=== PATIENT | female | born 1945 | race Caucasian/White ===

== ENCOUNTER 2018-02-03 17:56 | Observation (INO) | payer OTHER ==
[2018-02-03] MEDS ORDERED: ALBUTEROL 2.5 MG/3 ML NEB SOL ONE (18:18)
[2018-02-03] MEDS ORDERED: METHYLPREDNISOLONE 125 MG INJ ONE (18:18)
[2018-02-03] MEDS ORDERED: IPRATROPIUM BROM 0.5MG/2.5ML ONE (18:18)
[2018-02-03] MEDS ORDERED: NA CHLORIDE 0.9% 1,000 ML ONE (18:19)
[2018-02-03] MEDS ORDERED: PIPER/TAZO/NS 3.375gm 3.375 GM/100 ML BAG ONE (18:19)
[2018-02-03 18:33] LABS: Absolute Lymphocytes (CBC) 0.5 K/uL (0.7-4.9); Absolute Monocytes 1.5 K/uL (0.1-1.3); Basophils % 0.3 % (0-1.3); Eosinophils % 0.2 % (0-4.4); Hematocrit 42.9 % (36.0-45.0); Lymphocytes % 3.5 % (15.3-44.8); MCH 30.4 pg (27.0-35.0); MCV 92.9 fL (80-100); MPV 8.9 fL (7.6-11.3); Monocytes % 9.8 % (3.3-12.3); RBC Red Blood Cell Count 4.62 M/uL (3.86-4.86)
[2018-02-03 18:44] LABS: Protime INR 1.12
[2018-02-03 18:53] LABS: Albumin 3.6 g/dL (3.2-5.5); Bilirubin Direct 0.2 mg/dL (0-0.2); Bilirubin Total 1.8 mg/dL (0.3-1.2); Magnesium 1.8 mg/dL (1.8-2.5); Protein, Total 6.7 g/dL (6.0-8.3); Valproic Acid (Depakene) Level 17.5 ug/ml (50-100)
[2018-02-03 18:55] LABS: CKMB Creatine Kinase MB 9.6 ng/ml (0.3-4.0)
--- NOTE | 2018-02-03 19:06 | RAD REPORT ---
EXAM DESCRIPTION: RAD - Chest Single View - 02/03/2018 6:54 pm CLINICAL HISTORY: COUGH Chest pain. COMPARISON: Chest Single View dated 06/04/2017; Chest Single View dated 06/02/2017Chest Single View dated 06/04/2017; Chest Single View dated 06/02/2017; Thorax Wo Con dated 06/02/2017 FINDINGS: Portable technique limits examination quality. Emphysematous lung jurado are noted without acute infiltrate detected. The heart is normal in size. N o displaced fractures. IMPRESSION: COPD.
[2018-02-03 19:24] LABS: Thyroid Stimulating Hormone 1.56 uIU/mL (0.34-5.60)
[2018-02-03] MEDS ORDERED: ASPIRIN 81 MG CHEWABLE TABLET ONE (19:26)
[2018-02-03 19:27] LABS: Potassium 4.4 mEq/L (3.6-5.0)
[2018-02-03] MEDS ORDERED: VALPROATE NA 500 MG/5 ML INJ IV ONE (19:27)
[2018-02-03] MEDS ORDERED: LEVALBUTEROL 1.25 MG/3 ML NEB ONE (19:27)
[2018-02-03] MEDS ORDERED: FAMOTIDINE 20 MG/2 ML VIAL IV ONE (19:27)
[2018-02-03] MEDS ORDERED: ENOXAPARIN 80 MG/0.8 ML SQ ONE (19:27)
[2018-02-03] MEDS ORDERED: NA CHLORIDE 0.9% 50 ML IV ONE (19:33)
--- NOTE | 2018-02-03 19:37 | RAD REPORT ---
EXAM DESCRIPTION: CT - Head Brain Wo Cont - 02/03/2018 7:27 pm CLINICAL HISTORY: MENTAL STATUS CHANGE Drowsiness. COMPARISON: No comparisons TECHNIQUE: All CT scans are performed using dose optimization technique as appropriate and may inclu de automated exposure control or mA/KV adjustment according to patient size. FINDINGS: No intracranial hemorrhage, hydrocephalus or extra-axial fluid collection.Moderate predomi nant frontal lobe atrophy is noted.No areas of brain edema or evidence of midline shift. Moderate polypoid mucosal thickening of the right maxillary antrum. The paranasal sinuses and mastoid s are otherwise clear. The calvarium is intact. IMPRESSION: No acute intracranial abnormality.
[2018-02-03 19:40] LABS: Blood Morphology Comment NOT SEEN (NOT SEEN); Platelet Estimate ADEQ; Urine White Blood Cell Casts DIFF
--- NOTE | 2018-02-03 19:48 | EDPHYS ---
Physician Documentation [facility] Name: Elizabeth Falcon Age: 72 yrs Sex: Female : 1945 Arrival Date: 02/03/2018 Time: 17:58 Bed 7 Private MD: ED Physician Almas Carcamo HPI: 02/03 18:12 This 72 yrs old Female presents to ER via EMS with complaints of ams and sob. emilie 18:12 The patient has shortness of breath at rest, with light activity. Onset: The emilie symptoms/episode began/occurred 1 day(s) ago. Duration: The symptoms are continuous, and are steadily getting worse. The patient's shortness of breath has no apparent modifying factors. The patient or guardian reports cough, that is constant, difficulty breathing. Modifying factors: The symptoms are alleviated by nothing. the symptoms are aggravated by nothing. Associated signs and symptoms: Pertinent positives: productive cough, nausea. Severity of symptoms: At their worst the symptoms were mild moderate in the emergency department the symptoms are unchanged. Associated signs and symptoms: Pertinent positives: nausea, rhinorrhea. Historical: - Allergies: 18:18 Haldol; jl7 18:18 PENICILLINS; jl7 - Home Meds: 18:18 aspirin 81 mg Oral chew 1 tab once daily [Active]; Brovana 15 mcg/2 mL inhalation nebu jl7 [Active]; Vitamin D3 1,000 unit Oral cap daily [Active]; Depakote ER 250 mg Oral Tb24 once daily [Active]; diltiazem HCl 240 mg Oral cpER once daily [Active]; docusate sodium 100 mg Oral tab once daily [Active]; Flonase 50 mcg/actuation Nasal spsn 2 sprays once daily [Active]; folic acid 1 mg Oral tab once daily [Active]; Fosamax 70 mg Oral tab 1 tab once wkly [Active]; ipratropium-albuterol 0.5 mg-3 mg(2.5 mg base)/3 mL Inhl nebu [Active]; levothyroxine 25 mcg tab 1 tab once daily [Active]; atorvastatin 40 mg oral tab 1 tab once daily [Active]; Liquitears 1.4 % Opht drop [Active]; melatonin 3 mg Oral tab daily for sleep disorder [Active]; Pepcid 20 mg Oral tab once daily [Active]; prednisone 10 mg Oral tab once daily [Active]; PreserVision AREDS Oral [Active]; Probiotic Oral daily [Active]; Seroquel 300 mg Oral tab once daily [Active]; Singulair 10 mg Oral tab once daily [Active]; Spiriva with HandiHaler 18 mcg inhalation CpDv 1 cap once daily [Active]; Tylenol-Codeine #4 300-60 mg Oral tab [Active]; Ultracet 37.5-325 mg Oral tab twice a day [Active]; - PMHx: 18:18 COPD; MATIAS knees osteoarthritis; Hyperlipidemia; Necrotizing ulcerative stomatitis; jl7 Hypothyroidism; Bipolar disorder; Hypertension; GERD; Alzheimers; DYSPHAGIA; - Immunization history:: Adult Immunizations up to date. - Social history:: Smoking status: unknown. - Family history:: not pertinent. - Ebola Screening: : No symptoms or risks identified at this time. ROS: 18:12 Constitutional: Negative for fever, chills, and weight loss, Eyes: Negative for injury, emilie pain, redness, and discharge, Neck: Negative for injury, pain, and swelling, Cardiovascular: Negative for chest pain, palpitations, and edema, Abdomen/GI: Negative for abdominal pain, nausea, vomiting, diarrhea, and constipation, Back: Negative for injury and pain, : Negative for injury, bleeding, discharge, and swelling, MS/Extremity: Negative for injury and deformity, Skin: Negative for injury, rash, and discoloration, Neuro: Negative for headache, weakness, numbness, tingling, and seizure. 18:12 ENT: Positive for rhinorrhea, sinus congestion. 18:12 Respiratory: Positive for cough, shortness of breath, wheezing, expiratory. 18:12 Abdomen/GI: Negative for abdominal pain, nausea and vomiting, diarrhea. 18:12 MS/extremity: Negative for acute changes. 18:12 Neuro: Positive for altered mental status, weakness. Exam: 18:12 Head/Face: Normocephalic, atraumatic. Eyes: Pupils equal round and reactive to light, emilie extra-ocular motions intact. Lids and lashes normal. Conjunctiva and sclera are non-icteric and not injected. Cornea within normal limits. Periorbital areas with no swelling, redness, or edema. ENT: Nares patent. No nasal discharge, no septal abnormalities noted. Tympanic membranes are normal and external auditory canals are clear. Oropharynx with no redness, swelling, or masses, exudates, or evidence of obstruction, uvula midline. Mucous membranes moist. Neck: Trachea midline, no thyromegaly or masses palpated, and no cervical lymphadenopathy. Supple, full range of motion without nuchal rigidity, or vertebral point tenderness. No Meningismus. Chest/axilla: Normal chest wall appearance and motion. Nontender with no deformity. No lesions are appreciated. Cardiovascular: Regular rate and rhythm with a normal S1 and S2. No gallops, murmurs, or rubs. Normal PMI, no JVD. No pulse deficits. Respiratory: Lungs have equal breath sounds bilaterally, clear to auscultation and percussion. No rales, rhonchi or wheezes noted. No increased work of breathing, no retractions or nasal flaring. Back: No spinal tenderness. No costovertebral tenderness. Full range of motion. Female : Normal external genitalia. Skin: Warm, dry with normal turgor. Normal color with no rashes, no lesions, and no evidence of cellulitis. 18:12 Constitutional: The patient appears lethargic. 18:12 Respiratory: mild respiratory distress is noted, Respirations: labored breathing, that is mild, that is moderate, Breath sounds: rhonchi, wheezing: inspiratory expiratory Vital Signs: 17:56 BP 133 / 76; Pulse 127; Resp 28 S; Pulse Ox 89% on R/A; Weight 74.39 kg (R); jl7 18:21 BP 120 / 69; Pulse 118; Resp 24; Pulse Ox 100% on Nebulizer Mask; jl7 19:15 BP 130 / 71; Pulse 120; Resp 25; Pulse Ox 100% on 3 lpm NC; ea 19:40 BP 140 / 77; Pulse 125; Resp 30 S; Pulse Ox 100% on Nebulizer Mask; ea 20:37 BP 149 / 80; Pulse 122; Resp 24 S; Pulse Ox 98% on 2 lpm NC; ea 21:04 BP 134 / 83; Pulse 123; Resp 23; Pulse Ox 99% on 2 lpm NC; Pain 0/10; ea 21:30 BP 130 / 80; Pulse 120; Resp 22; Temp 97.8(A); Pulse Ox 99% on 2 lpm NC; Pain 0/10; ea MDM: 18:02 Patient medically screened. [facility] 18:17 Data reviewed: vital signs, nurses notes, EMS record, lab test result(s), EKG, [facility] radiologic studies, CT scan, plain films. 02/03 18:10 Order name: Basic Metabolic Panel; Complete Time: 19:38 [facility] 02/03 18:10 Order name: BNP; Complete Time: 19:15 emilie 02/03 18:10 Order name: CBC with Diff; Complete Time: 19:41 [facility] 02/03 18:10 Order name: Ckmb; Complete Time: 19:38 [facility] 02/03 18:10 Order name: CPK; Complete Time: 19:38 [facility] 02/03 18:10 Order name: LFT's; Complete Time: 19:38 [facility] 02/03 18:10 Order name: Magnesium; Complete Time: 19:38 [facility] 02/03 18:10 Order name: PT-INR; Complete Time: 19:15 [facility] 02/03 18:10 Order name: Ptt, Activated; Complete Time: 19:15 [facility] 02/03 18:10 Order name: Troponin (emerg Dept Use Only); Complete Time: 19:15 [facility] 02/03 18:10 Order name: Lipase; Complete Time: 19:38 [facility] 02/03 18:10 Order name: Blood Culture Adult (2) [facility] 02/03 18:10 Order name: Urine Culture [facility] 02/03 18:10 Order name: Depakote; Complete Time: 19:38 [facility] 02/03 18:10 Order name: XRAY Chest (1 view); Complete Time: 19:15 [facility] 02/03 18:10 Order name: TSH; Complete Time: 19:38 [facility] 02/03 18:14 Order name: CT Head Brain wo Cont; Complete Time: 19:41 bd 02/03 18:35 Order name: CBC Smear Scan EDUT 02/03 19:21 Order name: Urine Dipstick--Ancillary (enter results); Complete Time: 20:25 rg2 02/03 19:40 Order name: Manual Differential; Complete Time: 19:41 EDMS 02/03 19:51 Order name: ABG; Complete Time: 21:31 emilie 02/03 20:06 Order name: Echo with Doppler EDMS 02/03 20:14 Order name: CBC with Automated Diff EDMS 02/03 20:14 Order name: CBC with Automated Diff EDMS 02/03 20:14 Order name: Comprehensive Metabolic Panel [facility] 02/03 20:14 Order name: Comprehensive Metabolic Panel [facility] 02/03 20:14 Order name: Chest Single View [facility] 02/03 20:14 Order name: Chest Single View [facility] 02/03 18:05 Order name: EKG Electrocardiogram; Complete Time: 20:58 [facility] 02/03 18:10 Order name: EKG; Complete Time: 18:11 [facility] 02/03 18:10 Order name: Cardiac monitoring; Complete Time: 18:19 [facility] 02/03 18:10 Order name: EKG - Nurse/Tech; Complete Time: 18:19 [facility] 02/03 18:10 Order name: IV Saline Lock; Complete Time: 18:29 [facility] 02/03 18:10 Order name: Labs collected and sent; Complete Time: 18:29 [facility] 02/03 18:10 Order name: O2 Per Protocol; Complete Time: 18:19 [facility] 02/03 18:10 Order name: O2 Sat Monitoring; Complete Time: 18:19 [facility] 02/03 18:10 Order name: Urine Dipstick-Ancillary (obtain specimen); Complete Time: 19:16 [facility] 02/03 18:10 Order name: [place]; Complete Time: 19:06 [facility] 02/03 20:14 Order name: CONS Pharmacy Consult [facility] 02/03 20:14 Order name: [facility] Administered Medications: 18:27 Drug: NS 0.9% 1000 ml Route: IV; Rate: 125 ml/hr; Site: right antecubital; rk2 21:11 Follow up: Response: No adverse reaction; IV Status: Completed infusion ea 18:27 Drug: SOLU-Medrol 125 mg Route: IVP; Site: right antecubital; rk2 19:00 Follow up: Response: No adverse reaction ea 18:27 Drug: Albuterol - atroVENT (3:1) (2.5 mg - 0.5 mg) 3 ml Route: Nebulizer; rk2 20:40 Follow up: Response: No adverse reaction; Wheezing unchanged ea 18:28 Drug: NS 0.9% 500 ml Route: IV; Rate: bolus; Site: right antecubital; rk2 19:15 Follow up: Response: No adverse reaction; IV Status: Completed infusion ea 18:39 Drug: Zosyn 3.375 grams Route: IVPB; Infused Over: 60 mins; Site: right antecubital; rk2 19:00 Follow up: Response: No adverse reaction; IV Status: Completed infusion ea 19:38 Drug: Pepcid 20 mg Route: IVP; Site: right antecubital; mg2 20:40 Follow up: Response: No adverse reaction ea 19:39 Drug: Depacon 500 mg Volume: 5 ml; Route: IV; Rate: calculated rate; Site: right mg2 antecubital; 20:00 Follow up: Response: No adverse reaction; IV Status: Completed infusion ea 19:39 Drug: Xopenex 2.5 mg Route: Inhalation; mg2 19:58 Drug: Decadron - Dexamethasone 10 mg Route: IVP; Site: right antecubital; ea 20:38 Follow up: Response: No adverse reaction ea 20:18 Drug: NS 0.9% 500 ml Route: IV; Rate: bolus; Site: right antecubital; ea 21:08 Follow up: Response: No adverse reaction; IV Status: Infusion continued upon admission ea 20:33 Drug: levofloxacin 500 mg Volume: 100 ml; Route: IVPB; Infused Over: 60 mins; Site: ea right antecubital; 21:10 Follow up: IV Status: Infusion continued upon admission ea 20:38 Drug: Aspirin Suppository 300 mg Route: SC; ea 21:09 Follow up: Response: No adverse reaction ea 20:39 Not Given (Patient Refused): Aspirin Chewable Tablet 162 mg PO once ea 20:58 Drug: Lovenox 70 mg Route: Sub-Q; Site: right lower abdomen; mg2 21:07 Follow up: Response: No adverse reaction ea Disposition: 02/03/18 19:47 Hospitalization ordered by Jj Jeffers for Inpatient Admission. Preliminary diagnosis are Chronic obstructive pulmonary disease with (acute) exacerbation, Hypoxemia, Elevated white blood cell count, Altered mental status, unspecified, Volume depletion. - Bed requested for Telemetry/MedSurg (Inpatient). - Status is Inpatient Admission. ea - Condition is Fair. - Problem is new. - Symptoms have improved. UTI on Admission? No Signatures: Dispatcher [employer] EDMS Linnette Wolf2 Almas Carcamo MD MD cha Leal, Jahala RN RN jl7 Annette Soni RN RN Ashley Flynn RN RN rk2 Gardose, Tylor, RN RN mg2 Corrections: (The following items were deleted from the chart) 20:57 19:47 Hospitalization Ordered by Jj Jeffers MD for Inpatient Admission. Preliminary rg2 diagnosis is Chronic obstructive pulmonary disease with (acute) exacerbation; Hypoxemia; Elevated white blood cell count; Altered mental status, unspecified; Volume depletion. Bed requested for Telemetry/MedSurg (Inpatient). Status is Inpatient Admission. Condition is Fair. Problem is new. Symptoms have improved. UTI on Admission? No. emilie 22:11 20:57 02/03/2018 19:47 Hospitalization Ordered by Jj Jeffers MD for Inpatient ea Admission. Preliminary diagnosis is Chronic obstructive pulmonary disease with (acute) exacerbation; Hypoxemia; Elevated white blood cell count; Altered mental status, unspecified; Volume depletion. Bed requested for Telemetry/MedSurg (Inpatient). Status is Inpatient Admission. Condition is Fair. Problem is new. Symptoms have improved. UTI on Admission? No. rg2
--- NOTE | 2018-02-03 19:48 | ER ---
Nurse's Notes [facility] Name: Elizabeth Falcon Age: 72 yrs Sex: Female : 1945 Arrival Date: 02/03/2018 Time: 17:58 Bed 7 Private MD: Diagnosis: Chronic obstructive pulmonary disease with (acute) exacerbation;Hypoxemia;Elevated white blood cell count;Altered mental status, unspecified;Volume depletion Presentation: 02/03 17:59 Presenting complaint: EMS states: Staff at [facility] reports that she is jl7 AMS, hasn't been eating today and isn't walking to the restroom like normal. Transition of care: patient was received from another setting of care (long-term care facility), [facility]. Onset of symptoms was February 03, 2018. Risk Assessment: Do you want to hurt yourself or someone else? Patient reports no desire to harm self or others. Initial Sepsis Screen: Does the patient meet any 2 criteria? Altered Mental Status. HR > 90 bpm. Does the patient have a suspected source of infection? No. Patient's initial sepsis screen is negative. Care prior to arrival: IV initiated. 20 GA, in the right antecubital area, Glucose check: 174. 17:59 Method Of Arrival: EMS: [facility] jl7 17:59 Acuity: ALLYSON 3 jl7 Triage Assessment: 18:18 General: Appears in no apparent distress. uncomfortable, Behavior is cooperative. Pain: jl7 Denies pain. Historical: - Allergies: 18:18 Haldol; jl7 18:18 PENICILLINS; jl7 - Home Meds: 18:18 aspirin 81 mg Oral chew 1 tab once daily [Active]; Brovana 15 mcg/2 mL inhalation banneru jl7 [Active]; Vitamin D3 1,000 unit Oral cap daily [Active]; Depakote ER 250 mg Oral Tb24 once daily [Active]; diltiazem HCl 240 mg Oral cpER once daily [Active]; docusate sodium 100 mg Oral tab once daily [Active]; Flonase 50 mcg/actuation Nasal spsn 2 sprays once daily [Active]; folic acid 1 mg Oral tab once daily [Active]; Fosamax 70 mg Oral tab 1 tab once wkly [Active]; ipratropium-albuterol 0.5 mg-3 mg(2.5 mg base)/3 mL Inhl nebu [Active]; levothyroxine 25 mcg tab 1 tab once daily [Active]; atorvastatin 40 mg oral tab 1 tab once daily [Active]; Liquitears 1.4 % Opht drop [Active]; melatonin 3 mg Oral tab daily for sleep disorder [Active]; Pepcid 20 mg Oral tab once daily [Active]; prednisone 10 mg Oral tab once daily [Active]; PreserVision AREDS Oral [Active]; Probiotic Oral daily [Active]; Seroquel 300 mg Oral tab once daily [Active]; Singulair 10 mg Oral tab once daily [Active]; Spiriva with HandiHaler 18 mcg inhalation CpDv 1 cap once daily [Active]; Tylenol-Codeine #4 300-60 mg Oral tab [Active]; Ultracet 37.5-325 mg Oral tab twice a day [Active]; - PMHx: 18:18 COPD; MATIAS knees osteoarthritis; Hyperlipidemia; Necrotizing ulcerative stomatitis; jl7 Hypothyroidism; Bipolar disorder; Hypertension; GERD; Alzheimers; DYSPHAGIA; - Immunization history:: Adult Immunizations up to date. - Social history:: Smoking status: unknown. - Family history:: not pertinent. - Ebola Screening: : No symptoms or risks identified at this time. Screenin:22 Abuse screen: Denies threats or abuse. Denies injuries from another. Nutritional jl7 screening: No deficits noted. Tuberculosis screening: No symptoms or risk factors identified. 19:41 Fall Risk IV access (20 points). mg2 Assessment: 18:20 General: Appears well developed, well nourished, mild distress. Behavior is calm, rk2 cooperative. Pain: Denies pain. Neuro: Level of Consciousness is awake, obeys commands, Oriented to person. Cardiovascular: Rhythm is sinus rhythm. Respiratory: Airway is patent Respiratory effort is even, labored, Respiratory pattern is regular, symmetrical, Breath sounds with wheezes in right upper lobe, left upper lobe, right middle lobe, left lower lobe, right lower lobe, left posterior upper lobe, right posterior upper lobe, left posterior lower lobe, right posterior middle lobe and right posterior lower lobe. GI: No signs and/or symptoms were reported involving the gastrointestinal system. EENT: No deficits noted. Derm: Skin is pink, warm \T\ dry. 19:00 Reassessment: Conway cath placed... pt. noted to be more labored breathing than when she rk2 first arrived. Dr. Carcamo notified. 19:15 General: Appears uncomfortable, Behavior is cooperative. Pain: Denies pain. Neuro: ea Level of Consciousness is awake, obeys commands, Oriented to person. Cardiovascular: Heart tones S1 S2 present Patient's skin is warm and dry. Respiratory: Airway is patent Respiratory effort is even, labored, Respiratory pattern is symmetrical, tachypnea. GI: Abdomen is non-distended, obese, Bowel sounds present X 4 quads. : Conway in place to gravity drainage. EENT: No deficits noted. Derm: Skin is dry, Skin is pale, Skin temperature is warm. Musculoskeletal: Circulation, motion, and sensation intact. 20:35 Reassessment: Patient and/or family updated on plan of care and expected duration. Pain ea level reassessed. Pt resting with eyes closed, respirations even, tachypneic, chest expansions even and symmetrical. No s/s of pain or discomfort noted. Pt awakens with verbal stimuli, oriented to self. 21:05 Reassessment: Patient and/or family updated on plan of care and expected duration. Pain ea level reassessed. Pt resting with eyes closed respirations improved since last, Respirations even , chest expansions even and symmetrical. 21:40 Reassessment: Patient and/or family updated on plan of care and expected duration. Pain ea level reassessed. Report called to Shannan FOUNTAIN. 21:50 Reassessment: Patient and/or family updated on plan of care and expected duration. Pain ea level reassessed. Pt alert oriented to self, respirations improved, chest expansions even and symmetrical. pt RR at 22 breaths per minute. Pt transported to second floor per nurse and tech. Pt tolerated well. Vital Signs: 17:56 BP 133 / 76; Pulse 127; Resp 28 S; Pulse Ox 89% on R/A; Weight 74.39 kg (R); jl7 18:21 BP 120 / 69; Pulse 118; Resp 24; Pulse Ox 100% on Nebulizer Mask; jl7 19:15 BP 130 / 71; Pulse 120; Resp 25; Pulse Ox 100% on 3 lpm NC; ea 19:40 BP 140 / 77; Pulse 125; Resp 30 S; Pulse Ox 100% on Nebulizer Mask; ea 20:37 BP 149 / 80; Pulse 122; Resp 24 S; Pulse Ox 98% on 2 lpm NC; ea 21:04 BP 134 / 83; Pulse 123; Resp 23; Pulse Ox 99% on 2 lpm NC; Pain 0/10; ea 21:30 BP 130 / 80; Pulse 120; Resp 22; Temp 97.8(A); Pulse Ox 99% on 2 lpm NC; Pain 0/10; ea ED Course: 17:58 Patient arrived in ED. iw 18:02 Almas Carcamo MD is Attending Physician. emilie 18:03 Triage completed. jl7 18:05 EKG done, by physics technician. reviewed by [place] MD. at1 18:05 Maintain EMS IV. Dressing intact. Good blood return noted. Site clean \T\ dry. Gauge \T\ jl 7 site: 20 right AC. 18:09 Ashley Joshua, ESSIE is Primary Nurse. rk2 18:18 Radiology exam delayed due to patient receiving breathing treatment at this time. kw1 18:21 Arm band placed on right wrist. jl7 18:22 Patient has correct armband on for positive identification. Placed in gown. Bed in low jl7 position. Call light in reach. Side rails up X2. shirring machine operator on. Pulse ox on. NIBP on. Warm blanket given. 18:35 Initial lab(s) drawn, by ED staff, sent to lab. First set of blood cultures drawn Right jp3 A/C Second set of blood cultures drawn Left A/C. 18:48 Radiology exam delayed due to patient receiving breathing treatment at this time. kw1 18:53 XRAY Chest (1 view) In Process Unspecified. EDMS 19:27 CT Head Brain wo Cont In Process Unspecified. EDMS 19:27 CT completed. Patient moved to CT via stretcher. Patient moved back from CT. cw1 19:43 Jj Jeffers MD is Hospitalizing Provider. emilie 21:50 Patient admitted, IV remains in place. ea 22:09 No provider procedures requiring assistance completed. ea Administered Medications: 18:27 Drug: NS 0.9% 1000 ml Route: IV; Rate: 125 ml/hr; Site: right antecubital; rk2 21:11 Follow up: Response: No adverse reaction; IV Status: Completed infusion ea 18:27 Drug: SOLU-Medrol 125 mg Route: IVP; Site: right antecubital; rk2 19:00 Follow up: Response: No adverse reaction ea 18:27 Drug: Albuterol - atroVENT (3:1) (2.5 mg - 0.5 mg) 3 ml Route: Nebulizer; rk2 20:40 Follow up: Response: No adverse reaction; Wheezing unchanged ea 18:28 Drug: NS 0.9% 500 ml Route: IV; Rate: bolus; Site: right antecubital; rk2 19:15 Follow up: Response: No adverse reaction; IV Status: Completed infusion ea 18:39 Drug: Zosyn 3.375 grams Route: IVPB; Infused Over: 60 mins; Site: right antecubital; rk2 19:00 Follow up: Response: No adverse reaction; IV Status: Completed infusion ea 19:38 Drug: Pepcid 20 mg Route: IVP; Site: right antecubital; mg2 20:40 Follow up: Response: No adverse reaction ea 19:39 Drug: Depacon 500 mg Volume: 5 ml; Route: IV; Rate: calculated rate; Site: right mg2 antecubital; 20:00 Follow up: Response: No adverse reaction; IV Status: Completed infusion ea 19:39 Drug: Xopenex 2.5 mg Route: Inhalation; mg2 19:58 Drug: Decadron - Dexamethasone 10 mg Route: IVP; Site: right antecubital; ea 20:38 Follow up: Response: No adverse reaction ea 20:18 Drug: NS 0.9% 500 ml Route: IV; Rate: bolus; Site: right antecubital; ea 21:08 Follow up: Response: No adverse reaction; IV Status: Infusion continued upon admission ea 20:33 Drug: levofloxacin 500 mg Volume: 100 ml; Route: IVPB; Infused Over: 60 mins; Site: ea right antecubital; 21:10 Follow up: IV Status: Infusion continued upon admission ea 20:38 Drug: Aspirin Suppository 300 mg Route: MO; ea 21:09 Follow up: Response: No adverse reaction ea 20:39 Not Given (Patient Refused): Aspirin Chewable Tablet 162 mg PO once ea 20:58 Drug: Lovenox 70 mg Route: Sub-Q; Site: right lower abdomen; mg2 21:07 Follow up: Response: No adverse reaction ea Outcome: 19:47 Decision to Hospitalize by Provider. emilie 21:50 Admitted to Med/surg accompanied by nurse, accompanied by tech, via stretcher, room ea 230, with oxygen, with chart, Report called to Shannan FOUNTAIN 21:50 Condition: stable 21:50 Instructed on the need for admit. 22:11 Patient left the ED. tiffanie Signatures: Dispatcher [employer] EDNH Almas Carcamo MD MD cha Williams, Irene, RN ESSIE Trent, April cw1 Nayana quiroga, beef cattle farm manager EKG Tat1 Michael oJy RN RN jl7 Annette Soni RN Carmina Lam ea kw1 Ashley Joshua RN RN rk2 Tylor Pettit RN RN mg2 Mark Isbell jp3 Corrections: (The following items were deleted from the chart) 18:19 18:[address] via stretcher. kw1 kw1
[2018-02-03] MEDS ORDERED: Levofloxacin500mg IV 500 MG/100 ML BAG IV ONE (19:53)
[2018-02-03] MEDS ORDERED: DEXAMETHASONE 10 MG/ML VIAL ONE (19:55)
[2018-02-03 19:56] LABS: Urine Blood 1+ (NEG); Urine Glucose NEGATIVE (NEG); Urine Protein 3+ (NEG); Urine Specific Gravity >1.030 (1.005-1.030)
[2018-02-03] MEDS ORDERED: NA CHLORIDE 0.9% 500 ML ONE (20:05)
[2018-02-03] MEDS ORDERED: MORPHINE 2 MG/ML SYR IV PRN (20:11)
[2018-02-03] MEDS ORDERED: ONDANSETRON 4 MG/2 ML VIAL IV PRN (20:11)
[2018-02-03] MEDS ORDERED: ASPIRIN 600 MG/SUPP PR ONE (20:16)
[2018-02-03 20:20] LABS: Arterial Blood Carboxyhemoglob 1.3 % (0-1.5); Blood Gas Oxyhemoglobin 94.8 % (94-97); Blood O2 Saturation 97.1 % (92-98.5)
[2018-02-03] MEDS ORDERED: HOME MED 1 EA UNK (Gabapentin [Gralise] 300 MG) PO SCH (21:00)
[2018-02-03] MEDS: NA CHLORIDE 0.9% 1,000 ML IV SCH (21:00)
[2018-02-03] MEDS ORDERED: VALPROIC ACID 250 MG/5 ML OSYR PO SCH (21:00)
[2018-02-03] MEDS ORDERED: NA CHLORIDE 0.9% 1,000 ML IV SCH (21:00)
[2018-02-03] MEDS ORDERED: QUETIAPINE 100MG TAB PO SCH (21:00)
[2018-02-04] MEDS: NA CHLORIDE 0.9% 1,000 ML IV SCH ×4 (04:22→22:06)
[2018-02-04 05:12] LABS: Absolute Lymphocytes (CBC) 0.4 K/uL (0.7-4.9); Absolute Monocytes 0.2 K/uL (0.1-1.3); Absolute Neutrophil 10.1 K/uL (1.8-8.0); Basophils % 0.3 % (0-1.3); Hematocrit 36.8 % (36.0-45.0); Lymphocytes % 3.5 % (15.3-44.8); MCV 91.8 fL (80-100); Monocytes % 1.7 % (3.3-12.3); RBC Red Blood Cell Count 4.01 M/uL (3.86-4.86)
[2018-02-04 05:46] LABS: Albumin 2.7 g/dL (3.2-5.5); Bilirubin Total 0.6 mg/dL (0.3-1.2); Potassium 4.3 mEq/L (3.6-5.0); Protein, Total 5.1 g/dL (6.0-8.3)
--- NOTE | 2018-02-04 07:02 | P.HP ---
Certification for Inpatient Patient admitted to: Inpatient With expected LOS: >2 Midnights Patient will require the following post-hospital care: None Practitioner: I am a practitioner with admitting privileges, knowledge of patient current condition, hospital course, and medical plan of care. Services: Services provided to patient in accordance with Admission requirements found in Title 42 Section 412.3 of the Code of Federal Regulations Patient History Date of Service: 02/03/18 Reason for admission: difficulty breathing History of Present Illness: Patient is a 72-year-old female came to the hospital with difficulty breathing. Patient states she has been short of breath for the last 24 hr her respiratory status has been worsening. She has had a lot of mucus production along with a cough and congestion. She has also has some nausea but denies any vomiting. It appears she may have an upper respiratory infection which may have resulted in a COPD exacerbation. She is coughing and wheezing with no other complaints. Patient lives at the residential and normally gets around with a walker. Patient also has some difficulty with swallowing her pills this morning. Will keep her NPO for speech therapy evaluation. There was concern for her mentation being altered. She was slightly confused but she answered most my questions fairly appropriately. This may be related to a upper respiratory infection or she could not had an issue with aspiration which we will evaluate in the morning. Allergies haloperidol [From Haldol] Allergy (Verified 06/02/17 20:02) Rash Penicillins Allergy (Verified 06/02/17 20:02) Rash Home Medications: Aspirin [Aspir-Low] 81 mg PO DAILY 06/03/17 Cholecalciferol (Vitamin D3) [Vitamin D3] 2,000 unit PO DAILY 06/03/17 Diltiazem HCl [Diltiazem 24Hr ER] 240 mg PO DAILY 06/03/17 Docusate Sodium 100 mg PO DAILY 06/03/17 Famotidine [Pepcid] 20 mg PO DAILY 06/03/17 Folic Acid 1 mg PO DAILY 06/03/17 L.acidoph/B.long/L.plant/B.lac [Probiotic Acidophilus Beads] 1 each PO DAILY Levothyroxine Sodium 25 mcg PO DAILY 06/03/17 Montelukast Sodium [Singulair] 10 mg PO DAILY 06/03/17 Polyvinyl Alcohol [Liquitears] 15 ml OP BID 10/16/17 Tiotropium [Spiriva Handihaler*] 1 puff IH DAILY 06/03/17 Tramadol HCl/Acetaminophen [Ultracet Tablet] 1 each PO Q6H PRN 06/03/17 Vit C/E/Zn/Coppr/Lutein/Zeaxan [Preservision Areds 2 Softgel] 1 each PO BID Arformoterol Tartrate [Brovana] 15 mcg NEB BIDRESP #60 vial.neb 06/05/17 predniSONE [Deltasone*] 10 mg PO DAILY #7 tab 06/05/17 Acetaminophen with Codeine [Acetaminophen-Cod #4 Tablet] 1 each PO BID 02/03/18 Albuterol Sulfate [Albuterol Sulfate 0.083% Neb Soln] 2.5 mg IH Q6H PRN Alendronate Sodium [Fosamax] 70 mg PO DIRECTED 02/03/18 Atorvastatin Calcium [Lipitor] 40 mg PO BEDTIME 02/03/18 Divalproex ER [Depakote *ER*] 250 mg PO BID 02/03/18 Fluticasone [Flonase 50mcg Nasal [place]] 2 sprays NS BID 02/03/18 Ipratropium/Albuterol Sulfate [Iprat-Albut 0.5-3(2.5) mg/3 ml] 3 ml IH Q6H PRN 02/03/18 Melatonin [Melatonin*] 3 mg PO BEDTIME PRN 02/03/18 Quetiapine [Seroquel] 100 mg PO BEDTIME 02/03/18 - Past Medical/Surgical History Diabetic: No -: COPD -: HTN -: HYPOTHYROIDISM -: BIPOLAR -: GERD -: ALZHEIMERS -: CVA Past Surgical History: Reviewed- Non-Contributory - Family History Father Family History: Reviewed- Non-Contributory - Social History Smoking Status: Unknown if ever smoked Alcohol use: No CD- Drugs: No Caffeine use: Yes Place of Residence: Detention Review of Systems 10-point ROS is otherwise unremarkable Physical Examination - Vital Signs Temperature: 97.4 F Blood Pressure: 128/64 Pulse: 76 Respirations: 16 Pulse Ox (%): 97 - Physical Exam General: Alert, In no apparent distress, Oriented x2 HEENT: Atraumatic, PERRLA, Mucous membr. moist/pink, EOMI, Sclerae nonicteric Neck: Supple, 2+ carotid pulse no bruit, No LAD, Without JVD or thyroid abnormality Respiratory: Expiratory wheezes Cardiovascular: Regular rate/rhythm, Normal S1 S2, Systolic murmur Gastrointestinal: Normal bowel sounds, Soft and benign, Non-distended, No tenderness Musculoskeletal: No clubbing, No swelling, No tenderness Integumentary: No rashes Neurological: Normal gait, Normal speech, Normal strength at 5/5 x4 extr, Normal tone, Sensation intact, Cranial nerves 3-12 intact, Normal affect Lymphatics: No axilla or inguinal lymphadenopathy - Studies Laboratory Data (last 24 hrs) 02/03/18 18:20: PT 13.2 H, INR 1.12, APTT 25.5 02/03/18 18:20: WBC 15.1 H, Hgb 14.1, Hct 42.9, Plt Count 199 02/03/18 18:20: B-Natriuretic Peptide 129 H 02/03/18 18:20: Sodium 137, Potassium 4.4, BUN 13, Creatinine 1.00, Glucose 164 H, Magnesium 1.8, Total Bilirubin 1.8 H, AST 19, ALT 15, Alkaline Phosphatase 62 , Lipase 17 L Assessment & Plan - Problems (Diagnosis) (1) Aspiration pneumonia Onset Date: 06/03/17 Current Visit: No Status: Acute (2) COPD exacerbation Onset Date: 06/03/17 Current Visit: No Status: Acute (3) Pneumonia Current Visit: No Status: Acute Qualifiers: Pneumonia type: due to unspecified organism Laterality: right Lung location: upper lobe of lung Qualified Code(s): J18.1 - Lobar pneumonia, unspecified organism (4) Renal insufficiency Current Visit: No Status: Acute (5) Bipolar 1 disorder Onset Date: 06/03/17 Current Visit: No Status: Chronic (6) Hypertension Current Visit: No Status: Chronic Qualifiers: Hypertension type: essential hypertension Qualified Code(s): I10 - Essential (primary) hypertension (7) Hypothyroidism Current Visit: No Status: Chronic Qualifiers: Hypothyroidism type: unspecified Qualified Code(s): E03.9 - Hypothyroidism , unspecified (8) Protein in urine Current Visit: Yes Status: Acute (9) Dementia in Alzheimer's disease Current Visit: Yes Status: Acute - Plan PLAN: 1. Nebs, steroids, and antibiotics 2. Repeat CXR 3. Speech therapy 4. OOB and ambulate 5. Check renal US-proteinuria 6. GI/DVT prophylaxis Discharge Plan: Detention Plan to discharge in: Greater than 2 days - Advance Directives Does patient have a Living Will: No Does patient have a Durable POA for Healthcare: No - Code Status/Comfort Care Code Status Assessed: Yes Code Status: Full Code Critical Care: No Time Spent Managing PTS Care (In Minutes): 45
[2018-02-04] MEDS ORDERED: HOME MED 1 EA UNK (Ipratropium/Albuterol Sulfate [Iprat-Albut 0.5-3(2.5) Mg/3 Ml] 3 ML) IH PRN (07:19)
[2018-02-04] MEDS ORDERED: MELATONIN 3 MG TABLET PO PRN (07:19)
[2018-02-04] MEDS ORDERED: TRAMADOL 37.5mg/APAP 325mg PER TAB PO PRN (07:19)
--- NOTE | 2018-02-04 07:21 | RAD REPORT ---
EXAM DESCRIPTION: RAD - Chest Single View - 02/04/2018 6:45 am CLINICAL HISTORY: Pneumonia COMPARISON: February 03 TECHNIQUE: AP portable chest image was obtained 0629 hours . FINDINGS: No new mass or consolidation. Lung markings are similar to comparison. Patient has a basel ine chronic interstitial lung pattern potentially masking earliest stages of infiltrate or edema. Trachea is midline. Heart and vasculature are normal. No measurable pleural effusion and no pneumotho rax. No gross bony abnormality seen. No acute aortic findings suspected. IMPRESSION: No acute cardiopulmonary process. Chronic interstitial lung disease is present similar to comparison.
[2018-02-04] MEDS: ARFORMOTEROL TARTRATE 15 MCG/2 ML VIAL.NEB NEB SCH ×2 (08:00→20:51)
[2018-02-04] MEDS: LEVOTHYROXINE SOD 0.025 MG TAB PO SCH (08:15)
[2018-02-04] MEDS ORDERED: MORPHINE 4 MG/ML SYR IV PRN (08:16)
[2018-02-04] MEDS ORDERED: IPRATROPIUM BROM 0.5MG/2.5ML IH PRN (08:28)
--- NOTE | 2018-02-04 08:33 | P.PN ---
Subjective Date of Service: 02/04/18 Primary Care Provider: group home Chief Complaint: difficulty breathing Subjective: Demented (Patient doing well at this time. No complaints noted) Physical Examination - Vital Signs Temperature: 9735 F Blood Pressure: 141/63 Pulse: 62 Respirations: 20 Pulse Ox (%): 98 - Physical Exam General: Alert, Demented HEENT: Atraumatic Neck: Supple Respiratory: Expiratory wheezes (Mild bilateral) Cardiovascular: Normal pulses, Regular rate/rhythm Gastrointestinal: Normal bowel sounds, Soft and benign, Non-distended, No tenderness, No masses, No rebound, No guarding Musculoskeletal: No erythema, No tenderness, No warmth Integumentary: No tenderness/swelling, No erythema, No warmth, No cyanosis Neurological: Normal speech, Normal strength at 5/5 x4 extr, Normal tone, Dementia - Studies Laboratory Data (last 24 hrs) 02/03/18 18:20: PT 13.2 H, INR 1.12, APTT 25.5 02/03/18 18:20: WBC 15.1 H, Hgb 14.1, Hct 42.9, Plt Count 199 02/03/18 18:20: B-Natriuretic Peptide 129 H 02/03/18 18:20: Sodium 137, Potassium 4.4, BUN 13, Creatinine 1.00, Glucose 164 H, Magnesium 1.8, Total Bilirubin 1.8 H, AST 19, ALT 15, Alkaline Phosphatase 62 , Lipase 17 L Medications List Reviewed: Yes Assessment & Plan - Problems (Diagnosis) (1) Dementia in Alzheimer's disease Current Visit: Yes Status: Chronic Plan: Will continue with her medication. (2) Aspiration pneumonia Onset Date: 06/03/17 Current Visit: No Status: Suspected Plan: Chest x-ray unremarkable. Patient at risk for aspiration pneumonia. Will continue IV antibiotic therapy and monitor closely. Aspiration precaution in place. (3) COPD (chronic obstructive pulmonary disease) Current Visit: No Status: Acute Plan: Will continue with COPD treatment. Will wean off oxygen. Will continue with medication. Qualifiers: COPD type: COPD with acute exacerbation Qualified Code(s): J44.1 - Chronic obstructive pulmonary disease with (acute) exacerbation (4) Renal insufficiency Current Visit: No Status: Acute Plan: Will monitor closely. Will provide IV fluids (5) Bipolar 1 disorder Onset Date: 06/03/17 Current Visit: No Status: Chronic Plan: Will continue with her medication. (6) Hypertension Current Visit: No Status: Chronic Plan: Will review and Restart home medication. Qualifiers: Hypertension type: essential hypertension Qualified Code(s): I10 - Essential (primary) hypertension (7) Hypothyroidism Current Visit: No Status: Chronic Plan: Continue with medication. Qualifiers: Hypothyroidism type: unspecified Qualified Code(s): E03.9 - Hypothyroidism , unspecified (8) Dysphagia Current Visit: Yes Status: Acute Plan: Will have speech evaluate swallowing. Patient may require modified barium swallow. (9) Elevated troponin Current Visit: Yes Status: Acute Plan: Will consult cardiology to further assess. Will check echocardiogram. Discharge Plan: Long Term Plan to discharge in: 48 Hours Time Spent Managing Pts Care (In Minutes): 55
[2018-02-04] MEDS: ENOXAPARIN 80 MG/0.8 ML SQ SCH ×2 (09:00→20:12)
[2018-02-04] MEDS ORDERED: FLUTICASONE 50MCG NASAL SPRAY NAS SCH (09:00)
[2018-02-04] MEDS ORDERED: ASPIRIN 81 MG CHEWABLE TABLET PO SCH (09:00)
[2018-02-04] MEDS: FOLIC ACID 1 MG TABLET PO SCH (09:00)
[2018-02-04] MEDS: MONTELUKAST 10 MG TAB PO SCH (09:00)
[2018-02-04] MEDS: GABAPENTIN 300 MG CAP PO SCH ×2 (09:00→20:11)
[2018-02-04] MEDS: ACETAMINOPHEN WITH CODEINE PO SCH ×2 (09:00→20:13)
[2018-02-04] MEDS: predniSONE 10 MG TAB PO SCH (09:00)
[2018-02-04] MEDS: LACTOBACILLUS/ACIDOPHILUS TAB PO SCH (09:00)
[2018-02-04] MEDS: FAMOTIDINE 20 MG TAB PO SCH (09:00)
[2018-02-04] MEDS: ASPIRIN EC 81 MG TAB PO SCH (09:00)
[2018-02-04] MEDS: DIVALPROEX ER 250 MG TAB PO SCH ×2 (09:00→20:11)
[2018-02-04] MEDS ORDERED: VALPROIC ACID 250 MG/5 ML OSYR PO SCH (09:00)
[2018-02-04] MEDS: VITAMIN D 1000 UNIT TAB PO SCH (09:00)
[2018-02-04] MEDS: DILTIAZEM HCL 120 MG SR CAP PO SCH (09:00)
[2018-02-04] MEDS: DOCUSATE NA 100 MG CAP PO SCH (09:00)
[2018-02-04] MEDS ORDERED: LEVOTHYROXINE SOD 0.025 MG TAB PO SCH (09:00)
--- NOTE | 2018-02-04 09:29 | EKG ---
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
[2018-02-04] MEDS ORDERED: LORazepam 2 MG/ML VIAL IV ONE (09:59)
--- NOTE | 2018-02-04 11:31 | RAD REPORT ---
EXAM DESCRIPTION: MRI - Stroke Protocol - 02/04/2018 10:43 am CLINICAL HISTORY: TIA/ataxia. TECHNIQUE: In axial, sagittal and coronal magnetic resonance imaging of the brain was obtained. 15 m L MultiHance was administered intravenously. Magnetic resonance angiogram of the head and neck was pe rformed. Source images were reviewed and reconstructed at 360 degrees rotation. COMPARISON: Head CT February 03, 2018. FINDINGS: No significant abnormal signal within the brain is noted. Cerebral atrophy is seen. Diffusion weighted/ADC mapping does not reveal evidence of an acute infarction. The ventricles are normal caliber. An extra-axial fluid collection is not seen. Fluid within the sinuses/mastoids is not seen. A mucus retention cyst is present within the right max illary sinus. Common carotid, internal carotid and external carotid arteries do not demonstrate a significant steno sis. The left vertebral artery is a little bit more dominant than the right. No significant abnormality is noted. Dolichoectasia of the vertebral basilar artery is present. The posterior cerebral arteries were not well visualized secondary to technical factors. Anterior cerebral, middle cerebral, internal carotid and basilar arteries do not demonstrate a signif icant stenosis. An aneurysm is not seen. IMPRESSION: 1. No acute intracranial abnormality is noted. 2. No significant abnormality involving the arteries of the head and neck.
--- NOTE | 2018-02-04 11:36 | RAD REPORT ---
EXAM DESCRIPTION: VASCarotid Artery Bilateral02/04/2018 11:03 am CLINICAL HISTORY: TIA/ataxia COMPARISON: None FINDINGS: The velocity of the right internal carotid artery equals 82 1.7 cm/sec. The right ICA/CCA ratio 0.6 The velocity of the left internal carotid artery equals 48 cm/sec. The left ICA/CCA ratio 0.8 Mild plaque is present within the carotid arteries. The vertebral arteries demonstrate antegrade flow IMPRESSION: Mild plaque within the carotid arteries without evidence of a hemodynamically significan t stenosis
[2018-02-04] MEDS: ACETAMINOPHEN 500 MG TAB PO PRN (11:44)
[2018-02-04] MEDS ORDERED: TIOTROPIUM (SPIRIVA) INHALER IH SCH (15:30)
[2018-02-04] MEDS: ALBUTEROL 2.5 MG/3 ML NEB SOL IH PRN ×2 (17:45→21:38)
[2018-02-04] MEDS ORDERED: QUETIAPINE 100MG TAB PO SCH (21:00)
[2018-02-04] MEDS ORDERED: ATORVASTATIN 40 MG TAB PO SCH (21:00)
[2018-02-04] MEDS ORDERED: FLUTICASONE (FLONASE) 50MCG NASAL SPRAY NAS SCH (21:00)
[2018-02-05] MEDS: NA CHLORIDE 0.9% 1,000 ML IV SCH (06:01)
[2018-02-05] MEDS: LEVOTHYROXINE SOD 0.025 MG TAB PO SCH (06:02)
[2018-02-05] MEDS: ARFORMOTEROL TARTRATE 15 MCG/2 ML VIAL.NEB NEB SCH (07:35)
[2018-02-05] MEDS: ASPIRIN EC 81 MG TAB PO SCH (08:41)
[2018-02-05] MEDS: LACTOBACILLUS/ACIDOPHILUS TAB PO SCH (08:41)
[2018-02-05] MEDS: GABAPENTIN 300 MG CAP PO SCH (08:41)
[2018-02-05] MEDS: MONTELUKAST 10 MG TAB PO SCH (08:41)
[2018-02-05] MEDS: FOLIC ACID 1 MG TABLET PO SCH (08:41)
[2018-02-05] MEDS: predniSONE 10 MG TAB PO SCH (08:41)
[2018-02-05] MEDS: DOCUSATE NA 100 MG CAP PO SCH (08:41)
[2018-02-05] MEDS: DIVALPROEX ER 250 MG TAB PO SCH (08:41)
[2018-02-05] MEDS: FAMOTIDINE 20 MG TAB PO SCH (08:41)
[2018-02-05] MEDS: VITAMIN D 1000 UNIT TAB PO SCH (08:41)
[2018-02-05] MEDS: ENOXAPARIN 80 MG/0.8 ML SQ SCH (08:42)
[2018-02-05] MEDS: DILTIAZEM HCL 120 MG SR CAP PO SCH (08:52)
[2018-02-05] MEDS: ACETAMINOPHEN 500 MG TAB PO PRN (08:52)
--- NOTE | 2018-02-05 08:52 | P.DS ---
Admission Date: 02/03/18 Discharge Date: 02/05/18 Primary Care Provider: halfway Disposition: TRANSFER TO [facility] Discharge Condition: GOOD Reason for Admission: difficulty breathing Consultations: Cardiology-Dr. Kenney Procedures: MRI brain: COMPARISON: Head CT February 03, 2018. FINDINGS: No significant abnormal signal within the brain is noted. Cerebral atrophy is seen. Diffusion weighted/ADC mapping does not reveal evidence of an acute infarction. The ventricles are normal caliber. An extra-axial fluid collection is not seen. Fluid within the sinuses/mastoids is not seen. A mucus retention cyst is present within the right maxillary sinus. Common carotid, internal carotid and external carotid arteries do not demonstrate a significant stenosis. The left vertebral artery is a little bit more dominant than the right. No significant abnormality is noted. Dolichoectasia of the vertebral basilar artery is present. The posterior cerebral arteries were not well visualized secondary to technical factors. Anterior cerebral, middle cerebral, internal carotid and basilar arteries do not demonstrate a significant stenosis. An aneurysm is not seen. IMPRESSION: 1. No acute intracranial abnormality is noted. 2. No significant abnormality involving the arteries of the head and neck. Carotid Doppler: Mild plaque noted. No significant stenosis noted. - Problems (1) Dementia in Alzheimer's disease Current Visit: Yes Status: Chronic (2) COPD (chronic obstructive pulmonary disease) Current Visit: No Status: Acute Qualifiers: COPD type: COPD with acute exacerbation Qualified Code(s): J44.1 - Chronic obstructive pulmonary disease with (acute) exacerbation (3) Renal insufficiency Current Visit: No Status: Acute (4) Bipolar 1 disorder Onset Date: 06/03/17 Current Visit: No Status: Chronic (5) Hypertension Current Visit: No Status: Chronic Qualifiers: Hypertension type: essential hypertension Qualified Code(s): I10 - Essential (primary) hypertension (6) Hypothyroidism Current Visit: No Status: Chronic Qualifiers: Hypothyroidism type: unspecified Qualified Code(s): E03.9 - Hypothyroidism , unspecified (7) Dysphagia Current Visit: Yes Status: Suspected (8) Elevated troponin Current Visit: Yes Status: Acute (9) GERD (gastroesophageal reflux disease) Current Visit: Yes Status: Chronic Qualifiers: Esophagitis presence: esophagitis presence not specified Qualified Code(s) : K21.9 - Gastro-esophageal reflux disease without esophagitis (10) Hyperlipidemia Current Visit: Yes Status: Chronic Qualifiers: Hyperlipidemia type: unspecified Qualified Code(s): E78.5 - Hyperlipidemia , unspecified (11) Allergic rhinitis Current Visit: Yes Status: Chronic Qualifiers: Allergic rhinitis trigger: unspecified Allergic rhinitis seasonality: seasonal Qualified Code(s): J30.2 - Other seasonal allergic rhinitis (12) Yeast UTI Current Visit: Yes Status: Acute Brief History of Present Illness: 72-year-old female present to the ER with shortness of breath and cough. Patient with history of COPD, hypertension, dementia. Patient had been reported some difficulty swallowing as well. The patient was evaluated the emergency room. Patient found to have COPD exacerbation. There was some suspicion of some abnormality with swallowing. The patient was admitted for further evaluation. Hospital Course: During the course of her stay her breathing improved. Patient had COPD exacerbation. Patient did well in the course of her stay. At discharge she will continue with prednisone 10 mg 1 pill twice daily for 5 days then 1 pill once daily for 5 days. She will maintain oxygen to keep saturations above 90%. This can be weaned off. Patient will continue with her medication of Spiriva 1 puff once daily. Will recommend to add Brovana 1 unit dose twice daily. Patient may continue with albuterol 1 unit dose 3 times a day as needed for shortness of breath. Recommendations for the patient follow up with pulmonology as an outpatient to further monitor and address. There was some suspicion of aspiration pneumonia. Repeat x-rays showed no indication of pneumonia. No need for antibiotic therapy at discharge. White count normal. Patient has dementia. Patient is not a good historian. There was some concern of of some dysphagia. Patient was evaluated by speech. No aspiration was noted. Patient had normal swallowing for her age. Patient with dentures. Patient will continue with current diet. Aspiration precaution is recommended. Because of her dementia and difficulty swallowing an MRI stroke protocol was done to further assess. Patient has atrophy to the brain the indicating dementia. No acute stroke noted. Patient will continue with aspirin 81 mg 1 pill daily and folic acid 1 mg daily. Patient has hypertension. Patient will continue with her medication- diltiazem 240 mg 1 pill daily. Recommendation is to maintain blood pressures less 150/ 80. Further adjustment can be done by shelter physician. Patient has bipolar disorder. Patient will continue with her medication- Depakote ER 250 mg 1 pill twice daily. Patient also takes Seroquel 100 mg at night. Further adjustment can be done by shelter. Patient has hypothyroidism. She will continue with her medication- levothyroxine 25 mcg daily. Patient had mild renal insufficiency likely from mild dehydration. Patient was given IV fluids. At discharge this improved. Recommendation is to recheck CBC and BMP in 1 week to monitor progress. Patient had mild elevation in her troponin upon admission. Patient was evaluated by cardiology. This was likely related to her COPD exacerbation. Her cardiology recommends no intervention at this time. Patient may follow up with cardiology as an outpatient to further monitor and address. Patient has hyperlipidemia. Patient will continue with Lipitor 40 mg daily. Patient has GERD. Patient will continue with Pepcid 20 mg 1 pill daily. Patient has her allergic rhinitis. She will continue with Flonase 1 spray per nostril daily and Singulair 10 mg at night. Urine culture showed yeast infection. At discharge she will continue with Diflucan 100 mg daily for 5 days. halfway we need to follow up on final results of urine culture. Vital Signs/Physical Exam: Temp Pulse Resp BP Pulse Ox 97.0 F 105 H 18 150/77 H 95 02/05/18 08:00 02/05/18 08:00 02/05/18 08:00 02/05/18 08:00 02/05/18 08:00 General: Alert, In no apparent distress, Demented HEENT: Atraumatic Neck: Supple Respiratory: Clear to auscultation bilaterally, Normal air movement Cardiovascular: Normal pulses, Regular rate/rhythm Gastrointestinal: Normal bowel sounds, Soft and benign, Non-distended, No tenderness, No masses, No rebound, No guarding Musculoskeletal: No erythema, No tenderness, No warmth Integumentary: No tenderness/swelling, No erythema, No warmth, No cyanosis Neurological: Normal speech, Normal strength at 5/5 x4 extr, Normal tone, Normal affect Laboratory Data at Discharge: WBC 10.8 K/uL (4.3-10.9) D 02/04/18 04:45 Hgb 12.4 g/dL (12.0-15.0) 02/04/18 04:45 Hct 36.8 % (36.0-45.0) 02/04/18 04:45 Plt Count 194 K/uL (152-406) 02/04/18 04:45 PT 13.2 SECONDS (9.5-12.5) H 02/03/18 18:20 INR 1.12 02/03/18 18:20 APTT 25.5 SECONDS (24.3-36.9) 02/03/18 18:20 Sodium 140 mEq/L (135-145) 02/04/18 04:45 Potassium 4.3 mEq/L (3.6-5.0) 02/04/18 04:45 BUN 14 mg/dL (6-20) 02/04/18 04:45 Creatinine 0.94 mg/dL (0.44-1.00) 02/04/18 04:45 Glucose 203 mg/dL (65-120) H 02/04/18 04:45 Magnesium 1.8 mg/dL (1.8-2.5) 02/03/18 18:20 Total Bilirubin 0.6 mg/dL (0.3-1.2) 02/04/18 04:45 AST 19 IU/L (10-42) 02/04/18 04:45 ALT 13 IU/L (10-60) 02/04/18 04:45 Alkaline Phosphatase 56 IU/L (42-121) 02/04/18 04:45 B-Natriuretic Peptide 129 pg/ml (<=100) H 02/03/18 18:20 Lipase 17 U/L (22-51) L 02/03/18 18:20 Home Medications: Aspirin [Aspir-Low] 81 mg PO DAILY 06/03/17 Cholecalciferol (Vitamin D3) [Vitamin D3] 2,000 unit PO DAILY 06/03/17 Diltiazem HCl [Diltiazem 24Hr ER] 240 mg PO DAILY 06/03/17 Docusate Sodium 100 mg PO DAILY 06/03/17 Famotidine [Pepcid] 20 mg PO DAILY 06/03/17 Folic Acid 1 mg PO DAILY 06/03/17 L.acidoph/B.long/L.plant/B.lac [Probiotic Acidophilus Beads] 1 each PO DAILY Levothyroxine Sodium 25 mcg PO DAILY 06/03/17 Montelukast Sodium [Singulair] 10 mg PO DAILY 06/03/17 Polyvinyl Alcohol [Liquitears] 15 ml OP BID 06/03/17 Tiotropium [Spiriva Handihaler*] 1 puff IH DAILY 06/03/17 Tramadol HCl/Acetaminophen [Ultracet Tablet] 1 each PO Q6H PRN 06/03/17 Vit C/E/Zn/Coppr/Lutein/Zeaxan [Preservision Areds 2 Softgel] 1 each PO BID Acetaminophen with Codeine [Acetaminophen-Cod #4 Tablet] 1 each PO BID 02/03/18 Albuterol Sulfate [Albuterol Sulfate 0.083% Neb Soln] 2.5 mg IH Q6H PRN Alendronate Sodium [Fosamax] 70 mg PO DIRECTED 02/03/18 Atorvastatin Calcium [Lipitor*] 40 mg PO BEDTIME 02/03/18 Divalproex ER [Depakote *ER] 250 mg PO BID 02/03/18 Fluticasone [Flonase 50MCG Nasal Riggins*] 2 sprays NS BID 02/03/18 Melatonin [Melatonin*] 3 mg PO BEDTIME PRN 02/03/18 Quetiapine [Seroquel*] 100 mg PO BEDTIME 02/03/18 Arformoterol Tartrate [Brovana] 15 mcg NEB BIDRESP #60 vial.neb 02/05/18 Fluconazole [Diflucan] 100 mg PO DAILY #5 tablet 02/05/18 predniSONE [Deltasone*] 10 mg PO SEECOM #15 tab 02/05/18 New Medications: Arformoterol Tartrate [Brovana] 15 mcg NEB BIDRESP #60 vial.neb Fluconazole [Diflucan] 100 mg PO DAILY #5 tablet predniSONE [Deltasone*] 10 mg PO SEECOM #15 tab Patient Discharge Instructions: 1. Patient will return to the shelter to continue her care. 2. Patient presented with shortness of breath secondary to COPD exacerbation. Patient did well in the course of her stay. At discharge she will continue with prednisone 10 mg 1 pill twice daily for 5 days then 1 pill once daily for 5 days. She will maintain oxygen to keep saturations above 90%. This can be weaned off. Patient will continue with her medication of Spiriva 1 puff once daily. At discharge, will recommend to add Brovana 1 unit dose twice daily. Patient may continue with albuterol 1 unit dose 3 times a day as needed for shortness of breath. Recommendations for the patient follow up with pulmonology as an outpatient to further monitor and address. 3. There was some suspicion of aspiration pneumonia. Repeat x-rays showed no indication of pneumonia. No need for antibiotic therapy at discharge. White count normal. 4. Patient has dementia. Patient is not a good historian. There was some concern of some dysphagia as well. Patient was evaluated by speech. No aspiration was noted. Patient had normal swallowing for her age. Patient with dentures. Patient will continue with current diet. Aspiration precaution is recommended. Patient also had MRI stroke protocol which showed no acute stroke. Patient will continue with aspirin 81 mg 1 pill daily and folic acid 1 mg daily. 5. Patient has hypertension. Patient will continue with her medication- diltiazem 240 mg 1 pill daily. Recommendation is to maintain blood pressures less 150/80. Further adjustment can be done by shelter physician. 6. Patient has bipolar disorder. Patient will continue with her medication-Depakote ER 250 mg 1 pill twice daily. Patient also takes Seroquel 100 mg at night. Further adjustment can be done by shelter. 7. Patient has hypothyroidism. She will continue with her medication-levothyroxine 25 mcg daily. 8. Patient had mild renal insufficiency likely from mild dehydration. Patient was given IV fluids. At discharge this improved. Recommendation is to recheck CBC and BMP in 1 week to monitor progress. 9. Patient had mild elevation in her troponin upon admission. Patient was evaluated by cardiology. This was likely related to her COPD exacerbation. Cardiology recommends no intervention at this time. Patient may follow up with cardiology as an outpatient to further monitor and address. 10. Patient has hyperlipidemia. Patient will continue with Lipitor 40 mg daily. 11. Patient has GERD. Patient will continue with Pepcid 20 mg 1 pill daily. 12. Patient has her allergic rhinitis. She will continue with Flonase 1 spray per nostril daily and Singulair 10 mg at night. 13. Urine culture showed yeast infection. At discharge she will continue with Diflucan 100 mg daily for 5 days. halfway we need to follow up on final results of urine culture. Diet: Mechanical soft Activity: Fall precautions Time spent managing pt's care (in minutes): 55
--- NOTE | 2018-02-05 10:28 | ECHO ---
HEIGHT: 5 ft 1 in WEIGHT: 154 lb 4.8 oz DATE OF STUDY: 02/04/[address]: Almas Carcamo MD 2-DIMENSIONAL: YES M.MODE: YES DOPPLER: YES COLOR FLOW: YES TDS: YES PORTABLE: NO DEFINITY: NO BUBBLE STUDY: NO DIAGNOSIS: DYSPNEA CARDIAC HISTORY: CATHERIZATION: NO SURGERY: NO PROSTHETIC VALVE: NO PACEMAKER: NO MEASUREMENTS (cm) DIASTOLIC (NORMALS) SYSTOLIC (NORMALS) IVSd (0.6-1.2) LA Diam (1.9-4.0) LVEF 60-69% LVIDd (3.5-5.7) LVIDs (2.0-3.5) %FS % LVPWd (0.6-1.2) Ao Diam (2.0-3.7) 2 DIMENSIONAL ASSESSMENT: RIGHT ATRIUM: NORMAL LEFT ATRIUM: DILATED RIGHT VENTRICLE: NORMAL LEFT VENTRICLE: NORMAL TRICUSPID VALVE: NORMAL MITRAL VALVE: NORMAL PULMONIC VALVE: NORMAL AORTIC VALVE: NORMAL PERICARDIAL EFFUSION: NONE AORTIC ROOT: NORMAL LEFT VENTRICULAR WALL MOTION: NORMAL DOPPLER/COLOR FLOW: IMPAIRED LEFT VENTRICULAR RELAXATION. COMMENTS: NORMAL LEFT VENTRICULAR EJECTION FRACTION. IMPAIRED LEFT VENTRICULAR RELAXATION. TECHNICALLY DIFFICULT STUDY. TECHNOLOGIST: Anuradha ARANA
--- NOTE | 2018-02-05 22:35 | CON ---
Date of Consultation: 02/04/2018 Reason For Consultation: Elevated troponin. History Of Present Illness: Ms. Falcon is a 72-year-old woman with history of dementia as well as [place] PD that is severe, history of seizure disorder, hypertension, dyslipidemia, hypothyroidism, history o f ulcerative colitis, bipolar disorder, gastroesophageal reflux disease, Alzheimer's, and dysphagia, as well as degenerative joint disease. Came into the hospital with shortness of breath and altered m ental status, was found to have elevated troponin. She denied chest pain. Has had productive cough and nausea. Symptoms have been going on for about 48 hours. I was consulted because of the elevated troponin. Allergies: TO HALDOL AND PENICILLIN. Review of Systems: Negative. Social History: Negative. Family History: Noncontributory. Medications: Aspirin, Brovana, Depakote, diltiazem, Flonase, Fosamax, albuterol inhaler, levothyroxi ne, Lipitor 40 mg daily. She is on Pepcid, prednisone, Seroquel, Spiriva. Physical Examination: Vital Signs: Stable. She was in sinus tachycardia. Afebrile. Blood pressure is 121/65. HEENT: Negative. Neck: Supple with no bruit. Chest: Clear to auscultation and percussion. Cardiac: Revealed regular rhythm and rate with an aortic sclerosis, murmur. No gallops or rubs. Abdomen: Benign. Extremities: Revealed no clubbing, cyanosis, or edema. Laboratory Data: Creatinine is 0.94. White count was 15.1. Glucose was 164. Her troponin was 0.24 with BNP of 129. Impression And Plan: 1.Elevated troponin I believe is secondary to chronic obstructive pulmonary disease exacerbation and hypoxia and hypercapnia. Echocardiogram is pending. We will see what that showed before making fin al decisions. 2.Chronic obstructive pulmonary disease exacerbation. 3.Dyslipidemia. 4.Hypertension, well controlled. 5.Neuropathy. 6.History of seizure disorder. 7.History of ulcerative colitis. 8.Alzheimer's. Mrs. Falcon is still a full code. She is a [facility] residence. I would prefer not being aggress avni with her unless the echocardiogram shows any significant abnormalities. If her echocardiogram is normal, she can go home whenever it is okay with Dr. Shankar. NB/MODL Voice ID: [id number] Report ID: [id number]
== END 2018-02-05 12:20 ==
LOC: ER 17:56 → ERHOLD 20:16 → INTOOBSV 20:16 → 2ND 21:04 → 4TH 02-04 16:51
PROVIDERS: ADMIT Hospitalist; ATTEND Hospitalist
DX: J44.1 Chronic obstructive pulmonary disease with (acute) exacerbation (principal); I10 Essential (primary) hypertension; F31.9 Bipolar disorder, unspecified; E03.9 Hypothyroidism, unspecified; N28.9 Disorder of kidney and ureter, unspecified; E78.5 Hyperlipidemia, unspecified; K21.9 Gastro-esophageal reflux disease without esophagitis; J30.9 Allergic rhinitis, unspecified; B37.49 Other urogenital candidiasis; G30.9 Alzheimer's disease, unspecified; F02.80 Dementia in other diseases classified elsewhere, unspecified severity, without behavioral disturbance, psychotic disturbance, mood disturbance, and anxiety; Z88.0 Allergy status to penicillin; Z86.73 Personal history of transient ischemic attack (TIA), and cerebral infarction without residual deficits
CPT/HCPCS: 36415; 70450; 70544; 70549; 70553; 71045 ×2; 80048; 80053; 80076; 80164; 81003; 82550; 82553; 82805; 83690; 83735; 83880; 84443; 84484; 85025 ×2; 85610; 85730; 87040 ×2; 87086; 87088; 92526; 93005; 93306; 93880; 94640; 96361; 96365; 96367; 96372; 96375; 99285; A9577; G0378 ×2; J1100; J1650 ×3; J2543; J2930; J7030 ×4; J7605 ×4; J2270; J7512

== ENCOUNTER 2018-02-10 10:10 | Inpatient (IN) | payer OTHER ==
[2018-02-10 10:34] LABS: Absolute Monocytes 1.3 K/uL (0.1-1.3); Eosinophils % 0.4 % (0-4.4); MPV 8.6 fL (7.6-11.3)
[2018-02-10 10:39] LABS: Absolute Lymphocytes (CBC) 0.7 K/uL (0.7-4.9); Absolute Neutrophil 31.9 K/uL (1.8-8.0); Basophils % 0.2 % (0-1.3); Hematocrit 39.7 % (36.0-45.0); MCH 29.8 pg (27.0-35.0); MCV 91.5 fL (80-100); Monocytes % 3.7 % (3.3-12.3); RBC Red Blood Cell Count 4.33 M/uL (3.86-4.86)
[2018-02-10 10:42] LABS: Protime INR 1.24
[2018-02-10] MEDS ORDERED: ACETAMINOPHEN 650MG/RECT SUPP PR ONE (10:46)
--- NOTE | 2018-02-10 10:53 | RAD REPORT ---
EXAM DESCRIPTION: RAD - Chest Single View - 02/10/2018 10:47 am CLINICAL HISTORY: AMS Chest pain. COMPARISON: Chest Single View dated 02/04/2018; Chest Single View dated 02/03/2018; Chest Single View dated 06/04/2017; Chest Single View dated 06/02/2017 FINDINGS: Portable technique limits examination quality. Mild interstitial prominence noted. No focal infiltrate typical of pneumonia. The heart is normal in size. No displaced fractures. IMPRESSION: Mild interstitial prominence may indicate mild interstitial pulmonary edema.
[2018-02-10 11:04] LABS: Blood Morphology Comment NOT SEEN (NOT SEEN); Platelet Estimate DECR; Toxic Granulation NOTED
--- NOTE | 2018-02-10 11:09 | EDPHYS ---
Physician Documentation [facility] Name: Elizabeth Falcon Age: 72 yrs Sex: Female : 1945 Arrival Date: 02/10/2018 Time: 10:18 Bed 4 Private MD: ED Physician Almas Carcamo HPI: 02/10 11:03 This 72 yrs old Female presents to ER via EMS with complaints of Altered emilie Mental Status. 11:03 The patient presents with confusion, decreased mental status. Onset: The emilie symptoms/episode began/occurred 1 day(s) ago. Possible causes: unknown. Associated signs and symptoms: Pertinent positives: agitation, nausea, weakness. Patient's baseline: Neuro: alert and fully oriented. Historical: - Allergies: 10:56 Haldol; sg 10:56 PENICILLINS; sg - PMHx: 10:56 Alzheimers; MATIAS knees osteoarthritis; Bipolar disorder; COPD; DYSPHAGIA; GERD; sg Hyperlipidemia; Hypertension; Hypothyroidism; Necrotizing ulcerative stomatitis; - Immunization history:: Adult Immunizations up to date. - Social history:: Smoking status: Patient/guardian denies using tobacco. - Ebola Screening: : Patient negative for fever greater than or equal to 101.5 degrees Fahrenheit, and additional compatible Ebola Virus Disease symptoms Patient denies exposure to infectious person Patient denies travel to an Ebola-affected area in the 21 days before illness onset No symptoms or risks identified at this time. - Family history:: not pertinent. ROS: 11:03 Eyes: Negative for injury, pain, redness, and discharge, ENT: Negative for injury, emilie pain, and discharge, Neck: Negative for injury, pain, and swelling, Cardiovascular: Negative for chest pain, palpitations, and edema, Respiratory: Negative for shortness of breath, cough, wheezing, and pleuritic chest pain, Abdomen/GI: Negative for abdominal pain, nausea, vomiting, diarrhea, and constipation, Back: Negative for injury and pain, : Negative for injury, bleeding, discharge, and swelling, MS/Extremity: Negative for injury and deformity, Skin: Negative for injury, rash, and discoloration, Psych: Negative for depression, anxiety, suicide ideation, homicidal ideation, and hallucinations, Allergy/Immunology: Negative for hives, rash, and allergies, Endocrine: Negative for neck swelling, polydipsia, polyuria, polyphagia, and marked weight changes, Hematologic/Lymphatic: Negative for swollen nodes, abnormal bleeding, and unusual bruising. 11:03 Constitutional: Positive for body aches, chills, fever. 11:03 Neuro: Positive for altered mental status, weakness. Exam: 11:03 Constitutional: This is a well developed, well nourished patient who is awake, alert, emilie and in no acute distress. Head/Face: Normocephalic, atraumatic. Eyes: Pupils equal round and reactive to light, extra-ocular motions intact. Lids and lashes normal. Conjunctiva and sclera are non-icteric and not injected. Cornea within normal limits. Periorbital areas with no swelling, redness, or edema. ENT: Nares patent. No nasal discharge, no septal abnormalities noted. Tympanic membranes are normal and external auditory canals are clear. Oropharynx with no redness, swelling, or masses, exudates, or evidence of obstruction, uvula midline. Mucous membranes moist. Neck: Trachea midline, no thyromegaly or masses palpated, and no cervical lymphadenopathy. Supple, full range of motion without nuchal rigidity, or vertebral point tenderness. No Meningismus. Chest/axilla: Normal chest wall appearance and motion. Nontender with no deformity. No lesions are appreciated. Respiratory: Lungs have equal breath sounds bilaterally, clear to auscultation and percussion. No rales, rhonchi or wheezes noted. No increased work of breathing, no retractions or nasal flaring. Abdomen/GI: Soft, non-tender, with normal bowel sounds. No distension or tympany. No guarding or rebound. No evidence of tenderness throughout. Back: No spinal tenderness. No costovertebral tenderness. Full range of motion. Skin: Warm, dry with normal turgor. Normal color with no rashes, no lesions, and no evidence of cellulitis. MS/ Extremity: Pulses equal, no cyanosis. Neurovascular intact. Full, normal range of motion. Psych: Awake, alert, with orientation to person, place and time. Behavior, mood, and affect are within normal limits. 11:03 Chest/axilla: Inspection: normal, no acute changes. 11:03 Cardiovascular: Rate: tachycardic, Rhythm: regular, Pulses: Pulses are 4+ in bilateral radial, brachial, femoral, popliteal, posterior tibial and and dorsalis pedis arteries.. Heart sounds: normal, JVD: is not appreciated. Vital Signs: 10:30 BP 111 / 68; Pulse 132 MON; Resp 22; Pulse Ox 92% on 2 lpm NC; Pain 0/10; sg 11:39 Temp 101.8(C); sv 12:20 Temp 100.8(C); sg 13:00 BP 103 / 51; Pulse 119 MON; Resp 19; Temp 100.3; Pulse Ox 95% on 2 lpm NC; sg 13:15 Weight 70.31 kg; Height 5 ft. 1 in. (154.94 cm); sg 14:31 Temp 99.6(C); sg 14:31 BP 116 / 67; Pulse 111 MON; Resp 19 S; Pulse Ox 92% on 3 lpm NC; sg 13:15 Body Mass Index 29.29 (70.31 kg, 154.94 cm) sg MDM: 10:19 Patient medically screened. [facility] 11:05 Data reviewed: vital signs, nurses notes, lab test result(s), EKG, radiologic studies. [facility] 02/10 10:19 Order name: Amylase, Serum; Complete Time: 14:10 02/10 10:19 Order name: Basic Metabolic Panel; Complete Time: 14:10 02/10 10:19 Order name: Blood Culture Adult (2) 02/10 10:19 Order name: C-Reactive Protein; Complete Time: 14:10 02/10 10:19 Order name: CBC with Diff; Complete Time: 11:47 02/10 10:19 Order name: Ckmb; Complete Time: 14:10 02/10 10:19 Order name: CPK; Complete Time: 14:10 02/10 10:19 Order name: Lactate; Complete Time: 14:10 02/10 10:19 Order name: LFT's; Complete Time: 14:10 02/10 10:19 Order name: Lipase; Complete Time: 14:10 02/10 10:19 Order name: Procalcitonin; Complete Time: 11:47 02/10 10:19 Order name: Protime (+inr); Complete Time: 11:47 02/10 10:19 Order name: Ptt, Activated; Complete Time: 11:47 02/10 10:19 Order name: Sed Rate; Complete Time: 11:47 25 10:19 Order name: Troponin (emerg Dept Use Only); Complete Time: 11:47 02/10 10:19 Order name: Chest Single View XRAY; Complete Time: 11:47 02/10 10:32 Order name: CT Head Brain wo Cont; Complete Time: 11:47 [facility] 02/10 10:50 Order name: Manual Differential; Complete Time: 11:47 EDPR 02/10 11:02 Order name: TSH; Complete Time: 14:10 [facility] 02/10 11:02 Order name: Depakote; Complete Time: 14:10 [facility] 02/10 11:03 Order name: CT Chest Abdomen Pelvis W/O Contrast: no oral no iv; Complete Time: 14:10 [facility] 02/10 11:58 Order name: Urine Dipstick--Ancillary (enter results) 02/10 12:01 Order name: Urine Microscopic Only 02/10 12:22 Order name: Urine Dipstick-Ancillary; Complete Time: 14:10 [facility] 02/10 12:43 Order name: Urine Microscopic Only; Complete Time: 14:10 [facility] 02/10 13:29 Order name: Troponin I; Complete Time: 14:10 [facility] 02/10 13:30 Order name: Procalcitonin; Complete Time: 14:10 [facility] 02/10 13:43 Order name: Type and Screen; Complete Time: 14:10 [facility] 02/10 13:45 Order name: ABO/RH no charge; Complete Time: 14:10 [facility] 02/10 10:19 Order name: Accucheck; Complete Time: 10:22 02/10 10:19 Order name: Cardiac monitoring; Complete Time: 10: 02/10 10:19 Order name: EKG - Nurse/Tech; Complete Time: 10: 02/10 10:19 Order name: IV Saline Lock - Large Bore; Complete Time: 10:22 02/10 10:19 Order name: Labs collected and sent; Complete Time: 10: 02/10 10:19 Order name: O2 Per Protocol; Complete Time: 10: 02/10 10:19 Order name: O2 Sat Monitoring; Complete Time: 10:22 02/10 10:19 Order name: Urine Dipstick-Ancillary (obtain specimen); Complete Time: 12:56 02/10 10:38 Order name: Labs - recollect needed; Complete Time: 14:25 bd 02/10 10:56 Order name: Conway; Complete Time: 11:13 emilie 02/10 11:16 Order name: CONS Physician Consult EDMS Administered Medications: 11:40 Drug: NS 0.9% 1000 ml Route: IV; Rate: 1 bolus; Site: left antecubital; sv 11:40 Drug: Tylenol Suppository 650 mg Route: KS; sv 12:20 Follow up: Temp 100.8 Catheter; Response: No adverse reaction; Temperature is decreased sg 11:55 Drug: vancoMYCIN 1 grams Route: IVPB; Infused Over: 2 hrs; Site: left antecubital; ss 14:24 Drug: Cefepime 2 grams Route: IVPB; Rate: 200 ml/hr; Infused Over: 30 mins; Site: left ss antecubital; Point of Care Testing: Blood Glucose: 10:19 Blood Glucose: 117 mg/dL; jb1 Ranges: Critical Glucose Levels:Adult <50 mg/dl or >400 mg/dl <40 mg/dl or >180 mg/dl Disposition: 02/10/18 11:08 Hospitalization ordered by Viviana Diaz for Inpatient Admission. Preliminary diagnosis are Altered mental status, unspecified, Cystitis, Fever, unspecified, Elevated white blood cell count, Bandemia, Hypokalemia, Unspecified kidney failure. - Bed requested for Intensive Care Unit. - Status is Inpatient Admission. ss - Condition is Fair. - Problem is new. - Symptoms have improved. UTI on Admission? Yes Signatures: Dispatcher [employer] EDPR Keira Heredia Stephanie, RN RN sv Woody, Diana, RN RN dw Gay, Steven, RN RN sg Anderson, Corey, MD MD cha Smirch, Shelby RN RN ss Corrections: (The following items were deleted from the chart) 11:48 11:08 Hospitalization Ordered by Viviana Diaz MD for Inpatient Admission. Preliminary [facility] diagnosis is Altered mental status, unspecified; Cystitis; Fever, unspecified. Bed requested for Telemetry/MedSurg (Inpatient). Status is Inpatient Admission. Condition is Fair. Problem is new. Symptoms have improved. UTI on Admission? Yes. emilie 12:30 11:48 02/10/2018 11:08 Hospitalization Ordered by Viviana Diaz MD for Inpatient dw Admission. Preliminary diagnosis is Altered mental status, unspecified; Cystitis; Fever, unspecified; Elevated white blood cell count; Bandemia. Bed requested for Telemetry/MedSurg (Inpatient). Status is Inpatient Admission. Condition is Fair. Problem is new. Symptoms have improved. UTI on Admission? Yes. [facility] 13:16 12:30 02/10/2018 11:08 Hospitalization Ordered by Viviana Diaz MD for Inpatient dw Admission. Preliminary diagnosis is Altered mental status, unspecified; Cystitis; Fever, unspecified; Elevated white blood cell count; Bandemia. Bed requested for Telemetry/MedSurg (Inpatient). Status is Inpatient Admission. Condition is Fair. Problem is new. Symptoms have improved. UTI on Admission? Yes. 13:49 13:16 02/10/2018 11:08 Hospitalization Ordered by Viviana Diaz MD for Inpatient dw Admission. Preliminary diagnosis is Altered mental status, unspecified; Cystitis; Fever, unspecified; Elevated white blood cell count; Bandemia. Bed requested for Intensive Care Unit. Status is Inpatient Admission. Condition is Fair. Problem is new. Symptoms have improved. UTI on Admission? Yes. 14:12 13:49 02/10/2018 11:08 Hospitalization Ordered by Viviana Diaz MD for Inpatient emilie Admission. Preliminary diagnosis is Altered mental status, unspecified; Cystitis; Fever, unspecified; Elevated white blood cell count; Bandemia. Bed requested for Intensive Care Unit. Status is Inpatient Admission. Condition is Fair. Problem is new. Symptoms have improved. UTI on Admission? Yes. 14:42 14:12 02/10/2018 11:08 Hospitalization Ordered by Viviana Diaz MD for Inpatient ss Admission. Preliminary diagnosis is Altered mental status, unspecified; Cystitis; Fever, unspecified; Elevated white blood cell count; Bandemia; Hypokalemia; Unspecified kidney failure. Bed requested for Intensive Care Unit. Status is Inpatient Admission. Condition is Fair. Problem is new. Symptoms have improved. UTI on Admission? Yes. [facility]
--- NOTE | 2018-02-10 11:09 | ER ---
Nurse's Notes [facility] Name: Elizabeth Falcon Age: 72 yrs Sex: Female : 1945 Arrival Date: 02/10/2018 Time: 10:18 Bed 4 Private MD: Diagnosis: Altered mental status, unspecified;Cystitis;Fever, unspecified;Elevated white blood cell count;Bandemia;Hypokalemia;Unspecified kidney failure Presentation: 02/10 10:25 Presenting complaint: EMS states: pt is a resident of [facility], Staff report pt to sg be altered aa\T\ox1 reports that the pt is normally aa\T\ox4, pt also had a fever and just not acting normal. per EMS VS of BP 132/80, HR 145, o2 of 92% on NC at 2 lpm, temp of 101.8 axillary. Transition of care: patient was received from another setting of care ([facility]), [facility]. Onset of symptoms was February 10, 2018. Risk Assessment: Do you want to hurt yourself or someone else? Patient reports no desire to harm self or others. Initial Sepsis Screen: Does the patient meet any 2 criteria? Temp <36.0*C (96.8*F)) or > 38.3*C (100.4*F). HR > 90 bpm. Yes Does the patient have a suspected source of infection? No. Patient's initial sepsis screen is negative. 10:25 Method Of Arrival: EMS: [facility] sg 10:27 Care prior to arrival: Oxygen administered. via nasal cannula. sg 10:27 Acuity: ALLYSON 2 sg Historical: - Allergies: 10:56 Haldol; sg 10:56 PENICILLINS; sg - PMHx: 10:56 Alzheimers; MATIAS knees osteoarthritis; Bipolar disorder; COPD; DYSPHAGIA; GERD; sg Hyperlipidemia; Hypertension; Hypothyroidism; Necrotizing ulcerative stomatitis; - Immunization history:: Adult Immunizations up to date. - Social history:: Smoking status: Patient/guardian denies using tobacco. - Ebola Screening: : Patient negative for fever greater than or equal to 101.5 degrees Fahrenheit, and additional compatible Ebola Virus Disease symptoms Patient denies exposure to infectious person Patient denies travel to an Ebola-affected area in the 21 days before illness onset No symptoms or risks identified at this time. - Family history:: not pertinent. Screenin:45 Abuse screen: Denies threats or abuse. Denies injuries from another. Nutritional sg screening: No deficits noted. Tuberculosis screening: No symptoms or risk factors identified. Never had TB. Fall Risk None identified. Assessment: 11:20 General: Appears in no apparent distress. comfortable, well groomed, well developed, sg well nourished, Behavior is calm, cooperative, appropriate for age. Pain: Unable to use pain scale. Patient is disoriented. Neuro: Level of Consciousness is awake, obeys commands, confused, Oriented to person, place, time, Moves all extremities. Speech is normal, Facial symmetry appears normal. Cardiovascular: Heart tones S1 S2 present Capillary refill is brisk in bilateral fingers Patient's skin is warm and dry. Chest pain is denied. Respiratory: Airway is patent Respiratory effort is even, unlabored, Respiratory pattern is regular, symmetrical, Breath sounds are clear bilaterally. GI: No signs and/or symptoms were reported involving the gastrointestinal system. : No signs and/or symptoms were reported regarding the genitourinary system. EENT: No signs and/or symptoms were reported regarding the EENT system. Derm: Skin is intact, is healthy with good turgor, Skin is dry, Skin is pale, Skin temperature is hot Bruising that is dark purple, on right bicep, right antecubital area and dorsal aspect of right forearm. Musculoskeletal: Circulation, motion, and sensation intact. Capillary refill is brisk, in bilateral fingers. Range of motion: intact in all extremities, Swelling absent. 12:30 Reassessment: Patient appears in no apparent distress at this time. Patient and/or sg family updated on plan of care and expected duration. Pain level reassessed. Patient states symptoms have not improved. 12:40 Reassessment: at bedside evaluating pt, v/o for pt to be placed into sg the ICU. Vital Signs: 10:30 BP 111 / 68; Pulse 132 MON; Resp 22; Pulse Ox 92% on 2 lpm NC; Pain 0/10; sg 11:39 Temp 101.8(C); sv 12:20 Temp 100.8(C); sg 13:00 BP 103 / 51; Pulse 119 MON; Resp 19; Temp 100.3; Pulse Ox 95% on 2 lpm NC; sg 13:15 Weight 70.31 kg; Height 5 ft. 1 in. (154.94 cm); sg 14:31 Temp 99.6(C); sg 14:31 BP 116 / 67; Pulse 111 MON; Resp 19 S; Pulse Ox 92% on 3 lpm NC; sg 13:15 Body Mass Index 29.29 (70.31 kg, 154.94 cm) sg ED Course: 10:18 Patient arrived in ED. sv 10:19 Almas Carcamo MD is Attending Physician. emilie 10:27 Ty Alvares, ESSIE is Primary Nurse. sg 10:27 Triage completed. sg 10:27 EKG done, by fleet technician. reviewed by Almas Carcamo MD. at1 10:30 Missed attempt(s): 20 gauge in right wrist. Bleeding controlled, band aid applied, sg catheter tip intact. 10:40 Inserted saline lock: 20 gauge in left antecubital area, using aseptic technique. Blood sg collected. 10:43 Note: pending ct, xray in with patient and nurse needs to start cath. will check back vr at later time. 10:46 X-ray completed. Portable x-ray completed in exam room. Patient tolerated procedure ml well. 10:47 Chest Single View XRAY In Process Unspecified. EDMS 10:50 Conway cath inserted, using sterile technique, 16 Fr., by de, balloon inflated, to sv gravity drainage, urine specimen collected. returned cloudy urine. 10:52 playground monitor on. Pulse ox on. NIBP on. sg 10:57 Arm band placed on. sg 10:[address] via stretcher. vm2 11:00 CT completed. Patient moved back from CT. vm2 11:00 CT Head Brain wo Cont In Process Unspecified. EDMS 11:00 Patient has correct armband on for positive identification. Bed in low position. Call sg light in reach. Side rails up X2. 11:08 Viviana Diaz MD is Hospitalizing Provider. emilie 11:[address] vm2 11:20 CT Chest Abdomen Pelvis W/O Contrast: no oral no iv In Process Unspecified. EDMS 11:20 CT completed. Patient tolerated procedure well. Patient moved back from CT. vm2 11:30 Lab(s) recollected, by ED staff, sent to lab. sg 13:12 No provider procedures requiring assistance completed. sg 13:12 Patient admitted, IV remains in place. sg 14:05 Cleaned of incontinence. sg Administered Medications: 11:40 Drug: NS 0.9% 1000 ml Route: IV; Rate: 1 bolus; Site: left antecubital; sv 11:40 Drug: Tylenol Suppository 650 mg Route: MN; sv 12:20 Follow up: Temp 100.8 Catheter; Response: No adverse reaction; Temperature is decreased sg 11:55 Drug: vancoMYCIN 1 grams Route: IVPB; Infused Over: 2 hrs; Site: left antecubital; ss 14:24 Drug: Cefepime 2 grams Route: IVPB; Rate: 200 ml/hr; Infused Over: 30 mins; Site: left ss antecubital; Point of Care Testing: Blood Glucose: 10:19 Blood Glucose: 117 mg/dL; jb1 Ranges: Outcome: 11:08 Decision to Hospitalize by Provider. [facility] 14:42 Patient left the ED. ss Signatures: Dispatcher [employer] EDMS Edil Juarez jb1 Alyssa Cunha, RN RN Ty Leonard, RN RN Almas Roque MD MD cha Lopez, Melissa ml Smirch, Shelby, Maru Adam RN, Amanda, student assistance counselor EKG Tat1 Maru Chu2
--- NOTE | 2018-02-10 11:11 | RAD REPORT ---
EXAM DESCRIPTION: CT - Head Brain Wo Cont - 02/10/2018 11:00 am CLINICAL HISTORY: CONFUSED Drowsiness COMPARISON: Head Brain Wo Cont dated 02/03/2018; Stroke Protocol dated 02/04/2018 TECHNIQUE: All CT scans are performed using dose optimization technique as appropriate and may inclu de automated exposure control or mA/KV adjustment according to patient size. FINDINGS: No intracranial hemorrhage, hydrocephalus or extra-axial fluid collection.Significant fron [place] lobe atrophy seen.No areas of brain edema or evidence of midline shift. The paranasal sinuses and mastoids are clear. The calvarium is intact. IMPRESSION: No acute intracranial abnormality. Significant frontal lobe atrophy.
[2018-02-10] MEDS ORDERED: VANCOMYCIN 1 GM/250 ML BAG ONE (11:28)
[2018-02-10] MEDS ORDERED: NA CHLORIDE 0.9% 1,000 ML ONE (11:28)
[2018-02-10] MEDS ORDERED: CEFEPIME 1 GM/100 ML BAG IV ONE (11:29)
[2018-02-10] MEDS ORDERED: NA CHLORIDE 0.9% 500 ML IV PRN (11:42)
[2018-02-10] MEDS ORDERED: SODIUM CHL 0.9% 1000 ML BAG IV ONE (11:42)
--- NOTE | 2018-02-10 11:59 | RAD REPORT ---
EXAM DESCRIPTION: CT - Chest Abd Pelvis Wo Con - 02/10/2018 11:20 am CLINICAL HISTORY: Chest and abdominal pain COMPARISON: CT May 2017 TECHNIQUE: Computed axial tomography of the chest, abdomen and pelvis was obtained. Oral contrast wa s given. IV contrast was not requested. All CT scans are performed using dose optimization technique as appropriate and may include automated exposure control or mA/KV adjustment according to patient size. FINDINGS: The evaluation of mediastinum, azucena, vessels and solid organs is limited secondary to the lack of IV contrast administration No mediastinal or hilar lymphadenopathy is seen. A pleural effusion is not present. A pericardial effusion is not seen. A lung consolidation is not present. Areas of scarring are present within the lungs bilaterally. The liver, spleen, pancreas, adrenals and kidneys appear grossly normal. A Conway catheter is present in the bladder There is no evidence of diverticulitis. The appendix is normal. The gallbladder is mildly distended. The gallbladder wall is not thickened. IMPRESSION: No acute abnormality involving the chest Mild gallbladder distention
[2018-02-10] MEDS ORDERED: VANCOMYCIN/NS 1 gm 1 GM/250 ML BAG IVPB SCH (12:00)
[2018-02-10] MEDS ORDERED: NA CHLORIDE 0.9% 1,000 ML IV ONE (12:00)
[2018-02-10 12:01] LABS: Thyroid Stimulating Hormone 1.34 uIU/mL (0.36-3.74)
[2018-02-10 12:21] LABS: Urine Blood 3+ (NEG); Urine Glucose NEGATIVE (NEG); Urine Protein 2+ (NEG)
[2018-02-10 12:28] LABS: ALT/SGPT 20 U/L (12-78); AST/SGOT 18 U/L (15-37); Albumin 2.4 g/dL (3.4-5.0); Alkaline Phosphatase 214 U/L (45-117); Amylase Level 39 U/L (25-115); BUN Blood Urea Nitrogen 36 mg/dL (7-18); Bicarbonate 32 mmol/L (21-32); Bilirubin Direct 0.1 mg/dL (0-0.2); Bilirubin Total 0.5 mg/dL (0.2-1.0); CKMB Creatine Kinase MB < 1.0 ng/mL (0.3-3.6); Creatine Phosphokinase 72 U/L (26-192); Glucose Level 114 mg/dL (74-106); Lipase 47 U/L (73-393); Potassium 3.4 mmol/L (3.5-5.1); Protein, Total 5.9 g/dL (6.4-8.2); Sodium Level 147 mmol/L (136-145)
[2018-02-10] MEDS: CEFEPIME/SWI 2gm 2 GM/20 ML SYR IV SCH ×2 (12:30→23:39)
[2018-02-10 12:43] LABS: Urine Bacteria LOADED /HPF (<20); Urine Culture Reflex Order REFLEXED; Urine RBC >50 /HPF (NONE SEEN); Urine White Blood Cell Casts 0-5 /LPF (NONE SEEN)
--- NOTE | 2018-02-10 12:56 | EKG ---
Test Date: 2018-02-10 Test Time: 10:20:43 [employer] Teacher: YANIV MEASUREMENT RESULTS: Intervals: Rate: 135 OR: 120 QRSD: 70 QT: 290 QTc: 435 [place]: P: 58 OR: 120 QRS: 57 T: 58 INTERPRETIVE STATEMENTS: Sinus tachycardia Otherwise normal ECG Compared to ECG 02/03/2018 17:59:32 No significant changes Electronically Signed On 02-10-18 12:55:52 CDT by Mathieu Alarcon
[2018-02-10] MEDS ORDERED: ACETAMINOPHEN 500 MG TAB PO PRN (13:06)
[2018-02-10] MEDS ORDERED: SODIUM CHLORIDE 0.9% 10ML INJ IV PRN (13:06)
[2018-02-10] MEDS: PANTOPRAZOLE 40 MG INJ IVP SCH (13:06)
[2018-02-10] MEDS ORDERED: ONDANSETRON 4 MG/2 ML VIAL IV PRN (13:06)
[2018-02-10] MEDS ORDERED: VANCOMYCIN 500 MG in NA CHLORIDE 0.9% 100 ML IVPB ONE (13:30)
[2018-02-10] MEDS: ACETAMINOPHEN 650MG/RECT SUPP PR PRN (19:07)
[2018-02-10] MEDS ORDERED: CEFEPIME 2 GM in NA CHLORIDE 0.9% 100 ML IV SCH (21:00)
--- NOTE | 2018-02-11 02:03 | HP ---
Date of Admission: 02/10/2018 Code Status: DNR. Shore Working Supervisor: Dr. Han with Neurology. Chief Complaint: Altered mental status. History Of Present Illness: The patient is a 72-year-old female, resident of the [facility] with past medical history of COPD, Alzheimer's dementia, renal insufficiency, bipolar 1 disorder, hypertension, hypothyroidism, dysphagia, GERD , hyperlipidemia, who was recently discharged from the hospital on 02/04/2018, admitted for difficulty breathing. She was found to have COPD exacerbation and UTI secondary to yeast. The patient was discharged back to the [facility] in a stable condition at that time. The patient comes in today, transferred from [facility] as she was found to be more confused and less responsive. The patient does occasionally wear oxygen at the [facility] as well, but when the patient arrived to the ER, her vital signs did show a temperature as high as 101.8. She was tachycardic and she became hypotensive with a blood pressure 103 /51. The patient was given a liter bolus. Workup revealed white count of 34, 000 with bandemia. She had a high procalcitonin. She did have some mild electrolyte abnormalities. Creatinine was up at 1.7 compared to baseline. She did have a positive UA. Her chest x-ray was clear. Head CT did not show any acute abnormalities as was her CT of the chest, abdomen, and pelvis. The patient was started on IV antibiotics and referred for admission. When the patient was seen in the ER, she was awake, alert, oriented to self only, in some mild distress. Past Medical History: COPD, hypertension, hypothyroidism, bipolar disorder, GERD, Alzheimer's dementia, history of CVA, dysphagia, and allergic rhinitis. Past Surgical History: None. Allergies: TO HALDOL CAUSES RASH. PENICILLIN ALSO CAUSES RASH. Medications: List reviewed. Family History: No history of premature coronary artery disease in the family. Social History: The patient does not have any history of smoking, alcohol use, or illicit drug use. The patient lives in a [facility]. Does ambulate with assist. Review of Systems: Limited due to patient's medical condition. Ten point system is negative except as above. Physical Examination: Vital Signs: Temperature 101.8, heart rate 132, blood pressure 111/68, respirations 22, O2 saturation 92% on 2 L via nasal cannula. General: Awake, alert, oriented to self only. Elderly female, ill appearing. HEENT: Normocephalic, atraumatic. PERRLA. EOMI. Dry mucous membranes. Poor dentition. Conjunctivae anicteric. Neck: Supple. No JVD. Trachea midline. CV: S1, S2. Sinus tachycardia. Peripheral pulses are weak. Respiratory: Moving air well bilaterally. No wheezing. No stridor. The patient is tachypneic. Gastrointestinal: Abdomen is soft, nontender, nondistended. Positive bowel sounds. No guarding or rigidity. Extremities: No clubbing, cyanosis, or edema. No calf tenderness. Neuro: Cranial nerves 2 through 12 intact grossly. Left upper extremity weakness. Speech is somewhat dysarthric. Skin: No rashes. Normal skin turgor. Psych: Mood is somewhat anxious. Affect is congruent with mood. Insight and judgment are poor. Laboratory Data: Sodium 147, potassium 3.4, chloride 104, CO2 32, BUN 36, creatinine 1.7, glucose 114, lactate is 2, calcium 8.6. Troponin less than 0.02. CRP is 343. Albumin is 2.4. Procalcitonin is 59.89. TSH is 1.34. INR 1.24. WBC 34.1, H and H 12.9 and 39.7, platelets 89, neutrophils 93%, bands 22 , and ESR 37. Valproic acid level is 31. UA shows negative nitrite, 3+ leukocyte esterase, greater than 50 rbc's, too numerous to count wbc's, loaded bacteria. Diagnostic Data: Chest x-ray shows mild interstitial prominence, may indicate mild interstitial pulmonary edema. CT chest and abdomen shows no acute abnormality involving the chest. Mild gallbladder distention. CT scan of the head shows no acute intracranial abnormality, significant frontal lobe atrophy. EKG shows sinus tachycardia, rate of 135. Assessment And Plan: A 72-year-old female with, 1. Severe sepsis. The patient has a white count of 34 with bandemia. Source of infection is likely urinary tract infection. The patient is tachycardic, tachypneic. We will continue with sepsis bundle with fluid bolus 30 mL/kg, broad-spectrum IV antibiotics. We will obtain medina cultures. 2. Urinary tract infection. We will continue with IV antibiotics and obtain culture. 3. Acute kidney injury. Creatinine is 1.7, baseline on discharge was normal recently. We will continue with IV fluids. 4. Thrombocytopenia. We will hold any anticoagulation. 5. Dementia with Alzheimer's type of early onset without behavioral disturbance. 6. Chronic obstructive pulmonary disease, chronic bronchitis. The patient does use oxygen p.r.n. 7. Bipolar 1 disorder, valproic acid level is low. 8. Essential hypertension, currently hypotensive. We will continue with IV fluid hydration. May need to be on pressors to keep MAP above 65. 9. Hypothyroidism. TSH is normal. Continue Synthroid. 10. History of suspected dysphagia. 11. Gastroesophageal reflux disease without esophagitis. Continue PPI. 12. Mixed hyperlipidemia. 13. Gastrointestinal and deep venous thrombosis prophylaxis with proton pump inhibitor and sequential compression devices. No chemical anticoagulation due to thrombocytopenia and microscopic hematuria. We will confirm DNR code status at the [facility]. ELSI Voice ID: [id number] MTDD
[2018-02-11 05:50] LABS: Absolute Lymphocytes (CBC) 0.5 K/uL (0.7-4.9); Absolute Monocytes 0.7 K/uL (0.1-1.3); Absolute Neutrophil 30.9 K/uL (1.8-8.0); Basophils % 0.2 % (0-1.3); Eosinophils % 0.3 % (0-4.4); Hematocrit 35.3 % (36.0-45.0); Lymphocytes % 1.4 % (15.3-44.8); MCH 29.7 pg (27.0-35.0); MCV 91.5 fL (80-100); MPV 9.5 fL (7.6-11.3); Monocytes % 2.1 % (3.3-12.3); RBC Red Blood Cell Count 3.86 M/uL (3.86-4.86)
[2018-02-11 06:00] LABS: Albumin 1.9 g/dL (3.4-5.0); Bilirubin Total 0.5 mg/dL (0.2-1.0); Potassium 3.8 mmol/L (3.5-5.1); Protein, Total 5.5 g/dL (6.4-8.2)
[2018-02-11 06:35] LABS: Toxic Granulation 1+
[2018-02-11 06:36] LABS: Blood Morphology Comment NOT SEEN (NOT SEEN); Platelet Estimate DECR
[2018-02-11] MEDS: PANTOPRAZOLE 40 MG INJ IVP SCH (08:23)
[2018-02-11] MEDS: CEFEPIME/SWI 2gm 2 GM/20 ML SYR IV SCH ×2 (08:23→20:31)
[2018-02-11] MEDS ORDERED: MELATONIN 3 MG TABLET PO PRN (09:51)
[2018-02-11] MEDS ORDERED: predniSONE 10 MG TAB PO PRN (09:51)
[2018-02-11] MEDS: ALBUTEROL 2.5 MG/3 ML NEB SOL NEB PRN ×2 (13:59→19:24)
[2018-02-11] MEDS: VANCOMYCIN 1.25 GM in NA CHLORIDE 0.9% 250 ML IVPB SCH (14:24)
[2018-02-11] MEDS: ACETAMINOPHEN 650MG/RECT SUPP PR PRN ×2 (16:27→23:01)
--- NOTE | 2018-02-11 17:45 | PN ---
Date of Progress Note: 02/11/2018 Subjective: The patient seen and examined, chart reviewed, and case discussed with RN and Dr. Han. The patient is much more awake and alert today, however, still has some dysphagia from her previous stroke. Denies any pain. Review of Systems: Limited due to patient's medical condition, however, negative other than as stated above. Medications: List reviewed. Objective: Vital signs: Temperature T-max is 102.5 at 8:00 p.m. last night. T current is 99.6. He art rate 113, blood pressure 152/94, respirations 25, and O2 97% on 2 L via nasal cannula. General: Awake, alert, oriented x2, in some mild distress ill-appearing elderly female, obese, BMI 3 0. CV: S1, S2. Sinus tachycardia. Peripheral pulses present. Respiratory: Moving air well bilaterally. No wheezing. No stridor. Gastrointestinal: Abdomen is soft, nontender, nondistended. Positive bowel sounds. No guarding or rigidity. Extremities: No clubbing, cyanosis, or edema. Neuro: The patient does have weakness on the left upper extremity. Speech is dysarthric. Laboratory Data: Sodium 140, potassium 3.8, chloride 111, CO2 28, BUN 38, creatinine 1.3, glucose 13 4, calcium 8, and albumin 1.9. WBC 32.2, H and H 11.5, 35.3, platelets 52, neutrophils 96%, and band s 23. Urine culture growing 100,000 colony-forming units of 4+ gram-negative rods. Blood culture gr owing gram-negative rods, 4/4 bottles. Assessment And Plan: 1.Severe sepsis. The patient continues to have elevated white blood cell count of 32,000 with bande erin, likely source of infection is urinary tract infection. The patient continues to be tachycardic, tachypneic. We will continue with gentle IV fluid hydration as the patient did become somewhat flui d overloaded yesterday. Follow up with culture results, so far preliminary results are growing gram- negative rods in the urine and blood. We will obtain Infectious Disease consultation. 2.Urinary tract infection, acute cystitis with hematuria. We will continue with broad-spectrum anti biotics secondary to gram-negative rods. 3.Gram-negative rojelio bacteremia. We will continue with cefepime. Follow up with identification and sensitivity. 4.Acute kidney injury. Creatinine has improved with IV fluid hydration. We will continue to monito r. Avoid NSAIDs. 5.Thrombocytopenia. We will continue to monitor platelets. No active bleeding at this time. 6.Dementia with Alzheimer's type without behavioral disturbance. Continue home medications. 7.Chronic obstructive pulmonary disease and chronic bronchitis. The patient on p.r.n. oxygen at the intermediate. 8.Bipolar 1 disorder, stable. Continue home medications. 9.Essential hypertension, currently normotensive. We will hold any blood pressure medications for n ow. The patient was hypotensive due to sepsis. 10.Hypothyroidism. TSH is normal. Continue Synthroid. 11.History of dysphagia. We will have Speech Therapy evaluate the patient's swallowing function. 12.Gastroesophageal reflux disease without esophagitis. Continue PPI. 13.Mixed hyperlipidemia. 14.Gastrointestinal and deep venous thrombosis prophylaxis with PPI and SCDs. No chemical anticoagu lation due to thrombocytopenia and hematuria. 15.The patient's code status was unable to be confirmed as DNR. The patient does not have a medical power of cut out worker listed, no living will. Nearest family contact is the son, who is unable to provi de information. The patient is unable to make decisions for herself due to her history of Alzheimer' s dementia. The patient is not competent for now. We will keep the patient as full code as we canno t confirm the patient's DNR status as required. Continue to monitor in the ICU setting due to severe sepsis. /MODL Voice ID: [id number] Report ID: [id number]
--- NOTE | 2018-02-11 17:54 | CON ---
History Of Present Illness: The patient is a 72-year-old female. I was consulted for urosepsis and bacteremia secondary to gram-negative rods. The patient has 4/4 bottles positive. Currently being tr eated with vancomycin and meropenem. She denies any headache, nausea, vomiting, chest pain, abdomina l pain, constipation, or diarrhea. Having some shortness of breath for which she is getting nebulize r treatment. The patient came in with 34,000 WBC count. Past Medical History: COPD, hypertension, hypothyroidism, bipolar disorder, gastroesophageal reflux disease, Alzheimer's dementia, history of stroke with dysphagia, allergies rhinitis. Surgical History: None. Social History: Unable to recall any alcohol and smoking history. Family History: Noncontributory. Medications: Meropenem and vancomycin. See MARs for other medication. Allergies: TO HALDOL AND PENICILLIN. SEE MARS FOR OTHER MEDICATION. Review of Systems: A 10-point review was performed. Physical Examination: General: This is a 72-year-old female, lying in bed, not in any acute cardiac distress. Vital Signs: The patient having some mild breathing challenges with temperature of 100.2, pulse 118, respiration 25, and blood pressure 177/94. HEENT: Within normal limits. Neck: Supple. No lymphadenopathy. Lungs: Basal crackles, scattered wheezing, and rhonchi in both lungs. Heart: S1 and S2. Regular. Abdomen: Soft, nontender. Bowel sounds positive. Extremities: Trace edema. Laboratory Data: Shows 32,000 white blood cell count, hemoglobin 11.5, platelets are 52,000. Chemis try shows sodium 148, potassium 38, potassium chloride 3.8, chloride 111, bicarb 28, BUN 38, creatini ne 1.3, glucose is 138, albumin is 5.5. Micro data shows blood cultures growing gram-negative rods. Sensitivity and specificity pending. Urine cultures growing more than 100,000 gram-negative rods. Assessment And Plan: Bacteremia and urosepsis secondary to gram-negative rods, most likely E. coli o r Pseudomonas. I agree with meropenem. Continue vancomycin till we have final sensitivity and speci ficity. Leukocytosis and thrombocytopenia, possibly secondary to sepsis. Continue antibiotic and bartholomew pportive care. We will follow the patient closely. Thank you Dr. Diaz for consult. NF/MODL Voice ID: [id number] Report ID: [id number]
[2018-02-11] MEDS: ARFORMOTEROL TARTRATE 15 MCG/2 ML VIAL.NEB NEB SCH (19:23)
[2018-02-11] MEDS: POLYVINYL ALCOHOL 1.4% 15 ML EACH EYE SCH (20:30)
[2018-02-11] MEDS: FLUTICASONE 50MCG NASAL SPRAY NAS SCH (20:30)
[2018-02-11] MEDS: ATORVASTATIN 40 MG TAB PO SCH (20:31)
[2018-02-11] MEDS: QUETIAPINE 100MG TAB PO SCH (20:31)
[2018-02-11] MEDS ORDERED: DIVALPROEX ER 250 MG TAB PO SCH (21:00)
[2018-02-11] MEDS ORDERED: NA CHLORIDE 0.9% 100 ML ONE (21:06)
[2018-02-11] MEDS ORDERED: VALPROATE NA 500 MG/5 ML INJ IV ONE (21:14)
[2018-02-11] MEDS: VALPROATE SODIUM INJ 250 MG in NA CHLORIDE 0.9% 100 ML IV SCH (21:22)
[2018-02-12 05:32] LABS: Albumin 1.7 g/dL (3.4-5.0); Bilirubin Total 0.6 mg/dL (0.2-1.0); Potassium 3.5 mmol/L (3.5-5.1); Protein, Total 5.5 g/dL (6.4-8.2)
[2018-02-12] MEDS: LEVOTHYROXINE SOD 0.025 MG TAB PO SCH (05:44)
[2018-02-12 06:17] LABS: Absolute Lymphocytes (CBC) 0.3 K/uL (0.7-4.9); Absolute Monocytes 0.4 K/uL (0.1-1.3); Eosinophils % 0.6 % (0-4.4); Hematocrit 34.8 % (36.0-45.0); Lymphocytes % 1.8 % (15.3-44.8); MCH 29.1 pg (27.0-35.0); MCV 91.9 fL (80-100); MPV 9.7 fL (7.6-11.3); Monocytes % 2.1 % (3.3-12.3); RBC Red Blood Cell Count 3.79 M/uL (3.86-4.86)
[2018-02-12] MEDS: ARFORMOTEROL TARTRATE 15 MCG/2 ML VIAL.NEB NEB SCH ×2 (07:49→19:33)
[2018-02-12 08:37] LABS: Blood Morphology Comment NOT SEEN (NOT SEEN); Platelet Estimate DECR
[2018-02-12] MEDS: VALPROATE SODIUM INJ 250 MG in NA CHLORIDE 0.9% 100 ML IV SCH ×2 (08:53→20:58)
[2018-02-12] MEDS: Meropenem 1,000 MG in NA CHLORIDE 0.9% 100 ML IV SCH ×2 (08:53→21:02)
[2018-02-12] MEDS: POLYVINYL ALCOHOL 1.4% 15 ML EACH EYE SCH ×2 (08:54→20:59)
[2018-02-12] MEDS: TIOTROPIUM 5 SPRAYS/INHALER IH SCH (08:54)
[2018-02-12] MEDS: FLUTICASONE 50MCG NASAL SPRAY NAS SCH ×2 (08:54→20:59)
[2018-02-12] MEDS: MONTELUKAST 10 MG TAB PO SCH (08:55)
[2018-02-12] MEDS: FOLIC ACID 1 MG TABLET PO SCH (08:55)
[2018-02-12] MEDS: ASPIRIN EC 81 MG TAB PO SCH (08:55)
[2018-02-12] MEDS: LACTOBACILLUS/ACIDOPHILUS TAB PO SCH (08:55)
[2018-02-12] MEDS: VITAMIN D 1000 UNIT TAB PO SCH (08:55)
[2018-02-12] MEDS: FAMOTIDINE 20 MG TAB PO SCH (08:55)
[2018-02-12] MEDS: DOCUSATE NA 100 MG CAP PO SCH (08:56)
[2018-02-12] MEDS: DILTIAZEM HCL 120 MG SR CAP PO SCH ×2 (09:00→10:01)
[2018-02-12] MEDS: ACETAMINOPHEN 650MG/RECT SUPP PR PRN (09:41)
--- NOTE | 2018-02-12 09:45 | EEG ---
CHART: [id number] TEST ID#: [id number] DATE OF STUDY: 02/11/2018 THE EEG WAS RECORDED PORTABLE IN THE ICU ON A 17 CHANNEL MACHINE. ELECTRODES WERE APPLIED IN THE USUAL MANNER USING THE INTERNATIONAL 10-20 SYSTEM. THE WAKING BACKGROUND RHYTHM IN THIS RECORD CONSISTS OF FAIRLY WELL DEVELOPED AND FAIRLY WELL ORGANIZED WAVES OF UP TO 8 HZ., MAXIMAL IN THE POSTERIOR HEAD REGIONS WHICH ATTENUATE NORMALLY WITH EYE OPENING. FREQUENTPOSTERIOR DOMINANT 4-6 HZ SHARPLY CONTURED SLOW WAVES ARE NOTED THROUGHOUT THE RECORD. THERE ARE NO FOCAL OR LATERALIZING FEATURES. NO EPILEPTIFORM ACTIVITY APPEARS. SLEEP NOT PERFORMED. HYPERVENTILATION WAS NOT PERFORMED. PHOTIC STIMULATION PRODUCED FAIR DRIVING BILATERALLY. IMPRESSION: ABNORMAL BECAUSE OF GENERALIZED AND EXCESSIVE SLOWING OF THE BACKGROUND. THE ABOVE SUGGESTS DIFFUSE CEREBRAL DYSFUNCTION.
[2018-02-12] MEDS ORDERED: DILTIAZEM HCL 60 MG TAB PO SCH ×2 (12:00→13:00)
[2018-02-12] MEDS ORDERED: DILTIAZEM HCL 60 MG TAB PO ONE (14:00)
--- NOTE | 2018-02-12 14:52 | PN ---
Date of Progress Note: 02/12/2018 Subjective: The patient is seen and examined. Chart reviewed and case discussed with RN and Dr. Han. The patient is much more awake and alert, feeling better. No further complaints. Review of Systems: Limited, however, negative except as above. Medications: Reviewed. Physical Examination: Vital Signs: T-max was 101 and midnight, T current is 99.8, heart rate 115, blood pressure 148/68, respirations 28, O2 100% on 2 L via nasal cannula. General: Awake, alert, oriented x2. Elderly female, ill appearing. CV: S1, S2. Sinus tachycardia. Peripheral pulses present. Respiratory: Moving air well bilaterally. No wheezing. Gastrointestinal: Abdomen is soft, nontender, nondistended. Positive bowel sounds. No guarding or rigidity. Extremities: No clubbing, cyanosis, edema. Neuro: The patient has some left-sided upper extremity weakness. Laboratory Data: Sodium 150, potassium 3.5, chloride 111, CO2 29, BUN 35, creatinine 1.10, glucose 130, calcium 8.3, albumin 1.7. Procalcitonin from is 28.81. WBC 17.8, H and H 11.1 and 34.8, platelets 49, neutrophils 17 , bands 8. Blood culture growing E. coli that is ESBL positive. Urine culture also growing E. coli that is ESBL positive producing. Assessment And Plan: A 72-year-old female with: 1. Severe sepsis secondary to ESBL producing Escherichia coli. The patient is bacteremic and has urinary tract infection. The patient is still tachycardic and tachypneic. We will continue with IV fluid hydration. We will adjust IV fluids. 2. Hypernatremia. We will switch IV fluids to D5 half NS. 3. Escherichia coli bacteremia, ESBL producing. We will switch IV antibiotics to meropenem. Appreciate Infectious Disease input. 4. Urinary tract infection, acute cystitis with hematuria. We will continue meropenem as urine culture is also growing ESBL Escherichia coli. 5. Acute kidney injury, creatinine normalized. Avoid NSAIDs. Continue to monitor. 6. Thrombocytopenia, likely secondary to sepsis. We will continue to monitor. No active bleeding at this time. 7. Dementia without Alzheimer's type without behavioral disturbance. Continue home medications. 8. Chronic obstructive pulmonary disease, chronic bronchitis, on p.r.n. oxygen. 9. Bipolar 1 disorder, stable. 10. Essential hypertension. Blood pressure is improved. We will resume home medications as appropriate. 11. Hypothyroidism. Continue Synthroid. 12. History of dysphagia. The patient is on modified diet. 13. Gastroesophageal reflux disease without esophagitis. We will continue PPI. 14. Mixed hyperlipidemia. 15. Gastrointestinal and deep venous thrombosis prophylaxis with PPI and SCDs. No chemical anticoagulation due to thrombocytopenia and hematuria. 16. Severe protein calorie malnutrition: supplements Plan: Step down from ICU. The patient will need PICC line. She is unable to consent due to her dementia. No medical power of associate application developer is available. We will do to doctor signature for PICC line as she needs to be treated for ESBL E. coli for minimum of 2 weeks with long-term IV therapy and she is bacteremic. ELSI Voice ID: [id number] Report ID: [id number] RENEE
[2018-02-12] MEDS: DILTIAZEM HCL 60 MG TAB PO SCH (18:20)
--- NOTE | 2018-02-12 18:55 | PN ---
Subjective: The patient is lying in bed, in no mild respiratory distress. Otherwise, no new complai nts. Objective: Vital Signs: Temperature 98, pulse 111, respirations 18, blood pressure 165/91. HEENT: Unremarkable. Neck: Supple. Lungs: Basal crackles. Heart: S1, S2. Regular. Abdomen: Soft, nontender. Bowel sounds positive. Extremities: Trace edema. Laboratory Data: WBC 17,800, hemoglobin 11.1, platelets are 49,000. Chemistry shows sodium 150, pot assium 3.5, chloride 111, bicarb 29, BUN 35, creatinine 1.1, glucose 49. Urinalysis shows too julian us to count wbc's, E. coli with ESBL growing in blood cultures and urine. Assessment And Plan: Urinary tract infection secondary to ESBL Escherichia coli. Continue antibioti c for 2 weeks. We will follow the patient closely. CHARLOTTE/MODL Voice ID: [id number] Report ID: [id number]
[2018-02-12] MEDS: QUETIAPINE 100MG TAB PO SCH (20:59)
[2018-02-12] MEDS: ATORVASTATIN 40 MG TAB PO SCH (21:00)
[2018-02-12 22:00] LABS: Absolute Lymphocytes (CBC) 0.4 K/uL (0.7-4.9); Absolute Monocytes 0.7 K/uL (0.1-1.3); Absolute Neutrophil 14.1 K/uL (1.8-8.0); Basophils % 0.1 % (0-1.3); Eosinophils % 0.4 % (0-4.4); Hematocrit 38.5 % (36.0-45.0); Lymphocytes % 2.5 % (15.3-44.8); MCH 29.5 pg (27.0-35.0); MCV 90.8 fL (80-100); MPV 9.5 fL (7.6-11.3); Monocytes % 4.6 % (3.3-12.3); RBC Red Blood Cell Count 4.24 M/uL (3.86-4.86)
[2018-02-13] MEDS: DILTIAZEM HCL 60 MG TAB PO SCH ×4 (00:31→17:43)
--- NOTE | 2018-02-13 01:10 | CON ---
Date of Consultation: 02/11/2018 Reason For Consultation: Altered mental status. History: A 72-[facility]-old prison resident, brought to the emergency department for worsening confusion. She was just discharged from the hospital earlier this month. Evaluation in the emergency department demonstrated fever of 101.8, tachycardia, and significant leukocytosis with a white count of 34, 000 with bandemia, calcitonin positive, renal insufficiency as well. The patient actually is awake and is following commands. She does have a lot of echolalia and appears to have some underlying language problem. Urinalysis is positive. Likewise, blood cultures are positive for gram-negative, likely sepsis from urinary tract infection. EEG did not demonstrate any epileptiform abnormalities. The patient has a history of dementia, on Depakote and Seroquel chronically; history of bipolar disorder as well. Consultation was requested. Past Medical History: COPD, dementia, renal insufficiency, bipolar disorder, hypertension, hypothyroidism, and reflux. Current Medications: Albuterol, Brovana, aspirin, Lipitor, Cardizem, folic acid , Synthroid, melatonin, meropenem, Singulair, Zofran, Seroquel, and Depakote, but the patient is having problems taking p.o. Spiriva and vancomycin. Allergies: HALDOL AND PENICILLIN. Social History: long-term resident. Requires assistance with activities of daily living. Family History: Not properly obtainable. Review of Systems: As alluded to. Physical Examination: Vital Signs: Temperature 100.6, heart rate 117, respirations 26, and blood pressure 167/82. She is not on any pressor support. General: She is awake and alert, has quite a prominent echolalia. No echopraxia. Repeat stated words frequently. Neck: Supple. HEENT: Pupils are reactive. Ocular motion is full. [place] are full. Face is symmetric. Neurologic: The patient has bilateral clenched fist, difficult to overcome, possibly dystonic, likely long standing. Withdrawal of all extremities to pain. Reflexes are 1/4. Toes are downgoing. Gait is not tested. Pertinent Diagnostic Studies: EEG, generalized excessive slowing of the background with sharply contoured posterior slowing as well. CT head; frontal atrophy symptoms, temporal atrophy as well on personal review. DICTATION ENDS HERE COLIN Voice ID: [id number] Report ID: [id number] MTDD
[2018-02-13] MEDS: VANCOMYCIN 1.25 GM in NA CHLORIDE 0.9% 250 ML IVPB SCH (03:16)
[2018-02-13 05:22] LABS: Absolute Lymphocytes (CBC) 0.5 K/uL (0.7-4.9); Absolute Monocytes 0.5 K/uL (0.1-1.3); Absolute Neutrophil 12.8 K/uL (1.8-8.0); Basophils % 0.2 % (0-1.3); Eosinophils % 0.8 % (0-4.4); Hematocrit 34.9 % (36.0-45.0); Lymphocytes % 3.6 % (15.3-44.8); MCH 29.3 pg (27.0-35.0); MCV 92.3 fL (80-100); MPV 10.1 fL (7.6-11.3); Monocytes % 3.4 % (3.3-12.3); RBC Red Blood Cell Count 3.78 M/uL (3.86-4.86)
[2018-02-13] MEDS: LEVOTHYROXINE SOD 0.025 MG TAB PO SCH (05:33)
[2018-02-13 05:51] LABS: Albumin 1.5 g/dL (3.4-5.0); Bilirubin Total 0.6 mg/dL (0.2-1.0); Potassium 3.3 mmol/L (3.5-5.1); Protein, Total 5.4 g/dL (6.4-8.2)
[2018-02-13] MEDS: ARFORMOTEROL TARTRATE 15 MCG/2 ML VIAL.NEB NEB SCH ×2 (07:06→19:46)
--- NOTE | 2018-02-13 08:37 | CON ---
Continuation: Impression: 1.Altered mental status. Sepsis from urinary tract infection. 2.Dementia. CT scan, a little more suggestive of frontotemporal dementia. 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 Plan: Continue general supportive care. Patient does not really appear to have bacterial meningitis . She is responding to the current treatment and gram-negative rods are in the blood. Changed Depak ote over to IV. Continue general supportive care. Thank you for the consult. We will continue to follow with you. Critical care time 1 hour. COLIN Voice ID: [id number] Report ID: [id number]
[2018-02-13] MEDS: FLUTICASONE 50MCG NASAL SPRAY NAS SCH ×2 (09:44→22:57)
[2018-02-13] MEDS: TIOTROPIUM 5 SPRAYS/INHALER IH SCH (09:44)
[2018-02-13] MEDS: Meropenem 1,000 MG in NA CHLORIDE 0.9% 100 ML IV SCH ×2 (09:44→22:57)
[2018-02-13] MEDS: POLYVINYL ALCOHOL 1.4% 15 ML EACH EYE SCH ×2 (09:45→22:57)
[2018-02-13] MEDS: DOCUSATE NA 100 MG CAP PO SCH (09:45)
[2018-02-13] MEDS: VITAMIN D 1000 UNIT TAB PO SCH (09:46)
[2018-02-13] MEDS: FAMOTIDINE 20 MG TAB PO SCH (09:46)
[2018-02-13] MEDS: ASPIRIN EC 81 MG TAB PO SCH (09:46)
[2018-02-13] MEDS: LACTOBACILLUS/ACIDOPHILUS TAB PO SCH (09:46)
[2018-02-13] MEDS: MONTELUKAST 10 MG TAB PO SCH (09:46)
[2018-02-13] MEDS: FOLIC ACID 1 MG TABLET PO SCH (10:08)
[2018-02-13] MEDS: VALPROATE SODIUM INJ 250 MG in NA CHLORIDE 0.9% 100 ML IV SCH ×2 (10:15→22:50)
[2018-02-13 11:28] LABS: Arterial Blood Carboxyhemoglob 1.8 % (0-1.5); Blood O2 Saturation 96.2 % (92-98.5)
--- NOTE | 2018-02-13 11:29 | RAD REPORT ---
EXAM DESCRIPTION: [facility] Single View02/13/2018 11:18 am CLINICAL HISTORY: Shortness of breath COMPARISON: February 10, 2018 FINDINGS: Mild chronic appearing interstitial lung opacities are present. The lungs appear clear of acute infiltrate. The heart is normal size IMPRESSION: No acute abnormalities displayed
--- NOTE | 2018-02-13 14:55 | PN ---
Date of Progress Note: 02/13/2018 Subjective: The patient is seen and examined. Chart reviewed and case discussed with RN. The patient is awake, alert, and oriented x2, not in any acute distress. Denies any pain. Review of Systems: Negative except as above. Medications: Reviewed. Physical Examination: Vital Signs: Temperature 97.4, heart rate 104, blood pressure 123/60, respirations 32, O2 96% on room air. General: Awake, alert, oriented x2, elderly female, somewhat ill-appearing, tachypneic, in some mild distress. CV: S1, S2. Peripheral pulses present. No murmurs. Respiratory: The patient is tachypneic. No wheezing. Some diminished breath sounds at the bases. Gastrointestinal: Abdomen is soft, nontender, nondistended. Positive bowel sounds. Extremities: No clubbing, cyanosis, or edema. Neuro: Left upper extremity weakness. Laboratory Data: Sodium 149, potassium 3.3, chloride 112, CO2 30, BUN 31, creatinine 1, glucose 124. Lactate 1.2. Procalcitonin 8. Calcium 8.3. Albumin 1.5. WBC 13.9, H and H 11.1 and 34.9, platelets 54, neutrophils 92%. Blood cultures growing E coli, 4 out of 4 bottles, ESBL producing. Urine culture also growing E coli. Assessment: A 72-year-old female with: 1. Severe sepsis secondary to extended spectrum beta-lactamases producing Escherichia coli. The patient is bacteremic and also has urinary tract infection. The patient is still tachypneic and slightly tachycardic. Lactate is normal. Procalcitonin is trending down. We will obtain chest x-ray and ABG. 2. Hypernatremia. The patient seems to be fluid overloaded. We will hold off on D5W for now. We will continue to monitor. 3. Escherichia coli bacteremia, extended spectrum beta-lactamases producing. Continue meropenem. Infectious Disease recommends 2 weeks of IV antibiotics. 4. Urinary tract infection, acute cystitis with hematuria. We will continue meropenem. Urine culture also growing extended spectrum beta-lactamases Escherichia coli. 5. Acute kidney injury. Creatinine normalized. We will continue to monitor. Avoid NSAIDs and nephrotoxins. 6. Thrombocytopenia, improved, likely secondary to sepsis. No active bleeding at this time. 7. Dementia, possibly frontotemporal dementia. No behavioral disturbance. The patient is incompetent, unable to explain why the PICC line is going to be used for and what the risks are if she does not receive the PICC line. Therefore, 2 physician consent will have to be made. She does not have any medical power of regulatory attorney, unable to reach her son for the past several months. 8. Chronic obstructive pulmonary disease, chronic bronchitis. Continue oxygen as needed. 9. Bipolar 1 disorder, stable. 10. Essential hypertension. Blood pressure is improved. 11. Hypothyroidism, on Synthroid. 12. History of dysphagia. Continue modified diet. 13. Gastroesophageal reflux disease without esophagitis. Continue PPI. 14. Mixed hyperlipidemia, on statin. 15. Gastrointestinal and deep venous thrombosis prophylaxis. PPI and SCDs. No chemical anticoagulation due to thrombocytopenia and hematuria. 16. Severe protein calorie malnutrition: continue proteins supplements Plan: Obtain PICC line. Will need to be discharged back to long-term for long-term IV antibiotic therapy. Follow up with chest x-ray and ABG. /CRYSTAL Voice ID: [id number] Report ID: [id number] RENEE
--- NOTE | 2018-02-13 17:52 | RAD REPORT ---
EXAM DESCRIPTION: RAD - Chest Single View - 02/13/2018 5:47 pm CLINICAL HISTORY: PICC line placement COMPARISON: Chest Single View dated 02/13/2018; Chest Single View dated 02/10/2018; Chest Single View dated 02/04/2018; Chest Single View dated 02/03/2018 FINDINGS: Portable chest was obtained following placement of a right upper extremity PICC line. The catheter tip projects over the right atrium. Consider 2-3 cm of retraction for optimum placement..
[2018-02-13] MEDS ORDERED: LIDOCAINE 1% 20 ML MDV ONE (19:08)
[2018-02-13] MEDS ORDERED: DIVALPROEX DR 500MG TAB PO SCH (21:00)
[2018-02-13] MEDS: QUETIAPINE 100MG TAB PO SCH (21:00)
[2018-02-13] MEDS: ATORVASTATIN 40 MG TAB PO SCH (22:57)
[2018-02-13] MEDS: ALBUTEROL 2.5 MG/3 ML NEB SOL NEB PRN (23:50)
[2018-02-14] MEDS ORDERED: METHYLPREDNISOLONE 125 MG INJ IV ONE (00:36)
[2018-02-14] MEDS: DILTIAZEM HCL 60 MG TAB PO SCH ×3 (00:50→12:00)
--- NOTE | 2018-02-14 01:18 | CON ---
Date of Consultation: 02/13/2018 Time: 2049. Reason: Dementia. History: The patient is stable from a nervous system standpoint out of the ICU on second floor, had a PICC line placed. Agreed, the patient is not really able to give adequate consent, but it is in th e patient's best medical interest to have long-term IV antibiotics. White count is down to 13. Plat elets have come up to 54. Sodium 149. Creatinine normal. Procalcitonin still elevated. Physical Examination: Neurologic: On exam, she is awake, alert. Follow commands. Difficulty naming items, colors. Echol maddy present. Ocular motion full. Henderson full. Face symmetric. Extremities: Greater than 4/5, reflexes trace, toes downgoing. Impression: Dementia, likely frontotemporal; primary progressive aphasia type picture. Plan: Stop the IV Depakote, go back to p.o. Otherwise, no additional neurologic intervention needed . Continue IV antibiotics per ID's recommendation. Thank you for the consult. COLIN Voice ID: [id number] Report ID: [id number]
[2018-02-14] MEDS: LEVOTHYROXINE SOD 0.025 MG TAB PO SCH (05:58)
[2018-02-14 06:02] LABS: Absolute Lymphocytes (CBC) 0.3 K/uL (0.7-4.9); Absolute Monocytes 0.5 K/uL (0.1-1.3); Absolute Neutrophil 11.3 K/uL (1.8-8.0); Basophils % 0.2 % (0-1.3); Eosinophils % 0.1 % (0-4.4); Hematocrit 32.4 % (36.0-45.0); Lymphocytes % 2.6 % (15.3-44.8); MCH 29.8 pg (27.0-35.0); MCV 92.7 fL (80-100); MPV 10.2 fL (7.6-11.3); Monocytes % 3.8 % (3.3-12.3)
[2018-02-14 06:13] LABS: Albumin 1.4 g/dL (3.4-5.0); Bilirubin Total 0.6 mg/dL (0.2-1.0); Potassium 3.5 mmol/L (3.5-5.1); Protein, Total 5.3 g/dL (6.4-8.2)
[2018-02-14] MEDS: ARFORMOTEROL TARTRATE 15 MCG/2 ML VIAL.NEB NEB SCH (08:17)
--- NOTE | 2018-02-14 08:51 | RAD REPORT ---
EXAM DESCRIPTION: RAD - Chest Single View - 02/14/2018 12:20 am CLINICAL HISTORY: respirations high 32 Chest pain. COMPARISON: Chest Single View dated 02/13/2018; Chest Single View dated 02/13/2018; Chest Single View dated 02/10/2018; Chest Single View dated 02/04/2018 FINDINGS: Portable technique limits examination quality. The lungs are grossly clear. The heart is normal in size. No displaced fractures.Right-sided PICC filomena e has its tip at the atrial caval junction. IMPRESSION: No acute intrathoracic process suspected.
[2018-02-14] MEDS: LACTOBACILLUS/ACIDOPHILUS TAB PO SCH (09:44)
[2018-02-14] MEDS: VITAMIN D 1000 UNIT TAB PO SCH (09:44)
[2018-02-14] MEDS: MONTELUKAST 10 MG TAB PO SCH (09:44)
[2018-02-14] MEDS: ASPIRIN EC 81 MG TAB PO SCH (09:44)
[2018-02-14] MEDS: DOCUSATE NA 100 MG CAP PO SCH (09:44)
[2018-02-14] MEDS: VALPROATE SODIUM INJ 250 MG in NA CHLORIDE 0.9% 100 ML IV SCH (09:45)
[2018-02-14] MEDS: POLYVINYL ALCOHOL 1.4% 15 ML EACH EYE SCH (09:45)
[2018-02-14] MEDS: TIOTROPIUM 5 SPRAYS/INHALER IH SCH (09:45)
[2018-02-14] MEDS: FLUTICASONE 50MCG NASAL SPRAY NAS SCH (09:45)
[2018-02-14] MEDS: FAMOTIDINE 20 MG TAB PO SCH (09:46)
[2018-02-14] MEDS: Meropenem 1,000 MG in NA CHLORIDE 0.9% 100 ML IV SCH (09:46)
[2018-02-14] MEDS: FOLIC ACID 1 MG TABLET PO SCH (09:46)
[2018-02-14] MEDS ORDERED: VANCOMYCIN 1.5 GM in NA CHLORIDE 0.9% 500 ML IVPB SCH (14:00)
--- NOTE | 2018-02-15 08:43 | DS ---
Date of Discharge: 02/14/2018 Consultants: Dr. Han with Neurology, Dr. Hernandez with ID. Admitting Diagnoses: 1.Acute metabolic encephalopathy. 2.Severe sepsis. 3.Urinary tract infection. 4.Acute kidney injury. 5.Thrombocytopenia. 6.Frontotemporal dementia. 7.Chronic obstructive pulmonary disease. 8.Chronic bronchitis with chronic respiratory failure, on oxygen. 9.Bipolar 1 disorder. 10.Essential hypertension. 11.Hypothyroidism. 12.History of dysphagia. 13.Gastroesophageal reflux disease without esophagitis. 14.Hyperlipidemia. Discharge Diagnoses: 1.Severe sepsis secondary to extended spectrum beta lactamase producing Escherichia coli. 2.Extended spectrum beta lactamase Escherichia coli bacteremia. 3.Urinary tract infection, acute cystitis with hematuria secondary to extended spectrum beta lactama se Escherichia coli. 4.Hyponatremia. 5.Acute kidney injury. 6.Thrombocytopenia, improved. 7.Dementia likely frontotemporal. 8.Acute metabolic encephalopathy, resolved. Mentation back to baseline. 9.Chronic obstructive pulmonary disease. 10.Chronic bronchitis with chronic respiratory failure, on oxygen at the shelter. 11.Bipolar 1 disorder, stable. 12.Essential hypertension. 13.Hypothyroidism. 14.Dysphagia, on modified diet. 15.Gastroesophageal reflux disease without esophagitis. 16.Hyperlipidemia, on statin. 17.Severe protein-calorie malnutrition. Hospital Course: The patient is a 72-year-old shelter resident, comes in with altered mental st atus. The patient was found to be septic. She was hypotensive, tachycardic, had a temperature of 10 1.8. She was found to have white count of 34,000 with bandemia. Workup revealed a UTI and she was s tarted on broad-spectrum IV antibiotics. Head CT did not show any acute abnormalities. Neurology wa s consulted for metabolic encephalopathy and altered mental status. EEG was done, which showed diffu se cerebral dysfunction. CT chest, abdomen, pelvis was done, which showed no acute abnormalities. T he patient slowly did begin to respond. Her blood cultures and urine culture were positive for ESBL producing Escherichia coli. Therefore, her IV antibiotics were switched to meropenem. The patient h ad a PICC line placed for long-term IV antibiotics for her ESBL E coli bacteremia and UTI. The patie nt's mental status improved. She was back to her baseline. Her white count essentially normalized. Bandemia resolved. The patient did have some mild electrolyte abnormalities, which were corrected. The patient has been cleared for discharge from [employer] management consultant's standpoint. She was discharged back to shelter in fair condition. Activity: Fall precautions. Diet: Modified diet due to dysphagia. Followup: Follow up with primary care physician in 2 to 3 days. Follow up with neurologist, Dr. Cheryl livingston in 4 weeks. Return to ER for worsening condition. Medications: As per medication reconciliation list. Physical Examination: General: Awake, alert, oriented x2. No acute distress. CV: S1, S2. Respiratory: Moving air well bilaterally. Abdomen: Soft, nontender, nondistended. Positive bowel sounds. Extremities: No clubbing, cyanosis, edema. Neurologic: Left upper extremity weakness. The patient does have some echolalia. Total time spent discharging the patient was 37 minutes. ELSI Voice ID: [id number] Report ID: [id number]
--- NOTE | 2018-02-17 10:12 | PN ---
Subjective: The patient is lying in bed. Denies any headache, nausea, vomiting, chest pain, abdomin al pain, constipation, or diarrhea. Objective: Vital signs reviewed. Lungs: Basal crackles. Heart: S1, S2. Regular. Abdomen: Soft, nontender. Bowel sounds positive. Extremity: No Edema. Assessment And Plan: Sepsis secondary to extended-spectrum beta-lactamase Escherichia coli, urinary tract infection and bacteremia. Leukocytosis is improving. Continue antibiotic and supportive care. Total course of antibiotic might have to prolonged for 2 weeks. We will follow the patient as need ed. NF/MODL Voice ID: [id number] Report ID: [id number]
== END 2018-02-14 18:33 | DRG 871 ==
LOC: ER 10:10 → ERHOLD 11:10 → 3RD-ICU 14:29 → 4TH 02-12 11:15 → 2ND 02-13 17:53
PROVIDERS: ADMIT Family Medicine; ATTEND Family Medicine
PROC: 02HV33Z Insertion of Infusion Device into Superior Vena Cava, Percutaneous Approach (ICD-10-PCS; principal; 2018-02-13)
DX: A41.51 Sepsis due to Escherichia coli [E. coli] (principal); G93.41 Metabolic encephalopathy; E43 Unspecified severe protein-calorie malnutrition; N30.01 Acute cystitis with hematuria; E87.1 Hypo-osmolality and hyponatremia; N17.9 Acute kidney failure, unspecified; J96.10 Chronic respiratory failure, unspecified whether with hypoxia or hypercapnia; E87.0 Hyperosmolality and hypernatremia; R65.20 Severe sepsis without septic shock; Z16.12 Extended spectrum beta lactamase (ESBL) resistance; D69.6 Thrombocytopenia, unspecified; G31.09 Other frontotemporal neurocognitive disorder; F02.80 Dementia in other diseases classified elsewhere, unspecified severity, without behavioral disturbance, psychotic disturbance, mood disturbance, and anxiety; J42 Unspecified chronic bronchitis; F31.9 Bipolar disorder, unspecified; I10 Essential (primary) hypertension; E03.9 Hypothyroidism, unspecified; R13.10 Dysphagia, unspecified; K21.9 Gastro-esophageal reflux disease without esophagitis; E78.5 Hyperlipidemia, unspecified; Z68.29 Body mass index [BMI] 29.0-29.9, adult; Z88.0 Allergy status to penicillin
CPT/HCPCS: 36415; 51702; 70450; 71045; 71250; 74176; 80048; 80053; 80076; 80164; 80202; 81003; 81015; 82150; 82550; 82553; 82805; 82962; 83605; 83690; 84145; 84443; 84484; 85025; 85610; 85652; 85730; 86140; 86850; 86900; 86901; 87040; 87077; 87086; 87088; 87186; 87205; 93005; 94640; 94760; 95816; 96374; 96375; 99285; C9113; J0692; J2930; J3370; J7030; J7605

== ENCOUNTER 2018-06-04 21:41 | Inpatient (IN) | payer OTHER ==
[2018-06-04] MEDS ORDERED: IPRATROPIUM BROM 0.5MG/2.5ML ONE (22:08)
[2018-06-04 22:19] LABS: Absolute Lymphocytes (CBC) 2.2 K/uL (0.7-4.9); Absolute Monocytes 0.8 K/uL (0.1-1.3); Absolute Neutrophil 8.1 K/uL (1.8-8.0); Basophils % 0.6 % (0-1.3); Eosinophils % 4.9 % (0-4.4); Hematocrit 41.1 % (36.0-45.0); Lymphocytes % 18.5 % (15.3-44.8); MCH 29.7 pg (27.0-35.0); MPV 8.6 fL (7.6-11.3); RBC Red Blood Cell Count 4.52 M/uL (3.86-4.86)
[2018-06-04 22:25] LABS: Protime INR 0.96
[2018-06-04] MEDS ORDERED: NA CHLORIDE 0.9% 1,000 ML ONE (22:25)
[2018-06-04] MEDS ORDERED: METHYLPREDNISOLONE 125 MG INJ ONE (22:25)
[2018-06-04] MEDS ORDERED: PIPER/TAZO/NS 3.375gm 3.375 GM/100 ML BAG ONE (22:26)
[2018-06-04 22:39] LABS: ALT/SGPT 21 U/L (12-78); AST/SGOT 14 U/L (15-37); Albumin 3.3 g/dL (3.4-5.0); Alkaline Phosphatase 77 U/L (45-117); BUN Blood Urea Nitrogen 25 mg/dL (7-18); Bicarbonate 31 mmol/L (21-32); Bilirubin Direct 0.1 mg/dL (0-0.2); Bilirubin Total 0.5 mg/dL (0.2-1.0); CKMB Creatine Kinase MB 2.4 ng/mL (0.3-3.6); Creatine Phosphokinase 86 U/L (26-192); Glucose Level 169 mg/dL (74-106); Lipase 144 U/L (73-393); NT PRO-BNP 365 pg/mL (<125); Potassium 4.4 mmol/L (3.5-5.1); Protein, Total 7.1 g/dL (6.4-8.2); Sodium Level 140 mmol/L (136-145); Troponin (Emerg Dept Use Only) < 0.02 ng/mL (0.0-0.045)
--- NOTE | 2018-06-04 23:16 | ER ---
Nurse's Notes [facility] Name: Elizabeth Falcon Age: 73 yrs Sex: Female : 1945 Arrival Date: 06/04/2018 Time: 21:49 Bed 19 Private MD: Diagnosis: Fever, unspecified;Chronic obstructive pulmonary disease with (acute) exacerbation;Pneumonia due to other specified bacteria;Hypoxemia Presentation: 06/04 22:10 Presenting complaint: EMS states: Called to [facility] staff ea reported pt was lethargic O2 was low and heart rate was elevated. Upon arrival pt was sating 90% on RA, HR: 132 , pt placed on O2 at 2 L per NC O2 sats 95%. Transition of care: patient was received from another setting of care (long-term care facility), [facility]. Onset of symptoms was June 05, 2018. Risk Assessment: Do you want to hurt yourself or someone else? Patient reports no desire to harm self or others. Initial Sepsis Screen: Does the patient meet any 2 criteria? RR > 20 per min. HR > 90 bpm. Yes Does the patient have a suspected source of infection? No. Patient's initial sepsis screen is negative. Care prior to arrival: None. 22:10 Method Of Arrival: EMS: [facility] ea 22:10 Acuity: [place] 3 ea Historical: - Allergies: 22:44 Haldol; ea 22:44 PENICILLINS; ea - Home Meds: 22:44 aspirin 81 mg Oral chew 1 tab once daily [Active]; Brovana 15 mcg/2 mL inhalation nebu ea [Active]; atorvastatin 40 mg Oral tab 1 tab once daily [Active]; Depakote ER 250 mg Oral Tb24 once daily [Active]; diltiazem HCl 240 mg Oral cpER once daily [Active]; ipratropium-albuterol 0.5 mg-3 mg(2.5 mg base)/3 mL Inhl nebu [Active]; Vitamin D3 1,000 unit Oral cap daily [Active]; Ultracet 37.5-325 mg Oral tab twice a day [Active]; Tylenol-Codeine #4 300-60 mg Oral tab [Active]; Spiriva with HandiHaler 18 mcg inhalation CpDv 1 cap once daily [Active]; prednisone 10 mg Oral tab once daily [Active]; Pepcid 20 mg Oral tab once daily [Active]; Probiotic Oral daily [Active]; docusate sodium 100 mg Oral tab once daily [Active]; Flonase 50 mcg/actuation Nasal spsn 2 sprays once daily [Active]; Singulair 10 mg Oral tab once daily [Active]; Seroquel 300 mg Oral tab once daily [Active]; PreserVision AREDS Oral [Active]; folic acid 1 mg Oral tab once daily [Active]; Fosamax 70 mg Oral tab 1 tab once wkly [Active]; levothyroxine 25 mcg tab 1 tab once daily [Active]; Liquitears 1.4 % Opht drop [Active]; melatonin 3 mg Oral tab daily for sleep disorder [Active]; - PMHx: 22:44 Alzheimers; MATIAS knees osteoarthritis; Necrotizing ulcerative stomatitis; ea Hypothyroidism; Hypertension; Hyperlipidemia; GERD; DYSPHAGIA; COPD; Bipolar disorder; - Immunization history:: Adult Immunizations up to date. - Social history:: Smoking status: Patient/guardian denies using tobacco. - Family history:: not pertinent. - Ebola Screening: : No symptoms or risks identified at this time. Screenin:15 Abuse screen: Denies threats or abuse. Nutritional screening: No deficits noted. ea Tuberculosis screening: No symptoms or risk factors identified. Fall Risk None identified. Assessment: 22:06 General: Appears uncomfortable, Behavior is calm, cooperative, appropriate for age. ea Pain: Denies pain. Neuro: Level of Consciousness is awake, alert, obeys commands, Oriented to person, place, time, situation. Cardiovascular: Heart tones S1 S2 present Patient's skin is warm and dry. Respiratory: Airway is patent Respiratory effort is even, labored, Respiratory pattern is tachypnea Breath sounds are coarse bilaterally. GI: Abdomen is non-distended, Bowel sounds present X 4 quads. : No signs and/or symptoms were reported regarding the genitourinary system. Derm: Skin is pink, warm \T\ dry. 23:00 Reassessment: Patient and/or family updated on plan of care and expected duration. Pain ea level reassessed. Patient is alert, oriented x 3, equal unlabored respirations, skin warm/dry/pink. 06/05 00:00 Reassessment: Patient and/or family updated on plan of care and expected duration. Pain ea level reassessed. Patient is alert, oriented x 3, equal unlabored respirations, skin warm/dry/pink. Reassessment: Patient and/or family updated on plan of care and expected duration. Pain level reassessed. Patient is alert, oriented x 3, equal unlabored respirations, skin warm/dry/pink. Report called to receiving nurse on second floor. Vital Signs: 06/04 22:10 BP 150 / 87; Pulse 120; Resp 24; Temp 98.2; Pulse Ox 95% 2 lpm ; Weight 58.97 kg; ea Height 5 ft. 1 in. (154.94 cm); 23:00 BP 121 / 72; Pulse 115; Resp 22; Temp 98; Pulse Ox 94% on 2 lpm NC; ea 06/05 00:20 BP 116 / 74; Pulse 106; Resp 22; Pulse Ox 96% on 2 lpm NC; Pain 0/10; ea 06/04 22:10 Body Mass Index 24.56 (58.97 kg, 154.94 cm) ea ED Course: 06/04 21:49 Patient arrived in ED. ea 21:57 Almas Carcamo MD is Attending Physician. emilie 22:00 Inserted saline lock: 20 gauge in right antecubital area, using aseptic technique. ea Blood collected. 22:00 Patient has correct armband on for positive identification. Bed in low position. Call ea light in reach. Side rails up X2. 22:00 Arm band placed on right wrist. Patient placed in an exam room, on a stretcher, on ea oxygen, on tooling supervisor, on pulse oximetry. 22:03 Annette Soni RN is Primary Nurse. ea 23:14 Chela Maharaj MD is Hospitalizing Provider. [facility] 06/05 00:03 Triage completed. ea 00:04 No provider procedures requiring assistance completed. Patient admitted, IV remains in ea place. Administered Medications: 06/04 22:16 Drug: SOLU-Medrol 125 mg Route: IVP; Site: left antecubital; ea 06/05 00:05 Follow up: Response: No adverse reaction 06/04 22:40 Drug: Zosyn 3.375 grams Route: IVPB; Infused Over: 60 mins; Site: right antecubital; ea 06/05 00:05 Follow up: Response: No adverse reaction; IV Status: Infusion continued upon admission ea 06/04 22:48 Drug: NS 0.9% 1000 ml Route: IV; Rate: 75 ml/hr; Site: right antecubital; tiffanie 06/05 00:04 Follow up: Response: No adverse reaction; IV Status: Infusion continued upon admission ea Outcome: 06/04 23:15 Decision to Hospitalize by Provider. emilie 06/05 00:14 Instructed on the need for admit. ea 01:08 Condition: stable ea 01:08 Admitted to Med/surg accompanied by tech, via stretcher, room 207, with oxygen, with ea chart, Report called to Receiving nurse on second floor. 01:16 Patient left the ED. ea Signatures: Almas Carcamo MD MD cha Antunez, Elena, RN RN ea Corrections: (The following items were deleted from the chart) 01:10 01:08 Admitted to Med/surg accompanied by tech, via stretcher, room 207, Report called ea to Receiving nurse on second floor. ea
--- NOTE | 2018-06-04 23:16 | EDPHYS ---
Physician Documentation [facility] Name: Elizabeth Falcon Age: 73 yrs Sex: Female : 1945 Arrival Date: 06/04/2018 Time: 21:49 Bed 19 Private MD: ED Physician Almas Carcamo HPI: 06/04 22:12 This 73 yrs old Female presents to ER via Unassigned with complaints of sob emilie and congestion. 22:12 The patient has shortness of breath with light activity. Onset: The symptoms/episode emilie began/occurred 1 day(s) ago. Duration: The symptoms are continuous, and are steadily getting worse. The patient's shortness of breath is aggravated by nothing, is alleviated by nebulizer treatment, application of supplemental oxygen. Associated signs and symptoms: The patient has no apparent associated signs or symptoms. Severity of symptoms: At their worst the symptoms were mild moderate in the emergency department the symptoms are unchanged. Severity of symptoms: At their worst the symptoms were mild, in the emergency department the symptoms are unchanged. Historical: - Allergies: 22:44 Haldol; ea 22:44 PENICILLINS; ea - Home Meds: 22:44 aspirin 81 mg Oral chew 1 tab once daily [Active]; Brovana 15 mcg/2 mL inhalation nebu ea [Active]; atorvastatin 40 mg Oral tab 1 tab once daily [Active]; Depakote ER 250 mg Oral Tb24 once daily [Active]; diltiazem HCl 240 mg Oral cpER once daily [Active]; ipratropium-albuterol 0.5 mg-3 mg(2.5 mg base)/3 mL Inhl nebu [Active]; Vitamin D3 1,000 unit Oral cap daily [Active]; Ultracet 37.5-325 mg Oral tab twice a day [Active]; Tylenol-Codeine #4 300-60 mg Oral tab [Active]; Spiriva with HandiHaler 18 mcg inhalation CpDv 1 cap once daily [Active]; prednisone 10 mg Oral tab once daily [Active]; Pepcid 20 mg Oral tab once daily [Active]; Probiotic Oral daily [Active]; docusate sodium 100 mg Oral tab once daily [Active]; Flonase 50 mcg/actuation Nasal spsn 2 sprays once daily [Active]; Singulair 10 mg Oral tab once daily [Active]; Seroquel 300 mg Oral tab once daily [Active]; PreserVision AREDS Oral [Active]; folic acid 1 mg Oral tab once daily [Active]; Fosamax 70 mg Oral tab 1 tab once wkly [Active]; levothyroxine 25 mcg tab 1 tab once daily [Active]; Liquitears 1.4 % Opht drop [Active]; melatonin 3 mg Oral tab daily for sleep disorder [Active]; - PMHx: 22:44 Alzheimers; MATIAS knees osteoarthritis; Necrotizing ulcerative stomatitis; ea Hypothyroidism; Hypertension; Hyperlipidemia; GERD; DYSPHAGIA; COPD; Bipolar disorder; - Immunization history:: Adult Immunizations up to date. - Social history:: Smoking status: Patient/guardian denies using tobacco. - Family history:: not pertinent. - Ebola Screening: : No symptoms or risks identified at this time. ROS: 22:12 Constitutional: Negative for fever, chills, and weight loss, Eyes: Negative for injury, emilie pain, redness, and discharge, ENT: Negative for injury, pain, and discharge, Neck: Negative for injury, pain, and swelling, Cardiovascular: Negative for chest pain, palpitations, and edema, Abdomen/GI: Negative for abdominal pain, nausea, vomiting, diarrhea, and constipation, Back: Negative for injury and pain, : Negative for injury, bleeding, discharge, and swelling, MS/Extremity: Negative for injury and deformity, Skin: Negative for injury, rash, and discoloration, Neuro: Negative for headache, weakness, numbness, tingling, and seizure, Psych: Negative for depression, anxiety, suicide ideation, homicidal ideation, and hallucinations, Allergy/Immunology: Negative for hives, rash, and allergies, Endocrine: Negative for neck swelling, polydipsia, polyuria, polyphagia, and marked weight changes, Hematologic/Lymphatic: Negative for swollen nodes, abnormal bleeding, and unusual bruising. 22:12 Respiratory: Positive for cough, with no reported sputum, shortness of breath, at rest. wheezing, expiratory. Exam: 22:12 Constitutional: This is a well developed, well nourished patient who is awake, alert, emilie and in no acute distress. Head/Face: Normocephalic, atraumatic. Eyes: Pupils equal round and reactive to light, extra-ocular motions intact. Lids and lashes normal. Conjunctiva and sclera are non-icteric and not injected. Cornea within normal limits. Periorbital areas with no swelling, redness, or edema. ENT: Nares patent. No nasal discharge, no septal abnormalities noted. Tympanic membranes are normal and external auditory canals are clear. Oropharynx with no redness, swelling, or masses, exudates, or evidence of obstruction, uvula midline. Mucous membranes moist. Neck: Trachea midline, no thyromegaly or masses palpated, and no cervical lymphadenopathy. Supple, full range of motion without nuchal rigidity, or vertebral point tenderness. No Meningismus. Chest/axilla: Normal chest wall appearance and motion. Nontender with no deformity. No lesions are appreciated. Cardiovascular: Regular rate and rhythm with a normal S1 and S2. No gallops, murmurs, or rubs. Normal PMI, no JVD. No pulse deficits. Abdomen/GI: Soft, non-tender, with normal bowel sounds. No distension or tympany. No guarding or rebound. No evidence of tenderness throughout. Back: No spinal tenderness. No costovertebral tenderness. Full range of motion. Skin: Warm, dry with normal turgor. Normal color with no rashes, no lesions, and no evidence of cellulitis. MS/ Extremity: Pulses equal, no cyanosis. Neurovascular intact. Full, normal range of motion. Neuro: Awake and alert, GCS 15, oriented to person, place, time, and situation. Cranial nerves II-XII grossly intact. Motor strength 5/5 in all extremities. Sensory grossly intact. Cerebellar exam normal. Normal gait. Psych: Awake, alert, with orientation to person, place and time. Behavior, mood, and affect are within normal limits. 22:12 Respiratory: mild respiratory distress is noted, Respirations: normal, Breath sounds: Respiratory rate: 20 Vital Signs: 22:10 BP 150 / 87; Pulse 120; Resp 24; Temp 98.2; Pulse Ox 95% 2 lpm ; Weight 58.97 kg; ea Height 5 ft. 1 in. (154.94 cm); 23:00 BP 121 / 72; Pulse 115; Resp 22; Temp 98; Pulse Ox 94% on 2 lpm NC; ea 06/05 00:20 BP 116 / 74; Pulse 106; Resp 22; Pulse Ox 96% on 2 lpm NC; Pain 0/10; ea 06/04 22:10 Body Mass Index 24.56 (58.97 kg, 154.94 cm) ea MDM: 06/04 21:57 Patient medically screened. [facility] 22:16 Data reviewed: vital signs, nurses notes, lab test result(s), EKG, radiologic studies, [facility] plain films. 06/04 22:05 Order name: Blood Culture Adult (2) 06/04 22:05 Order name: BMP; Complete Time: 23:08 06/04 22:05 Order name: CBC with Diff; Complete Time: 23:08 06/04 22:05 Order name: Ckmb; Complete Time: 23:08 06/04 22:05 Order name: CPK; Complete Time: 23:08 06/04 22:05 Order name: Hepatic Function; Complete Time: 23:08 06/04 22:05 Order name: Lipase; Complete Time: 23:08 06/04 22:05 Order name: Magnesium; Complete Time: 23:08 06/04 22:05 Order name: NT PRO-BNP; Complete Time: 23:08 06/04 22:05 Order name: PT-INR; Complete Time: 23:08 06/04 22:05 Order name: Ptt, Activated; Complete Time: 23:08 06/04 22:05 Order name: Troponin (emerg Dept Use Only); Complete Time: 23:08 06/04 23:09 Order name: Chest Single View XRAY [facility] 06/04 22:05 Order name: EKG; Complete Time: 22:05 06/04 22:05 Order name: Cardiac monitoring; Complete Time: 22:06 06/04 22:05 Order name: EKG - Nurse/Tech; Complete Time: 22:06 06/04 22:05 Order name: IV Saline Lock; Complete Time: 22:06 06/04 22:05 Order name: Labs collected and sent; Complete Time: 22:07 06/04 22:05 Order name: O2 Per Protocol; Complete Time: 22:07 06/04 22:05 Order name: O2 Sat Monitoring; Complete Time: 22:07 ea Administered Medications: 22:16 Drug: SOLU-Medrol 125 mg Route: IVP; Site: left antecubital; 06/05 00:05 Follow up: Response: No adverse reaction 06/04 22:40 Drug: Zosyn 3.375 grams Route: IVPB; Infused Over: 60 mins; Site: right antecubital; ea 06/05 00:05 Follow up: Response: No adverse reaction; IV Status: Infusion continued upon admission ea 06/04 22:48 Drug: NS 0.9% 1000 ml Route: IV; Rate: 75 ml/hr; Site: right antecubital; ea 06/05 00:04 Follow up: Response: No adverse reaction; IV Status: Infusion continued upon admission ea Disposition: 06/04/18 23:15 Hospitalization ordered by Chela Maharaj for Inpatient Admission. Preliminary diagnosis are Fever, unspecified, Chronic obstructive pulmonary disease with (acute) exacerbation, Pneumonia due to other specified bacteria, Hypoxemia. - Bed requested for Telemetry/MedSurg (Inpatient). - Status is Inpatient Admission. ea - Condition is Fair. - Problem is new. - Symptoms have improved. UTI on Admission? No Signatures: Dispatcher [employer] EDKS Cami Antony RN RN mw Anderson, Corey, MD MD cha Antunez, Elena, RN RN ea Corrections: (The following items were deleted from the chart) 06/04 22:10 22:05 D-DIMER+COAG.LAB.BRZ ordered. [facility] EDKS 23:19 23:15 Hospitalization Ordered by Chela Maharaj MD for Inpatient Admission. Preliminary diagnosis is Fever, unspecified; Chronic obstructive pulmonary disease with (acute) exacerbation; Pneumonia due to other specified bacteria; Hypoxemia. Bed requested for Telemetry/MedSurg (Inpatient). Status is Inpatient Admission. Condition is Fair. Problem is new. Symptoms have improved. UTI on Admission? No. emilie 06/05 01:16 06/04 23:19 06/04/2018 23:15 Hospitalization Ordered by Chela Maharaj MD for Inpatient ea Admission. Preliminary diagnosis is Fever, unspecified; Chronic obstructive pulmonary disease with (acute) exacerbation; Pneumonia due to other specified bacteria; Hypoxemia. Bed requested for Telemetry/MedSurg (Inpatient). Status is Inpatient Admission. Condition is Fair. Problem is new. Symptoms have improved. UTI on Admission? No. evelyne
--- NOTE | 2018-06-05 00:32 | P.HP ---
Certification for Inpatient Patient admitted to: Inpatient With expected LOS: >2 Midnights Practitioner: I am a practitioner with admitting privileges, knowledge of patient current condition, hospital course, and medical plan of care. Services: Services provided to patient in accordance with Admission requirements found in Title 42 Section 412.3 of the Code of Federal Regulations Patient History Date of Service: 06/04/18 Reason for admission: COPD exacerbation History of Present Illness: Ms Falcon is a 73-year-old woman with history of COPD, with p.r.n. home oxygen, Alzheimer dementia, hypothyroidism, resident of a [place] [facility], who start yesterday with progressive shortness of breath associated with productive cough. She states that the secretions are yellowish and usually are white. She denied any fever or chills. She is a former smoker. The patient denied any chest pain, nausea or vomiting. Lab work remarkable for leukocytosis 11.8 K , abnormal creatinine level and BUN consistent with acute renal injury. Chest-x -ray shows right base infiltrate. Allergies haloperidol [From Haldol] Allergy (Verified 06/02/17 20:02) Rash Penicillins Allergy (Verified 06/02/17 20:02) Rash Home medications list reviewed: Yes Home Medications: Aspirin [Aspir-Low] 81 mg PO DAILY 06/03/17 Cholecalciferol (Vitamin D3) [Vitamin D3] 2,000 unit PO DAILY 06/03/17 Diltiazem HCl [Diltiazem 24Hr ER] 240 mg PO DAILY 06/03/17 Docusate Sodium 100 mg PO DAILY 06/03/17 Famotidine [Pepcid] 20 mg PO DAILY 06/03/17 Folic Acid 1 mg PO DAILY 06/03/17 L.acidoph/B.long/L.plant/B.lac [Probiotic Acidophilus Beads] 1 each PO DAILY Levothyroxine Sodium 25 mcg PO DAILY 06/03/17 Montelukast Sodium [Singulair] 10 mg PO DAILY 06/03/17 Polyvinyl Alcohol [Liquitears] 15 ml OP BID 06/03/17 Tiotropium [Spiriva Handihaler*] 1 puff IH DAILY 06/03/17 Tramadol HCl/Acetaminophen [Ultracet Tablet] 1 each PO Q6H PRN 06/03/17 Vit C/E/Zn/Coppr/Lutein/Zeaxan [Preservision Areds 2 Softgel] 1 each PO BID Acetaminophen with Codeine [Acetaminophen-Cod #4 Tablet] 1 each PO BID 02/03/18 Albuterol Sulfate [Albuterol Sulfate 0.083% Neb Soln] 2.5 mg IH Q6H PRN Alendronate Sodium [Fosamax] 70 mg PO DIRECTED 02/03/18 Atorvastatin Calcium [Lipitor*] 40 mg PO BEDTIME 02/03/18 Divalproex ER [Depakote *ER] 250 mg PO BID 02/03/18 Fluticasone [Flonase 50MCG Nasal [place]*] 2 sprays NS BID 02/03/18 Melatonin [Melatonin*] 3 mg PO BEDTIME PRN 02/03/18 Quetiapine [Seroquel*] 100 mg PO BEDTIME 02/03/18 Arformoterol Tartrate [Brovana] 15 mcg NEB BIDRESP #60 vial.neb 02/05/18 predniSONE [Deltasone*] 10 mg PO DAILY PRN 02/10/18 Meropenem [Merrem 500 MG/100 ML NS IVPB] 500 mg IV Q12HR #1 bag 02/14/18 - Past Medical/Surgical History Diabetic: No -: COPD -: HTN -: HYPOTHYROIDISM -: BIPOLAR -: GERD -: ALZHEIMERS -: CVA -: Marlon Knee arthritis -: Hyperlipidemia -: mixed receptive expressive language disorder Past Surgical History: Reviewed- Non-Contributory - Family History Family History: Reviewed- Non-Contributory - Social History Smoking Status: Former smoker Alcohol use: No CD- Drugs: No Caffeine use: Yes Place of Residence: [facility] Review of Systems 10-point ROS is otherwise unremarkable Physical Examination - Physical Exam General: Alert, In no apparent distress, Demented HEENT: Atraumatic, PERRLA, Mucous membr. moist/pink, EOMI, Sclerae nonicteric Neck: Supple, 2+ carotid pulse no bruit, No LAD, Without JVD or thyroid abnormality Respiratory: Diminished, Crackles/rales (Right base crackles) Cardiovascular: Regular rate/rhythm, Normal S1 S2 Gastrointestinal: Normal bowel sounds, No tenderness Musculoskeletal: No tenderness Integumentary: No rashes Neurological: Normal speech, Normal strength at 5/5 x4 extr, Normal tone, Normal affect Lymphatics: No axilla or inguinal lymphadenopathy - Studies Laboratory Data (last 24 hrs) 06/04/18 21:50: PT 11.3, INR 0.96, APTT 26.4 06/04/18 21:50: WBC 11.8 H, Hgb 13.4, Hct 41.1, Plt Count 163 06/04/18 21:50: Sodium 140, Potassium 4.4, BUN 25 H, Creatinine 1.30, Glucose 169 H, Magnesium 2.0, Total Bilirubin 0.5, AST 14 L, ALT 21, Alkaline Phosphatase 77, Lipase 144 Assessment and Plan - Problems (Diagnosis) (1) Acute renal injury Current Visit: Yes Status: Acute (2) COPD exacerbation Onset Date: 06/03/17 Current Visit: No Status: Acute (3) Pneumonia Current Visit: No Status: Acute Qualifiers: Pneumonia type: due to unspecified organism Laterality: right Lung location: lower lobe of lung Qualified Code(s): J18.1 - Lobar pneumonia, unspecified organism - Plan The patient will be admitted to the hospital due to COPD exacerbation. Chest-x- ray shows a right days infiltrate consistent with pneumonia, awaiting formal radiology report. She has leukocytosis, no fever. Will order influenza screen , start empiric treatment with Levaquin, IV steroids, and breathing treatment. - Advance Directives Does patient have a Living Will: No Does patient have a Durable POA for Healthcare: No - Code Status/Comfort Care Code Status Assessed: Yes Code Status: Full Code
[2018-06-05] MEDS ORDERED: ACETAMINOPHEN 500 MG TAB PO PRN (00:47)
[2018-06-05] MEDS ORDERED: ONDANSETRON 4 MG/2 ML VIAL IV PRN (00:47)
[2018-06-05] MEDS: NA CHLORIDE 0.9% 1,000 ML IV SCH ×3 (01:42→12:32)
[2018-06-05] MEDS ORDERED: Levofloxacin500mg IV 500 MG/100 ML BAG IV ONE (02:00)
[2018-06-05] MEDS: METHYLPREDNISOLONE 125 MG INJ IV SCH ×2 (06:03→12:00)
--- NOTE | 2018-06-05 07:13 | RAD REPORT ---
EXAM DESCRIPTION: RAD - Chest Single View - 06/04/2018 11:34 pm CLINICAL HISTORY: Congestion, shortness of breath COMPARISON: February 14 TECHNIQUE: AP portable chest image was obtained 2322 hours . FINDINGS: Lung volumes are low. Patient has chronic interstitial lung pattern has not changed signif icantly. No superimposed failure, infiltrate or mass identifiable. Heart and vasculature are normal. No measurable pleural effusion and no pneumothorax. No acute bony abnormality seen. No acute aortic findings suspected. IMPRESSION: Chronic interstitial lung disease present. No significant change from comparison.
[2018-06-05] MEDS: ARFORMOTEROL TARTRATE 15 MCG/2 ML VIAL.NEB NEB SCH ×2 (08:25→19:31)
[2018-06-05] MEDS ORDERED: ARFORMOTEROL TARTRATE 15 MCG/2 ML VIAL.NEB ONE (08:31)
[2018-06-05] MEDS: POLYVINYL ALCOHOL 1.4% 15 ML OPTH SCH ×2 (09:00→21:00)
[2018-06-05] MEDS: TIOTROPIUM 5 SPRAYS/INHALER IH SCH (10:16)
[2018-06-05] MEDS: DILTIAZEM HCL 120 MG SR CAP PO SCH (10:16)
[2018-06-05] MEDS: ENOXAPARIN 30 MG/0.3 ML SQ SCH (10:16)
[2018-06-05] MEDS: VITAMIN D 1000 UNIT TAB PO SCH (10:17)
[2018-06-05] MEDS: FOLIC ACID 1 MG TABLET PO SCH (10:17)
[2018-06-05] MEDS: ASPIRIN EC 81 MG TAB PO SCH (10:17)
[2018-06-05] MEDS: DOCUSATE NA 100 MG CAP PO SCH (10:17)
[2018-06-05] MEDS: DIVALPROEX ER 250 MG TAB PO SCH ×2 (10:24→21:16)
[2018-06-05] MEDS: MONTELUKAST 10 MG TAB PO SCH (10:28)
[2018-06-05] MEDS: LEVOTHYROXINE SOD 0.025 MG TAB PO SCH (10:30)
--- NOTE | 2018-06-05 12:52 | P.PN ---
Subjective Date of Service: 06/05/18 Primary Care Provider: alf resident Chief Complaint: COPD exacerbation Subjective: Other (Patient doing better. Patient appropriate.) Physical Examination - Vital Signs Temperature: 97.0 F Blood Pressure: 147/69 Pulse: 100 Respirations: 17 Pulse Ox (%): 96 - Physical Exam General: Alert, Cooperative, Demented HEENT: Atraumatic Neck: Supple Respiratory: Expiratory wheezes (Mild bilateral) Cardiovascular: Normal pulses, Regular rate/rhythm Gastrointestinal: Normal bowel sounds, Soft and benign, Non-distended, No tenderness, No masses, No rebound, No guarding Musculoskeletal: No erythema, No tenderness, No warmth Integumentary: No erythema, No warmth, No cyanosis Neurological: Normal speech, Normal strength at 5/5 x4 extr, Normal tone, Normal affect, Dementia - Studies Laboratory Data (last 24 hrs) 06/04/18 21:50: PT 11.3, INR 0.96, APTT 26.4 06/04/18 21:50: WBC 11.8 H, Hgb 13.4, Hct 41.1, Plt Count 163 06/04/18 21:50: Sodium 140, Potassium 4.4, BUN 25 H, Creatinine 1.30, Glucose 169 H, Magnesium 2.0, Total Bilirubin 0.5, AST 14 L, ALT 21, Alkaline Phosphatase 77, Lipase 144 Medications List Reviewed: Yes Assessment & Plan Discharge Plan: Custodial Plan to discharge in: 48 Hours Physician Review Additional Text: Impression: Cough secondary to COPD exacerbation with possible bacterial bronchitis versus pneumonia Hypertension Hypothyroidism Depression Dementia Acute renal injury with chronic renal disease stage 2 Plan: Cough secondary to COPD exacerbation with possible bacterial bronchitis versus pneumonia: Will continue with COPD treatment including steroids, antibiotic therapy and oxygen. Will repeat chest x-ray. Will check pro calcitonin. Will change IV steroids to oral. Will provide COPD medication. Will wean off oxygen. Patient using oxygen as needed at the detention. Anticipate discharge in the next 1-2 days. Will physical therapy assess ambulation. Hypertension: Will restart home medication. Will monitor and adjust appropriately Hypothyroidism: Will restart home medication Depression: Will restart home medication Dementia: Will restart home medication. Acute renal injury with chronic renal disease stage 2: IV fluids adjusted. Will monitor renal function. Time Spent Managing Pts Care (In Minutes): 55
[2018-06-05] MEDS: ALBUTEROL 2.5 MG/3 ML NEB SOL NEB PRN ×2 (13:16→19:31)
[2018-06-05] MEDS: IPRATROPIUM BROM 0.5MG/2.5ML NEB PRN ×2 (13:16→19:31)
--- NOTE | 2018-06-05 13:28 | RAD REPORT ---
EXAM DESCRIPTION: Elanat Single View06/05/2018 1:17 pm CLINICAL HISTORY: Shortness of breath COMPARISON: 06/04/2018 FINDINGS: Mild bilateral pulmonary opacities are unchanged. These probably are chronic. The lungs a ppear clear of acute infiltrate. The heart is normal size IMPRESSION: No acute abnormalities displayed
[2018-06-05 13:36] LABS: Potassium 4.6 mmol/L (3.5-5.1)
[2018-06-05] MEDS ORDERED: QUETIAPINE 100MG TAB PO SCH (21:00)
[2018-06-05] MEDS ORDERED: ATORVASTATIN 40 MG TAB PO SCH (21:00)
[2018-06-05] MEDS: predniSONE 20 MG TAB PO SCH (21:16)
[2018-06-06] MEDS ORDERED: Levofloxacin 250mg IV 250 MG/50 ML BAG IV SCH (02:00)
[2018-06-06] MEDS: NA CHLORIDE 0.9% 1,000 ML IV SCH (05:17)
[2018-06-06] MEDS: LEVOTHYROXINE SOD 0.025 MG TAB PO SCH (05:18)
[2018-06-06 05:36] LABS: Absolute Lymphocytes (CBC) 0.5 K/uL (0.7-4.9); Absolute Monocytes 0.4 K/uL (0.1-1.3); Absolute Neutrophil 11.8 K/uL (1.8-8.0); Basophils % 0.3 % (0-1.3); Hematocrit 33.2 % (36.0-45.0); MCH 30.2 pg (27.0-35.0); MCV 91.7 fL (80-100); MPV 9.4 fL (7.6-11.3); Monocytes % 3.3 % (3.3-12.3); RBC Red Blood Cell Count 3.62 M/uL (3.86-4.86)
[2018-06-06 05:46] LABS: Magnesium 2.2 mg/dL (1.8-2.4); Potassium 4.5 mmol/L (3.5-5.1)
[2018-06-06 06:28] LABS: Platelet Estimate ADEQ; Urine White Blood Cell Casts OK
[2018-06-06 06:29] LABS: Anisocytosis 1+; Blood Morphology Comment NOT SEEN (NOT SEEN)
--- NOTE | 2018-06-06 06:54 | EKG ---
Test Date: 2018-06-04 Test Time: 21:41:04 Associate Professor Of Biology: JONO MEASUREMENT RESULTS: Intervals: Rate: 126 NE: 126 QRSD: 66 QT: 312 QTc: 451 [place]: P: 78 NE: 126 QRS: 81 T: 86 INTERPRETIVE STATEMENTS: Sinus tachycardia Otherwise normal ECG Compared to ECG 02/10/2018 10:20:43 No significant changes Electronically Signed On 06-06-18 06:49:38 CDT by Cameron Kenney
[2018-06-06] MEDS: DOCUSATE NA 100 MG CAP PO SCH (07:19)
[2018-06-06] MEDS: TIOTROPIUM 5 SPRAYS/INHALER IH SCH (08:11)
[2018-06-06] MEDS: MONTELUKAST 10 MG TAB PO SCH (08:12)
[2018-06-06] MEDS: DILTIAZEM HCL 120 MG SR CAP PO SCH (08:12)
[2018-06-06] MEDS: VITAMIN D 1000 UNIT TAB PO SCH (08:13)
[2018-06-06] MEDS: ASPIRIN EC 81 MG TAB PO SCH (08:13)
[2018-06-06] MEDS: ENOXAPARIN 30 MG/0.3 ML SQ SCH (08:13)
[2018-06-06] MEDS: POLYVINYL ALCOHOL 1.4% 15 ML OPTH SCH (08:13)
[2018-06-06] MEDS: predniSONE 20 MG TAB PO SCH (08:13)
[2018-06-06] MEDS: FOLIC ACID 1 MG TABLET PO SCH (08:13)
[2018-06-06] MEDS: DIVALPROEX ER 250 MG TAB PO SCH (08:13)
[2018-06-06] MEDS: ARFORMOTEROL TARTRATE 15 MCG/2 ML VIAL.NEB NEB SCH (08:23)
--- NOTE | 2018-06-06 11:42 | P.DS ---
Admission Date: 06/04/18 Discharge Date: 06/06/18 Primary Care Provider: long-term resident Disposition: TRANSFER TO [facility] Discharge Condition: GOOD Reason for Admission: COPD exacerbation Consultations: None Procedures: Medical problem list: Cough secondary to COPD exacerbation with possible bacterial bronchitis versus pneumonia Hypertension Hypothyroidism Depression Hyperlipidemia Dementia Acute renal injury with chronic renal disease stage 2 Brief History of Present Illness: 73-year-old female present emergency room with increasing cough, congestion. Patient with dementia, hypothyroidism and COPD. Patient found to have COPD exacerbation with possible bronchitis. Patient admit for treatment. Hospital Course: Patient presented with cough. Patient found to have COPD exacerbation with possible bacterial bronchitis versus pneumonia. Initial chest x-ray showed possible right lower lobe pneumonia. Repeat x-ray showed chronic changes. Patient responded to COPD treatment along with antibiotic therapy. Pro calcitonin unremarkable. Patient has responded well to therapy. At discharge patient will continue with prednisone 20 mg 1 pill twice daily for 5 days then 1 pill once daily for 5 days. Patient will also go to the custodial on Levaquin 250 mg 1 pill daily for 6 more days. Tessalon Perles 100 mg 1 pill 3 times a day as needed for cough will be provided. Patient will continue with her COPD treatment including Brovana 1 unit dose twice daily, Spiriva 1 puff once daily, and albuterol 1 unit dose 3 day as needed for shortness of breath. Patient will continue with oxygen to maintain sats above 90%. Patient will likely require continue to chronic oxygen therapy. Recommendation is to recheck chest x-ray in 2-4 weeks to monitor resolution. Recommendation is for the patient follow up with pulmonology in 2-4 weeks to monitor progress. Patient has hypertension. Patient will continue with her medication including diltiazem 240 mg 1 pill daily and aspirin 81 mg daily. Recommendation is to maintain blood pressures less 150/80. Further adjustment can be done by her PCP. Patient has hypothyroidism. Patient will continue with levothyroxine 25 mcg daily. Patient has hyperlipidemia. Patient will continue with Lipitor 40 mg 1 pill once daily. Patient had depression. She will continue with Depakote 250 mg one pill twice daily and Seroquel 100 mg at night. Patient with dementia. She will continue with folic acid 1 mg daily. Patient with acute renal injury with chronic renal disease stage II. Patient provided IV fluids. This has remained stable. This can be monitored closely at the custodial. Recommendation to recheck BMP in 1 week to monitor progress. Recommendation on no further use of nonsteroidal anti- inflammatories. Future medications will need to be renally dosed. Recommendation for the patient follow up with nephrology as an outpatient to further monitor. Vital Signs/Physical Exam: Temp Pulse Resp BP Pulse Ox 97.7 F 99 H 18 128/65 97 06/06/18 08:00 06/06/18 08:12 06/06/18 08:00 06/06/18 08:12 06/06/18 08:00 General: Alert, In no apparent distress, Oriented x3, Cooperative HEENT: Atraumatic Neck: Supple Respiratory: Clear to auscultation bilaterally, Normal air movement Cardiovascular: Normal pulses, Regular rate/rhythm Gastrointestinal: Normal bowel sounds, Soft and benign, Non-distended, No tenderness, No masses, No rebound, No guarding Musculoskeletal: No erythema, No tenderness, No warmth Integumentary: No tenderness/swelling, No erythema, No warmth, No cyanosis Neurological: Normal speech, Normal strength at 5/5 x4 extr, Normal tone, Normal affect Laboratory Data at Discharge: WBC 12.7 K/uL (4.3-10.9) H 06/06/18 04:55 Hgb 10.9 g/dL (12.0-15.0) L D 06/06/18 04:55 Hct 33.2 % (36.0-45.0) L D 06/06/18 04:55 Plt Count 130 K/uL (152-406) L D 06/06/18 04:55 PT 11.3 SECONDS (9.5-12.5) 06/04/18 21:50 INR 0.96 06/04/18 21:50 APTT 26.4 SECONDS (24.3-36.9) 06/04/18 21:50 Sodium 141 mmol/L (136-145) 06/06/18 04:55 Potassium 4.5 mmol/L (3.5-5.1) 06/06/18 04:55 BUN 29 mg/dL (7-18) H 06/06/18 04:55 Creatinine 1.30 mg/dL (0.55-1.3) 06/06/18 04:55 Glucose 356 mg/dL (74-106) H 06/06/18 04:55 Magnesium 2.2 mg/dL (1.8-2.4) 06/06/18 04:55 Total Bilirubin 0.5 mg/dL (0.2-1.0) 06/04/18 21:50 AST 14 U/L (15-37) L 06/04/18 21:50 ALT 21 U/L (12-78) 06/04/18 21:50 Alkaline Phosphatase 77 U/L (45-117) 06/04/18 21:50 Lipase 144 U/L (73-393) 06/04/18 21:50 Home Medications: Acetaminophen [Tylenol*] 650 mg PO Q6HP PRN 06/05/18 Alendronate Sodium [Fosamax] 70 mg PO ONCE 06/05/18 Aspirin [Aspirin EC 81 MG] 81 mg PO DAILY 06/05/18 Atorvastatin Calcium [Lipitor] 40 mg PO BEDTIME 06/05/18 Cholecalciferol (Vitamin D3) [Vitamin D3] 2,000 mg PO DAILY 06/05/18 Diltiazem HCl [Cardizem Cd] 240 mg PO DAILY 06/05/18 Divalproex Sodium [Depakote ER] 250 mg PO BID 06/05/18 Docusate Sodium 100 mg PO DAILY 06/05/18 Famotidine [Pepcid*] 20 mg PO DAILY 06/05/18 Folic Acid 1 mg PO DAILY 06/05/18 L.acidoph,Paracasei, B.lactis [Probiotic] 1 each PO DAILY 06/05/18 Levothyroxine Sodium 25 mcg PO DAILY 06/05/18 Melatonin/Pyridoxine HCl (B6) [Melatonin 3 mg Tablet] 1 each PO PRN PRN Montelukast [Singulair*] 10 mg PO DAILY 06/05/18 Polyvinyl Alcohol [Liquitears] 1 gtts OP BID 06/05/18 Quetiapine [Seroquel*] 100 mg PO BEDTIME 06/05/18 Tiotropium [Spiriva Handihaler*] 5 puff IN DAILY 06/05/18 Vit A/Vit C/Vit E/Zinc/Copper [Preservision Areds Softgel] 1 each PO BID Albuterol Neb [Proventil 0.083% Neb Soln] 2.5 mg NEB TID PRN #90 amp 06/06/18 Arformoterol Tartrate [Brovana] 15 mcg NEB BIDRESP #60 vial.neb 06/06/18 Benzonatate [Tessalon Perle] 100 mg PO TID PRN #15 cap 06/06/18 Levofloxacin [Levaquin] 250 mg PO DAILY #6 tablet 06/06/18 predniSONE [Prednisone*] 20 mg PO SEECOM #15 tab 06/06/18 New Medications: Albuterol Neb [Proventil 0.083% Neb Soln] 2.5 mg NEB TID PRN #90 amp PRN Reason: Shortness Of Breath Arformoterol Tartrate [Brovana] 15 mcg NEB BIDRESP #60 vial.neb Benzonatate [Tessalon Perle] 100 mg PO TID PRN #15 cap PRN Reason: Cough Levofloxacin [Levaquin] 250 mg PO DAILY #6 tablet predniSONE [Prednisone*] 20 mg PO SEECOM #15 tab Patient Discharge Instructions: 1. Patient may return to custodial. 2. Patient presented with cough. Patient found to have COPD exacerbation with possible bacterial bronchitis versus pneumonia. Initial chest x-ray showed possible right lower lobe pneumonia. Repeat x-ray showed chronic changes. Patient responded to COPD treatment along with antibiotic therapy. Pro calcitonin unremarkable. Patient has responded well to therapy. At discharge patient will continue with prednisone 20 mg 1 pill twice daily for 5 days then 1 pill once daily for 5 days. Patient will also go to the custodial on Levaquin 250 mg 1 pill daily for 6 more days. Tessalon Perles 100 mg 1 pill 3 times a day as needed for cough will be provided. Patient will continue with her COPD treatment including Brovana 1 unit dose twice daily, Spiriva 1 puff once daily, and albuterol 1 unit dose 3 day as needed for shortness of breath. Patient will continue with oxygen to maintain sats above 90%. Patient will likely require continue to chronic oxygen therapy. Recommendation is to recheck chest x-ray in 2-4 weeks to monitor resolution. Recommendation is for the patient follow up with pulmonology in 2-4 weeks to monitor progress. 3. Patient has hypertension. Patient will continue with her medication including diltiazem 240 mg 1 pill daily and aspirin 81 mg daily. Recommendation is to maintain blood pressures less 150/80. Further adjustment can be done by her PCP. 4. Patient has hypothyroidism. Patient will continue with levothyroxine 25 mcg daily. 5. Patient has hyperlipidemia. Patient will continue with Lipitor 40 mg 1 pill once daily. 6. Patient had depression. She will continue with Depakote 250 mg one pill twice daily and Seroquel 100 mg at night. 7. Patient with dementia. She will continue with folic acid 1 mg daily. 8. Patient with acute renal injury with chronic renal disease stage II. Patient provided IV fluids. This has remained stable. This can be monitored closely at the custodial. Recommendation to recheck BMP in 1 week to monitor progress. Recommendation on no further use of nonsteroidal anti- inflammatories. Future medications will need to be renally dosed. Recommendation for the patient follow up with nephrology as an outpatient to further monitor. Diet: Renal Activity: Fall precautions Time spent managing pt's care (in minutes): 55
== END 2018-06-06 15:45 | DRG 190 ==
LOC: ER 21:41 → ERHOLD 23:31 → 2ND 06-05 00:41
PROVIDERS: ADMIT Internal Medicine; ATTEND Family Medicine
DX: J44.1 Chronic obstructive pulmonary disease with (acute) exacerbation (principal); J18.1 Lobar pneumonia, unspecified organism; N17.9 Acute kidney failure, unspecified; J44.0 Chronic obstructive pulmonary disease with (acute) lower respiratory infection; E03.9 Hypothyroidism, unspecified; F32.9 Major depressive disorder, single episode, unspecified; E78.5 Hyperlipidemia, unspecified; I12.9 Hypertensive chronic kidney disease with stage 1 through stage 4 chronic kidney disease, or unspecified chronic kidney disease; N18.2 Chronic kidney disease, stage 2 (mild); Z88.0 Allergy status to penicillin; G30.9 Alzheimer's disease, unspecified; F02.80 Dementia in other diseases classified elsewhere, unspecified severity, without behavioral disturbance, psychotic disturbance, mood disturbance, and anxiety; Z87.891 Personal history of nicotine dependence; Z86.73 Personal history of transient ischemic attack (TIA), and cerebral infarction without residual deficits; J40 Bronchitis, not specified as acute or chronic
CPT/HCPCS: 36415; 71045; 80048; 80076; 82550; 82553; 83690; 83735; 83880; 84145; 84484; 85025; 85610; 85730; 87040; 87804; 93005; 94640; 96365; 96375; 97163; 99285; J1650; J2543; J2930; J7030; J7512; J7605

== ENCOUNTER 2018-07-09 23:42 | Inpatient (IN) | payer OTHER ==
[2018-07-10 00:25] LABS: Absolute Lymphocytes (CBC) 1.8 K/uL (0.7-4.9); Absolute Monocytes 1.2 K/uL (0.1-1.3); Absolute Neutrophil 6.3 K/uL (1.8-8.0); Basophils % 0.5 % (0-1.3); Eosinophils % 2.2 % (0-4.4); Hematocrit 38.1 % (36.0-45.0); Lymphocytes % 19.2 % (15.3-44.8); MCH 29.1 pg (27.0-35.0); MCV 88.5 fL (80-100); MPV 9.3 fL (7.6-11.3); Monocytes % 12.7 % (3.3-12.3); Protime INR 1.1
[2018-07-10 00:38] LABS: ALT/SGPT 63 U/L (12-78); AST/SGOT 54 U/L (15-37); Alkaline Phosphatase 111 U/L (45-117); BUN Blood Urea Nitrogen 88 mg/dL (7-18); Bicarbonate 31 mmol/L (21-32); Bilirubin Direct 0.1 mg/dL (0-0.2); Bilirubin Total 0.3 mg/dL (0.2-1.0); Glucose Level 217 mg/dL (74-106); Magnesium 2.9 mg/dL (1.8-2.4); NT PRO-BNP 200 pg/mL (<125); Potassium 4.4 mmol/L (3.5-5.1); Protein, Total 6.4 g/dL (6.4-8.2); Sodium Level 146 mmol/L (136-145); Troponin (Emerg Dept Use Only) < 0.02 ng/mL (0.0-0.045)
[2018-07-10] MEDS ORDERED: NA CHLORIDE 0.9% 1,000 ML ONE (00:40)
[2018-07-10] MEDS ORDERED: LEVALBUTEROL 1.25 MG/3 ML NEB ONE (00:50)
[2018-07-10 01:03] LABS: Blood Morphology Comment NOT SEEN (NOT SEEN); Platelet Estimate ADEQ
[2018-07-10 01:36] LABS: Arterial Blood Carboxyhemoglob 0.5 % (0-1.5); Blood Gas Oxyhemoglobin 96.6 % (94-97); Blood O2 Saturation 98.2 % (92-98.5)
[2018-07-10 02:33] LABS: Urine Culture Reflex Order REFLEXED
[2018-07-10 02:34] LABS: Urine Bacteria LOADED /HPF (<20)
[2018-07-10 02:35] LABS: Urine RBC <5 /HPF (NONE SEEN)
[2018-07-10] MEDS ORDERED: Levofloxacin500mg IV 500 MG/100 ML BAG IV ONE (02:37)
--- NOTE | 2018-07-10 02:49 | ER ---
Nurse's Notes [facility] Name: Elizabeth Falocn Age: 73 yrs Sex: Female : 1945 Arrival Date: 07/09/2018 Time: 23:44 Bed 17 Private MD: Diagnosis: Chronic obstructive pulmonary disease with (acute) exacerbation;Urinary tract infection, site not specified;Acute kidney failure;Dehydration Presentation: 07/09 23:48 Presenting complaint: EMS states: [facility] Care staff reports that pt has jb4 been more lethargic than usual, recently had pneumonia, and is now weaker than usual. Transition of care: patient was received from another setting of care ([facility]. Onset of symptoms is unknown. Risk Assessment: Do you want to hurt yourself or someone else? Patient reports no desire to harm self or others. Initial Sepsis Screen: Does the patient meet any 2 criteria? HR > 90 bpm. Yes Does the patient have a suspected source of infection? No. Patient's initial sepsis screen is negative. Care prior to arrival: Medication(s) given: Normal saline infusion, 1000 mL, IV initiated. 20 GA, in the right hand, Glucose check: 233. 23:48 Method Of Arrival: EMS: [facility] jb4 23:48 Acuity: ALLYSON 3 jb4 Historical: - Allergies: 23:57 Haldol; jb4 23:57 PENICILLINS; jb4 - Home Meds: 23:57 aspirin 81 mg Oral chew 1 tab once daily [Active]; atorvastatin 40 mg Oral tab 1 tab jb4 once daily [Active]; Brovana 15 mcg/2 mL inhalation nebu [Active]; Depakote ER 250 mg Oral Tb24 once daily [Active]; diltiazem HCl 240 mg Oral cpER once daily [Active]; docusate sodium 100 mg Oral tab once daily [Active]; Flonase 50 mcg/actuation Nasal spsn 2 sprays once daily [Active]; folic acid 1 mg Oral tab once daily [Active]; Fosamax 70 mg Oral tab 1 tab once wkly [Active]; ipratropium-albuterol 0.5 mg-3 mg(2.5 mg base)/3 mL Inhl nebu [Active]; Liquitears 1.4 % Opht drop [Active]; levothyroxine 25 mcg tab 1 tab once daily [Active]; Pepcid 20 mg Oral tab once daily [Active]; melatonin 3 mg Oral tab daily for sleep disorder [Active]; prednisone 10 mg Oral tab once daily [Active]; PreserVision AREDS Oral [Active]; Probiotic Oral daily [Active]; Seroquel 300 mg Oral tab once daily [Active]; Singulair 10 mg Oral tab once daily [Active]; Spiriva with HandiHaler 18 mcg inhalation CpDv 1 cap once daily [Active]; Tylenol-Codeine #4 300-60 mg Oral tab [Active]; Ultracet 37.5-325 mg Oral tab twice a day [Active]; Vitamin D3 1,000 unit Oral cap daily [Active]; - PMHx: 23:57 Alzheimers; COPD; MATIAS knees osteoarthritis; Bipolar disorder; DYSPHAGIA; GERD; jb4 Hyperlipidemia; Hypertension; Hypothyroidism; Necrotizing ulcerative stomatitis; - Immunization history:: Adult Immunizations unknown. - Social history:: Smoking status: unknown. - Ebola Screening: : No symptoms or risks identified at this time. Screenin/22 00:23 Abuse screen: Denies threats or abuse. Denies injuries from another. Nutritional ak1 screening: No deficits noted. Tuberculosis screening: No symptoms or risk factors identified. Fall Risk Gait- Weak (10 pts.). Assessment: 00:26 General: Appears in no apparent distress. Behavior is cooperative. Pain: Unable to use ak1 pain scale. Patient is disoriented. Neuro: Level of Consciousness is confused. Cardiovascular: Rhythm is sinus tachycardia. GI: No signs and/or symptoms were reported involving the gastrointestinal system. : No signs and/or symptoms were reported regarding the genitourinary system. EENT: No signs and/or symptoms were reported regarding the EENT system. Derm: No signs and/or symptoms reported regarding the dermatologic system. Musculoskeletal: No signs and/or symptoms reported regarding the musculoskeletal system. 01:47 Reassessment: Patient appears in no apparent distress at this time. No changes from ak1 previously documented assessment. Patient states symptoms have improved. 03:28 Reassessment: Patient appears in no apparent distress at this time. No changes from ak1 previously documented assessment. report called to Shannan. 03:44 Reassessment: Patient appears in no apparent distress at this time. No changes from jb4 previously documented assessment. Pt is resting in bed with respirations even and unlabored, no s/s of distress noted. Vital Signs: 07/09 23:48 BP 106 / 61; Pulse 103; Resp 20; Temp 97.6(A); Pulse Ox 85% on R/A; Weight 72.57 kg; jb4 Height 5 ft. 1 in. (154.94 cm); 07/10 00:37 Pulse 100; Resp 20; Pulse Ox 97% on 3 lpm NC; mt 00:54 BP 109 / 49; Pulse 96; Resp 16; Pulse Ox 100% on 3 lpm NC; mt 01:47 BP 100 / 44; Pulse 102; Resp 14; Pulse Ox 97% on 3 lpm NC; ak1 02:23 BP 91 / 45; Pulse 104; Resp 14; Temp 97.8; Pulse Ox 96% on 3 lpm NC; ak1 02:32 BP 101 / 51; Pulse 102; Resp 16; Pulse Ox 97% on NC; mt 03:44 BP 93 / 50; Pulse 101; Resp 16; Pulse Ox 99% on 2.5 lpm NC; [facility] 07/09 23:48 Body Mass Index 30.23 (72.57 kg, 154.94 cm) [facility] ED Course: 07/09 23:44 Patient arrived in ED. al2 23:45 Tyra Eli, RN is Primary Nurse. ak1 23:51 Triage completed. jb4 23:57 Arm band placed on left wrist. 4 23:58 Gadiel Arriaga PA is PHCP. [facility] 23:58 Raul Tatum MD is Attending Physician. [facility] 07/10 00:23 Patient has correct armband on for positive identification. Placed in gown. Bed in low ak1 position. Call light in reach. Side rails up X2. loss prevention specialist on. Pulse ox on. NIBP on. 00:23 Maintain EMS IV. Site clean \T\ dry. Gauge \T\ site: 20g right wrist. ak 1 00:59 XRAY Chest (1 view) In Process Unspecified. EDMS 02:22 No provider procedures requiring assistance completed. Patient admitted, IV remains in ak1 place. 02:26 Straight cath inserted, using sterile technique, 16 Fr. Specimen obtained. Patient ak1 tolerated well. 02:47 Jj Jeffers MD is Hospitalizing Provider. balwinder Administered Medications: 00:41 Drug: NS 0.9% 250 ml Route: IV; Rate: bolus; Site: right wrist; ak1 01:15 Follow up: IV Status: Completed infusion ak1 00:46 Drug: Xopenex (3) 1.25 mg Route: Inhalation; ak1 01:14 Drug: NS 0.9% 1000 ml Route: IV; Rate: 125 ml/hr; Site: right wrist; ak1 03:19 Follow up: IV Status: Infusion continued upon admission ak1 02:37 Drug: LevaQUIN 500 mg Volume: 100 ml; Route: IVPB; Infused Over: 60 mins; Site: right ak1 wrist; 03:19 Follow up: IV Status: Completed infusion ak1 Outcome: 02:22 Condition: stable ak1 02:49 Decision to Hospitalize by Provider. jad 02:50 Instructed on the need for admit. ak1 03:20 Admitted to Med/surg accompanied by tech, via stretcher, room 412, with chart. ak1 03:48 Patient left the ED. jb4 Signatures: Dispatcher [employer] EDMS Gadiel Arriaga PA PA jmm Krenek, Amber, RN RN ak1 Sebastien Vickers, RN RN Patricia Parham mt, Angelica al2 Corrections: (The following items were deleted from the chart) 07/09 23:59 23:57 Arm band placed on right wrist. jb4 jb4 07/10 02:36 02:32 BP 101 / 51; Pulse 102bpm; Resp 16bpm; Pulse Ox 97% RA; mt mt
--- NOTE | 2018-07-10 02:49 | EDPHYS ---
Physician Documentation [facility] Name: Elizabeth Falcon Age: 73 yrs Sex: Female : 1945 Arrival Date: 07/09/2018 Time: 23:44 Bed 17 Private MD: ED Physician Raul Tatum HPI: 07/10 00:30 This 73 yrs old Female presents to ER via EMS with complaints of weakness. [facility] 00:30 patient was sent from [facility] due to increased weakness. patient was recently [facility] admitted for pneumonia approx 1 month ago. patient has no complaints of pain or shortness of breath. . 00:30 Onset: The symptoms/episode began/occurred today. [facility] 00:30 The patient has experienced similar episodes in the past. [facility] Historical: - Allergies: 07/09 23:57 Haldol; jb4 23:57 PENICILLINS; jb4 - Home Meds: 23:57 aspirin 81 mg Oral chew 1 tab once daily [Active]; atorvastatin 40 mg Oral tab 1 tab jb4 once daily [Active]; Brovana 15 mcg/2 mL inhalation nebu [Active]; Depakote ER 250 mg Oral Tb24 once daily [Active]; diltiazem HCl 240 mg Oral cpER once daily [Active]; docusate sodium 100 mg Oral tab once daily [Active]; Flonase 50 mcg/actuation Nasal spsn 2 sprays once daily [Active]; folic acid 1 mg Oral tab once daily [Active]; Fosamax 70 mg Oral tab 1 tab once wkly [Active]; ipratropium-albuterol 0.5 mg-3 mg(2.5 mg base)/3 mL Inhl nebu [Active]; Liquitears 1.4 % Opht drop [Active]; levothyroxine 25 mcg tab 1 tab once daily [Active]; Pepcid 20 mg Oral tab once daily [Active]; melatonin 3 mg Oral tab daily for sleep disorder [Active]; prednisone 10 mg Oral tab once daily [Active]; PreserVision AREDS Oral [Active]; Probiotic Oral daily [Active]; Seroquel 300 mg Oral tab once daily [Active]; Singulair 10 mg Oral tab once daily [Active]; Spiriva with HandiHaler 18 mcg inhalation CpDv 1 cap once daily [Active]; Tylenol-Codeine #4 300-60 mg Oral tab [Active]; Ultracet 37.5-325 mg Oral tab twice a day [Active]; Vitamin D3 1,000 unit Oral cap daily [Active]; - PMHx: 23:57 Alzheimers; COPD; MATIAS knees osteoarthritis; Bipolar disorder; DYSPHAGIA; GERD; jb4 Hyperlipidemia; Hypertension; Hypothyroidism; Necrotizing ulcerative stomatitis; - Immunization history:: Adult Immunizations unknown. - Social history:: Smoking status: unknown. - Ebola Screening: : No symptoms or risks identified at this time. ROS: 07/10 00:30 Abdomen/GI: Negative for abdominal pain, nausea, vomiting, diarrhea, and constipation, jmm MS/Extremity: Negative for injury and deformity. Constitutional: Positive for malaise, Negative for fever. Cardiovascular: Negative for chest pain. Respiratory: Positive for shortness of breath. Neuro: Positive for weakness. All other systems are negative. Exam: 00:30 Head/Face: atraumatic. Eyes: EOMI, no conjunctival erythema appreciated ENT: Moist jmm Mucus Membranes Neck: Trachea midline, Supple Chest/axilla: Normal chest wall appearance and motion. 00:30 Constitutional: The patient appears in no acute distress, alert, awake. 00:30 Cardiovascular: Rate: normal, Rhythm: regular, Pulses: no pulse deficits are appreciated. 00:30 Respiratory: the patient does not display signs of respiratory distress, Respirations: normal, Breath sounds: are clear throughout. 00:30 Abdomen/GI: Inspection: obese Bowel sounds: normal, Palpation: abdomen is soft and non-tender. 00:30 Back: ROM is normal. 00:30 Musculoskeletal/extremity: ROM: intact in all extremities. 00:30 Skin: Appearance: Color: normal in color. 00:30 Neuro: Orientation: to person. 00:30 Psych: Behavior/mood is pleasant, cooperative. Vital Signs: 07/09 23:48 BP 106 / 61; Pulse 103; Resp 20; Temp 97.6(A); Pulse Ox 85% on R/A; Weight 72.57 kg; jb4 Height 5 ft. 1 in. (154.94 cm); 07/10 00:37 Pulse 100; Resp 20; Pulse Ox 97% on 3 lpm NC; mt 00:54 BP 109 / 49; Pulse 96; Resp 16; Pulse Ox 100% on 3 lpm NC; mt 01:47 BP 100 / 44; Pulse 102; Resp 14; Pulse Ox 97% on 3 lpm NC; ak1 02:23 BP 91 / 45; Pulse 104; Resp 14; Temp 97.8; Pulse Ox 96% on 3 lpm NC; ak1 02:32 BP 101 / 51; Pulse 102; Resp 16; Pulse Ox 97% on NC; mt 03:44 BP 93 / 50; Pulse 101; Resp 16; Pulse Ox 99% on 2.5 lpm NC; 4 07/09 23:48 Body Mass Index 30.23 (72.57 kg, 154.94 cm) [facility] MDM: 00:30 Patient medically screened. [facility] 00:30 Data reviewed: vital signs, nurses notes. Counseling: I had a detailed discussion with [facility] the patient and/or guardian regarding: the historical points, exam findings, and any diagnostic results supporting the discharge/admit diagnosis, the need for further work-up and treatment in the hospital. 02:45 ED course: Labs appear consistent with dehydration. patient hypoxic on arrival. ua [facility] concerning for uti. patient covered with levaquin iv in the ed. . 02:45 ED course: Dr. Jeffers was contacted regarding the need for admission. . ED course: The [facility] patient was discussed with Dr. Tatum. 07/09 23:59 Order name: Basic Metabolic Panel [facility] 07/09 23:59 Order name: CBC with Diff [facility] 07/09 23:59 Order name: LFT's; Complete Time: 01:02 [facility] 07/09 23:59 Order name: Magnesium; Complete Time: 01:02 [facility] 07/09 23:59 Order name: NT PRO-BNP; Complete Time: 01:02 [facility] 07/09 23:59 Order name: PT-INR; Complete Time: 01:02 [facility] 07/09 23:59 Order name: Troponin (emerg Dept Use Only); Complete Time: 01:02 [facility] 07/10 00:00 Order name: Lactate; Complete Time: 01:59 [facility] 07/10 00:00 Order name: Blood Culture Adult (2) [facility] 07/10 00:00 Order name: Procalcitonin; Complete Time: 01:02 [facility] 07/10 00:01 Order name: Basic Metabolic Panel; Complete Time: 01:02 [facility] 07/10 00:01 Order name: CBC with Automated Diff; Complete Time: 01:09 [facility] 07/10 00:32 Order name: ABG; Complete Time: 01:59 [facility] 07/10 00:58 Order name: Manual Differential; Complete Time: 01:09 [facility] 07/09 23:59 Order name: XRAY Chest (1 view) [facility] 07/09 23:59 Order name: EKG; Complete Time: 00:02 [facility] 07/09 23:59 Order name: Cardiac monitoring; Complete Time: 00:20 [facility] 07/10 02:18 Order name: Urine Microscopic Only; Complete Time: 02:51 [facility] 07/10 02:20 Order name: Urine Dipstick--Ancillary (enter results) [facility] 07/10 02:36 Order name: Urine Culture [facility] 07/10 03:13 Order name: CONS Pharmacy Consult [facility] 07/10 03:13 Order name: Renal [facility] 07/10 03:13 Order name: Comprehensive Metabolic Panel [facility] 07/10 03:13 Order name: Comprehensive Metabolic Panel [facility] 07/10 03:14 Order name: CBC with Automated Diff [facility] 07/10 03:14 Order name: CBC with Automated Diff [facility] 07/09 23:59 Order name: EKG - Nurse/Tech; Complete Time: 00:20 [facility] 07/09 23:59 Order name: IV Saline Lock; Complete Time: 00:20 [facility] 07/09 23:59 Order name: Labs collected and sent; Complete Time: 00:20 [facility] 07/09 23:59 Order name: O2 Per Protocol; Complete Time: 00:21 [facility] 07/09 23:59 Order name: O2 Sat Monitoring; Complete Time: 00:21 [facility] 07/10 00:00 Order name: Urine Dipstick-Ancillary (obtain specimen); Complete Time: 02:22 [facility] Administered Medications: 00:41 Drug: NS 0.9% 250 ml Route: IV; Rate: bolus; Site: right wrist; ak1 01:15 Follow up: IV Status: Completed infusion ak1 00:46 Drug: Xopenex (3) 1.25 mg Route: Inhalation; ak1 01:14 Drug: NS 0.9% 1000 ml Route: IV; Rate: 125 ml/hr; Site: right wrist; ak1 03:19 Follow up: IV Status: Infusion continued upon admission ak1 02:37 Drug: LevaQUIN 500 mg Volume: 100 ml; Route: IVPB; Infused Over: 60 mins; Site: right ak1 wrist; 03:19 Follow up: IV Status: Completed infusion ak1 Disposition: 05:17 Co-signature as Attending Physician, Raul Tatum MD I agree with the assessment and tw4 plan of care. Disposition: 07/10/18 02:49 Hospitalization ordered by Jj Jeffers for Observation. Preliminary diagnosis are Chronic obstructive pulmonary disease with (acute) exacerbation, Urinary tract infection, site not specified, Acute kidney failure, Dehydration. - Bed requested for Telemetry/MedSurg (observation). - Status is Observation. jb4 - Condition is Stable. - Problem is new. - Symptoms have improved. UTI on Admission? Yes Signatures: Dispatcher [employer] EDMS Gadiel Arriaga PA PA jmm Krenek, Amber, RN RN ak1 Maritza Robison RN RN cg Bryson, James, RN RN jb4 Raul Tatum MD MD tw4 Corrections: (The following items were deleted from the chart) 03:11 02:49 Hospitalization Ordered by Jj Jeffers MD for Observation. Preliminary cg diagnosis is Chronic obstructive pulmonary disease with (acute) exacerbation; Urinary tract infection, site not specified; Acute kidney failure; Dehydration. Bed requested for Telemetry/MedSurg (observation). Status is Observation. Condition is Stable. Problem is new. Symptoms have improved. UTI on Admission? Yes. jad 03:48 03:11 07/10/2018 02:49 Hospitalization Ordered by Jj Jeffers MD for Observation. jb4 Preliminary diagnosis is Chronic obstructive pulmonary disease with (acute) exacerbation; Urinary tract infection, site not specified; Acute kidney failure; Dehydration. Bed requested for Telemetry/MedSurg (observation). Status is Observation. Condition is Stable. Problem is new. Symptoms have improved. UTI on Admission? Yes. cg
[2018-07-10] MEDS ORDERED: MORPHINE 2 MG/ML SYR IV PRN (03:08)
[2018-07-10] MEDS ORDERED: ACETAMINOPHEN 500 MG TAB PO PRN (03:08)
[2018-07-10] MEDS ORDERED: ONDANSETRON 4 MG/2 ML VIAL IV PRN (03:08)
[2018-07-10] MEDS ORDERED: ACETAMINOPHEN 325 MG TABLET PO PRN (03:10)
[2018-07-10] MEDS: NA CHLORIDE 0.9% 1,000 ML IV SCH ×4 (04:00→22:31)
[2018-07-10 04:06] LABS: Urine Blood 1+ (NEG); Urine Glucose NEGATIVE (NEG); Urine Protein TRACE (NEG); Urine Specific Gravity 1.025 (1.005-1.030)
--- NOTE | 2018-07-10 04:23 | P.HP ---
Certification for Inpatient Patient admitted to: Inpatient With expected LOS: >2 Midnights Patient will require the following post-hospital care: None Practitioner: I am a practitioner with admitting privileges, knowledge of patient current condition, hospital course, and medical plan of care. Services: Services provided to patient in accordance with Admission requirements found in Title 42 Section 412.3 of the Code of Federal Regulations Patient History Date of Service: 07/10/18 Reason for admission: COPD exacerbation/dyspnea History of Present Illness: patient is a 73-year-old female came to the hospital for her breath. Patient lives in [facility]. She was tachypneic but she had developed dehydration. She had not been eating or drinking well. She says she has no appetite. Over the last few days she had gotten weak. Patient developed shortness of breath and she was brought into the emergency room. In the emergency room patient's workup revealed metabolic acidosis and severe dehydration. Patient will be admitted for further workup. Allergies haloperidol [From Haldol] Allergy (Verified 06/05/18 06:05) Rash Penicillins Allergy (Verified 06/05/18 06:05) Rash Home Medications: Acetaminophen [Tylenol*] 650 mg PO Q6HP PRN 06/05/18 Alendronate Sodium [Fosamax] 70 mg PO ONCE 06/05/18 Aspirin [Aspirin EC 81 MG] 81 mg PO DAILY 06/05/18 Atorvastatin Calcium [Lipitor] 40 mg PO BEDTIME 06/05/18 Cholecalciferol (Vitamin D3) [Vitamin D3] 2,000 mg PO DAILY 06/05/18 Diltiazem HCl [Cardizem Cd] 240 mg PO DAILY 06/05/18 Divalproex Sodium [Depakote ER] 250 mg PO BID 06/05/18 Docusate Sodium 100 mg PO DAILY 06/05/18 Famotidine [Pepcid*] 20 mg PO DAILY 06/05/18 Folic Acid 1 mg PO DAILY 06/05/18 Levothyroxine Sodium 25 mcg PO DAILY 06/05/18 Melatonin/Pyridoxine HCl (B6) [Melatonin 3 mg Tablet] 1 each PO PRN PRN Montelukast [Singulair*] 10 mg PO DAILY 06/05/18 Polyvinyl Alcohol [Liquitears] 1 gtts OP BID 06/05/18 Quetiapine [Seroquel*] 100 mg PO BEDTIME 06/05/18 Tiotropium [Spiriva Handihaler*] 5 puff IN DAILY 06/05/18 Vit A/Vit C/Vit E/Zinc/Copper [Preservision Areds Softgel] 1 each PO BID Albuterol Neb [Proventil 0.083% Neb Soln] 2.5 mg NEB TID PRN #90 amp 06/06/18 Arformoterol Tartrate [Brovana] 15 mcg NEB BIDRESP #60 vial.neb 06/06/18 predniSONE [Prednisone*] 20 mg PO SEECOM #15 tab 06/06/18 - Past Medical/Surgical History Diabetic: No -: COPD -: HTN -: HYPOTHYROIDISM -: BIPOLAR -: GERD -: ALZHEIMERS -: CVA -: Marlon Knee arthritis -: Hyperlipidemia -: mixed receptive expressive language disorder -: left femur surgery - Family History Mother Notes: in car accident Father Notes: 4 years after patient was born - Social History Smoking Status: Former smoker Alcohol use: No CD- Drugs: No Caffeine use: Yes Review of Systems 10-point ROS is otherwise unremarkable Physical Examination - Vital Signs Temperature: 98 F Blood Pressure: 140/70 Pulse: 90 Respirations: 18 Pulse Ox (%): 98 - Physical Exam General: Alert, In no apparent distress, Oriented x3 HEENT: Atraumatic, Normocephalic, PERRLA Neck: Supple, 2+ carotid pulse no bruit, JVD not distended Respiratory: Clear to auscultation bilaterally, Diminished Cardiovascular: Regular rate/rhythm, Normal S1 S2, Systolic murmur Gastrointestinal: Normal bowel sounds, Hypoactive, Soft and benign, Non- distended Musculoskeletal: No clubbing, No swelling, No contractures Integumentary: No rashes Neurological: Normal speech, Normal tone, Sensation intact, Cranial nerves 3-12 intact, Abnormal gait, Abnormal strength - Studies Laboratory Data (last 24 hrs) 07/10/18 00:05: PT 13.0 H, INR 1.10 07/10/18 00:05: WBC 9.6, Hgb 12.5, Hct 38.1, Plt Count 313 07/10/18 00:05: Sodium 146 H, Potassium 4.4, BUN 88 H, Creatinine 2.10 H, Glucose 217 H, Magnesium 2.9 H D, Total Bilirubin 0.3, AST 54 H, ALT 63, Alkaline Phosphatase 111 Assessment & Plan - Problems (Diagnosis) (1) Acute renal injury Onset Date: 06/05/18 Current Visit: No Status: Acute (2) Altered mental status Onset Date: 02/11/18 Current Visit: No Status: Acute (3) COPD exacerbation Onset Date: 06/03/17 Current Visit: No Status: Acute (4) Bipolar 1 disorder Onset Date: 06/03/17 Current Visit: No Status: Chronic (5) Dementia in Alzheimer's disease Onset Date: 02/05/18 Current Visit: No Status: Chronic (6) Hyperlipidemia Onset Date: 02/05/18 Current Visit: No Status: Chronic Qualifiers: Hyperlipidemia type: unspecified Qualified Code(s): E78.5 - Hyperlipidemia , unspecified (7) Hypertension Onset Date: 02/05/18 Current Visit: No Status: Chronic Qualifiers: Hypertension type: essential hypertension Qualified Code(s): I10 - Essential (primary) hypertension (8) Hypothyroidism Onset Date: 02/05/18 Current Visit: No Status: Chronic Qualifiers: Hypothyroidism type: unspecified Qualified Code(s): E03.9 - Hypothyroidism , unspecified (9) Obesity Current Visit: No Status: Chronic Qualifiers: Obesity type: unspecified obesity type Obesity classification: adult class 1 (BMI 30 ? 34.9) Body mass index: BMI 31.0-31.9 - Plan Plan: -nebs, steroids, and antibiotics -O2 per protocol. -IV hydration -Monitor renal function; strict I's and O's -repeat chest x-ray -nephrology consultation if worsening renal function Discharge Plan: Home Plan to discharge in: Greater than 2 days - Advance Directives Does patient have a Living Will: No Does patient have a Durable POA for Healthcare: No - Code Status/Comfort Care Code Status Assessed: Yes Code Status: Full Code Critical Care: No Time Spent Managing PTS Care (In Minutes): 50
[2018-07-10] MEDS: METHYLPREDNISOLONE 125 MG INJ IV SCH ×4 (06:20→23:36)
[2018-07-10] MEDS: ARFORMOTEROL TARTRATE 15 MCG/2 ML VIAL.NEB NEB SCH ×2 (08:40→20:35)
[2018-07-10] MEDS ORDERED: HOME MED 1 EA UNK (Docusate Sodium [Docusate Sodium] 100 MG) PO SCH (09:00)
[2018-07-10] MEDS: DILTIAZEM HCL 120 MG SR CAP PO SCH (09:12)
[2018-07-10] MEDS: DOCUSATE NA 100 MG CAP PO SCH (09:12)
[2018-07-10] MEDS: LEVOTHYROXINE SOD 0.025 MG TAB PO SCH (09:13)
[2018-07-10] MEDS: DIVALPROEX ER 250 MG TAB PO SCH ×2 (09:13→20:06)
[2018-07-10] MEDS: ASPIRIN EC 81 MG TAB PO SCH (09:13)
[2018-07-10] MEDS: FOLIC ACID 1 MG TABLET PO SCH (09:13)
[2018-07-10] MEDS: FAMOTIDINE 20 MG TAB PO SCH (09:13)
--- NOTE | 2018-07-10 09:41 | EKG ---
Test Date: 2018-07-10 Test Time: 00:07:06 Contact Center Director: JONO MEASUREMENT RESULTS: Intervals: Rate: 102 LA: 128 QRSD: 76 QT: 366 QTc: 477 [place]: P: 75 LA: 128 QRS: 83 T: 79 INTERPRETIVE STATEMENTS: Sinus tachycardia Otherwise normal ECG Compared to ECG 06/04/2018 21:41:04 No significant changes Electronically Signed On 07-10-18 09:40:21 ACOUSTICAL LOGGING ENGINEER by Mathieu Alarcon
--- NOTE | 2018-07-10 11:38 | RAD REPORT ---
EXAM DESCRIPTION: RAD - Chest Single View - 07/10/2018 12:33 am CLINICAL HISTORY: ams Chest pain. COMPARISON: Chest Single View dated 06/05/2018; Chest Single View dated 06/04/2018; Chest Single Vie w dated 02/14/2018; Chest Single View dated 02/13/2018 FINDINGS: Portable technique limits examination quality. Emphysematous changes are present throughout the lungs. The heart is normal in size. No displaced fra ctures. IMPRESSION: COPD.
[2018-07-10 12:48] LABS: Absolute Lymphocytes (CBC) 0.6 K/uL (0.7-4.9); Absolute Monocytes 0.2 K/uL (0.1-1.3); Monocytes % 1.5 % (3.3-12.3)
[2018-07-10 12:51] LABS: Absolute Neutrophil 9.8 K/uL (1.8-8.0); Basophils % 0.4 % (0-1.3); Eosinophils % 0.1 % (0-4.4); Hematocrit 38.3 % (36.0-45.0); Lymphocytes % 5.5 % (15.3-44.8); MCH 29.4 pg (27.0-35.0); MCV 91.5 fL (80-100); MPV 9.2 fL (7.6-11.3); RBC Red Blood Cell Count 4.19 M/uL (3.86-4.86)
[2018-07-10 13:21] LABS: Magnesium 2.9 mg/dL (1.8-2.4); Phosphorus 4.1 mg/dL (2.5-4.9); Potassium 5.1 mmol/L (3.5-5.1)
[2018-07-10 13:54] LABS: Platelet Estimate ADEQ
[2018-07-10 13:55] LABS: Blood Morphology Comment NOT SEEN (NOT SEEN)
[2018-07-10] MEDS ORDERED: GLUCAGON 1 MG/VIAL IM PRN (15:55)
[2018-07-10] MEDS ORDERED: D50W 25 GM/50 ML SYRINGE IV PRN (15:55)
[2018-07-10] MEDS: INSULIN -REGULAR HUMAN 50 UNIT/0.5 ML ML SQ SCH ×2 (16:40→20:59)
[2018-07-10] MEDS: ATORVASTATIN 40 MG TAB PO SCH (20:06)
[2018-07-11 06:09] LABS: Absolute Lymphocytes (CBC) 0.5 K/uL (0.7-4.9); Absolute Monocytes 0.2 K/uL (0.1-1.3); Absolute Neutrophil 8.8 K/uL (1.8-8.0); Basophils % 0.2 % (0-1.3); Hematocrit 30.6 % (36.0-45.0); Lymphocytes % 5.6 % (15.3-44.8); MCH 29.1 pg (27.0-35.0); MCV 89.9 fL (80-100); Monocytes % 2.3 % (3.3-12.3)
[2018-07-11 06:41] LABS: Albumin 1.7 g/dL (3.4-5.0); Bilirubin Total 0.2 mg/dL (0.2-1.0); Potassium 3.6 mmol/L (3.5-5.1)
--- NOTE | 2018-07-11 07:12 | P.PN ---
Date of Service: 07/11/18 Called regarding abnormal labs. Change IV fluids to D5 water at 75 cc an hr. Calcium is elevated but correcting calcium for the albumin the calcium was 8.24. Will give oral [place].
[2018-07-11] MEDS: D5W 1,000 ML IV SCH ×2 (07:36→20:36)
[2018-07-11] MEDS: ARFORMOTEROL TARTRATE 15 MCG/2 ML VIAL.NEB NEB SCH ×2 (07:37→19:57)
[2018-07-11] MEDS: DILTIAZEM HCL 120 MG SR CAP PO SCH (08:32)
[2018-07-11] MEDS: INSULIN -REGULAR HUMAN 50 UNIT/0.5 ML ML SQ SCH ×4 (08:32→20:37)
[2018-07-11] MEDS: DOCUSATE NA 100 MG CAP PO SCH (08:33)
[2018-07-11] MEDS: ASPIRIN EC 81 MG TAB PO SCH (08:33)
[2018-07-11] MEDS: FAMOTIDINE 20 MG TAB PO SCH (08:33)
[2018-07-11] MEDS: DIVALPROEX ER 250 MG TAB PO SCH ×2 (08:33→20:37)
[2018-07-11] MEDS: FOLIC ACID 1 MG TABLET PO SCH (08:33)
[2018-07-11] MEDS: LEVOTHYROXINE SOD 0.025 MG TAB PO SCH (08:33)
[2018-07-11] MEDS: CALCIUM CARB 500MG/VIT D 200 IU TAB PO SCH ×2 (08:36→20:37)
[2018-07-11 12:14] LABS: Potassium 4.3 mmol/L (3.5-5.1)
--- NOTE | 2018-07-11 17:04 | P.PN ---
Subjective Date of Service: 07/11/18 Chief Complaint: COPD exacerbation/dyspnea Subjective: No new changes, No C/O voiced, Tolerating diet, Improving Patient seen and examined at bedside. No family at bedside. Case discussed with nursing staff. Review of Systems As noted Physical Examination - Vital Signs Temperature: 97.0 F Blood Pressure: 135/80 Pulse: 93 Respirations: 18 Pulse Ox (%): 94 - Physical Exam General: Alert, In no apparent distress HEENT: Atraumatic, PERRLA, EOMI Neck: Supple, JVD not distended Respiratory: Clear to auscultation bilaterally, Normal air movement Cardiovascular: Regular rate/rhythm, Normal S1 S2 Gastrointestinal: Normal bowel sounds, No tenderness Musculoskeletal: No tenderness Integumentary: No rashes Neurological: Normal speech, Normal tone, Normal affect Lymphatics: No axilla or inguinal lymphadenopathy - Studies Laboratory Data (last 24 hrs) 07/11/18 05:51: Sodium 154 H, Potassium 3.6, BUN 47 H D, Creatinine 0.90, Glucose 232 H, Total Bilirubin 0.2, AST 16, ALT 36, Alkaline Phosphatase 83 07/11/18 05:51: WBC 9.5, Hgb 9.9 L, Hct 30.6 L D, Plt Count 259 07/10/18 16:33: Glucose 472 H* Assessment And Plan - Plan - Problems (Diagnosis) (1) Acute renal injury Onset Date: 06/05/18 Current Visit: No Status: Acute (2) Altered mental status Onset Date: 02/11/18 Current Visit: No Status: Acute (3) COPD exacerbation Onset Date: 06/03/17 Current Visit: No Status: Acute (4) Bipolar 1 disorder Onset Date: 06/03/17 Current Visit: No Status: Chronic (5) Dementia in Alzheimer's disease Onset Date: 02/05/18 Current Visit: No Status: Chronic (6) Hyperlipidemia Onset Date: 02/05/18 Current Visit: No Status: Chronic Qualifiers: Hyperlipidemia type: unspecified Qualified Code(s): E78.5 - Hyperlipidemia , unspecified (7) Hypertension Onset Date: 02/05/18 Current Visit: No Status: Chronic Qualifiers: Hypertension type: essential hypertension Qualified Code(s): I10 - Essential (primary) hypertension (8) Hypothyroidism Onset Date: 02/05/18 Current Visit: No Status: Chronic Qualifiers: Hypothyroidism type: unspecified Qualified Code(s): E03.9 - Hypothyroidism , unspecified (9) Obesity Current Visit: No Status: Chronic Qualifiers: Obesity type: unspecified obesity type Obesity classification: adult class 1 (BMI 30 ? 34.9) Body mass index: BMI 31.0-31.9 - Plan Plan: -nebs, steroids, and antibiotics -O2 per protocol. -IV hydration -Monitor renal function; strict I's and O's -repeat chest x-ray -nephrology consultation if worsening renal function
[2018-07-11] MEDS: ATORVASTATIN 40 MG TAB PO SCH (20:38)
[2018-07-12] MEDS: ARFORMOTEROL TARTRATE 15 MCG/2 ML VIAL.NEB NEB SCH ×2 (07:47→20:26)
[2018-07-12] MEDS: FAMOTIDINE 20 MG TAB PO SCH (09:13)
[2018-07-12] MEDS: DILTIAZEM HCL 120 MG SR CAP PO SCH (09:13)
[2018-07-12] MEDS: DIVALPROEX ER 250 MG TAB PO SCH ×2 (09:14→20:20)
[2018-07-12] MEDS: LEVOTHYROXINE SOD 0.025 MG TAB PO SCH (09:14)
[2018-07-12] MEDS: ASPIRIN EC 81 MG TAB PO SCH (09:14)
[2018-07-12] MEDS: DOCUSATE NA 100 MG CAP PO SCH (09:14)
[2018-07-12] MEDS: FOLIC ACID 1 MG TABLET PO SCH (09:14)
[2018-07-12] MEDS: CALCIUM CARB 500MG/VIT D 200 IU TAB PO SCH ×2 (09:14→20:20)
[2018-07-12] MEDS: INSULIN -REGULAR HUMAN 50 UNIT/0.5 ML ML SQ SCH ×4 (09:14→20:19)
[2018-07-12] MEDS: D5W 1,000 ML IV SCH (13:11)
[2018-07-12] MEDS: ATORVASTATIN 40 MG TAB PO SCH (20:20)
--- NOTE | 2018-07-12 22:25 | P.PN ---
Subjective Date of Service: 07/13/18 Chief Complaint: COPD exacerbation/dyspnea Patient seen and examined at bedside. No family at bedside. Case discussed with nursing staff. Review of Systems As noted Physical Examination - Vital Signs Temperature: 97.2 F Blood Pressure: 105/50 Pulse: 75 Respirations: 18 Pulse Ox (%): 99 - Physical Exam General: Alert (f), In no apparent distress, Oriented x3 HEENT: Atraumatic, PERRLA, EOMI Neck: Supple, JVD not distended Respiratory: Clear to auscultation bilaterally, Normal air movement Cardiovascular: Regular rate/rhythm, Normal S1 S2 Gastrointestinal: Normal bowel sounds, No tenderness Musculoskeletal: No tenderness Integumentary: No rashes Neurological: Normal speech, Normal tone, Normal affect Lymphatics: No axilla or inguinal lymphadenopathy Assessment And Plan - Plan - Problems (Diagnosis) (1) Acute renal injury (2) Altered mental status (3) COPD exacerbation (4) Bipolar 1 disorder (5) Dementia in Alzheimer's disease (6) Hyperlipidemia (7) Hypertension (8) Hypothyroidism (9) Obesity (10) ESBL, asymptomatic bacteuria No treatment with antibiotics required at this time. - Plan Plan: -nebs, steroids, and antibiotics -O2 per protocol. -IV hydration -Monitor renal function; strict I's and O's -nephrology consultation if worsening renal function
[2018-07-13] MEDS: D5W 1,000 ML IV SCH ×3 (00:38→20:44)
[2018-07-13] MEDS: INSULIN -REGULAR HUMAN 50 UNIT/0.5 ML ML SQ SCH ×5 (07:30→20:53)
[2018-07-13] MEDS: LEVOTHYROXINE SOD 0.025 MG TAB PO SCH (08:13)
[2018-07-13] MEDS: FOLIC ACID 1 MG TABLET PO SCH (08:13)
[2018-07-13] MEDS: CALCIUM CARB 500MG/VIT D 200 IU TAB PO SCH (08:13)
[2018-07-13] MEDS: FAMOTIDINE 20 MG TAB PO SCH (08:14)
[2018-07-13] MEDS: DILTIAZEM HCL 120 MG SR CAP PO SCH (08:14)
[2018-07-13] MEDS: DIVALPROEX ER 250 MG TAB PO SCH ×2 (08:15→20:45)
[2018-07-13] MEDS: ASPIRIN EC 81 MG TAB PO SCH (08:18)
[2018-07-13] MEDS: DOCUSATE NA 100 MG CAP PO SCH (08:18)
[2018-07-13] MEDS: ARFORMOTEROL TARTRATE 15 MCG/2 ML VIAL.NEB NEB SCH ×2 (08:29→21:20)
--- NOTE | 2018-07-13 17:36 | P.PN ---
Subjective Date of Service: 07/13/18 Chief Complaint: COPD exacerbation/dyspnea Subjective: No new changes, No C/O voiced, Improving Patient seen and examined at bedside. No family at bedside. Case discussed with nursing staff. Review of Systems As noted Physical Examination - Vital Signs Temperature: 97.2 F Blood Pressure: 105/50 Pulse: 75 Respirations: 18 Pulse Ox (%): 99 - Physical Exam General: Alert, In no apparent distress, Oriented x3 HEENT: Atraumatic, PERRLA, EOMI Neck: Supple, JVD not distended Respiratory: Clear to auscultation bilaterally, Normal air movement Cardiovascular: Regular rate/rhythm, Normal S1 S2 Gastrointestinal: Normal bowel sounds, No tenderness Musculoskeletal: No tenderness Integumentary: No rashes Neurological: Normal speech, Normal tone, Normal affect Lymphatics: No axilla or inguinal lymphadenopathy - Studies Microbiology Data (last 24 hrs): 07/10/18 02:15 Clean Catch Urine [place] Count - Final >100,000 CFU/ML. 07/10/18 02:15 Clean Catch Urine - Final Escherichia Coli Proteus Mirabilis Assessment And Plan - Plan - Problems (Diagnosis) (1) Acute renal injury (2) Altered mental status (3) COPD exacerbation (4) Bipolar 1 disorder (5) Dementia in Alzheimer's disease (6) Hyperlipidemia (7) Hypertension (8) Hypothyroidism (9) Obesity (10) ESBL, asymptomatic bacteuria No treatment with antibiotics required at this time. Plan: -nebs, steroids, and antibiotics -O2 per protocol. -IV hydration -Monitor renal function; strict I's and O's -nephrology consultation if worsening renal function Disposition: [facility].
[2018-07-13] MEDS: ATORVASTATIN 40 MG TAB PO SCH (20:45)
[2018-07-14 05:55] LABS: Absolute Lymphocytes (CBC) 2.5 K/uL (0.7-4.9); Absolute Neutrophil 11.7 K/uL (1.8-8.0); Basophils % 0.2 % (0-1.3); Eosinophils % 1.8 % (0-4.4); Hematocrit 31.8 % (36.0-45.0); Lymphocytes % 15.9 % (15.3-44.8); MCH 29.1 pg (27.0-35.0); MCV 88.4 fL (80-100); MPV 8.1 fL (7.6-11.3); Monocytes % 6.4 % (3.3-12.3)
[2018-07-14 06:11] LABS: Albumin 1.8 g/dL (3.4-5.0); Bilirubin Total 0.2 mg/dL (0.2-1.0); Potassium 3.8 mmol/L (3.5-5.1); Protein, Total 4.8 g/dL (6.4-8.2)
[2018-07-14] MEDS: INSULIN -REGULAR HUMAN 50 UNIT/0.5 ML ML SQ SCH ×4 (07:30→21:00)
[2018-07-14] MEDS: ARFORMOTEROL TARTRATE 15 MCG/2 ML VIAL.NEB NEB SCH ×2 (07:41→20:06)
[2018-07-14 08:48] LABS: Urine White Blood Cell Casts OK
[2018-07-14 08:49] LABS: Blood Morphology Comment NOT SEEN (NOT SEEN); Platelet Estimate ADEQ
[2018-07-14] MEDS: DOCUSATE NA 100 MG CAP PO SCH (09:23)
[2018-07-14] MEDS: FOLIC ACID 1 MG TABLET PO SCH (09:24)
[2018-07-14] MEDS: DIVALPROEX ER 250 MG TAB PO SCH ×2 (09:24→23:15)
[2018-07-14] MEDS: LEVOTHYROXINE SOD 0.025 MG TAB PO SCH (09:24)
[2018-07-14] MEDS: ASPIRIN EC 81 MG TAB PO SCH (09:24)
[2018-07-14] MEDS: FAMOTIDINE 20 MG TAB PO SCH (09:24)
[2018-07-14] MEDS: DILTIAZEM HCL 120 MG SR CAP PO SCH (09:24)
--- NOTE | 2018-07-14 18:17 | P.PN ---
Subjective Date of Service: 07/14/18 Chief Complaint: COPD exacerbation/dyspnea Subjective: Improving Patient seen and examined at bedside. No family at bedside. Case discussed with nursing staff. Review of Systems As noted Physical Examination - Vital Signs Temperature: 98.2 F Blood Pressure: 127/66 Pulse: 100 Respirations: 22 Pulse Ox (%): 91 - Physical Exam General: Alert, In no apparent distress HEENT: Atraumatic, PERRLA, EOMI Neck: Supple, JVD not distended Respiratory: Clear to auscultation bilaterally, Normal air movement Cardiovascular: Regular rate/rhythm, Normal S1 S2 Gastrointestinal: Normal bowel sounds, No tenderness Musculoskeletal: No tenderness Integumentary: No rashes Neurological: Normal speech, Normal tone, Normal affect Lymphatics: No axilla or inguinal lymphadenopathy Assessment And Plan - Plan - Problems (Diagnosis) (1) Acute renal injury: Improved (2) Altered mental status: Improved (3) COPD exacerbation: Resolved, back to baseline (4) Bipolar 1 disorder (5) Dementia in Alzheimer's disease (6) Hyperlipidemia (7) Hypertension (8) Hypothyroidism (9) Obesity (10) ESBL, patient with increasing white blood cell count, with a source of infection. Start IV meropenem 1 g q. paints. Patient be consented for PICC line placement for long-term IV antibiotics. Plan: -nebs, steroids, and antibiotics -O2 per protocol. -IV hydration -Monitor renal function; strict I's and O's -nephrology consultation if worsening renal function Disposition: Pending symptomatic improvement, PICC line placement for long- term IV antibiotics for ESBL UTI.
[2018-07-14] MEDS: D5W 1,000 ML IV SCH (19:04)
[2018-07-14] MEDS ORDERED: Meropenem 1000 MG/VIAL IV SCH (20:00)
[2018-07-14] MEDS: Meropenem 1,000 MG in NA CHLORIDE 0.9% 100 ML IV SCH (21:00)
[2018-07-14] MEDS ORDERED: Meropenem 1 GM/100 ML BAG ONE (22:45)
[2018-07-14] MEDS: ATORVASTATIN 40 MG TAB PO SCH (23:14)
[2018-07-15] MEDS: D5W 1,000 ML IV SCH (05:20)
[2018-07-15 05:24] LABS: Absolute Lymphocytes (CBC) 1.7 K/uL (0.7-4.9); Absolute Monocytes 0.7 K/uL (0.1-1.3); Absolute Neutrophil 11.3 K/uL (1.8-8.0); Basophils % 0.2 % (0-1.3); Eosinophils % 1.6 % (0-4.4); Hematocrit 29.5 % (36.0-45.0); Lymphocytes % 12.1 % (15.3-44.8); MCH 28.6 pg (27.0-35.0); MCV 85.8 fL (80-100); MPV 8.2 fL (7.6-11.3); Monocytes % 4.9 % (3.3-12.3); RBC Red Blood Cell Count 3.44 M/uL (3.86-4.86)
[2018-07-15 05:45] LABS: ALT/SGPT 33 U/L (12-78); AST/SGOT 17 U/L (15-37); Albumin 1.8 g/dL (3.4-5.0); Alkaline Phosphatase 83 U/L (45-117); BUN Blood Urea Nitrogen 10 mg/dL (7-18); Bicarbonate 28 mmol/L (21-32); Bilirubin Total 0.3 mg/dL (0.2-1.0); Glucose Level 142 mg/dL (74-106); Potassium 3.4 mmol/L (3.5-5.1); Protein, Total 4.7 g/dL (6.4-8.2); Sodium Level 135 mmol/L (136-145)
[2018-07-15] MEDS: ARFORMOTEROL TARTRATE 15 MCG/2 ML VIAL.NEB NEB SCH (07:20)
[2018-07-15] MEDS: INSULIN -REGULAR HUMAN 50 UNIT/0.5 ML ML SQ SCH ×3 (07:30→16:30)
--- NOTE | 2018-07-15 08:38 | RAD REPORT ---
EXAM DESCRIPTION: RAD - Chest Single View - 07/14/2018 11:01 pm CLINICAL HISTORY: Device placement PICC line placement COMPARISON: none FINDINGS: A PICC line has been inserted with its tip in the distal superior vena cava. A few areas of subsegmental atelectasis or scarring are present within the lungs. The heart is normal size. IMPRESSION: PICC line with its tip in the distal superior vena cava
[2018-07-15] MEDS: ASPIRIN EC 81 MG TAB PO SCH (08:46)
[2018-07-15] MEDS: DILTIAZEM HCL 120 MG SR CAP PO SCH (08:47)
[2018-07-15] MEDS: FOLIC ACID 1 MG TABLET PO SCH (08:47)
[2018-07-15] MEDS: FAMOTIDINE 20 MG TAB PO SCH (08:47)
[2018-07-15] MEDS: DOCUSATE NA 100 MG CAP PO SCH (08:47)
[2018-07-15] MEDS: LEVOTHYROXINE SOD 0.025 MG TAB PO SCH (08:47)
[2018-07-15] MEDS: DIVALPROEX ER 250 MG TAB PO SCH (08:47)
[2018-07-15] MEDS: Meropenem 1,000 MG in NA CHLORIDE 0.9% 100 ML IV SCH (08:52)
--- NOTE | 2018-07-15 18:24 | P.DS ---
Admission Date: 07/11/18 Discharge Date: 07/15/18 Disposition: TRANSFER TO CORRECTION Discharge Condition: FAIR Reason for Admission: COPD exacerbation/dyspnea Brief History of Present Illness: From H&P patient is a 73-year-old female came to the hospital for her breath. Patient lives in [facility]. She was tachypneic but she had developed dehydration. She had not been eating or drinking well. She says she has no appetite. Over the last few days she had gotten weak. Patient developed shortness of breath and she was brought into the emergency room. In the emergency room patient's workup revealed metabolic acidosis and severe dehydration. Hospital Course: Patient is a 73-year-old female who was admitted to the hospital for dehydration and COPD exacerbation. Patient was started on nebulizer treatments steroids. Patient did well in terms of her COPD. Patient did also have some altered mental status which improved with treatment. Patient did not have any pneumonia. The patient was also found to have UTI which was multi-drug resistant. Patient had PICC line placed and will be on long-term IV antibiotics. Patient will need weekly CBC CMP ESR and CRP. Repeat urine cultures once IV antibiotics completed. at the time of discharge patient was back to her baseline alert oriented and asymptomatic. Assessment and plan 1) Acute kidney injury: Creatinine Improved (2) acute metabolic encephalopathy : Mental status back to baseline likely secondary to UTI. Improved (3) COPD exacerbation: Resolved, back to baseline. Continue nebulizers and steroids (4) Bipolar 1 disorder: stable (5) Dementia in Alzheimer's disease: Without behavior problems, early-onset (6) Hyperlipidemia mixed: Statin (7) essential Hypertension: Stable (8) Hypothyroidism (9) Obesity (10) acute cystitis without hematuria secondary to ESBL E coli and Proteus. Start IV meropenem 1 g q. 8hr. PICC line placed for long-term IV antibiotics. Vital Signs/Physical Exam: Temp Pulse Resp BP Pulse Ox 97.8 F 92 H 20 106/53 L 95 07/15/18 16:00 07/15/18 16:00 07/15/18 16:00 07/15/18 16:00 07/15/18 16:00 General: Alert, In no apparent distress, Oriented x3 HEENT: Atraumatic, PERRLA, EOMI Neck: Supple, JVD not distended Respiratory: Clear to auscultation bilaterally, Normal air movement Cardiovascular: Normal pulses, Regular rate/rhythm, Normal S1 S2 Gastrointestinal: Normal bowel sounds, Soft and benign, Non-distended, No tenderness Musculoskeletal: No clubbing, No tenderness Integumentary: No rashes, No erythema Neurological: Normal speech, Normal tone, Cranial nerves 3-12 intact, Normal affect Laboratory Data at Discharge: WBC 14.0 K/uL (4.3-10.9) H 07/15/18 04:10 Hgb 9.8 g/dL (12.0-15.0) L 07/15/18 04:10 Hct 29.5 % (36.0-45.0) L 07/15/18 04:10 Plt Count 204 K/uL (152-406) 07/15/18 04:10 PT 13.0 SECONDS (9.5-12.5) H 07/10/18 00:05 INR 1.10 07/10/18 00:05 Sodium 135 mmol/L (136-145) L 07/15/18 04:10 Potassium 3.4 mmol/L (3.5-5.1) L 07/15/18 04:10 BUN 10 mg/dL (7-18) 07/15/18 04:10 Creatinine 0.60 mg/dL (0.55-1.3) 07/15/18 04:10 Glucose 142 mg/dL (74-106) H 07/15/18 04:10 Phosphorus 4.1 mg/dL (2.5-4.9) 07/10/18 12:19 Magnesium 2.9 mg/dL (1.8-2.4) H 07/10/18 12:19 Total Bilirubin 0.3 mg/dL (0.2-1.0) 07/15/18 04:10 AST 17 U/L (15-37) 07/15/18 04:10 ALT 33 U/L (12-78) 07/15/18 04:10 Alkaline Phosphatase 83 U/L (45-117) 07/15/18 04:10 Urine culture growing out ESBL E coli and Proteus sensitive to meropenem Home Medications: Acetaminophen [Tylenol*] 650 mg PO Q6HP PRN 06/05/18 Alendronate Sodium [Fosamax] 70 mg PO ONCE 06/05/18 Aspirin [Aspirin EC 81 MG] 81 mg PO DAILY 06/05/18 Atorvastatin Calcium [Lipitor] 40 mg PO BEDTIME 06/05/18 Cholecalciferol (Vitamin D3) [Vitamin D3] 2,000 mg PO DAILY 06/05/18 Diltiazem HCl [Cardizem Cd] 240 mg PO DAILY 06/05/18 Divalproex Sodium [Depakote ER] 250 mg PO BID 06/05/18 Docusate Sodium 100 mg PO DAILY 06/05/18 Famotidine [Pepcid*] 20 mg PO DAILY 06/05/18 Folic Acid 1 mg PO DAILY 06/05/18 Levothyroxine Sodium 25 mcg PO DAILY 06/05/18 Melatonin/Pyridoxine HCl (B6) [Melatonin 3 mg Tablet] 1 each PO PRN PRN Montelukast [Singulair*] 10 mg PO DAILY 06/05/18 Polyvinyl Alcohol [Liquitears] 1 gtts OP BID 06/05/18 Quetiapine [Seroquel*] 100 mg PO BEDTIME 06/05/18 Tiotropium [Spiriva Handihaler*] 5 puff IN DAILY 06/05/18 Vit A/Vit C/Vit E/Zinc/Copper [Preservision Areds Softgel] 1 each PO BID Albuterol Neb [Proventil 0.083% Neb Soln] 2.5 mg NEB TID PRN #90 amp 06/06/18 Arformoterol Tartrate [Brovana] 15 mcg NEB BIDRESP #60 vial.neb 06/06/18 predniSONE [Prednisone*] 20 mg PO SEECOM #15 tab 06/06/18 Meropenem [Merrem 1 GM/100 ML NS IVPB] 1 gm IV Q8H 14 Days #42 bag 07/15/18 New Medications: Meropenem [Merrem 1 GM/100 ML NS IVPB] 1 gm IV Q8H 14 Days #42 bag Patient Discharge Instructions: f/up w PCP in 2-3 days. Return to ER for worsening condition Diet: AHA Activity: Fall precautions Time spent managing pt's care (in minutes): 37
== END 2018-07-15 18:06 | DRG 190 ==
LOC: ER 23:42 → ERHOLD 07-10 02:50 → 4TH 07-10 03:29 → OBSVTOIN 07-11 07:50
PROVIDERS: ADMIT Hospitalist; ATTEND Hospitalist
PROC: 02HV33Z Insertion of Infusion Device into Superior Vena Cava, Percutaneous Approach (ICD-10-PCS; principal; 2018-07-14)
DX: J44.1 Chronic obstructive pulmonary disease with (acute) exacerbation (principal); G93.41 Metabolic encephalopathy; E43 Unspecified severe protein-calorie malnutrition; N17.9 Acute kidney failure, unspecified; N30.00 Acute cystitis without hematuria; F31.9 Bipolar disorder, unspecified; G30.9 Alzheimer's disease, unspecified; F02.80 Dementia in other diseases classified elsewhere, unspecified severity, without behavioral disturbance, psychotic disturbance, mood disturbance, and anxiety; E78.2 Mixed hyperlipidemia; I10 Essential (primary) hypertension; E03.9 Hypothyroidism, unspecified; B96.20 Unspecified Escherichia coli [E. coli] as the cause of diseases classified elsewhere; B96.4 Proteus (mirabilis) (morganii) as the cause of diseases classified elsewhere; Z16.12 Extended spectrum beta lactamase (ESBL) resistance; Z68.25 Body mass index [BMI] 25.0-25.9, adult; E86.0 Dehydration; Z88.0 Allergy status to penicillin; Z86.73 Personal history of transient ischemic attack (TIA), and cerebral infarction without residual deficits
CPT/HCPCS: 36415; 51702; 71045; 80048; 80053; 80076; 81003; 81015; 82805; 82947; 82962; 83605; 83735; 83880; 84100; 84145; 84484; 85025; 85610; 87040; 87077; 87086; 87088; 87186; 93005; 94640; 96361; 96365; 96367; 99285; G0378; J2185; J2930; J7030; J7605

== ENCOUNTER 2018-10-11 01:27 | Inpatient (IN) | payer OTHER ==
--- OUTSIDE RECORDS SUMMARY | 2018-10-11 01:29 | XMS REPORT ---
:1945 [facility] Address [address] [place] [id number] Care Team Providers Name Role Phone Unavailable Unavailable Unavailable Problems This patient has no known problems. Allergies, Adverse Reactions, Alerts Allergy Name Allergy Status Severity Reaction(s) Onset Inactive Treating Comments Type Date Date Clinician Haloperidol DA Active U 2016-01 00:00:0 0 haloperidol DA Active U 2016-01 00:00:0 0 Medications This patient has no known medications.
[2018-10-11] MEDS ORDERED: LEVALBUTEROL 1.25 MG/3 ML NEB ONE (01:43)
[2018-10-11 02:17] LABS: Protime INR 1.04
[2018-10-11 02:19] LABS: Absolute Lymphocytes (CBC) 1.2 K/uL (0.7-4.9); Absolute Monocytes 0.6 K/uL (0.1-1.3); Basophils % 0.4 % (0-1.3); Hematocrit 35.6 % (36.0-45.0); Lymphocytes % 13.4 % (15.3-44.8); MPV 8.5 fL (7.6-11.3); Monocytes % 7.2 % (3.3-12.3); RBC Red Blood Cell Count 4.17 M/uL (3.86-4.86)
[2018-10-11 02:30] LABS: ALT/SGPT 17 U/L (12-78); AST/SGOT 21 U/L (15-37); Albumin 3.1 g/dL (3.4-5.0); Alkaline Phosphatase 76 U/L (45-117); BUN Blood Urea Nitrogen 28 mg/dL (7-18); Bicarbonate 27 mmol/L (21-32); Bilirubin Direct < 0.1 mg/dL (0-0.2); Bilirubin Total 0.3 mg/dL (0.2-1.0); Glucose Level 119 mg/dL (74-106); Magnesium 1.8 mg/dL (1.8-2.4); NT PRO-BNP 102 pg/mL (<125); Sodium Level 139 mmol/L (136-145); Troponin (Emerg Dept Use Only) < 0.02 ng/mL (0.0-0.045)
[2018-10-11] MEDS ORDERED: NA CHLORIDE 0.9% 1,000 ML ONE (02:45)
--- NOTE | 2018-10-11 03:30 | EDPHYS ---
Physician Documentation [facility] Name: Elizabeth Falcon Age: 73 yrs Sex: Female : 1945 Arrival Date: 10/11/2018 Time: 01:28 Bed 20 Private MD: ED Physician [place] HPI: 10/11 01:33 This 73 yrs old Female presents to ER via Unassigned with complaints of cp Breathing Difficulty. 01:33 The patient has shortness of breath at rest. cp 01:33 Onset: The symptoms/episode began/occurred at an unknown time. Duration: The symptoms cp are continuous, and are unchanged since they started. Associated signs and symptoms: Pertinent negatives: chest pain, fever, abdominal pain. Severity of symptoms: in the emergency department the symptoms are unchanged despite EMS interventions. Patient is a resident of [facility] and was brought by EMS to Ed for difficulty breathing. Patient was given neb treatment and 125 mg solu-medrol by EMS [employer]. Historical: - Allergies: 01:46 Haldol; ed1 01:46 PENICILLINS; ed1 - Home Meds: 01:46 Pepcid 20 mg Oral tab 1 tab once daily [Active]; levothyroxine 25 mcg tab 1 tab once ed1 daily [Active]; Tradjenta 5 mg oral tab 1 tab once daily [Active]; aspirin 81 mg Oral chew 1 tab once daily [Active]; Vitamin D3 1,000 unit Oral cap daily [Active]; diltiazem HCl 240 mg Oral cpER once daily [Active]; folic acid 1 mg Oral tab once daily [Active]; Januvia 100 mg oral tab 1 tab once daily [Active]; Probiotic 20 billion cell oral cap 1 cap daily [Active]; Singulair 10 mg Oral tab 1 tab once daily [Active]; Liquitears 1.4 % Opht drop 1 drop twice a day [Active]; PreserVision AREDS Oral daily [Active]; metformin 500 mg Oral Tb24 1 tab once daily [Active]; Seroquel 50 mg oral tab 1 tab nightly [Active]; - PMHx: 01:46 Alzheimers; MATIAS knees osteoarthritis; Bipolar disorder; COPD; DYSPHAGIA; GERD; ed1 Hyperlipidemia; Hypertension; Hypothyroidism; Necrotizing ulcerative stomatitis; - PSHx: 01:46 Unable to obtain; ed1 - Immunization history:: Adult Immunizations up to date. - Social history:: Smoking status: Patient/guardian denies using tobacco. - Ebola Screening: : Patient negative for fever greater than or equal to 101.5 degrees Fahrenheit, and additional compatible Ebola Virus Disease symptoms Patient denies exposure to infectious person Patient denies travel to an Ebola-affected area in the 21 days before illness onset No symptoms or risks identified at this time. ROS: 01:35 Unable to obtain ROS due to baseline dementia. cp Exam: 01:40 Constitutional: The patient appears alert, awake, non-diaphoretic, non-toxic, well cp developed, well nourished, in obvious distress. 01:40 Head/Face: Normocephalic, atraumatic. cp 01:40 Eyes: Periorbital structures: appear normal, Pupils: equal, round, and reactive to light and accomodation, Conjunctiva: normal, no exudate, no injection, Sclera: no appreciated abnormality, Lids and lashes: appear normal, bilaterally. 01:40 ENT: External ear(s): are unremarkable, Ear canal(s): are normal, clear, TM's: bulging, is not appreciated, bilaterally, dullness, bilaterally, erythema, is not appreciated, bilaterally, Nose: is normal, Mouth: Lips: moist, Oral mucosa: moist, Posterior pharynx: Airway: no evidence of obstruction, patent. 01:40 Neck: ROM/movement: is normal, is supple, no meningismus, no nuchal rigidity. 01:40 Chest/axilla: Inspection: normal, Palpation: is normal, no crepitus, no tenderness. 01:40 Cardiovascular: Rate: tachycardic, Rhythm: regular, Edema: is not appreciated, JVD: is not appreciated. 01:40 Respiratory: moderate respiratory distress is noted, Respirations: labored breathing, that is moderate, shallow respirations, that is moderate, tachypnea, Breath sounds: decreased breath sounds, that are moderate, stridor, is not appreciated, wheezing: is not appreciated. 01:40 Abdomen/GI: Inspection: abdomen appears normal, Bowel sounds: active, all quadrants, Palpation: abdomen is soft and non-tender, in all quadrants, rebound tenderness, is not appreciated, voluntary guarding, is not appreciated, involuntary guarding, is not appreciated. 01:40 Back: pain, is absent, ROM is normal. 01:40 Skin: cellulitis, is not appreciated, no rash present. 01:40 Neuro: Orientation: no acute changes, per EMS, Mentation: no acute changes, per EMS, Motor: moves all fours, strength is normal. 02:24 ECG was reviewed by the Attending Physician. cp Vital Signs: 01:33 BP 116 / 72; Pulse 135; Resp 30; Temp 99.3(TE); Pulse Ox 77% on R/A; Pain 0/10; ed1 01:40 Pulse Ox 90% on 4 lpm NC; ed1 03:00 BP 133 / 67; Pulse 94; Resp 30; Pulse Ox 96% on BiPAP; jb4 04:00 BP 127 / 58; Pulse 110; Resp 25; Pulse Ox 96% on BiPAP; jb4 05:00 BP 124 / 58; Pulse 104; Resp 24; Pulse Ox 97% on BiPAP; jb4 01:33 Provider notified, RT paged ed1 MDM: 01:44 Patient medically screened. cp 02:00 Differential diagnosis: Bronchitis CHF exacerbation, Chronic Obstructive Pulmonary cp Disease pneumonia, Pneumothorax pulmonary edema, influenza. 03:15 Data reviewed: vital signs, nurses notes, lab test result(s), EKG, radiologic studies, cp plain films. 03:15 Test interpretation: by ED physician or midlevel provider: ECG, plain radiologic cp studies. 03:17 Physician consultation: Chela Maharaj MD was contacted at 03:18, regarding admission, cp to the medical/surgical unit. patient's condition, and will see patient in ED, shortly. 10/11 01:36 Order name: Influenza Screen (a \T\ B); Complete Time: 03:31 cp 10/11 03:31 Interpretation: Abnormal. cp 10/11 01:36 Order name: Urine Microscopic Only cp 10/11 01:36 Order name: Basic Metabolic Panel cp 10/11 01:36 Order name: CBC with Diff cp 10/11 01:36 Order name: LFT's cp 10/11 01:36 Order name: Magnesium cp 10/11 01:36 Order name: NT PRO-BNP cp 10/11 01:36 Order name: PT-INR cp 10/11 01:36 Order name: Troponin (emerg Dept Use Only) cp 10/11 01:36 Order name: Lactate cp 10/11 01:36 Order name: Procalcitonin cp 10/11 01:36 Order name: Blood Culture Adult (2) cp 10/11 02:20 Order name: Protime (+INR); Complete Time: 03:11 EDMS 10/11 02:21 Order name: CBC with Automated Diff; Complete Time: 03:11 EDMS 10/11 03:11 Interpretation: HGB 11.7; HCT 35.6; RDW 17.0; JUAN% 79.0; LYM% 13.4. cp 10/11 01:36 Order name: XRAY Chest (1 view) cp 10/11 01:36 Order name: EKG; Complete Time: 01:38 cp 10/11 01:36 Order name: BIPAP cp 10/11 02:28 Order name: Lactate; Complete Time: 03:11 EDMS 10/11 02:48 Order name: Basic Metabolic Panel; Complete Time: 03:11 EDMS 10/11 03:11 Interpretation: Normal except: GLUC 119; BUN 28; CRE 1.33; GFR 39. cp 10/11 02:48 Order name: Liver (Hepatic) Function; Complete Time: 03:11 EDMS 10/11 02:48 Order name: Troponin (Emerg Dept Use Only); Complete Time: 03:11 EDMS 10/11 02:48 Order name: NT PRO-BNP; Complete Time: 03:11 EDMS 10/11 02:48 Order name: Magnesium; Complete Time: 03:11 EDMS 10/11 02:53 Order name: Procalcitonin; Complete Time: 03:11 EDMS 10/11 01:36 Order name: Cardiac monitoring; Complete Time: 02:25 cp 10/11 01:36 Order name: EKG - Nurse/Tech; Complete Time: 02:25 cp 10/11 01:36 Order name: IV Saline Lock; Complete Time: 02:25 cp 10/11 01:36 Order name: Labs collected and sent; Complete Time: 02:25 cp 10/11 01:36 Order name: O2 Per Protocol; Complete Time: 02:25 cp 10/11 01:36 Order name: O2 Sat Monitoring; Complete Time: 02:49 cp EC:24 Rate is 128 beats/min. Rhythm is regular. [place] interval is normal. QRS interval is cp normal. QT interval is normal. Interpreted by me. Reviewed by me. Administered Medications: 01:35 Drug: Xopenex (3) 1.25 mg Route: Inhalation; cc3 04:00 Follow up: Response: No adverse reaction; Marked relief of symptoms jb4 01:50 Drug: NS 0.9% 1000 ml Route: IV; Rate: 250 ml/hr; Site: right forearm; jb4 05:41 Follow up: Response: No adverse reaction; IV Status: Infusion continued upon admission jb4 03:37 CANCELLED (Physician Discretion): LevaQUIN 500 mg 100 ml IVPB once over 60 mins cp 03:38 CANCELLED (Duplicate Order): Tamiflu 75 mg PO once cp 03:59 Drug: Magnesium Sulfate 1 grams Route: IVPB; Infused Over: 1 hrs; Site: right forearm; jb4 04:59 Follow up: Response: No adverse reaction; IV Status: Completed infusion jb4 Disposition: 04:18 Chart complete. cp Disposition: 10/11/18 03:29 Hospitalization ordered by Chela Maharaj for Inpatient Admission. Preliminary diagnosis are Acute respiratory failure with hypoxia, Influenza due to identified novel influenza A virus with other respiratory manifestations. - Bed requested for Telemetry/MedSurg (Inpatient). - Status is Inpatient Admission. jb4 - Condition is Stable. - Problem is new. - Symptoms have improved. UTI on Admission? No Signatures: Dispatcher [employer] EDMS Carmina Cristobal RN RN kl Riggs, Erika, RN RN ed1 Almas Pérez PA PA cp Bryson, James, RN RN jb4 Dedra Gunter cc3 Corrections: (The following items were deleted from the chart) 03:32 03:29 Hospitalization Ordered by Chela Maharaj MD for Inpatient Admission. Preliminary cp diagnosis is Acute respiratory failure with hypoxia. Bed requested for Telemetry/MedSurg (Inpatient). Status is Inpatient Admission. Condition is Stable. Problem is new. Symptoms have improved. UTI on Admission? No. cp 03:37 03:36 LevaQUIN 500 mg 100 ml IVPB once over 60 mins ordered. cp cp 03:38 03:36 Tamiflu 75 mg PO once ordered. cp cp 04:00 03:36 [place] ordered. cp jb4 04:10 01:35 Constitutional: Negative for fever, cp cp 05:14 03:32 10/11/2018 03:29 Hospitalization Ordered by Chela Maharaj MD for Inpatient kl Admission. Preliminary diagnosis is Acute respiratory failure with hypoxia; Influenza due to identified novel influenza A virus with other respiratory manifestations. Bed requested for Telemetry/MedSurg (Inpatient). Status is Inpatient Admission. Condition is Stable. Problem is new. Symptoms have improved. UTI on Admission? No. cp 06:09 05:14 10/11/2018 03:29 Hospitalization Ordered by Chela Maharaj MD for Inpatient jb4 Admission. Preliminary diagnosis is Acute respiratory failure with hypoxia; Influenza due to identified novel influenza A virus with other respiratory manifestations. Bed requested for Telemetry/MedSurg (Inpatient). Status is Inpatient Admission. Condition is Stable. Problem is new. Symptoms have improved. UTI on Admission? No. kl
--- NOTE | 2018-10-11 03:30 | ER ---
Nurse's Notes [facility] Name: Elizabeth Falcon Age: 73 yrs Sex: Female : 1945 Arrival Date: 10/11/2018 Time: 01:28 Bed 20 Private MD: Diagnosis: Acute respiratory failure with hypoxia;Influenza due to identified novel influenza A virus with other respiratory manifestations Presentation: 10/11 01:33 Presenting complaint: EMS states: We were called out for breathing difficulty. ed1 Transition of care: patient was received from another setting of care (long-term care facility), [facility]. Onset of symptoms was October 08, 2018. Risk Assessment: Do you want to hurt yourself or someone else? Patient reports no desire to harm self or others. Initial Sepsis Screen: Does the patient meet any 2 criteria? RR > 20 per min. HR > 90 bpm. Yes Does the patient have a suspected source of infection? Yes: Productive cough/pneumonia. Care prior to arrival: Medication(s) given: Albuterol Neb x 1, Atrovent Neb x 1, Solu-Medrol 125mg IV initiated. 20 GA, in the right forearm, Oxygen administered. via nasal cannula. 01:33 Method Of Arrival: EMS: [facility] ed1 01:33 Acuity: [place] 2 ed1 Historical: - Allergies: 01:46 Haldol; ed1 01:46 PENICILLINS; ed1 - Home Meds: 01:46 Pepcid 20 mg Oral tab 1 tab once daily [Active]; levothyroxine 25 mcg tab 1 tab once ed1 daily [Active]; Tradjenta 5 mg oral tab 1 tab once daily [Active]; aspirin 81 mg Oral chew 1 tab once daily [Active]; Vitamin D3 1,000 unit Oral cap daily [Active]; diltiazem HCl 240 mg Oral cpER once daily [Active]; folic acid 1 mg Oral tab once daily [Active]; Januvia 100 mg oral tab 1 tab once daily [Active]; Probiotic 20 billion cell oral cap 1 cap daily [Active]; Singulair 10 mg Oral tab 1 tab once daily [Active]; Liquitears 1.4 % Opht drop 1 drop twice a day [Active]; PreserVision AREDS Oral daily [Active]; metformin 500 mg Oral Tb24 1 tab once daily [Active]; Seroquel 50 mg oral tab 1 tab nightly [Active]; - PMHx: 01:46 Alzheimers; MATIAS knees osteoarthritis; Bipolar disorder; COPD; DYSPHAGIA; GERD; ed1 Hyperlipidemia; Hypertension; Hypothyroidism; Necrotizing ulcerative stomatitis; - PSHx: 01:46 Unable to obtain; ed1 - Immunization history:: Adult Immunizations up to date. - Social history:: Smoking status: Patient/guardian denies using tobacco. - Ebola Screening: : Patient negative for fever greater than or equal to 101.5 degrees Fahrenheit, and additional compatible Ebola Virus Disease symptoms Patient denies exposure to infectious person Patient denies travel to an Ebola-affected area in the 21 days before illness onset No symptoms or risks identified at this time. Screenin:59 Abuse screen: Denies threats or abuse. Nutritional screening: No deficits noted. jb4 Tuberculosis screening: No symptoms or risk factors identified. Fall Risk None identified. Assessment: 01:59 General: Appears distressed, uncomfortable, Behavior is cooperative, anxious. Pain: jb4 Denies pain. Neuro: Level of Consciousness is awake, alert, obeys commands, Oriented to person, place, time. Cardiovascular: Heart tones S1 S2 present Patient's skin is warm and dry. Rhythm is sinus tachycardia. Respiratory: Airway is patent Respiratory effort is even, labored, Respiratory pattern is symmetrical, tachypnea Breath sounds with crackles in left posterior upper lobe, right posterior upper lobe, left posterior lower lobe, right posterior middle lobe and right posterior lower lobe Breath sounds with wheezes bilaterally. GI: No signs and/or symptoms were reported involving the gastrointestinal system. : No signs and/or symptoms were reported regarding the genitourinary system. EENT: No signs and/or symptoms were reported regarding the EENT system. Derm: Skin is intact, Skin is pink, warm \T\ dry. Musculoskeletal: Circulation, motion, and sensation intact. 03:00 Reassessment: No changes from previously documented assessment. Patient and/or family jb4 updated on plan of care and expected duration. Pain level reassessed. Pt is resting in bed with eyes closed. 04:00 Reassessment: Patient appears in no apparent distress at this time. Patient and/or jb4 family updated on plan of care and expected duration. Pain level reassessed. Pt is resting in bed with eyes closed, respirations even and unlabored. 05:00 Reassessment: Patient appears in no apparent distress at this time. No changes from jb4 previously documented assessment. Patient and/or family updated on plan of care and expected duration. Pain level reassessed. 05:23 Reassessment: attempted to call report, instructed to wait for call back. jb4 Vital Signs: 01:33 BP 116 / 72; Pulse 135; Resp 30; Temp 99.3(TE); Pulse Ox 77% on R/A; Pain 0/10; ed1 01:40 Pulse Ox 90% on 4 lpm NC; ed1 03:00 BP 133 / 67; Pulse 94; Resp 30; Pulse Ox 96% on BiPAP; jb4 04:00 BP 127 / 58; Pulse 110; Resp 25; Pulse Ox 96% on BiPAP; jb4 05:00 BP 124 / 58; Pulse 104; Resp 24; Pulse Ox 97% on BiPAP; jb4 01:33 Provider notified, RT paged ed1 ED Course: 01:28 Patient arrived in ED. ds1 01:33 Almas Pérez PA is PHCP. cp 01:33 [place] MD is Attending Physician. cp 01:35 Triage completed. ed1 01:49 Sebastien Vickers, RN is Primary Nurse. jb4 01:59 Patient has correct armband on for positive identification. Placed in gown. Bed in low jb4 position. Call light in reach. Side rails up X2. desk monitor on. Pulse ox on. NIBP on. 02:25 BIPAP Sent. mw2 02:25 Blood Culture Adult (2) Sent. mw2 02:26 Procalcitonin Sent. mw2 02:26 Lactate Sent. mw2 03:04 XRAY Chest (1 view) In Process Unspecified. EDMS 03:28 Chela Maharaj MD is Hospitalizing Provider. cp 05:42 No provider procedures requiring assistance completed. Patient admitted, IV remains in jb4 place. Administered Medications: 01:35 Drug: Xopenex (3) 1.25 mg Route: Inhalation; cc3 04:00 Follow up: Response: No adverse reaction; Marked relief of symptoms jb4 01:50 Drug: NS 0.9% 1000 ml Route: IV; Rate: 250 ml/hr; Site: right forearm; jb4 05:41 Follow up: Response: No adverse reaction; IV Status: Infusion continued upon admission jb4 03:37 CANCELLED (Physician Discretion): LevaQUIN 500 mg 100 ml IVPB once over 60 mins cp 03:38 CANCELLED (Duplicate Order): Tamiflu 75 mg PO once cp 03:59 Drug: Magnesium Sulfate 1 grams Route: IVPB; Infused Over: 1 hrs; Site: right forearm; jb4 04:59 Follow up: Response: No adverse reaction; IV Status: Completed infusion jb4 Outcome: 03:29 Decision to Hospitalize by Provider. cp 05:42 Admitted to Tele accompanied by nurse, via stretcher, room 408, with oxygen, with jb4 chart, Report called to ESSIE Kim 05:42 Condition: stable 05:42 Discharge instructions given to patient, Instructed on the need for admit, Demonstrated understanding of instructions. 06:09 Patient left the ED. jb4 Signatures: Dispatcher [employer] EDPA Chery Stanley ds1 Chinyere Gibbs RN RN ed1 Almas Pérez PA PA cp Bryson, James, RN RN jb4 Gerhard Peng 2 Dedra Gunter cc3 Corrections: (The following items were deleted from the chart) 02:01 01:59 BP 116 / 72; Pulse 135bpm; Resp 30bpm; Pulse Ox 77% RA; Temp 99.3F Temporal; Pain ed1 0/10; ed1 04:09 01:59 General: Appears distressed, uncomfortable, Behavior is cooperative, anxious, jb4 jb4 04:09 01:59 Pain: Denies pain. jb4 jb4 04:09 01:59 Neuro: Level of Consciousness is awake, alert, obeys commands, Oriented to jb4 person, place, time, jb4
[2018-10-11] MEDS ORDERED: Magnesium Sulfate 2gm IVPB 0 G/0 ML BAG IV ONE (04:00)
--- NOTE | 2018-10-11 04:00 | P.HP ---
Certification for Inpatient Patient admitted to: Inpatient With expected LOS: >2 Midnights Practitioner: I am a practitioner with admitting privileges, knowledge of patient current condition, hospital course, and medical plan of care. Services: Services provided to patient in accordance with Admission requirements found in Title 42 Section 412.3 of the Code of Federal Regulations Patient History Date of Service: 10/11/18 Reason for admission: copd exacerbation, flu positive History of Present Illness: Ms Falcon is a 73 years old woman with history of COPD, HTN, Alzheimer's dementia, hypothyroidism, who is a resident of a local [place] [facility] care facility. Today, she was found by the staff, in respiratory distress. They call 911, when EMS arrived , she was tachypneic, O2 sat 84% on RA, she had low grade fever. In ED, lab work remarkable for normal WBC count, temp was 99.3, O2 sat 77% on RA. CXR shows no acute infiltrate. Influenza screening, was positive for influenza A. She was placed then on BiPAP, which is well tolerated. Allergies haloperidol [From Haldol] Allergy (Verified 06/05/18 06:05) Rash Penicillins Allergy (Verified 06/05/18 06:05) Rash Home medications list reviewed: Yes Home Medications: Acetaminophen [Tylenol*] 650 mg PO Q6HP PRN 06/05/18 Alendronate Sodium [Fosamax] 70 mg PO ONCE 06/05/18 Aspirin [Aspirin EC 81 MG] 81 mg PO DAILY 06/05/18 Atorvastatin Calcium [Lipitor] 40 mg PO BEDTIME 06/05/18 Cholecalciferol (Vitamin D3) [Vitamin D3] 2,000 mg PO DAILY 06/05/18 Diltiazem HCl [Cardizem Cd] 240 mg PO DAILY 06/05/18 Divalproex Sodium [Depakote ER] 250 mg PO BID 06/05/18 Docusate Sodium 100 mg PO DAILY 06/05/18 Famotidine [Pepcid*] 20 mg PO DAILY 06/05/18 Folic Acid 1 mg PO DAILY 06/05/18 Levothyroxine Sodium 25 mcg PO DAILY 06/05/18 Melatonin/Pyridoxine HCl (B6) [Melatonin 3 mg Tablet] 1 each PO PRN PRN Montelukast [Singulair*] 10 mg PO DAILY 06/05/18 Polyvinyl Alcohol [Liquitears] 1 gtts OP BID 06/05/18 Quetiapine [Seroquel*] 100 mg PO BEDTIME 06/05/18 Tiotropium [Spiriva Handihaler*] 5 puff IN DAILY 06/05/18 Vit A/Vit C/Vit E/Zinc/Copper [Preservision Areds Softgel] 1 each PO BID Albuterol Neb [Proventil 0.083% Neb Soln] 2.5 mg NEB TID PRN #90 amp 06/06/18 Arformoterol Tartrate [Brovana] 15 mcg NEB BIDRESP #60 vial.neb 06/06/18 predniSONE [Prednisone*] 20 mg PO SEECOM #15 tab 06/06/18 Meropenem [Merrem 1 GM/100 ML NS IVPB] 1 gm IV Q8H 14 Days #42 bag 07/15/18 - Past Medical/Surgical History Diabetic: No -: COPD -: HTN -: HYPOTHYROIDISM -: BIPOLAR -: GERD -: ALZHEIMERS -: CVA -: Marlon Knee arthritis -: Hyperlipidemia -: mixed receptive expressive language disorder -: left femur surgery - Family History Mother Notes: in car accident Father Notes: 4 years after patient was born - Social History Smoking Status: Former smoker Alcohol use: No CD- Drugs: No Caffeine use: Yes Place of Residence: [facility]ustodial Review of Systems 10-point ROS is otherwise unremarkable Physical Examination - Physical Exam General: Alert, Mild distress (due to SOB) HEENT: Atraumatic, PERRLA, Mucous membr. moist/pink, EOMI, Sclerae nonicteric Neck: Supple, 2+ carotid pulse no bruit, No LAD, Without JVD or thyroid abnormality Respiratory: Diminished, Expiratory wheezes (bilateral wheezes) Cardiovascular: Normal S1 S2, No gallops Gastrointestinal: Normal bowel sounds, No tenderness Musculoskeletal: No tenderness Integumentary: No rashes Neurological: Normal speech, Normal strength at 5/5 x4 extr, Normal tone, Normal affect Lymphatics: No axilla or inguinal lymphadenopathy - Studies Laboratory Data (last 24 hrs) 10/11/18 01:55: PT 12.2, INR 1.04 10/11/18 01:55: WBC 8.8, Hgb 11.7 L, Hct 35.6 L, Plt Count 237 10/11/18 01:55: Sodium 139, Potassium 4.0, BUN 28 H, Creatinine 1.33 H, Glucose 119 H, Magnesium 1.8 D, Total Bilirubin 0.3, AST 21, ALT 17, Alkaline Phosphatase 76 Microbiology Data (last 24 hrs): 10/11/18 02:25 Nasopharnyx Influenza Type A Antigen Screen - Final 10/11/18 02:25 Nasopharnyx Influenza Type B Antigen Screen - Final Assessment and Plan - Problems (Diagnosis) (1) Influenzal acute upper respiratory infection Current Visit: Yes Status: Acute (2) Acute renal injury Onset Date: 06/05/18 Current Visit: No Status: Acute (3) COPD exacerbation Onset Date: 06/05/18 Current Visit: No Status: Acute (4) Dementia in Alzheimer's disease Onset Date: 02/05/18 Current Visit: No Status: Chronic (5) Hypertension Onset Date: 02/05/18 Current Visit: No Status: Chronic Qualifiers: Hypertension type: essential hypertension Qualified Code(s): I10 - Essential (primary) hypertension - Plan Will admit the patient to medical floor. Continue BiPAP so far. Start oseltamivir. Continue breathing treatments, IV fluids and IV steroids. - Advance Directives Does patient have a Living Will: No Does patient have a Durable POA for Healthcare: No - Code Status/Comfort Care Code Status Assessed: Yes Code Status: Full Code
[2018-10-11] MEDS ORDERED: MAGNESIUM SULFATE 1 gm IVPB 1 GM/100 ML BAG IV ONE (04:04)
[2018-10-11] MEDS ORDERED: METHYLPREDNISOLONE 40 MG INJ IV SCH (06:16)
[2018-10-11] MEDS ORDERED: ONDANSETRON 4 MG/2 ML VIAL IV PRN (06:16)
[2018-10-11] MEDS ORDERED: ACETAMINOPHEN 500 MG TAB PO PRN (06:16)
[2018-10-11] MEDS: NA CHLORIDE 0.9% 1,000 ML IV SCH ×2 (06:47→16:51)
[2018-10-11 06:50] LABS: Potassium 4.1 mmol/L (3.5-5.1)
[2018-10-11] MEDS ORDERED: BENZONATATE 100 MG CAP PO PRN (07:19)
[2018-10-11] MEDS: ALBUTEROL 2.5 MG/3 ML NEB SOL NEB PRN ×3 (08:05→16:54)
[2018-10-11] MEDS: IPRATROPIUM BROM 0.5MG/2.5ML NEB PRN ×3 (08:05→16:54)
[2018-10-11] MEDS: ARFORMOTEROL TARTRATE 15 MCG/2 ML VIAL.NEB NEB SCH ×2 (08:05→20:30)
[2018-10-11] MEDS ORDERED: GLUCAGON 1 MG/VIAL IM PRN (08:43)
[2018-10-11] MEDS ORDERED: D50W 25 GM/50 ML SYRINGE IV PRN (08:43)
--- NOTE | 2018-10-11 08:48 | P.PN ---
Subjective Date of Service: 10/11/18 Primary Care Provider: MIKKI Physician Chief Complaint: copd exacerbation, flu positive Subjective: Other (Patient appears improved. Patient off BiPAP.) Physical Examination - Vital Signs Temperature: 97.5 F Blood Pressure: 118/57 Pulse: 103 Respirations: 16 Pulse Ox (%): 90 - Physical Exam General: Alert, In no apparent distress, Cooperative HEENT: Atraumatic Neck: Supple Respiratory: Expiratory wheezes, Inspiratory wheezes Cardiovascular: Normal pulses, Regular rate/rhythm Gastrointestinal: Normal bowel sounds, Soft and benign, Non-distended, No tenderness, No masses, No rebound, No guarding Musculoskeletal: No erythema, No tenderness, No warmth Integumentary: No tenderness/swelling, No erythema, No warmth, No cyanosis Neurological: Normal speech, Normal strength at 5/5 x4 extr, Normal tone, Normal affect - Studies Laboratory Data (last 24 hrs) 10/11/18 01:55: PT 12.2, INR 1.04 10/11/18 01:55: WBC 8.8, Hgb 11.7 L, Hct 35.6 L, Plt Count 237 10/11/18 01:55: Sodium 139, Potassium 4.0, BUN 28 H, Creatinine 1.33 H, Glucose 119 H, Magnesium 1.8 D, Total Bilirubin 0.3, AST 21, ALT 17, Alkaline Phosphatase 76 Microbiology Data (last 24 hrs): 10/11/18 02:25 Nasopharnyx Influenza Type A Antigen Screen - Final 10/11/18 02:25 Nasopharnyx Influenza Type B Antigen Screen - Final Medications List Reviewed: Yes Assessment & Plan Discharge Plan: Half-Way Plan to discharge in: 72 Hours Physician Review Additional Text: Impression: Acute on chronic respiratory failure secondary to COPD exacerbation complicated with influenza A Acute on chronic renal disease, stage III with dehydration Diabetes mellitus type 2 Hypertension Hyperlipidemia Hypothyroidism Alzheimer's dementia Depression with anxiety Plan: Acute on chronic respiratory failure with noted hypoxia and tachypnea secondary to COPD exacerbation/steroid and oxygen-dependent complicated with influenza A: Patient off BiPAP at this time. Continue with oxygen. Will transition IV steroids to oral. Continue with COPD medication. Patient on Tamiflu. Pro calcitonin negative. Recheck x-ray tomorrow. Respiratory consulted to further monitor. Will continue to monitor and address. Pulmonology consulted to further assess. Anticipate discharge in the next 24-48 hr. Acute on chronic renal disease, stage III with dehydration: Continue with IV fluids. Will monitor closely. Diabetes mellitus type 2: Will provide sliding scale. Will monitor Accu- Cheks. Will discontinue metformin due to chronic renal disease Hypertension: Restart blood pressure medication. Hyperlipidemia: Continue with snf medication Hypothyroidism: Continue with medication Alzheimer's dementia: Continue with medication. Patient overall stable. Will assess ambulation. Depression with anxiety: Continue with snf medication Time Spent Managing Pts Care (In Minutes): 55
--- NOTE | 2018-10-11 08:54 | EKG ---
Test Date: 2018-10-11 Test Time: 02:19:31 Microfilm Camera Operator: SUPA MEASUREMENT RESULTS: Intervals: Rate: 128 MS: 124 QRSD: 72 QT: 310 QTc: 452 [place]: P: 74 MS: 124 QRS: 74 T: 74 INTERPRETIVE STATEMENTS: Sinus tachycardia Otherwise normal ECG Compared to ECG 07/10/2018 00:07:06 No significant changes Electronically Signed On 10-11-18 08:52:52 RESHIPPING CLERK by Mathieu Alarcon
[2018-10-11] MEDS: COPPER PO SCH ×2 (09:00→21:00)
[2018-10-11] MEDS: VIT C PO SCH ×2 (09:00→21:00)
[2018-10-11] MEDS: VIT A PO SCH ×2 (09:00→21:00)
[2018-10-11] MEDS ORDERED: METFORMIN ER 500 MG TAB PO SCH (09:00)
[2018-10-11] MEDS: ZINC PO SCH ×2 (09:00→21:00)
[2018-10-11] MEDS: VIT E PO SCH ×2 (09:00→21:00)
[2018-10-11] MEDS: HOME MED 1 EA UNK (Linagliptin [Tradjenta] 5 MG) PO SCH (09:00)
[2018-10-11] MEDS ORDERED: DILTIAZEM HCL 240 MG PO SCH (09:00)
--- NOTE | 2018-10-11 10:38 | RAD REPORT ---
EXAM DESCRIPTION: RAD - Chest Single View - 10/11/2018 2:13 am CLINICAL HISTORY: Cough;SOB Chest pain. COMPARISON: Chest Single View dated 07/14/2018; Chest Single View dated 07/10/2018; Chest Single Vie w dated 06/05/2018; Chest Single View dated 06/04/2018 FINDINGS: Portable technique limits examination quality. Emphysematous changes are present with linear atelectasis in the left mid lung. A vague poorly define d opacity seen in the right mid lung, suspicious for infiltrate/ pneumonia, a new since the comparati ve study. The heart is upper limit normal in size. Consider followup radiographs until complete clear ance.
[2018-10-11] MEDS: FLUTICASONE 50MCG NASAL SPRAY NAS SCH ×2 (11:00→21:29)
[2018-10-11] MEDS: MONTELUKAST 10 MG TAB PO SCH (11:01)
[2018-10-11] MEDS: POLYVINYL ALCOHOL 1.4% 15 ML OPTH SCH ×2 (11:01→21:29)
[2018-10-11] MEDS: OSELTAMIVIR PHOSPHATE 30 MG/5 ML SUSPENSION UD PO SCH ×2 (11:02→21:29)
[2018-10-11] MEDS: ENOXAPARIN 40 MG/0.4 ML SQ SCH (11:02)
[2018-10-11] MEDS: DILTIAZEM HCL 120 MG SR CAP PO SCH (11:03)
[2018-10-11] MEDS: FOLIC ACID 1 MG TABLET PO SCH (11:04)
[2018-10-11] MEDS: GUAIFENESIN 600 MG SA TAB PO SCH ×2 (11:04→21:28)
[2018-10-11] MEDS: ASPIRIN EC 81 MG TAB PO SCH (11:04)
[2018-10-11] MEDS: LACTOBACILLUS/ACIDOPHILUS TAB PO SCH (11:04)
[2018-10-11] MEDS: VITAMIN D 1000 UNIT TAB PO SCH (11:04)
[2018-10-11] MEDS: predniSONE 20 MG TAB PO SCH ×2 (11:04→21:28)
[2018-10-11] MEDS: FAMOTIDINE 20 MG TAB PO SCH (11:05)
[2018-10-11] MEDS: INSULIN -REGULAR HUMAN 50 UNIT/0.5 ML ML SQ SCH ×3 (12:14→21:00)
[2018-10-11] MEDS: QUETIAPINE 100MG TAB PO SCH (21:28)
[2018-10-11] MEDS: ATORVASTATIN 40 MG TAB PO SCH (21:28)
[2018-10-12] MEDS: NA CHLORIDE 0.9% 1,000 ML IV SCH (03:25)
[2018-10-12] MEDS: ALBUTEROL 2.5 MG/3 ML NEB SOL NEB PRN ×3 (04:47→21:00)
[2018-10-12] MEDS: IPRATROPIUM BROM 0.5MG/2.5ML NEB PRN ×3 (04:47→21:00)
[2018-10-12 05:13] LABS: Absolute Lymphocytes (CBC) 0.5 K/uL (0.7-4.9); Absolute Monocytes 0.5 K/uL (0.1-1.3); Absolute Neutrophil 6.6 K/uL (1.8-8.0); Basophils % 0.1 % (0-1.3); Eosinophils % 0.2 % (0-4.4); Hematocrit 30.8 % (36.0-45.0); Lymphocytes % 6.3 % (15.3-44.8); MPV 8.8 fL (7.6-11.3)
[2018-10-12 05:25] LABS: Potassium 3.6 mmol/L (3.5-5.1)
[2018-10-12 05:39] LABS: Urine White Blood Cell Casts OK
[2018-10-12 05:40] LABS: Blood Morphology Comment NOT SEEN (NOT SEEN); Platelet Estimate ADEQ
[2018-10-12] MEDS: LEVOTHYROXINE SOD 0.025 MG TAB PO SCH (06:32)
[2018-10-12] MEDS: INSULIN -REGULAR HUMAN 50 UNIT/0.5 ML ML SQ SCH ×4 (07:30→21:00)
[2018-10-12] MEDS ORDERED: HYDROCORTISONE 0.5% CREAM 30 GM TOP PRN (08:22)
[2018-10-12] MEDS: ARFORMOTEROL TARTRATE 15 MCG/2 ML VIAL.NEB NEB SCH ×2 (08:34→21:00)
[2018-10-12] MEDS: ZINC PO SCH ×2 (09:00→21:00)
[2018-10-12] MEDS: VIT A PO SCH ×2 (09:00→21:00)
[2018-10-12] MEDS: VIT C PO SCH ×2 (09:00→21:00)
[2018-10-12] MEDS: HOME MED 1 EA UNK (Linagliptin [Tradjenta] 5 MG) PO SCH (09:00)
[2018-10-12] MEDS: COPPER PO SCH ×2 (09:00→21:00)
[2018-10-12] MEDS ORDERED: POTASSIUM CL SA 10 MEQ TAB PO ONE (09:00)
[2018-10-12] MEDS: VIT E PO SCH ×2 (09:00→21:00)
[2018-10-12] MEDS: DILTIAZEM HCL 120 MG SR CAP PO SCH (09:03)
[2018-10-12] MEDS: VITAMIN D 1000 UNIT TAB PO SCH (09:05)
[2018-10-12] MEDS: LACTOBACILLUS/ACIDOPHILUS TAB PO SCH (09:06)
[2018-10-12] MEDS: GUAIFENESIN 600 MG SA TAB PO SCH ×2 (09:07→21:33)
[2018-10-12] MEDS: predniSONE 20 MG TAB PO SCH ×2 (09:08→21:34)
[2018-10-12] MEDS: ASPIRIN EC 81 MG TAB PO SCH (09:08)
[2018-10-12] MEDS: FAMOTIDINE 20 MG TAB PO SCH (09:08)
[2018-10-12] MEDS: FOLIC ACID 1 MG TABLET PO SCH (09:09)
[2018-10-12] MEDS: OSELTAMIVIR PHOSPHATE 30 MG/5 ML SUSPENSION UD PO SCH ×2 (09:10→21:33)
[2018-10-12] MEDS: ENOXAPARIN 40 MG/0.4 ML SQ SCH (09:11)
--- NOTE | 2018-10-12 09:12 | P.PN ---
Subjective Date of Service: 10/12/18 Primary Care Provider: MIKKI Physician Chief Complaint: copd exacerbation, flu positive Subjective: Improving (Less short of breath today.) Physical Examination - Vital Signs Temperature: 97.6 F Blood Pressure: 128/89 Pulse: 106 Respirations: 26 Pulse Ox (%): 90 - Physical Exam General: Alert, In no apparent distress, Oriented x3, Cooperative HEENT: Atraumatic Neck: Supple Respiratory: Crackles/rales (Minimal crackles to the bases), Expiratory wheezes (Less wheezing bilateral) Cardiovascular: Normal pulses, Regular rate/rhythm Gastrointestinal: Normal bowel sounds, Soft and benign, Non-distended, No tenderness, No masses, No rebound, No guarding Musculoskeletal: No erythema, No tenderness, No warmth Integumentary: Other (irritation to inguinal region) Neurological: Normal speech, Normal strength at 5/5 x4 extr, Normal tone, Normal affect - Studies Microbiology Data (last 24 hrs): 10/11/18 02:25 Nasopharnyx Influenza Type A Antigen Screen - Final 10/11/18 02:25 Nasopharnyx Influenza Type B Antigen Screen - Final Medications List Reviewed: Yes Assessment & Plan Discharge Plan: Custodial Plan to discharge in: 24 Hours Physician Review Additional Text: Impression: Acute on chronic respiratory failure secondary to COPD exacerbation complicated with influenza A Acute on chronic renal disease, stage III with dehydration Diabetes mellitus type 2 Hypertension Hyperlipidemia Hypothyroidism Alzheimer's dementia Depression with anxiety Dermatitis, fungal Oral candidiasis Anemia likely of chronic disease Plan: Acute on chronic respiratory failure with noted hypoxia and tachypnea secondary to COPD exacerbation/steroid and oxygen-dependent complicated with influenza A: Patient continues to improve. Continue with oral steroids and breathing treatments. Patient on Tamiflu. Anticipate discharge tomorrow turn snf. Patient will need to continue with COPD medication and oxygen. I will turn the service over to Dr. Tejeda tomorrow. I will go over the plan of care with her. Acute on chronic renal disease, stage III with dehydration: Will discontinue IV fluids. Will continue to monitor closely. Diabetes mellitus type 2: Will provide sliding scale. Will monitor Accu- Cheks. Will discontinue metformin due to chronic renal disease Hypertension: Continue with medication. Hyperlipidemia: Continue with snf medication Hypothyroidism: Will verify medication dose. Continue with medication Alzheimer's dementia: Continue with medication. Patient overall stable. Will assess ambulation. Depression with anxiety: Continue with snf medication Dermatitis, vaginal: Will provide nystatin cream Oral candidiasis: Will provide nystatin swish and swallow. Anemia likely of chronic disease: Will continue to monitor. Time Spent Managing Pts Care (In Minutes): 55
[2018-10-12] MEDS ORDERED: predniSONE 20 MG TAB PO SCH (09:30)
--- NOTE | 2018-10-12 09:33 | P.CNS ---
Date of Consult: 10/12/18 Primary Care Provider: MIKKI Physician Chief Complaint: copd exacerbation, flu positive History of Present Illness: Patient is a 73 years of age admitted with a 1 week history of increasing cough shortness of breath she is doing much better now history of COPD on p.r.n. oxygen doing well [facility] off his a positive Allergies haloperidol [From Haldol] Allergy (Verified 06/05/18 06:05) Rash Penicillins Allergy (Verified 06/05/18 06:05) Rash Home Medications: Acetaminophen [Tylenol*] 500 mg PO Q8HP PRN 06/05/18 Aspirin [Aspirin EC 81 MG] 81 mg PO DAILY 06/05/18 Atorvastatin Calcium [Lipitor] 40 mg PO BEDTIME 06/05/18 Cholecalciferol (Vitamin D3) [Vitamin D3] 2,000 mg PO DAILY 06/05/18 Diltiazem HCl [Cardizem Cd] 240 mg PO DAILY 06/05/18 Famotidine [Pepcid*] 20 mg PO DAILY 06/05/18 Folic Acid 1 mg PO DAILY 06/05/18 Levothyroxine Sodium 25 mcg PO DAILY 06/05/18 Melatonin/Pyridoxine HCl (B6) [Melatonin 3 mg Tablet] 1 each PO PRN PRN Montelukast [Singulair*] 10 mg PO DAILY 06/05/18 Polyvinyl Alcohol [Liquitears] 1 gtts OP BID 06/05/18 Quetiapine [Seroquel*] 50 mg PO BEDTIME 06/05/18 Vit A/Vit C/Vit E/Zinc/Copper [Preservision Areds Softgel] 1 each PO BID predniSONE [Prednisone*] 20 mg PO SEECOM #15 tab 06/06/18 Guaif/Dm [Robitussin Dm] 10 ml PO TID 10/11/18 Lactobacillus Combo No.10 [Probiotic] 1 tab PO DAILY 10/11/18 Linagliptin [Tradjenta] 5 mg PO DAILY 10/11/18 Metformin ER [Glucophage ER] 500 mg PO DAILY 10/11/18 Sitagliptin Phosphate [Januvia*] 100 mg PO DAILY 10/11/18 predniSONE [Prednisone*] 5 mg PO DAILY 10/11/18 - Past Medical/Surgical History Diabetic: No -: COPD -: HTN -: HYPOTHYROIDISM -: BIPOLAR -: GERD -: ALZHEIMERS -: CVA -: Marlon Knee arthritis -: Hyperlipidemia -: mixed receptive expressive language disorder -: left femur surgery - Family History Mother Notes: in car accident Father Notes: 4 years after patient was born - Social History Smoking Status: Unknown if ever smoked Alcohol use: No CD- Drugs: No Caffeine use: Yes Place of Residence: [facility] Review of Systems 10-point ROS is otherwise unremarkable General: Weakness Respiratory: Cough, Shortness of Breath Physical Examination Temp Pulse Resp BP Pulse Ox 97.6 F 106 H 26 H 128/89 90 L 10/12/18 09:12 10/12/18 09:12 10/12/18 09:12 10/12/18 09:12 10/12/18 09:12 General: Alert, In no apparent distress, Oriented x3 Respiratory: Clear to auscultation bilaterally Cardiovascular: No edema, Regular rate/rhythm, Normal S1 S2 - Problems (1) COPD exacerbation Onset Date: 06/03/17 Current Visit: No Status: Acute Plan: Patient is 73 years of age admitted with COPD exacerbation influenza A positive I have added some prednisone chest x-ray shows chronic interstitial changes sodium is mildly elevated possible discharge tomorrow
[2018-10-12] MEDS: POLYVINYL ALCOHOL 1.4% 15 ML OPTH SCH ×2 (09:37→21:36)
[2018-10-12] MEDS: FLUTICASONE 50MCG NASAL SPRAY NAS SCH ×2 (09:37→21:35)
--- NOTE | 2018-10-12 09:58 | RAD REPORT ---
EXAM DESCRIPTION: El[place] Single View10/12/2018 6:31 am CLINICAL HISTORY: Shortness of breath COMPARISON: October 11 FINDINGS: Previously described vague opacity within the mid right lung has diminished in size. Mild interstitial lung opacities appear mostly chronic. Heart is normal size
[2018-10-12] MEDS: NYSTATIN 500,000 UNIT/5 ML UDC PO SCH ×4 (10:00→21:33)
[2018-10-12] MEDS: MONTELUKAST 10 MG TAB PO SCH (10:00)
[2018-10-12] MEDS: MUPIROCIN 2% OINT 22GM TUBE TOP SCH ×2 (10:00→21:34)
[2018-10-12] MEDS: NYSTATIN 100MU/GM CREAM 15GM TOP SCH ×2 (10:00→21:00)
[2018-10-12] MEDS: ATORVASTATIN 40 MG TAB PO SCH (21:33)
[2018-10-12] MEDS: QUETIAPINE 100MG TAB PO SCH (21:34)
[2018-10-13 04:24] LABS: Absolute Lymphocytes (CBC) 0.6 K/uL (0.7-4.9); Absolute Monocytes 0.5 K/uL (0.1-1.3); Basophils % 0.2 % (0-1.3); Hematocrit 31.7 % (36.0-45.0); Lymphocytes % 6.3 % (15.3-44.8); MPV 8.7 fL (7.6-11.3); Monocytes % 5.6 % (3.3-12.3); RBC Red Blood Cell Count 3.71 M/uL (3.86-4.86)
[2018-10-13 04:41] LABS: Potassium 4.3 mmol/L (3.5-5.1)
[2018-10-13] MEDS: LEVOTHYROXINE SOD 0.025 MG TAB PO SCH (05:45)
[2018-10-13] MEDS: INSULIN -REGULAR HUMAN 50 UNIT/0.5 ML ML SQ SCH ×4 (07:30→21:00)
[2018-10-13] MEDS: ARFORMOTEROL TARTRATE 15 MCG/2 ML VIAL.NEB NEB SCH ×2 (08:22→20:00)
[2018-10-13] MEDS: IPRATROPIUM BROM 0.5MG/2.5ML NEB PRN (08:22)
[2018-10-13] MEDS: ALBUTEROL 2.5 MG/3 ML NEB SOL NEB PRN (08:22)
[2018-10-13] MEDS: LACTOBACILLUS/ACIDOPHILUS TAB PO SCH (09:00)
[2018-10-13] MEDS: VIT E PO SCH ×2 (09:00→21:00)
[2018-10-13] MEDS: NYSTATIN 100MU/GM CREAM 15GM TOP SCH ×2 (09:00→20:59)
[2018-10-13] MEDS: VIT A PO SCH ×2 (09:00→21:00)
[2018-10-13] MEDS: ZINC PO SCH ×2 (09:00→21:00)
[2018-10-13] MEDS: COPPER PO SCH ×2 (09:00→21:00)
[2018-10-13] MEDS: VIT C PO SCH ×2 (09:00→21:00)
[2018-10-13] MEDS: HOME MED 1 EA UNK (Linagliptin [Tradjenta] 5 MG) PO SCH (09:00)
[2018-10-13] MEDS: ENOXAPARIN 40 MG/0.4 ML SQ SCH (09:24)
[2018-10-13] MEDS: GUAIFENESIN 600 MG SA TAB PO SCH ×2 (09:24→20:58)
[2018-10-13] MEDS: VITAMIN D 1000 UNIT TAB PO SCH (09:25)
[2018-10-13] MEDS: FAMOTIDINE 20 MG TAB PO SCH (09:25)
[2018-10-13] MEDS: ASPIRIN EC 81 MG TAB PO SCH (09:25)
[2018-10-13] MEDS: DILTIAZEM HCL 120 MG SR CAP PO SCH (09:31)
[2018-10-13] MEDS: predniSONE 20 MG TAB PO SCH ×2 (09:32→20:59)
[2018-10-13] MEDS: NYSTATIN 500,000 UNIT/5 ML UDC PO SCH ×4 (09:33→20:58)
[2018-10-13] MEDS: FOLIC ACID 1 MG TABLET PO SCH (09:33)
[2018-10-13] MEDS: FLUTICASONE 50MCG NASAL SPRAY NAS SCH ×2 (09:34→21:00)
[2018-10-13] MEDS: OSELTAMIVIR PHOSPHATE 30 MG/5 ML SUSPENSION UD PO SCH ×2 (09:34→20:57)
[2018-10-13] MEDS: POLYVINYL ALCOHOL 1.4% 15 ML OPTH SCH ×2 (09:35→21:00)
[2018-10-13] MEDS: MUPIROCIN 2% OINT 22GM TUBE TOP SCH ×2 (09:35→21:00)
[2018-10-13] MEDS: MONTELUKAST 10 MG TAB PO SCH (09:42)
--- NOTE | 2018-10-13 16:53 | P.PN ---
Subjective Date of Service: 10/13/18 Primary Care Provider: MIKKI Physician Chief Complaint: copd exacerbation, flu positive Patient seen and examined at bedside with RN. Chart reviewed. Case discussed the grand rounds in detail. Patient doing well overall. Youth Care Specialist recommendations noted. Overnight no complaints to offer. Has not gotten in and out of bed this morning. Shortness of breath is with better than before. Review of Systems 10-point ROS is otherwise unremarkable Physical Examination - Vital Signs Temperature: 97.6 F Blood Pressure: 144/78 Pulse: 95 Respirations: 20 Pulse Ox (%): 93 - Physical Exam General: Alert, In no apparent distress HEENT: Atraumatic, PERRLA, EOMI Neck: Supple, JVD not distended Respiratory: Normal air movement, Expiratory wheezes, Inspiratory wheezes Cardiovascular: Regular rate/rhythm, Normal S1 S2 Gastrointestinal: Normal bowel sounds, No tenderness Musculoskeletal: No tenderness Integumentary: No rashes Neurological: Normal speech, Normal tone, Normal affect Lymphatics: No axilla or inguinal lymphadenopathy - Studies Medications List Reviewed: Yes Assessment And Plan - Current Problems (Diagnosis) (1) Acute respiratory failure Current Visit: Yes Status: Acute Plan: Acute on chronic respiratory failure most likely secondary to COPD exacerbation -currently on nasal cannula saturating well -steroids, oxygen, nebulizer treatment -Acute phase now resolved Qualifiers: Respiratory failure complication: hypoxia Qualified Code(s): J96.01 - Acute respiratory failure with hypoxia (2) COPD exacerbation Onset Date: 06/03/17 Current Visit: No Status: Acute Plan: COPD exacerbation 2.2 to Influenza -Steriods oxygen, duonebs -Tamiflu for influenza -Pulmonology consulted recommendations appreciated (3) Influenza Current Visit: Yes Status: Acute Plan: Influenza positive -currently on Tamiflu will continue that here in the hospital (4) Vlkzp-tj-ahctify kidney injury Current Visit: Yes Status: Acute Plan: Acute on chronic kidney injury most likely secondary to infection -IV fluids at this time Qualifiers: Acute renal failure type: unspecified Chronic kidney disease stage: unspecified stage Qualified Code(s): N17.9 - Acute kidney failure, unspecified ; N18.9 - Chronic kidney disease, unspecified (5) Dementia in Alzheimer's disease Onset Date: 02/05/18 Current Visit: No Status: Chronic (6) GERD (gastroesophageal reflux disease) Onset Date: 02/05/18 Current Visit: No Status: Chronic Qualifiers: Esophagitis presence: esophagitis presence not specified Qualified Code(s) : K21.9 - Gastro-esophageal reflux disease without esophagitis (7) Hyperlipidemia Onset Date: 02/05/18 Current Visit: No Status: Chronic Qualifiers: Hyperlipidemia type: unspecified Qualified Code(s): E78.5 - Hyperlipidemia , unspecified (8) Hypertension Onset Date: 02/05/18 Current Visit: No Status: Chronic Qualifiers: Hypertension type: essential hypertension Qualified Code(s): I10 - Essential (primary) hypertension (9) Hypothyroidism Onset Date: 02/05/18 Current Visit: No Status: Chronic Qualifiers: Hypothyroidism type: unspecified Qualified Code(s): E03.9 - Hypothyroidism , unspecified (10) Obesity Current Visit: No Status: Chronic Qualifiers: Obesity type: unspecified obesity type Obesity classification: adult class 1 (BMI 30 ? 34.9) Body mass index: BMI 31.0-31.9 - Plan Overall 0 awaiting clinical improvement at this time. Will have patient work with physical therapy here in the hospital. Anticipate discharge in next 24-48 hr to the [facility] after patient has been working with therapy. Discharge Plan: Longterm Plan to discharge in: 48 Hours - Code Status/Comfort Care Code Status Assessed: Yes Critical Care: No
[2018-10-13] MEDS: QUETIAPINE 100MG TAB PO SCH (20:58)
[2018-10-13] MEDS: ATORVASTATIN 40 MG TAB PO SCH (20:59)
[2018-10-14 04:32] LABS: Absolute Lymphocytes (CBC) 0.8 K/uL (0.7-4.9); Absolute Monocytes 0.7 K/uL (0.1-1.3); Absolute Neutrophil 10.3 K/uL (1.8-8.0); Basophils % 0.2 % (0-1.3); Hematocrit 33.7 % (36.0-45.0); Lymphocytes % 6.9 % (15.3-44.8); MPV 8.2 fL (7.6-11.3); RBC Red Blood Cell Count 3.97 M/uL (3.86-4.86)
[2018-10-14 04:40] LABS: Magnesium 1.9 mg/dL (1.8-2.4); Potassium 4.7 mmol/L (3.5-5.1)
[2018-10-14] MEDS: LEVOTHYROXINE SOD 0.025 MG TAB PO SCH (06:39)
[2018-10-14] MEDS: ARFORMOTEROL TARTRATE 15 MCG/2 ML VIAL.NEB NEB SCH (07:40)
[2018-10-14] MEDS: COPPER PO SCH (09:00)
[2018-10-14] MEDS: ZINC PO SCH (09:00)
[2018-10-14] MEDS: VIT E PO SCH (09:00)
[2018-10-14] MEDS: HOME MED 1 EA UNK (Linagliptin [Tradjenta] 5 MG) PO SCH (09:00)
[2018-10-14] MEDS: VIT C PO SCH (09:00)
[2018-10-14] MEDS: MUPIROCIN 2% OINT 22GM TUBE TOP SCH (09:00)
[2018-10-14] MEDS: NYSTATIN 100MU/GM CREAM 15GM TOP SCH (09:00)
[2018-10-14] MEDS: VIT A PO SCH (09:00)
[2018-10-14] MEDS: INSULIN -REGULAR HUMAN 50 UNIT/0.5 ML ML SQ SCH ×2 (09:50→12:27)
[2018-10-14] MEDS: OSELTAMIVIR PHOSPHATE 30 MG/5 ML SUSPENSION UD PO SCH (09:51)
[2018-10-14] MEDS: NYSTATIN 500,000 UNIT/5 ML UDC PO SCH ×2 (09:51→12:28)
[2018-10-14] MEDS: ENOXAPARIN 40 MG/0.4 ML SQ SCH (09:51)
[2018-10-14] MEDS: FOLIC ACID 1 MG TABLET PO SCH (09:52)
[2018-10-14] MEDS: GUAIFENESIN 600 MG SA TAB PO SCH (09:52)
[2018-10-14] MEDS: MONTELUKAST 10 MG TAB PO SCH (09:52)
[2018-10-14] MEDS: FAMOTIDINE 20 MG TAB PO SCH (09:52)
[2018-10-14] MEDS: predniSONE 20 MG TAB PO SCH (09:52)
[2018-10-14] MEDS: ASPIRIN EC 81 MG TAB PO SCH (09:52)
[2018-10-14] MEDS: VITAMIN D 1000 UNIT TAB PO SCH (09:52)
[2018-10-14] MEDS: LACTOBACILLUS/ACIDOPHILUS TAB PO SCH (09:52)
[2018-10-14] MEDS: DILTIAZEM HCL 120 MG SR CAP PO SCH (09:52)
[2018-10-14] MEDS: POLYVINYL ALCOHOL 1.4% 15 ML OPTH SCH (09:53)
[2018-10-14] MEDS: FLUTICASONE 50MCG NASAL SPRAY NAS SCH (09:53)
--- NOTE | 2018-10-14 13:57 | P.DS ---
Admission Date: 10/11/18 Discharge Date: 10/14/18 Primary Care Provider: MIKKI Physician Disposition: TRANSFER TO CUSTODIAL Discharge Condition: GOOD Reason for Admission: copd exacerbation, flu positive Consultations: Pulmonology - Problems (1) Acute respiratory failure Current Visit: Yes Status: Acute Qualifiers: Respiratory failure complication: hypoxia Qualified Code(s): J96.01 - Acute respiratory failure with hypoxia (2) COPD exacerbation Onset Date: 06/03/17 Current Visit: No Status: Acute (3) Influenza Current Visit: Yes Status: Acute (4) Rgfim-zf-fsfjbyr kidney injury Current Visit: Yes Status: Acute Qualifiers: Acute renal failure type: unspecified Chronic kidney disease stage: unspecified stage Qualified Code(s): N17.9 - Acute kidney failure, unspecified ; N18.9 - Chronic kidney disease, unspecified (5) Dementia in Alzheimer's disease Onset Date: 02/05/18 Current Visit: No Status: Chronic (6) GERD (gastroesophageal reflux disease) Onset Date: 02/05/18 Current Visit: No Status: Chronic Qualifiers: Esophagitis presence: esophagitis presence not specified Qualified Code(s) : K21.9 - Gastro-esophageal reflux disease without esophagitis (7) Hyperlipidemia Onset Date: 02/05/18 Current Visit: No Status: Chronic Qualifiers: Hyperlipidemia type: unspecified Qualified Code(s): E78.5 - Hyperlipidemia , unspecified (8) Hypertension Onset Date: 02/05/18 Current Visit: No Status: Chronic Qualifiers: Hypertension type: essential hypertension Qualified Code(s): I10 - Essential (primary) hypertension (9) Hypothyroidism Onset Date: 02/05/18 Current Visit: No Status: Chronic Qualifiers: Hypothyroidism type: unspecified Qualified Code(s): E03.9 - Hypothyroidism , unspecified (10) Obesity Current Visit: No Status: Chronic Qualifiers: Obesity type: unspecified obesity type Obesity classification: adult class 1 (BMI 30 ? 34.9) Body mass index: BMI 31.0-31.9 Brief History of Present Illness: Ms Falcon is a 73 years old woman with history of COPD, HTN, Alzheimer's dementia, hypothyroidism, who is a resident of a local shelter. Today, she was found by the staff, in respiratory distress. They call 911, when EMS arrived , she was tachypneic, O2 sat 84% on RA, she had low grade fever. In ED, lab work remarkable for normal WBC count, temp was 99.3, O2 sat 77% on RA. CXR shows no acute infiltrate. Influenza screening, was positive for influenza A. She was placed then on BiPAP, which is well tolerated. Hospital Course: Overall during the hospital stay patient remained stable The patient was initially admitted to the hospital for COPD exacerbation secondary to flu positive. Patient had acute respiratory failure was on BiPAP did well overall. Pulmonology was consulted. Patient was started on Tamiflu along with IV antibiotics for post influenza pneumonia. Patient had marked improvement in her symptoms and was weaned off of BiPAP here in the hospital. At that time patient was switched over to oral antibiotics was doing well overall worked with physical therapy refused to work with the occupational therapy at which point patient then was transferred back to the shelter and was asked to follow up with primary care provider in about 1-2 days post discharge. Vital Signs/Physical Exam: Temp Pulse Resp BP Pulse Ox 97.6 F 94 H 20 142/77 H 98 10/14/18 08:00 10/14/18 09:52 10/14/18 08:00 10/14/18 09:52 10/14/18 08:00 General: Alert, In no apparent distress HEENT: Atraumatic, PERRLA, EOMI Neck: Supple, JVD not distended Respiratory: Normal air movement, Expiratory wheezes, Inspiratory wheezes Cardiovascular: Regular rate/rhythm, Normal S1 S2 Gastrointestinal: Normal bowel sounds, No tenderness Musculoskeletal: No tenderness Integumentary: No rashes Neurological: Normal speech, Normal tone, Normal affect Lymphatics: No axilla or inguinal lymphadenopathy Laboratory Data at Discharge: WBC 11.8 K/uL (4.3-10.9) H D 10/14/18 04:03 Hgb 10.9 g/dL (12.0-15.0) L 10/14/18 04:03 Hct 33.7 % (36.0-45.0) L 10/14/18 04:03 Plt Count 232 K/uL (152-406) 10/14/18 04:03 PT 12.2 SECONDS (9.5-12.5) 10/11/18 01:55 INR 1.04 10/11/18 01:55 Sodium 143 mmol/L (136-145) 10/14/18 04:03 Potassium 4.7 mmol/L (3.5-5.1) 10/14/18 04:03 BUN 26 mg/dL (7-18) H 10/14/18 04:03 Creatinine 0.93 mg/dL (0.55-1.3) 10/14/18 04:03 Glucose 178 mg/dL (74-106) H 10/14/18 04:03 Magnesium 1.9 mg/dL (1.8-2.4) 10/14/18 04:03 Total Bilirubin 0.3 mg/dL (0.2-1.0) 10/11/18 01:55 AST 21 U/L (15-37) 10/11/18 01:55 ALT 17 U/L (12-78) 10/11/18 01:55 Alkaline Phosphatase 76 U/L (45-117) 10/11/18 01:55 Home Medications: Acetaminophen [Tylenol*] 500 mg PO Q8HP PRN 06/05/18 Aspirin [Aspirin EC 81 MG] 81 mg PO DAILY 06/05/18 Atorvastatin Calcium [Lipitor] 40 mg PO BEDTIME 06/05/18 Cholecalciferol (Vitamin D3) [Vitamin D3] 2,000 mg PO DAILY 06/05/18 Diltiazem HCl [Cardizem Cd] 240 mg PO DAILY 06/05/18 Famotidine [Pepcid*] 20 mg PO DAILY 06/05/18 Folic Acid 1 mg PO DAILY 06/05/18 Levothyroxine Sodium 25 mcg PO DAILY 06/05/18 Melatonin/Pyridoxine HCl (B6) [Melatonin 3 mg Tablet] 1 each PO PRN PRN Montelukast [Singulair*] 10 mg PO DAILY 06/05/18 Polyvinyl Alcohol [Liquitears] 1 gtts OP BID 06/05/18 Quetiapine [Seroquel*] 50 mg PO BEDTIME 06/05/18 Vit A/Vit C/Vit E/Zinc/Copper [Preservision Areds Softgel] 1 each PO BID predniSONE [Prednisone*] 20 mg PO SEECOM #15 tab 06/06/18 Guaif/Dm [Robitussin Dm*] 10 ml PO TID 10/11/18 Lactobacillus Combo No.10 [Probiotic] 1 tab PO DAILY 10/11/18 Linagliptin [Tradjenta] 5 mg PO DAILY 10/11/18 Metformin ER [Glucophage ER*] 500 mg PO DAILY 10/11/18 Sitagliptin Phosphate [Januvia*] 100 mg PO DAILY 10/11/18 predniSONE [Prednisone*] 5 mg PO DAILY 10/11/18 Oseltamivir Phosphate [Tamiflu Suspension] 5 ml PO BID #4 ud 10/14/18 New Medications: Oseltamivir Phosphate [Tamiflu Suspension] 5 ml PO BID #4 ud Diet: Regular Activity: Ad nereida Followup: Sukumar Matute MD [ACTIVE - CAN ADMIT] - 1 Week
== END 2018-10-14 16:25 | DRG 193 ==
LOC: ER 01:27 → ERHOLD 03:56 → 4TH 05:41
PROVIDERS: ADMIT Internal Medicine; ATTEND Family Medicine
PROC: 5A09357 Assistance with Respiratory Ventilation, Less than 24 Consecutive Hours, Continuous Positive Airway Pressure (ICD-10-PCS; principal; 2018-10-11)
DX: J09.X2 Influenza due to identified novel influenza A virus with other respiratory manifestations (principal); J96.21 Acute and chronic respiratory failure with hypoxia; J44.1 Chronic obstructive pulmonary disease with (acute) exacerbation; N17.9 Acute kidney failure, unspecified; B37.0 Candidal stomatitis; K21.9 Gastro-esophageal reflux disease without esophagitis; E78.5 Hyperlipidemia, unspecified; E03.9 Hypothyroidism, unspecified; Z88.0 Allergy status to penicillin; M17.0 Bilateral primary osteoarthritis of knee; Z87.891 Personal history of nicotine dependence; I12.9 Hypertensive chronic kidney disease with stage 1 through stage 4 chronic kidney disease, or unspecified chronic kidney disease; E11.22 Type 2 diabetes mellitus with diabetic chronic kidney disease; N18.3 Chronic kidney disease, stage 3 (moderate); Z79.84 Long term (current) use of oral hypoglycemic drugs; F32.9 Major depressive disorder, single episode, unspecified; F41.9 Anxiety disorder, unspecified; E86.0 Dehydration; B36.8 Other specified superficial mycoses; D63.8 Anemia in other chronic diseases classified elsewhere; E66.9 Obesity, unspecified; Z68.31 Body mass index [BMI] 31.0-31.9, adult
CPT/HCPCS: 36415; 71045; 80048; 80076; 82962; 83605; 83735; 83880; 84145; 84484; 85025; 85610; 87040; 87804; 93005; 94640; 94660; 94760; 96365; 97162; 99285; G9035; J1650; J2920; J3475; J7030; J7512; J7605

== ENCOUNTER 2018-10-18 11:50 | Inpatient (IN) | payer OTHER ==
--- OUTSIDE RECORDS SUMMARY | 2018-10-18 11:52 | XMS REPORT ---
:1945 [facility] [address] [place] [id number] Care Team Providers Name Role Phone Unavailable Unavailable Unavailable Problems This patient has no known problems. Allergies, Adverse Reactions, Alerts Allergy Name Allergy Status Severity Reaction(s) Onset Inactive Treating Comments Type Date Date Clinician Haloperidol DA Active U 2016-01 00:00:0 0 haloperidol DA Active U 2016-01 00:00:0 0 Medications This patient has no known medications.
[2018-10-18 12:24] LABS: Blood Gas Oxyhemoglobin 88.4 % (94-97); Blood O2 Saturation 90.2 % (92-98.5)
--- NOTE | 2018-10-18 12:31 | RAD REPORT ---
EXAM DESCRIPTION: Elanat Single View10/18/2018 12:13 pm CLINICAL HISTORY: Shortness of breath COMPARISON: October 12 2018 FINDINGS: Mild right upper lobe infiltrate is suspected. Left lung appears clear The heart is normal size
[2018-10-18] MEDS ORDERED: METHYLPREDNISOLONE 125 MG INJ ONE (12:35)
[2018-10-18] MEDS ORDERED: LEVALBUTEROL 1.25 MG/3 ML NEB ONE (12:35)
[2018-10-18 12:58] LABS: Protime INR 1.11
[2018-10-18 13:15] LABS: ALT/SGPT 17 U/L (12-78); AST/SGOT 11 U/L (15-37); Albumin 2.7 g/dL (3.4-5.0); Alkaline Phosphatase 70 U/L (45-117); BUN Blood Urea Nitrogen 29 mg/dL (7-18); Bicarbonate 27 mmol/L (21-32); Bilirubin Direct 0.1 mg/dL (0-0.2); Bilirubin Total 0.4 mg/dL (0.2-1.0); Glucose Level 155 mg/dL (74-106); Magnesium 1.8 mg/dL (1.8-2.4); NT PRO-BNP 232 pg/mL (<125); Potassium 4.4 mmol/L (3.5-5.1); Protein, Total 7.1 g/dL (6.4-8.2); Sodium Level 142 mmol/L (136-145); Troponin (Emerg Dept Use Only) < 0.02 ng/mL (0.0-0.045)
--- NOTE | 2018-10-18 14:23 | EDPHYS ---
Physician Documentation [facility] Name: Elizabeth Falcon Age: 73 yrs Sex: Female : 1945 Arrival Date: 10/18/2018 Time: 11:54 Bed 19 Private MD: ED Physician Jj Ramirez HPI: 10/18 12:30 This 73 yrs old Female presents to ER via EMS with complaints of Shortness Of pm1 Breath. 12:30 The patient has shortness of breath at rest. Onset: The symptoms/episode began/occurred pm1 this morning. Duration: The symptoms are continuous. Associated signs and symptoms: Pertinent positives: fever. Patient recently admitted for influenza on 10/11/2018. The patient has been recently been admitted at [facility], for similar complaints. According to the EMS report from [facility], patient with 2 days of fever. She was off of her oxygen some time last night and had a saturation of 70% on R/A. Patient was placed back on her oxygen and she improved to 87% at most on 4L. During transfer patient was combative and would not allow IV access placement. Historical: - Allergies: 12:00 Haldol; bp 12:00 PENICILLINS; bp - Home Meds: 15:13 albuterol sulfate 2.5 mg /3 mL (0.083 %) Inhl nebu 3 mL every 6 hours [Active]; aspirin bp 81 mg Oral chew 1 tab once daily [Active]; Brovana 15 mcg/2 mL inhalation nebu 2 mL 2 times per day [Active]; Vitamin D3 1,000 unit Oral cap daily [Active]; diltiazem HCl 240 mg Oral cpER once daily [Active]; folic acid 1 mg Oral tab once daily [Active]; insulin lispro subcutaneous SLIDING SCALE subcutaneous [Active]; Januvia 100 mg Oral tab 1 tab once daily [Active]; levothyroxine 25 mcg tab 1 tab once daily [Active]; Liquitears 1.4 % Opht drop 1 drop twice a day [Active]; melatonin 3 mg Oral tab nightly [Active]; metformin 500 mg Oral Tb24 1 tab once daily [Active]; Pepcid 20 mg Oral tab 1 tab once daily [Active]; PreserVision AREDS Oral daily [Active]; Probiotic 20 billion cell Oral cap 1 cap daily [Active]; Seroquel 50 mg Oral tab 1 tab nightly [Active]; Singulair 10 mg Oral tab 1 tab once daily [Active]; Tradjenta 5 mg Oral tab 1 tab once daily [Active]; - PMHx: 12:00 Alzheimers; MATIAS knees osteoarthritis; Bipolar disorder; COPD; DYSPHAGIA; GERD; bp Hyperlipidemia; Hypertension; Hypothyroidism; Necrotizing ulcerative stomatitis; ADD/ADHD; - Immunization history:: Adult Immunizations up to date. - Social history:: Smoking status: Patient/guardian denies using tobacco. - Ebola Screening: : Patient negative for fever greater than or equal to 101.5 degrees Fahrenheit, and additional compatible Ebola Virus Disease symptoms Patient denies exposure to infectious person Patient denies travel to an Ebola-affected area in the 21 days before illness onset No symptoms or risks identified at this time. ROS: 12:30 Eyes: Negative for injury, pain, redness, and discharge, ENT: Negative for injury, pm1 pain, and discharge, Neck: Negative for injury, pain, and swelling, Cardiovascular: Negative for chest pain, palpitations, and edema. 12:30 Abdomen/GI: Negative for abdominal pain, nausea, vomiting, diarrhea, and constipation, Back: Negative for injury and pain, : Negative for injury, bleeding, discharge, and swelling, MS/Extremity: Negative for injury and deformity, Skin: Negative for injury, rash, and discoloration, Neuro: Negative for headache, weakness, numbness, tingling, and seizure. 12:30 Constitutional: Positive for fever. 12:30 Respiratory: Positive for shortness of breath. Exam: 12:30 Constitutional: This is a well developed, well nourished patient who is awake, alert, pm1 and in no acute distress. Head/Face: Normocephalic, atraumatic. Eyes: Pupils equal round and reactive to light, extra-ocular motions intact. Lids and lashes normal. Conjunctiva and sclera are non-icteric and not injected. Cornea within normal limits. Periorbital areas with no swelling, redness, or edema. ENT: Nares patent. No nasal discharge, no septal abnormalities noted. Tympanic membranes are normal and external auditory canals are clear. Oropharynx with no redness, swelling, or masses, exudates, or evidence of obstruction, uvula midline. Mucous membranes moist. Neck: Trachea midline, no thyromegaly or masses palpated, and no cervical lymphadenopathy. Supple, full range of motion without nuchal rigidity, or vertebral point tenderness. No Meningismus. Chest/axilla: Normal chest wall appearance and motion. Nontender with no deformity. No lesions are appreciated. Cardiovascular: Regular rate and rhythm with a normal S1 and S2. No gallops, murmurs, or rubs. Normal PMI, no JVD. No pulse deficits. Abdomen/GI: Soft, non-tender, with normal bowel sounds. No distension or tympany. No guarding or rebound. No evidence of tenderness throughout. Back: No spinal tenderness. No costovertebral tenderness. Full range of motion. Skin: Warm, dry with normal turgor. Normal color with no rashes, no lesions, and no evidence of cellulitis. MS/ Extremity: Pulses equal, no cyanosis. Neurovascular intact. Full, normal range of motion. 12:30 Respiratory: Respirations: tachypnea, Breath sounds: wheezing: is heard diffusely, Patient placed on BIPAP prior to my evaluation. 12:30 Neuro: Orientation: to person, Not oriented to place, time, situation, possible baseline Alzheimer's/dementia, Motor: moves all fours. Vital Signs: 12:04 BP 151 / 79; Pulse 143; Resp 33; Temp 99.4; Pulse Ox 96% ; Weight 86.18 kg; bp 13:00 BP 140 / 71; Pulse 131; Resp 28; Pulse Ox 99% ; bp 14:00 BP 154 / 79; Pulse 126; Resp 26; Pulse Ox 98% ; bp 15:00 BP 146 / 76; Pulse 123; Resp 23; Pulse Ox 97% ; bp 16:00 BP 138 / 57; Pulse 118; Resp 30; Pulse Ox 98% on BiPAP; bp MDM: 12:06 Patient medically screened. pm1 13:44 Data reviewed: vital signs. Data interpreted: Pulse oximetry: on bipap is 99 %. pm1 Interpretation: normal. 13:47 Counseling: I had a detailed discussion with the patient and/or guardian regarding: the pm1 historical points, exam findings, and any diagnostic results supporting the discharge/admit diagnosis, lab results, radiology results, the need for further work-up and treatment in the hospital. 14:21 Physician consultation: Lefty Hung MD was called at 14:22, was contacted at 14:22, pm1 regarding admission, patient's condition, and will see patient. 10/18 11:55 Order name: ABG; Complete Time: 13:33 snw 10/18 12:08 Order name: Basic Metabolic Panel; Complete Time: 13:33 pm1 10/18 12:08 Order name: CBC with Diff pm10/18 12:08 Order name: LFT's; Complete Time: 13:33 pm1 10/18 12:08 Order name: Magnesium; Complete Time: 13:33 pm1 10/18 12:08 Order name: NT PRO-BNP; Complete Time: 13:33 pm1 10/18 12:08 Order name: PT-INR; Complete Time: 13:33 pm1 10/18 12:08 Order name: Troponin (emerg Dept Use Only); Complete Time: 13:33 pm1 10/18 12:08 Order name: XRAY Chest (1 view); Complete Time: 13:33 pm1 10/18 12:08 Order name: BIPAP pm10/18 12:08 Order name: Blood Culture Adult (2) pm10/18 12:08 Order name: Urine Microscopic Only pm10/18 13:34 Order name: Procalcitonin; Complete Time: 15:39 pm1 10/18 13:36 Order name: Flu; Complete Time: 14:12 pm1 10/18 12:07 Order name: EKG; Complete Time: 12:07 snw 10/18 12:07 Order name: EKG - Nurse/Tech; Complete Time: 12:22 snw 10/18 12:08 Order name: EKG; Complete Time: 12:08 pm1 10/18 12:08 Order name: Cardiac monitoring; Complete Time: 12:54 pm1 10/18 12:08 Order name: EKG - Nurse/Tech; Complete Time: 12:54 pm1 10/18 12:08 Order name: IV Saline Lock; Complete Time: 12:54 pm1 10/18 12:08 Order name: Labs collected and sent; Complete Time: 12:54 pm1 10/18 12:08 Order name: O2 Per Protocol; Complete Time: 12:54 pm1 10/18 12:08 Order name: O2 Sat Monitoring; Complete Time: 12:55 pm1 Administered Medications: 12:30 Drug: Xopenex 1.25 mg Route: Inhalation; bp 12:30 Drug: SOLU-Medrol 125 mg Route: IVP; Site: right antecubital; bp 14:22 Follow up: Response: No adverse reaction bp 14:00 Drug: LevaQUIN 500 mg Volume: 100 ml; Route: IVPB; Infused Over: 60 mins; Site: right bp antecubital; 15:00 Follow up: IV Status: Completed infusion; IV Intake: 100ml bp 14:49 Drug: NS 0.9% 500 ml Route: IV; Rate: bolus; Site: right antecubital; bp 16:00 Follow up: IV Status: Completed infusion; IV Intake: 500ml bp Disposition: 18:05 Co-signature as Attending Physician, Jj Ramirez MD. ma2 Disposition: 10/18/18 14:23 Hospitalization ordered by Lefty Hung for Inpatient Admission. Preliminary diagnosis are Acute and chronic respiratory failure with hypoxia, Pneumonia, unspecified organism. - Bed requested for Telemetry/MedSurg (Inpatient). - Status is Inpatient Admission. bp - Condition is Stable. - Problem is new. - Symptoms have improved. UTI on Admission? No Signatures: Dispatcher [employer] EDBrina Lawton RN RN dw Therrien, Shelly, GLASS POLISHER-C GLASS POLISHER-Nilew Clay Almanza, MARISOL PARK RANGER pm1 Parish Huddleston RN RN bp Alzahri, Mohammad, MD MD ma2 Corrections: (The following items were deleted from the chart) 15:14 14:23 Hospitalization Ordered by Lefty Hung MD for Inpatient Admission. Preliminary dw diagnosis is Acute and chronic respiratory failure with hypoxia; Pneumonia, unspecified organism. Bed requested for Telemetry/MedSurg (Inpatient). Status is Inpatient Admission. Condition is Stable. Problem is new. Symptoms have improved. UTI on Admission? No. pm1 16:49 15:14 10/18/2018 14:23 Hospitalization Ordered by Lefty Hung MD for Inpatient bp Admission. Preliminary diagnosis is Acute and chronic respiratory failure with hypoxia; Pneumonia, unspecified organism. Bed requested for Telemetry/MedSurg (Inpatient). Status is Inpatient Admission. Condition is Stable. Problem is new. Symptoms have improved. UTI on Admission? No. dw
--- NOTE | 2018-10-18 14:23 | ER ---
Nurse's Notes [facility] Name: Elizabeth Falcon Age: 73 yrs Sex: Female : 1945 Arrival Date: 10/18/2018 Time: 11:54 Bed 19 Private MD: Diagnosis: Acute and chronic respiratory failure with hypoxia;Pneumonia, unspecified organism Presentation: 10/18 11:55 Presenting complaint: EMS states: SOB FROM [facility]. Transition of bp care: patient was not received from another setting of care. Onset of symptoms is unknown. Risk Assessment: Do you want to hurt yourself or someone else? Patient reports no desire to harm self or others. Initial Sepsis Screen: Does the patient meet any 2 criteria? No. Patient's initial sepsis screen is negative. Does the patient have a suspected source of infection? No. Patient's initial sepsis screen is negative. Care prior to arrival: PT REFUSED PIV, BGL EN ROUTE. 11:55 Method Of Arrival: EMS: [facility] bp 11:55 Acuity: [place] 3 bp Triage Assessment: 12:04 General: Appears distressed, uncomfortable, obese, Behavior is anxious, uncooperative. bp Pain: Denies pain. EENT: No deficits noted. Neuro: Level of Consciousness is awake, confused, Oriented to none. Cardiovascular: Rhythm is sinus tachycardia. Respiratory: Reports shortness of breath Airway is patent Respiratory effort is labored, Respiratory pattern is hyperventilation tachypnea Onset: The symptoms/episode began/occurred this morning, the patient has severe shortness of breath. GI: No signs and/or symptoms were reported involving the gastrointestinal system. : No signs and/or symptoms were reported regarding the genitourinary system. Derm: No deficits noted. Musculoskeletal: Circulation, motion, and sensation intact. Range of motion: limited in left hip and right hip. Historical: - Allergies: 12:00 Haldol; bp 12:00 PENICILLINS; bp - Home Meds: 15:13 albuterol sulfate 2.5 mg /3 mL (0.083 %) Inhl nebu 3 mL every 6 hours [Active]; aspirin bp 81 mg Oral chew 1 tab once daily [Active]; Brovana 15 mcg/2 mL inhalation nebu 2 mL 2 times per day [Active]; Vitamin D3 1,000 unit Oral cap daily [Active]; diltiazem HCl 240 mg Oral cpER once daily [Active]; folic acid 1 mg Oral tab once daily [Active]; insulin lispro subcutaneous SLIDING SCALE subcutaneous [Active]; Januvia 100 mg Oral tab 1 tab once daily [Active]; levothyroxine 25 mcg tab 1 tab once daily [Active]; Liquitears 1.4 % Opht drop 1 drop twice a day [Active]; melatonin 3 mg Oral tab nightly [Active]; metformin 500 mg Oral Tb24 1 tab once daily [Active]; Pepcid 20 mg Oral tab 1 tab once daily [Active]; PreserVision AREDS Oral daily [Active]; Probiotic 20 billion cell Oral cap 1 cap daily [Active]; Seroquel 50 mg Oral tab 1 tab nightly [Active]; Singulair 10 mg Oral tab 1 tab once daily [Active]; Tradjenta 5 mg Oral tab 1 tab once daily [Active]; - PMHx: 12:00 Alzheimers; MATIAS knees osteoarthritis; Bipolar disorder; COPD; DYSPHAGIA; GERD; bp Hyperlipidemia; Hypertension; Hypothyroidism; Necrotizing ulcerative stomatitis; ADD/ADHD; - Immunization history:: Adult Immunizations up to date. - Social history:: Smoking status: Patient/guardian denies using tobacco. - Ebola Screening: : Patient negative for fever greater than or equal to 101.5 degrees Fahrenheit, and additional compatible Ebola Virus Disease symptoms Patient denies exposure to infectious person Patient denies travel to an Ebola-affected area in the 21 days before illness onset No symptoms or risks identified at this time. Screenin:09 Abuse screen: Denies threats or abuse. Denies injuries from another. Nutritional bp screening: No deficits noted. Tuberculosis screening: No symptoms or risk factors identified. Fall Risk None identified. Assessment: 12:00 General: Appears distressed, uncomfortable, obese, Behavior is agitated, anxious, bp uncooperative. Pain: Denies pain. Neuro: Level of Consciousness is awake, confused, Oriented to none. Cardiovascular: Rhythm is sinus tachycardia. Respiratory: Airway is patent Respiratory effort is labored, gasping, with retractions, Respiratory pattern is tachypnea Breath sounds are diminished bilaterally. GI: No signs and/or symptoms were reported involving the gastrointestinal system. : No signs and/or symptoms were reported regarding the genitourinary system. EENT: No deficits noted. Derm: No deficits noted. Musculoskeletal: Circulation, motion, and sensation intact. Range of motion: limited in left hip and right hip. 13:00 Reassessment: PT REMAINS AOx0, REQUIRING FREQUENT REDIRECTION TO NOT REMOVE BIPAP MASK. bp REMAINS TACHY ON MONITOR. 15:00 Reassessment: PT CONTINUES TO BE UNCOOPERATIVE AND CONFUSED, ONLY SAYING "NO" IN bp RESPONSE TO ANY QUESTION, PULLING AT BIPAP MASK. ST ON MONITOR. Vital Signs: 12:04 BP 151 / 79; Pulse 143; Resp 33; Temp 99.4; Pulse Ox 96% ; Weight 86.18 kg; bp 13:00 BP 140 / 71; Pulse 131; Resp 28; Pulse Ox 99% ; bp 14:00 BP 154 / 79; Pulse 126; Resp 26; Pulse Ox 98% ; bp 15:00 BP 146 / 76; Pulse 123; Resp 23; Pulse Ox 97% ; bp 16:00 BP 138 / 57; Pulse 118; Resp 30; Pulse Ox 98% on BiPAP; bp ED Course: 11:54 Patient arrived in ED. bp 11:57 Triage completed. bp 12:01 Clay Almanza NP is PHCP. pm1 12:01 Jj Ramirez MD is Attending Physician. pm1 12:04 Arm band placed on. bp 12:06 X-ray completed. Portable x-ray completed in exam room. Patient tolerated procedure kp1 well. 12:09 Patient has correct armband on for positive identification. Bed in low position. Call bp light in reach. Side rails up X2. air sampling and monitoring on. Pulse ox on. NIBP on. 12:10 Parish Huddleston, ESSIE is Primary Nurse. bp 12:13 XRAY Chest (1 view) In Process Unspecified. EDMS 12:20 BIPAP Sent. bp 12:35 First set of blood cultures drawn by me. jb1 12:50 Second set of blood cultures drawn by me. jb1 12:52 Initial lab(s) drawn, by me, sent to lab. Inserted saline lock: 22 gauge in right jb1 antecubital area, using aseptic technique. Blood collected. 12:53 EKG done, by ED staff, reviewed by Clay Almanza NP. jb1 14:22 Lefty Hung MD is Hospitalizing Provider. pm1 15:15 No provider procedures requiring assistance completed. Patient admitted, IV remains in bp place. Administered Medications: 12:30 Drug: Xopenex 1.25 mg Route: Inhalation; bp 12:30 Drug: SOLU-Medrol 125 mg Route: IVP; Site: right antecubital; bp 14:22 Follow up: Response: No adverse reaction bp 14:00 Drug: LevaQUIN 500 mg Volume: 100 ml; Route: IVPB; Infused Over: 60 mins; Site: right bp antecubital; 15:00 Follow up: IV Status: Completed infusion; IV Intake: 100ml bp 14:49 Drug: NS 0.9% 500 ml Route: IV; Rate: bolus; Site: right antecubital; bp 16:00 Follow up: IV Status: Completed infusion; IV Intake: 500ml bp Intake: 15:00 IV: 100ml; Total: 100ml. bp 16:00 IV: 500ml; Total: 600ml. bp Outcome: 14:23 Decision to Hospitalize by Provider. pm1 16:19 Admitted to Med/surg accompanied by tech, via stretcher, room 215, with oxygen, with bp chart, Report called to [facility] 16:19 Condition: stable 16:19 Instructed on the need for admit. 16:49 Patient left the ED. bp Signatures: Dispatcher [employer] EDMS Edil Juarez jb1 Clay Almanza, DEWATERER OPERATOR DEWATERER OPERATOR pm1 Elizabeth Olivier kp1 Parish Huddleston, RN RN bp
[2018-10-18] MEDS ORDERED: Levofloxacin500mg IV 500 MG/100 ML BAG IV ONE (15:00)
[2018-10-18] MEDS ORDERED: NA CHLORIDE 0.9% 500 ML ONE (15:02)
[2018-10-18] MEDS: INSULIN -REGULAR HUMAN 50 UNIT/0.5 ML ML SQ SCH ×2 (16:30→21:30)
[2018-10-18 16:41] LABS: Absolute Lymphocytes (CBC) 0.6 K/uL (0.7-4.9); Absolute Monocytes 1.4 K/uL (0.1-1.3); Absolute Neutrophil 25.9 K/uL (1.8-8.0); Basophils % 0.3 % (0-1.3); Eosinophils % 0.1 % (0-4.4); Hematocrit 38.4 % (36.0-45.0); MPV 8.2 fL (7.6-11.3); Monocytes % 4.9 % (3.3-12.3); RBC Red Blood Cell Count 4.49 M/uL (3.86-4.86)
[2018-10-18] MEDS ORDERED: D50W 25 GM/50 ML SYRINGE IV PRN (16:42)
[2018-10-18] MEDS ORDERED: GLUCAGON 1 MG/VIAL IM PRN (16:42)
[2018-10-18 17:10] LABS: Blood Morphology Comment NOT SEEN (NOT SEEN); Platelet Estimate ADEQ
[2018-10-18] MEDS: ENOXAPARIN 40 MG/0.4 ML SQ SCH (18:07)
--- NOTE | 2018-10-18 18:46 | P.HP ---
Certification for Inpatient Patient admitted to: Inpatient With expected LOS: >2 Midnights Practitioner: I am a practitioner with admitting privileges, knowledge of patient current condition, hospital course, and medical plan of care. Services: Services provided to patient in accordance with Admission requirements found in Title 42 Section 412.3 of the Code of Federal Regulations Patient History Date of Service: 10/18/18 Reason for admission: Shortness of breath, fever History of Present Illness: This is a 73 year old female with a hx of dementia, COPD, CKD, HTN, hypothyroidism who was admitted for shortness of breath. Per records and chart review, patient is a [facility] patient. At the residential, patient has been having on and off low grade temperature. Last night, patient somehow pulled off her CPAP and was found to be de-satting in the 70's. Ambulance was called and she was brought to the ED. In the ED, she was confused more than usual for her and her oxygen saturation was in the 80's. Her lab work was remarkable for a WBC count of 27.9. her ABG was remarkable for decreased oxygen, otherwise was normal. Her urine studies were pending. She was placed on Bi-PAP, which helped improve her saturation. She was admitted for further evaluation. At the time of my exam, patient was alert, and seemed to be oriented x2. She seemed to be at baseline mentation. She was in no acute distress and was able to sit up and feed herself with minimal help. Allergies haloperidol [From Haldol] Allergy (Verified 06/05/18 06:05) Rash Penicillins Allergy (Verified 06/05/18 06:05) Rash Home Medications: Acetaminophen [Tylenol] 650 mg PO Q6H PRN 10/18/18 Albuterol Sulfate [Albuterol Sulfate 0.083% Neb Soln] 3 ml IH Q6H PRN 10/18/18 Arformoterol Tartrate [Brovana] 2 ml IH BID 10/18/18 Aspirin [Adult Low Dose Aspirin EC] 81 mg PO DAILY 10/18/18 Cholecalciferol (Vitamin D3) [Vitamin D3] 2,000 unit PO DAILY 10/18/18 Diltiazem HCl [Diltiazem 24Hr ER] 240 mg PO DAILY 10/18/18 Famotidine [Pepcid*] 20 mg PO DAILY 10/18/18 Fluconazole [Diflucan] 150 mg PO EVERY 7TH DAY 10/18/18 Folic Acid 1 mg PO DAILY 10/18/18 Insulin Lispro [Humalog*] See Protocol SQ AC 10/18/18 Ipratropium/Albuterol Sulfate [Iprat-Albut 0.5-3(2.5) mg/3 ml] 1 vial IH Q6H PRN 10/18/18 Lactobacillus Acidophilus [Probiotic] 1 cap PO DAILY 10/18/18 Levothyroxine Sodium 25 mcg PO DAILY 10/18/18 Linagliptin [Tradjenta] 5 mg PO DAILY 10/18/18 Melatonin 3 mg PO BEDTIME PRN 10/18/18 Metformin ER [Glucophage ER*] 500 mg PO NOON 10/18/18 Montelukast [Singulair*] 10 mg PO DAILY 10/18/18 Ondansetron HCl [Zofran] 4 mg PO Q6H PRN 10/18/18 Polyvinyl Alcohol [Liquitears] 1 drop EACH EYE BID 10/18/18 Quetiapine Fumarate [Seroquel] 50 mg PO BEDTIME 10/18/18 Sitagliptin Phosphate [Januvia*] 100 mg PO DAILY 10/18/18 Tiotropium [place] [Spiriva] 1 puff IH DAILY 10/18/18 Vit A/Vit C/Vit E/Zinc/Copper [Preservision Areds Softgel] 1 cap PO BID - Past Medical/Surgical History Has patient received pneumonia vaccine in the past: Yes Diabetic: Yes -: COPD -: HTN -: HYPOTHYROIDISM -: BIPOLAR -: GERD -: ALZHEIMERS -: CVA -: Marlon Knee arthritis -: Hyperlipidemia -: mixed receptive expressive language disorder -: DM -: CHF -: left femur surgery - Family History Mother Notes: in car accident Father Notes: 4 years after patient was born - Social History Smoking Status: Unknown if ever smoked Alcohol use: No CD- Drugs: No Caffeine use: No Place of Residence: [facility] Review of Systems 10-point ROS is otherwise unremarkable Physical Examination - Vital Signs Temperature: 97 F Blood Pressure: 135/63 Pulse: 119 Respirations: 20 Pulse Ox (%): 97 - Physical Exam General: Alert, In no apparent distress, Oriented x2, Oriented x1 HEENT: Atraumatic, PERRLA, Mucous membr. moist/pink, EOMI, Sclerae nonicteric Neck: Supple, 2+ carotid pulse no bruit, No LAD, Without JVD or thyroid abnormality Respiratory: Dull, Crackles/rales, Expiratory wheezes Cardiovascular: Normal S1 S2, Irregular heart rate/rhythm Gastrointestinal: Normal bowel sounds, No tenderness Musculoskeletal: No tenderness Integumentary: No rashes Neurological: Normal speech, Normal strength at 5/5 x4 extr, Normal tone, Normal affect - Studies Laboratory Data (last 24 hrs) 10/18/18 12:50: PT 13.1 H, INR 1.11 10/18/18 12:50: WBC 27.9 H* D, Hgb 12.3, Hct 38.4, Plt Count 385 D 10/18/18 12:50: Sodium 142, Potassium 4.4, BUN 29 H, Creatinine 0.98, Glucose 155 H, Magnesium 1.8, Total Bilirubin 0.4, AST 11 L, ALT 17, Alkaline Phosphatase 70 Microbiology Data (last 24 hrs): 10/18/18 13:45 Nasopharnyx Influenza Type A Antigen Screen - Final 10/18/18 13:45 Nasopharnyx Influenza Type B Antigen Screen - Final Assessment and Plan - Problems (Diagnosis) (1) Leukocytosis Current Visit: Yes Status: Acute Qualifiers: Leukocytosis type: unspecified Qualified Code(s): D72.829 - Elevated white blood cell count, unspecified (2) Acute renal injury Onset Date: 06/05/18 Current Visit: No Status: Acute (3) Acute respiratory failure Current Visit: No Status: Acute Qualifiers: Respiratory failure complication: hypoxia Qualified Code(s): J96.01 - Acute respiratory failure with hypoxia (4) COPD (chronic obstructive pulmonary disease) Onset Date: 02/05/18 Current Visit: No Status: Acute Qualifiers: COPD type: COPD with acute exacerbation Qualified Code(s): J44.1 - Chronic obstructive pulmonary disease with (acute) exacerbation (5) Pneumonia Onset Date: 06/05/18 Current Visit: Yes Status: Acute Qualifiers: Pneumonia type: due to unspecified organism Laterality: right Lung location: lower lobe of lung Qualified Code(s): J18.1 - Lobar pneumonia, unspecified organism (6) Dementia in Alzheimer's disease Onset Date: 02/05/18 Current Visit: No Status: Chronic (7) Hyperlipidemia Onset Date: 02/05/18 Current Visit: No Status: Chronic Qualifiers: Hyperlipidemia type: unspecified Qualified Code(s): E78.5 - Hyperlipidemia , unspecified (8) Hypertension Onset Date: 02/05/18 Current Visit: No Status: Chronic Qualifiers: Hypertension type: essential hypertension Qualified Code(s): I10 - Essential (primary) hypertension (9) Hypothyroidism Onset Date: 02/05/18 Current Visit: No Status: Chronic Qualifiers: Hypothyroidism type: unspecified Qualified Code(s): E03.9 - Hypothyroidism , unspecified (10) Obesity Current Visit: No Status: Chronic Qualifiers: Obesity type: unspecified obesity type Obesity classification: adult class 1 (BMI 30 ? 34.9) Body mass index: BMI 31.0-31.9 (11) CKD (chronic kidney disease) stage 2, GFR 60-89 ml/min Current Visit: Yes Status: Chronic - Plan This is a 73 year old female with: Acute respiratory failure, with hypoxia COPD exacerbation Pneumonia, Right lower lobe Leukocytosis CKD, stage 2 HLD HTN Hypothyroidism Admit to floor with tele Already improved respirations - continue Bi-PAP as needed, oxygen per protocol. Wean as tolerated. We will continue IV levaquin for a pneumonia. Leuckocytosis could be secondary to PNA, but urine studies are still pending. patient with foul smelling urine at this time and a hx of ESBL UTI in the past. Lactic acid pending. Procal normal. Monitor via AM labs. Continue home medications as tolerated, once reconciled. DVT prophylaxis: Lovenox Diet: Heart healthy Dispo: Admit to floor. Pending symptomatic improvement. Patient will return to [facility] when medically cleared for discharge. Discharge Plan: Long Term - Advance Directives Does patient have a Living Will: No Does patient have a Durable POA for Healthcare: No
[2018-10-18] MEDS ORDERED: MELATONIN 3 MG TABLET PO PRN (18:57)
[2018-10-18] MEDS: IPRATROPIUM BROM 0.5MG/2.5ML NEB SCH (20:00)
[2018-10-18] MEDS: ALBUTEROL 2.5 MG/3 ML NEB SOL NEB SCH (20:00)
[2018-10-18] MEDS: HOME MED 1 EA UNK (Vit A/Vit C/Vit E/Zinc/Copper [Preservision Areds Softgel] 1 CAP) PO SCH (21:00)
[2018-10-18] MEDS: ARFORMOTEROL TARTRATE 15 MCG/2 ML VIAL.NEB IH SCH (21:00)
[2018-10-18] MEDS: QUETIAPINE 25 MG TAB PO SCH (21:50)
[2018-10-18 23:33] LABS: Urine Appearance CLOUDY; Urine Bilirubin NEGATIVE (NEG); Urine Blood NEGATIVE (NEG); Urine Color YELLOW; Urine Glucose 2+ (NEG); Urine Protein 2+ (NEG); Urine Specific Gravity 1.025 (1.005-1.030)
[2018-10-19 00:19] LABS: Urine Culture Reflex Order REFLEXED
[2018-10-19 00:20] LABS: Urine Bacteria >50 /HPF (<20); Urine RBC <5 /HPF (NONE SEEN)
[2018-10-19] MEDS: IPRATROPIUM BROM 0.5MG/2.5ML NEB SCH ×4 (02:00→20:00)
[2018-10-19] MEDS: ALBUTEROL 2.5 MG/3 ML NEB SOL NEB SCH ×2 (02:00→07:45)
[2018-10-19 04:35] LABS: Absolute Lymphocytes (CBC) 0.7 K/uL (0.7-4.9); Absolute Monocytes 0.4 K/uL (0.1-1.3); Absolute Neutrophil 19.8 K/uL (1.8-8.0); Basophils % 0.3 % (0-1.3); Hematocrit 36.5 % (36.0-45.0); Lymphocytes % 3.4 % (15.3-44.8); MPV 8.1 fL (7.6-11.3); Monocytes % 1.8 % (3.3-12.3); RBC Red Blood Cell Count 4.25 M/uL (3.86-4.86)
[2018-10-19 04:59] LABS: Albumin 2.4 g/dL (3.4-5.0); Bilirubin Total 0.3 mg/dL (0.2-1.0); Potassium 4.7 mmol/L (3.5-5.1)
[2018-10-19] MEDS: LEVOTHYROXINE SOD 0.025 MG TAB PO SCH (06:11)
[2018-10-19] MEDS: INSULIN -REGULAR HUMAN 50 UNIT/0.5 ML ML SQ SCH ×4 (07:30→21:03)
[2018-10-19] MEDS: ARFORMOTEROL TARTRATE 15 MCG/2 ML VIAL.NEB IH SCH ×2 (07:45→21:00)
[2018-10-19] MEDS: HOME MED 1 EA UNK (Vit A/Vit C/Vit E/Zinc/Copper [Preservision Areds Softgel] 1 CAP) PO SCH (09:00)
[2018-10-19] MEDS: DILTIAZEM HCL 120 MG SR CAP PO SCH (09:27)
[2018-10-19] MEDS: FAMOTIDINE 20 MG TAB PO SCH (09:27)
[2018-10-19] MEDS: MONTELUKAST 10 MG TAB PO SCH (09:27)
[2018-10-19] MEDS: ASPIRIN EC 81 MG TAB PO SCH (09:27)
[2018-10-19] MEDS: LACTOBACILLUS/ACIDOPHILUS TAB PO SCH (09:28)
--- NOTE | 2018-10-19 11:25 | P.PN ---
Subjective Date of Service: 10/19/18 Chief Complaint: Shortness of breath, fever Subjective: No C/O voiced, Improving Patient seen and examined at bedside. No family at bedside. Chart reviewed and case discussed with nursing staff. More alert and awake this morning. States she had her complete breakfast. No acute events noted overnight On continuous pulse ox, drops in saturation. Though on shore if this is due to a bad sensor as patient has some contracture in her fingers and she is very shaky at times. She is able to talk in full sentences Review of Systems 10-point ROS is otherwise unremarkable Physical Examination - Vital Signs Temperature: 97.4 F Blood Pressure: 139/79 Pulse: 116 Respirations: 18 Pulse Ox (%): 100 - Physical Exam General: Alert, In no apparent distress, Oriented x3 HEENT: Atraumatic, PERRLA, EOMI Neck: Supple, JVD not distended Respiratory: Clear to auscultation bilaterally, Normal air movement Cardiovascular: No edema, Normal S1 S2, Abnormal pulses (Tachycardic) Capillary refill: <2 Seconds Gastrointestinal: Normal bowel sounds, No tenderness Musculoskeletal: No tenderness - Studies Laboratory Data (last 24 hrs) 10/18/18 12:50: PT 13.1 H, INR 1.11 10/18/18 12:50: WBC 27.9 H* D, Hgb 12.3, Hct 38.4, Plt Count 385 D 10/18/18 12:50: Sodium 142, Potassium 4.4, BUN 29 H, Creatinine 0.98, Glucose 155 H, Magnesium 1.8, Total Bilirubin 0.4, AST 11 L, ALT 17, Alkaline Phosphatase 70 Microbiology Data (last 24 hrs): 10/18/18 13:45 Nasopharnyx Influenza Type A Antigen Screen - Final 10/18/18 13:45 Nasopharnyx Influenza Type B Antigen Screen - Final Assessment And Plan - Current Problems (Diagnosis) (1) SIRS (systemic inflammatory response syndrome) Current Visit: Yes Status: Acute (2) Leukocytosis Current Visit: Yes Status: Acute Qualifiers: Leukocytosis type: unspecified Qualified Code(s): D72.829 - Elevated white blood cell count, unspecified (3) Acute renal injury Onset Date: 06/05/18 Current Visit: No Status: Acute (4) Acute respiratory failure Current Visit: No Status: Acute Qualifiers: Respiratory failure complication: hypoxia Qualified Code(s): J96.01 - Acute respiratory failure with hypoxia (5) COPD (chronic obstructive pulmonary disease) Onset Date: 02/05/18 Current Visit: No Status: Acute Qualifiers: COPD type: COPD with acute exacerbation Qualified Code(s): J44.1 - Chronic obstructive pulmonary disease with (acute) exacerbation (6) Pneumonia Onset Date: 06/05/18 Current Visit: Yes Status: Acute Qualifiers: Pneumonia type: due to unspecified organism Laterality: right Lung location: lower lobe of lung Qualified Code(s): J18.1 - Lobar pneumonia, unspecified organism (7) Dementia in Alzheimer's disease Onset Date: 02/05/18 Current Visit: No Status: Chronic (8) Hyperlipidemia Onset Date: 02/05/18 Current Visit: No Status: Chronic Qualifiers: Hyperlipidemia type: unspecified Qualified Code(s): E78.5 - Hyperlipidemia , unspecified (9) Hypertension Onset Date: 02/05/18 Current Visit: No Status: Chronic Qualifiers: Hypertension type: essential hypertension Qualified Code(s): I10 - Essential (primary) hypertension (10) Hypothyroidism Onset Date: 02/05/18 Current Visit: No Status: Chronic Qualifiers: Hypothyroidism type: unspecified Qualified Code(s): E03.9 - Hypothyroidism , unspecified (11) Obesity Current Visit: No Status: Chronic Qualifiers: Obesity type: unspecified obesity type Obesity classification: adult class 1 (BMI 30 ? 34.9) Body mass index: BMI 31.0-31.9 (12) CKD (chronic kidney disease) stage 2, GFR 60-89 ml/min Current Visit: Yes Status: Chronic - Plan Improving respiratory status - continue Bi-PAP as needed, oxygen per protocol. Wean as tolerated. She is on continuous pulse ox. Machine shows decreasing saturations though unsure if this is the sensor. We will change around the Sensor, placed in a different location and continue to monitor. We will continue IV levaquin for pneumonia. Leuckocytosis is improving, though still elevated. It could be secondary to PNA , but urine studies are still pending. Patient with a a hx of ESBL UTI in the past. Lactic acid normal, Procal normal. Continue home medications as tolerated DVT prophylaxis: Lovenox Diet: Heart healthy Dispo: Pending symptomatic improvement. Patient will return to [facility] when medically cleared for discharge. Discharge Plan: Senior Living
[2018-10-19] MEDS: LEVALBUTEROL 0.63 MG/3 ML NEB NEB SCH ×2 (14:08→20:00)
[2018-10-19] MEDS: ENOXAPARIN 40 MG/0.4 ML SQ SCH (18:05)
[2018-10-19] MEDS: Levofloxacin 250mg IV 250 MG/50 ML BAG IV SCH (18:05)
[2018-10-19] MEDS: OCUVITE (VIT A,C & E/LUTEIN/MINERAL) TABLET PO SCH (21:02)
[2018-10-19] MEDS: QUETIAPINE 25 MG TAB PO SCH (21:03)
[2018-10-20] MEDS: LEVALBUTEROL 0.63 MG/3 ML NEB NEB SCH ×4 (02:00→19:25)
[2018-10-20] MEDS: IPRATROPIUM BROM 0.5MG/2.5ML NEB SCH ×4 (02:00→19:25)
[2018-10-20] MEDS: LEVOTHYROXINE SOD 0.025 MG TAB PO SCH (05:30)
[2018-10-20] MEDS: INSULIN -REGULAR HUMAN 50 UNIT/0.5 ML ML SQ SCH ×4 (07:30→21:00)
[2018-10-20] MEDS: ARFORMOTEROL TARTRATE 15 MCG/2 ML VIAL.NEB IH SCH ×2 (08:48→19:25)
[2018-10-20 08:59] LABS: Absolute Lymphocytes (CBC) 1.5 K/uL (0.7-4.9); Absolute Monocytes 1.2 K/uL (0.1-1.3); Absolute Neutrophil 14.1 K/uL (1.8-8.0); Basophils % 0.5 % (0-1.3); Eosinophils % 0.5 % (0-4.4); Hematocrit 33.7 % (36.0-45.0); Lymphocytes % 8.6 % (15.3-44.8); MPV 8.7 fL (7.6-11.3); RBC Red Blood Cell Count 3.95 M/uL (3.86-4.86)
[2018-10-20 09:01] LABS: Potassium 4.2 mmol/L (3.5-5.1)
--- NOTE | 2018-10-20 09:05 | RAD REPORT ---
EXAM DESCRIPTION: Eliana Single View10/20/2018 8:52 am CLINICAL HISTORY: Cough COMPARISON: October 18 FINDINGS: Mild right upper lobe opacities appear partially resolved. Left lung is clear. Lungs are hyperaerated. The heart is normal size IMPRESSION: Partial resolution in mild right upper lobe opacities
[2018-10-20] MEDS: FAMOTIDINE 20 MG TAB PO SCH (09:59)
[2018-10-20] MEDS: OCUVITE (VIT A,C & E/LUTEIN/MINERAL) TABLET PO SCH ×2 (09:59→21:14)
[2018-10-20] MEDS: ASPIRIN EC 81 MG TAB PO SCH (10:00)
[2018-10-20] MEDS: DILTIAZEM HCL 120 MG SR CAP PO SCH (10:00)
[2018-10-20] MEDS: MONTELUKAST 10 MG TAB PO SCH (10:06)
[2018-10-20] MEDS: LACTOBACILLUS/ACIDOPHILUS TAB PO SCH (10:06)
--- NOTE | 2018-10-20 15:42 | P.PN ---
Subjective Date of Service: 10/20/18 Primary Care Provider: [facility] resident Chief Complaint: Shortness of breath, fever Subjective: Other (Patient doing better today. Less short of breath noted.) Physical Examination - Vital Signs Temperature: 97.1 F Blood Pressure: 131/62 Pulse: 120 Respirations: 18 Pulse Ox (%): 97 - Physical Exam General: Alert, In no apparent distress, Cooperative HEENT: Atraumatic Neck: Supple Respiratory: Clear to auscultation bilaterally, Normal air movement Cardiovascular: Abnormal pulses (Sinus tachycardia) Gastrointestinal: Normal bowel sounds, Soft and benign, Non-distended, No tenderness, No masses, No rebound, No guarding Musculoskeletal: No erythema, No tenderness, No warmth Neurological: Normal speech, Normal strength at 5/5 x4 extr, Normal tone, Normal affect - Studies Medications List Reviewed: Yes Assessment & Plan Discharge Plan: [facility] Plan to discharge in: 24 Hours - Code Status/Comfort Care Code Status Assessed: No (Will discuss advanced directives) Physician Review Additional Text: Impression: Acute on chronic respiratory failure secondary to Systemic inflammatory response syndrome, COPD exacerbation with right upper lobe pneumonia complicated with UTI Acute on chronic renal disease, stage III Alzheimer's dementia Hypertension Hyperlipidemia Hypothyroidism Plan: Continue monitor patient closely. Continue antibiotic therapy. Await urine culture results. Initial urine culture positive for Gram negative rods. X-ray shows improvement in right upper lobe pneumonia with partial resolution. Continue with oxygen to maintain sats above 90%. Patient will require oxygen at discharge. Continue with hypertensive medication along with other medication for hyperlipidemia and hypothyroidism. Continue to monitor and recheck lab. [facility] to [facility] once urine culture has finalize. Will discuss advanced directives. Time Spent Managing Pts Care (In Minutes): 55
[2018-10-20] MEDS: Levofloxacin 250mg IV 250 MG/50 ML BAG IV SCH (16:49)
[2018-10-20] MEDS: ENOXAPARIN 40 MG/0.4 ML SQ SCH (16:49)
[2018-10-20] MEDS: QUETIAPINE 25 MG TAB PO SCH (21:14)
[2018-10-21] MEDS: LEVALBUTEROL 0.63 MG/3 ML NEB NEB SCH ×4 (01:18→20:15)
[2018-10-21] MEDS: IPRATROPIUM BROM 0.5MG/2.5ML NEB SCH ×4 (01:18→20:15)
[2018-10-21] MEDS: LEVOTHYROXINE SOD 0.025 MG TAB PO SCH (05:57)
[2018-10-21 06:04] LABS: Absolute Lymphocytes (CBC) 1.2 K/uL (0.7-4.9); Absolute Monocytes 0.9 K/uL (0.1-1.3); Absolute Neutrophil 9.5 K/uL (1.8-8.0); Basophils % 0.6 % (0-1.3); Eosinophils % 1.3 % (0-4.4); Hematocrit 32.3 % (36.0-45.0); Lymphocytes % 9.9 % (15.3-44.8); MPV 8.6 fL (7.6-11.3); Monocytes % 7.5 % (3.3-12.3); RBC Red Blood Cell Count 3.78 M/uL (3.86-4.86)
[2018-10-21 06:18] LABS: Magnesium 1.8 mg/dL (1.8-2.4); Phosphorus 3.5 mg/dL (2.5-4.9); Potassium 3.8 mmol/L (3.5-5.1)
[2018-10-21] MEDS: INSULIN -REGULAR HUMAN 50 UNIT/0.5 ML ML SQ SCH ×4 (07:30→20:46)
[2018-10-21] MEDS: ARFORMOTEROL TARTRATE 15 MCG/2 ML VIAL.NEB IH SCH (07:30)
[2018-10-21] MEDS ORDERED: POTASSIUM CL SA 10 MEQ TAB PO ONE (09:00)
[2018-10-21] MEDS: Meropenem 1,000 MG in NA CHLORIDE 0.9% 100 ML IV SCH ×2 (09:00→20:45)
[2018-10-21] MEDS ORDERED: Meropenem 1000 MG/VIAL IV SCH (09:00)
[2018-10-21] MEDS: DILTIAZEM HCL 120 MG SR CAP PO SCH (09:00)
[2018-10-21] MEDS: MONTELUKAST 10 MG TAB PO SCH (09:38)
[2018-10-21] MEDS: OCUVITE (VIT A,C & E/LUTEIN/MINERAL) TABLET PO SCH ×2 (09:38→20:46)
[2018-10-21] MEDS: FOLIC ACID 1 MG TABLET PO SCH (09:38)
[2018-10-21] MEDS: LACTOBACILLUS/ACIDOPHILUS TAB PO SCH (09:38)
[2018-10-21] MEDS: FAMOTIDINE 20 MG TAB PO SCH (09:38)
[2018-10-21] MEDS: ASPIRIN EC 81 MG TAB PO SCH (09:38)
[2018-10-21] MEDS: NA CHLORIDE 5% Opth Soln 150 DROPS/15 ML BTL EACH EYE SCH ×3 (10:21→20:51)
--- NOTE | 2018-10-21 14:10 | P.PN ---
Subjective Date of Service: 10/21/18 Primary Care Provider: [facility] Chief Complaint: Shortness of breath, fever Subjective: Improving Physical Examination - Vital Signs Temperature: 97.9 F Blood Pressure: 132/63 Pulse: 107 Respirations: 18 Pulse Ox (%): 96 - Physical Exam General: Alert, In no apparent distress HEENT: Atraumatic Neck: Supple Respiratory: Clear to auscultation bilaterally, Normal air movement Cardiovascular: Regular rate/rhythm Gastrointestinal: No tenderness, No masses, No rebound, No guarding Musculoskeletal: No erythema, No tenderness, No warmth Integumentary: No tenderness/swelling, No erythema, No warmth, No cyanosis Neurological: Normal speech, Normal strength at 5/5 x4 extr, Normal tone, Normal affect - Studies Medications List Reviewed: Yes Assessment & Plan Discharge Plan: Skilled Nursing Plan to discharge in: 24 Hours Physician Review Additional Text: Impression: Acute on chronic respiratory failure secondary to Systemic inflammatory response syndrome, COPD exacerbation with right upper lobe pneumonia complicated with UTI, urine culture positive for E. coli-ESBL Acute on chronic renal disease, stage III Alzheimer's dementia Hypertension Hyperlipidemia Hypothyroidism Plan: Acute on chronic respiratory failure secondary to Systemic inflammatory response syndrome, COPD exacerbation with right upper lobe pneumonia complicated with UTI, urine culture positive for E. coli-ESBL: Border PICC line to arrange for IV antibiotic therapy for 7 more days. Patient now on meropenem. X-ray shows improvement. Continue to maintain oxygen sats above 90% . Will wean off oxygen. Patient likely will require oxygen daily for her COPD. Continue with CP medication. Anticipate discharge tomorrow back to the long term with IV antibiotic therapy. Acute on chronic renal disease, stage III: This continues to improve. Will monitor closely. Alzheimer's dementia: Overall stable. Advanced directives addressed in detail. Patient is DNR. Hypertension: Continue medication Hyperlipidemia: Continue medication Hypothyroidism: Continue medication Time Spent Managing Pts Care (In Minutes): 55
[2018-10-21] MEDS: ENOXAPARIN 40 MG/0.4 ML SQ SCH (17:26)
[2018-10-21] MEDS: ARFORMOTEROL TARTRATE 15 MCG/2 ML VIAL.NEB NEB SCH (20:15)
[2018-10-21] MEDS: QUETIAPINE 25 MG TAB PO SCH (20:46)
[2018-10-22] MEDS: LEVALBUTEROL 0.63 MG/3 ML NEB NEB SCH ×4 (01:25→13:20)
[2018-10-22] MEDS: IPRATROPIUM BROM 0.5MG/2.5ML NEB SCH ×4 (01:25→13:20)
[2018-10-22] MEDS: LEVOTHYROXINE SOD 0.025 MG TAB PO SCH (05:34)
[2018-10-22 06:18] LABS: Absolute Lymphocytes (CBC) 1.6 K/uL (0.7-4.9); Absolute Neutrophil 9.7 K/uL (1.8-8.0); Basophils % 0.7 % (0-1.3); Eosinophils % 2.2 % (0-4.4); Hematocrit 33.1 % (36.0-45.0); Lymphocytes % 12.5 % (15.3-44.8); MPV 8.2 fL (7.6-11.3); Monocytes % 7.9 % (3.3-12.3)
[2018-10-22 06:36] LABS: Magnesium 1.6 mg/dL (1.8-2.4)
[2018-10-22] MEDS ORDERED: ALPRAZOLAM 0.25 MG TABLET PO PRN (07:08)
[2018-10-22] MEDS: ARFORMOTEROL TARTRATE 15 MCG/2 ML VIAL.NEB NEB SCH (07:15)
[2018-10-22] MEDS: INSULIN -REGULAR HUMAN 50 UNIT/0.5 ML ML SQ SCH ×3 (07:30→16:30)
[2018-10-22 07:38] LABS: Blood Morphology Comment NOT SEEN (NOT SEEN); Platelet Estimate ADEQ; Urine White Blood Cell Casts OK
[2018-10-22] MEDS ORDERED: MAGNESIUM SULFATE 1 gm IVPB 1 GM/100 ML BAG IV ONE (09:00)
[2018-10-22] MEDS: NA CHLORIDE 5% Opth Soln 150 DROPS/15 ML BTL EACH EYE SCH (09:00)
[2018-10-22] MEDS: Meropenem 1,000 MG in NA CHLORIDE 0.9% 100 ML IV SCH (10:02)
[2018-10-22] MEDS: DILTIAZEM HCL 120 MG SR CAP PO SCH (10:02)
[2018-10-22] MEDS: ASPIRIN EC 81 MG TAB PO SCH (10:03)
[2018-10-22] MEDS: FAMOTIDINE 20 MG TAB PO SCH (10:03)
[2018-10-22] MEDS: LACTOBACILLUS/ACIDOPHILUS TAB PO SCH (10:03)
[2018-10-22] MEDS: FOLIC ACID 1 MG TABLET PO SCH (10:03)
[2018-10-22] MEDS: OCUVITE (VIT A,C & E/LUTEIN/MINERAL) TABLET PO SCH (10:03)
[2018-10-22] MEDS: MONTELUKAST 10 MG TAB PO SCH (10:03)
--- NOTE | 2018-10-22 10:22 | P.DS ---
Admission Date: 10/18/18 Discharge Date: 10/22/18 Primary Care Provider: group home resident Disposition: TRANSFER TO LONG TERM Discharge Condition: GOOD Reason for Admission: Shortness of breath, fever Consultations: none Procedures: CXR: COMPARISON: October 18 FINDINGS: Mild right upper lobe opacities appear partially resolved. Left lung is clear. Lungs are hyperaerated. The heart is normal size IMPRESSION: Partial resolution in mild right upper lobe opacities Medical Problem List: Acute on chronic respiratory failure secondary to COPD exacerbation-(Oxygen dependent) with right upper lobe pneumonia complicated with UTI, urine culture positive for E. coli-ESBL Acute on chronic renal disease, stage III Alzheimer's dementia Hypertension Hypothyroidism Diabetes mellitus type 2 GERD Depression Brief History of Present Illness: 73-year-old female with multiple medical problems came to the emergency room with shortness of breath and fever. Patient found to have acute on chronic respiratory failure related to COPD and right upper lobe pneumonia. Patient was admitted for treatment. Hospital Course: Patient presented with acute on chronic respiratory failure secondary to COPD exacerbation with right upper lobe pneumonia. Patient was admitted and received IV antibiotic therapy with COPD treatment. During the course of her stay patient was positive for UTI. Urine culture was positive for E coli-ESBL. Patient requires IV antibiotic therapy. At discharge patient will continue with IV meropenem 1000 mg twice daily for 7 days. Arrangements to continue IV antibiotic therapy at the residential will be arranged. Patient with PICC line. Recommend to recheck urinalysis after treatment to confirm resolution. If negative PICC line can be removed. Prevention of UTI will need to be enforced at the residential. At discharge she will continue with her COPD medication including Brovana 1 unit dose twice daily, Spiriva 1 puff daily, and Xopenex 1 unit dose 3 times a day as needed for shortness of breath. Patient will continue with oxygen to maintain sats above 90%. Patient to remain on chronic oxygen for her COPD. Recommend to follow up with pulmonology as an outpatient to further monitor. Recommend to recheck chest x-ray in 2-4 weeks to monitor resolution peer Patient had acute on chronic renal disease, stage III. This in improved with hydration. Recommend to recheck lab-BMP in 1-2 weeks to monitor progress. Patient may follow up with nephrology in outpatient to further monitor. Recommend no further use of nonsteroidal anti-inflammatories. Future medications will need to be renally dosed. Diabetic medication will need to be monitored. Diabetic medication adjusted. Patient with diabetes mellitus type 2. Medications reviewed at discharge. Medications adjusted due to renal function. Januvia discontinued since the patient is on Tradjenta. Recommend to continue with metformin 500 mg daily and Tradjenta 5 mg daily. Recommend to monitor blood sugars closely. Recommend to maintain blood sugars less 140 fasting and less than 200 after meals. Patient may be monitored for hypoglycemia. Recommend to recheck A1c every 3 months to monitor closely. Further adjustment in medication may be required in relation to her chronic renal disease. This can be further addressed by residential physician. Patient with Alzheimer's dementia and depression. This remained stable. Patient appropriate and cooperative. Advanced directives address in detail. Patient is DNR. Patient will continue with Seroquel 50 mg at bedtime and melatonin 3 mg daily. Patient with hypothyroidism. Patient will continue with Levoxyl 25 mcg daily. Recommend to recheck tsh and free T4 in 4-6 weeks to monitor progress. Patient with GERD. Patient continue with Pepcid 20 mg daily. Patient will also continue with lactobacillus daily. Patient will continue with her other vitamins including folic acid and multi vitamin. Patient with hypertension. Patient will continue with diltiazem 240 mg 1 pill daily. Recommend blood pressures to remain less than 150/80. Further adjustment can be done by the residential physician. Vital Signs/Physical Exam: Temp Pulse Resp BP Pulse Ox 97.1 F 116 H 18 127/62 96 10/22/18 08:00 10/22/18 10:02 10/22/18 08:00 10/22/18 10:02 10/22/18 08:00 General: Alert, In no apparent distress, Cooperative, Demented (Mild but appropriate) HEENT: Atraumatic Neck: Supple Respiratory: Clear to auscultation bilaterally, Normal air movement Cardiovascular: Abnormal pulses (Mild sinus tachycardia) Gastrointestinal: Normal bowel sounds, Soft and benign, Non-distended, No tenderness, No masses, No rebound, No guarding Musculoskeletal: No erythema, No tenderness, No warmth Integumentary: No tenderness/swelling, No erythema, No warmth, No cyanosis Neurological: Normal speech, Normal strength at 5/5 x4 extr, Normal tone, Normal affect Laboratory Data at Discharge: WBC 12.7 K/uL (4.3-10.9) H 10/22/18 05:54 Hgb 10.5 g/dL (12.0-15.0) L 10/22/18 05:54 Hct 33.1 % (36.0-45.0) L 10/22/18 05:54 Plt Count 379 K/uL (152-406) 10/22/18 05:54 PT 13.1 SECONDS (9.5-12.5) H 10/18/18 12:50 INR 1.11 10/18/18 12:50 Sodium 140 mmol/L (136-145) 10/22/18 05:54 Potassium 4.0 mmol/L (3.5-5.1) 10/22/18 05:54 BUN 14 mg/dL (7-18) 10/22/18 05:54 Creatinine 0.83 mg/dL (0.55-1.3) 10/22/18 05:54 Glucose 118 mg/dL (74-106) H 10/22/18 05:54 Phosphorus 3.5 mg/dL (2.5-4.9) 10/21/18 05:28 Magnesium 1.6 mg/dL (1.8-2.4) L 10/22/18 05:54 Total Bilirubin 0.3 mg/dL (0.2-1.0) 10/19/18 04:17 AST 9 U/L (15-37) L 10/19/18 04:17 ALT 15 U/L (12-78) 10/19/18 04:17 Alkaline Phosphatase 63 U/L (45-117) 10/19/18 04:17 Home Medications: Acetaminophen [Tylenol] 650 mg PO Q6H PRN 10/18/18 Arformoterol Tartrate [Brovana] 2 ml IH BID 10/18/18 Aspirin [Adult Low Dose Aspirin EC] 81 mg PO DAILY 10/18/18 Cholecalciferol (Vitamin D3) [Vitamin D3] 2,000 unit PO DAILY 10/18/18 Diltiazem HCl [Diltiazem 24Hr ER] 240 mg PO DAILY 10/18/18 Famotidine [Pepcid*] 20 mg PO DAILY 10/18/18 Folic Acid 1 mg PO DAILY 10/18/18 Lactobacillus Acidophilus [Probiotic] 1 cap PO DAILY 10/18/18 Levothyroxine Sodium 25 mcg PO DAILY 10/18/18 Linagliptin [Tradjenta] 5 mg PO DAILY 10/18/18 Melatonin 3 mg PO BEDTIME PRN 10/18/18 Metformin ER [Glucophage ER*] 500 mg PO NOON 10/18/18 Montelukast [Singulair*] 10 mg PO DAILY 10/18/18 Ondansetron HCl [Zofran] 4 mg PO Q6H PRN 10/18/18 Polyvinyl Alcohol [Liquitears] 1 drop EACH EYE BID 10/18/18 Quetiapine Fumarate [Seroquel] 50 mg PO BEDTIME 10/18/18 Tiotropium Idalia [Spiriva] 1 puff IH DAILY 10/18/18 Vit A/Vit C/Vit E/Zinc/Copper [Preservision Areds Softgel] 1 cap PO BID Patient Discharge Instructions: 1. Patient to return to residential. 2. Patient presented with acute on chronic respiratory failure secondary to COPD exacerbation with right upper lobe pneumonia. Patient was admitted and received IV antibiotic therapy with COPD treatment. During the course of her stay patient was positive for UTI. Urine culture was positive for E coli-ESBL. Patient requires IV antibiotic therapy. At discharge patient will continue with IV meropenem 1000 mg twice daily for 7 days. Arrangements to continue IV antibiotic therapy at the residential will be arranged. Patient with PICC line. Recommend to recheck urinalysis after treatment to confirm resolution. If negative PICC line can be removed. Prevention of UTI will need to be enforced at the residential. At discharge she will continue with her COPD medication including Brovana 1 unit dose twice daily, Spiriva 1 puff daily, and Xopenex 1 unit dose 3 times a day as needed for shortness of breath. Patient will continue with oxygen to maintain sats above 90%. Patient to remain on chronic oxygen for her COPD. Recommend to follow up with pulmonology as an outpatient to further monitor. Recommend to recheck chest x-ray in 2-4 weeks to monitor resolution peer. 3. Patient had acute on chronic renal disease, stage III. This in improved with hydration. Recommend to recheck lab-BMP in 1- 2 weeks to monitor progress. Patient may follow up with nephrology in outpatient to further monitor. Recommend no further use of nonsteroidal anti- inflammatories. Future medications will need to be renally dosed. Diabetic medication will need to be monitored. Diabetic medication adjusted. 4. Patient with diabetes mellitus type 2. Medications reviewed at discharge. Medications adjusted due to renal function. Januvia discontinued since the patient is on Tradjenta. Recommend to continue with metformin 500 mg daily and Tradjenta 5 mg daily. Recommend to monitor blood sugars closely. Recommend to maintain blood sugars less 140 fasting and less than 200 after meals. Patient may be monitored for hypoglycemia. Recommend to recheck A1c every 3 months to monitor closely. Further adjustment in medication may be required in relation to her chronic renal disease. This can be further addressed by residential physician. 5. Patient with Alzheimer's dementia and depression. This remained stable. Patient appropriate and cooperative. Advanced directives address in detail. Patient is DNR. Patient will continue with Seroquel 50 mg at bedtime and melatonin 3 mg daily. 6. Patient with hypothyroidism. Patient will continue with Levoxyl 25 mcg daily. Recommend to recheck tsh and free T4 in 4-6 weeks to monitor progress. 7. Patient with GERD. Patient continue with Pepcid 20 mg daily. Patient will also continue with lactobacillus daily. 8. Patient will continue with her other vitamins including folic acid and multi vitamin. 9. Patient with hypertension. Patient will continue with diltiazem 240 mg 1 pill daily. Recommend blood pressures to remain less than 150/80. Further adjustment can be done by the residential physician. Diet: ADA Activity: Fall precautions Time spent managing pt's care (in minutes): 55
--- NOTE | 2018-10-22 13:44 | RAD REPORT ---
EXAM DESCRIPTION: RAD - Chest Single View - 10/22/2018 1:38 pm CLINICAL HISTORY: PICC line placement COMPARISON: Chest Single View dated 10/20/2018; Chest Single View dated 10/18/2018; Chest Single View da cherry 10/12/2018; Chest Single View dated 10/11/2018 FINDINGS: Portable chest was obtained following placement of a right upper extremity PICC line. The catheter tip projects over the SVC..
[2018-10-22] MEDS: ENOXAPARIN 40 MG/0.4 ML SQ SCH (16:53)
== END 2018-10-22 17:47 | DRG 190 ==
LOC: ER 11:50 → ERHOLD 14:41 → 2ND 16:20
PROVIDERS: ADMIT Family Medicine; ATTEND Family Medicine
DX: J44.1 Chronic obstructive pulmonary disease with (acute) exacerbation (principal); J18.1 Lobar pneumonia, unspecified organism; J96.21 Acute and chronic respiratory failure with hypoxia; N39.0 Urinary tract infection, site not specified; N17.9 Acute kidney failure, unspecified; J44.0 Chronic obstructive pulmonary disease with (acute) lower respiratory infection; Z99.81 Dependence on supplemental oxygen; B96.20 Unspecified Escherichia coli [E. coli] as the cause of diseases classified elsewhere; Z16.12 Extended spectrum beta lactamase (ESBL) resistance; I12.9 Hypertensive chronic kidney disease with stage 1 through stage 4 chronic kidney disease, or unspecified chronic kidney disease; E11.22 Type 2 diabetes mellitus with diabetic chronic kidney disease; N18.3 Chronic kidney disease, stage 3 (moderate); G30.9 Alzheimer's disease, unspecified; F02.80 Dementia in other diseases classified elsewhere, unspecified severity, without behavioral disturbance, psychotic disturbance, mood disturbance, and anxiety; E03.9 Hypothyroidism, unspecified; K21.9 Gastro-esophageal reflux disease without esophagitis; F32.9 Major depressive disorder, single episode, unspecified; Z88.0 Allergy status to penicillin; E66.9 Obesity, unspecified; Z68.31 Body mass index [BMI] 31.0-31.9, adult
CPT/HCPCS: 36415; 71045; 80048; 80053; 80076; 81001; 82805; 82962; 83605; 83735; 83880; 84100; 84145; 84484; 85025; 85610; 87040; 87077; 87086; 87088; 87186; 87804; 94640; 94660; 94760; 96361; 96365; 96375; 99285; J1650; J2930; J3475; J7605

== ENCOUNTER 2018-12-01 07:33 | Day surgery (SDC) | payer OTHER ==
--- OUTSIDE RECORDS SUMMARY | 2018-12-01 07:37 | XMS REPORT ---
:1945 [facility] Address [facility] Yee [address] [place] [id number] Care Team Providers Name Role Phone Unavailable Unavailable Unavailable Problems This patient has no known problems. Allergies, Adverse Reactions, Alerts Allergy Name Allergy Status Severity Reaction(s) Onset Inactive Treating Comments Type Date Date Clinician Haloperidol DA Active U 2016-01 00:00:0 0 haloperidol DA Active U 2016-01 00:00:0 0 Medications This patient has no known medications.
[2018-12-01] MEDS ORDERED: NA CHLORIDE 0.9% 1,000 ML ONE (07:55)
[2018-12-01] MEDS ORDERED: PROPOFOL 200 MG/20 ML VIAL IV ONE (08:31)
[2018-12-01] MEDS ORDERED: LIDOCAINE 1% MPF 5 ML VIAL ONE (08:32)
--- NOTE | 2018-12-01 20:42 | OP ---
Surgeon: Dashawn Mcduffie MD Procedure To Be Performed: Esophagogastroduodenoscopy. Performing Physician: Dashawn Mcduffie MD. Indications For Procedure: Nausea, vomiting, dysphagia. Plan For Anesthesia: Monitored anesthesia care. Complexity: High due to the patient's comorbidities, especially her COPD. She is likely ASA categor y IV. Technique: After obtaining informed consent from the patient and explaining risks and complications which include but are not limited to bleeding, infection, perforation, and anesthesia complication, t he patient was placed in the left lateral position and sedation was given. From then on, the scope w as advanced into the mouth and carefully guided up till the second portion of the duodenum. After th e completion of examination, the scope and equipment were withdrawn and procedure terminated in a saf e manner. Findings: Esophagus: No gross lesion was seen in the upper and mid esophagus. Biopsies were taken to rule out eosinophilic esophagitis. Has no apparent cause for her dysphagia. In the distal esopha sybil, a very small hiatal hernia was seen; however, at around the GE junction, a patch of nodular muco sa was visualized, this was around 1.5 x 1 cm. Biopsy was taken for this area to rule out any eviden ce of Kennedy's or dysplasia. Stomach: Mild patchy erythema was seen in the body and antrum. Also seen were several scars from prior gastrostomy tubes. There appeared to be 4 in total. Duodenum: T he bulb appeared normal. A small diverticulum was seen in the second portion. Complications: None. Tolerance To Anesthesia: Excellent. 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 Plan: 1.Await pathology results. 2.Follow up in the GI clinic in 2 weeks. 3.Oral PPI once a day. US/MODL Voice ID: [id number] Report ID: [id number]
== END 2018-12-01 09:30 | disposition home or self-care (01) ==
LOC: OR 07:33
PROVIDERS: ATTEND Internal Medicine Gastroenterology
PROC: 0DB58ZX Excision of Esophagus, Via Natural or Artificial Opening Endoscopic, Diagnostic (ICD-10-PCS; 2018-12-01)
PROC: 0DB48ZX Excision of Esophagogastric Junction, Via Natural or Artificial Opening Endoscopic, Diagnostic (ICD-10-PCS; principal; 2018-12-01 08:30)
DX: K22.70 Barrett's esophagus without dysplasia (principal); K20.9 Esophagitis, unspecified; K29.50 Unspecified chronic gastritis without bleeding; K57.10 Diverticulosis of small intestine without perforation or abscess without bleeding; K44.9 Diaphragmatic hernia without obstruction or gangrene; R13.10 Dysphagia, unspecified; J44.9 Chronic obstructive pulmonary disease, unspecified; I10 Essential (primary) hypertension; Z87.891 Personal history of nicotine dependence; Z79.4 Long term (current) use of insulin; Z79.82 Long term (current) use of aspirin; Z79.899 Other long term (current) drug therapy
CPT/HCPCS: 43239; 88312; 82962; 88305; J2704; J7030

== ENCOUNTER 2019-03-03 10:39 | Inpatient (IN) | payer OTHER ==
--- OUTSIDE RECORDS SUMMARY | 2019-03-03 10:42 | XMS REPORT ---
:1945 [facility] Address [facility] Yee [address] [place] [id number] Care Team Providers Name Role Phone Unavailable Unavailable Unavailable Problems This patient has no known problems. Allergies, Adverse Reactions, Alerts Allergy Name Allergy Status Severity Reaction(s) Onset Inactive Treating Comments Type Date Date Clinician Haloperidol DA Active U 2016-01 00:00:0 0 haloperidol DA Active U 2016-01 00:00:0 0 Medications This patient has no known medications.
[2019-03-03] MEDS ORDERED: LORazepam 2 MG/ML VIAL ONE (11:48)
[2019-03-03 12:04] LABS: Absolute Lymphocytes (CBC) 1.2 K/uL (0.7-4.9); Basophils % 0.8 % (0-1.3); Eosinophils % 3.6 % (0-4.4); Hematocrit 37.2 % (36.0-45.0); Lymphocytes % 10.8 % (15.3-44.8); MPV 9.5 fL (7.6-11.3); Monocytes % 6.2 % (3.3-12.3); RBC Red Blood Cell Count 4.86 M/uL (3.86-4.86)
[2019-03-03] MEDS ORDERED: NA CHLORIDE 0.9% 1,000 ML ONE (12:09)
[2019-03-03 12:19] LABS: ALT/SGPT 13 U/L (12-78); AST/SGOT 11 U/L (15-37); Alkaline Phosphatase 119 U/L (45-117); BUN Blood Urea Nitrogen 19 mg/dL (7-18); Bicarbonate 25 mmol/L (21-32); Bilirubin Direct < 0.1 mg/dL (0-0.2); Bilirubin Total 0.2 mg/dL (0.2-1.0); CKMB Creatine Kinase MB 3.5 ng/mL (0.3-3.6); Creatine Phosphokinase 53 U/L (26-192); Glucose Level 100 mg/dL (74-106); Potassium 3.8 mmol/L (3.5-5.1); Protein, Total 7.3 g/dL (6.4-8.2); Sodium Level 139 mmol/L (136-145)
[2019-03-03 12:20] LABS: Protime INR 1.07
[2019-03-03 12:21] LABS: Lipase 183 U/L (73-393); Troponin (Emerg Dept Use Only) < 0.02 ng/mL (0.0-0.045)
--- NOTE | 2019-03-03 12:31 | RAD REPORT ---
EXAM DESCRIPTION: RAD - Chest Single View - 03/03/2019 12:24 pm CLINICAL HISTORY: altered mental status Chest pain. COMPARISON: Chest Single View dated 10/22/2018; Chest Single View dated 10/20/2018; Chest Single View da cherry 10/18/2018; Chest Single View dated 10/12/2018 FINDINGS: Portable technique limits examination quality. Emphysematous changes are present throughout the lungs. Mild linear subsegmental atelectasis is seen in left mid lung. The heart is normal in size. Aortic atherosclerosis. IMPRESSION: COPD.
[2019-03-03 13:12] LABS: Urine Bacteria >50 /HPF (<20); Urine Culture Reflex Order REFLEXED; Urine RBC <5 /HPF (NONE SEEN); Urine Volume < 2.0 ML
[2019-03-03 13:13] LABS: Urine Blood NEGATIVE (NEG); Urine Glucose NEGATIVE (NEG); Urine Protein 1+ (NEG)
[2019-03-03] MEDS ORDERED: CEFTRIAXONE/SWI 1gm 1 GM/10 ML SYR ONE (14:26)
--- NOTE | 2019-03-03 15:01 | EDPHYS ---
Physician Documentation [facility] Name: Elizabeth Falcon Age: 73 yrs Sex: Female : 1945 Arrival Date: 03/03/2019 Time: 10:51 Bed 28 Private MD: ED Physician [place] HPI: 03/03 12:19 This 73 yrs old Female presents to ER via EMS with complaints of Low O2. jr8 12:20 The patient has shortness of breath at rest. Onset: The symptoms/episode began/occurred jr8 gradually, 2 day(s) ago. Duration: The symptoms are continuous. The patient's shortness of breath has no apparent modifying factors. Associated signs and symptoms: The patient has no apparent associated signs or symptoms. Severity of symptoms: At their worst the symptoms were mild in the emergency department the symptoms are unchanged. The patient has not experienced similar symptoms in the past. The patient has not recently seen a physician. [place] sent patient over for 2 day history of low oxygen saturation. Patient 88% RA upon arrival with mild tachypnea. Currently denies any pain or any other complaint. Not wanting to be here but obviously confused. Stated that her watch and TV are cameras watching us. Keeps talking into her watch randomly . Historical: - Allergies: 10:58 Haldol; ss 10:58 PENICILLINS; ss - Home Meds: 16:31 albuterol sulfate 2.5 mg /3 mL (0.083 %) Inhl nebu 3 mL every 6 hours [Active]; aspirin mg2 81 mg Oral chew 1 tab once daily [Active]; Brovana 15 mcg/2 mL inhalation nebu 2 mL 2 times per day [Active]; diltiazem HCl 240 mg Oral cpER once daily [Active]; folic acid 1 mg Oral tab once daily [Active]; insulin lispro sliding scale subcutaneous [Active]; Januvia 100 mg Oral tab 1 tab once daily [Active]; levothyroxine 25 mcg tab 1 tab once daily [Active]; Liquitears 1.4 % Opht drop 1 drop twice a day [Active]; melatonin 3 mg Oral tab nightly [Active]; metformin 500 mg Oral tab 1 tab once daily [Active]; Pepcid 20 mg Oral tab 1 tab once daily [Active]; PreserVision AREDS Oral daily [Active]; Probiotic 20 billion cell Oral cap 1 cap daily [Active]; Seroquel 50 mg Oral tab 1 tab nightly [Active]; Singulair 10 mg Oral tab 1 tab once daily [Active]; Tradjenta 5 mg Oral tab 1 tab once daily [Active]; Vitamin D3 1,000 unit Oral cap daily [Active]; - PMHx: 10:58 ADD/ADHD; Alzheimers; MATIAS knees osteoarthritis; Bipolar disorder; COPD; DYSPHAGIA; ss Necrotizing ulcerative stomatitis; GERD; Hyperlipidemia; Hypertension; Hypothyroidism; schizoeffective disorder; - Immunization history:: Adult Immunizations unknown. - Social history:: Smoking status: unknown. - Ebola Screening: : Unable to complete screening because. ROS: 12:20 Eyes: Negative for injury, pain, redness, and discharge, ENT: Negative for injury, jr8 pain, and discharge, Neck: Negative for injury, pain, and swelling, Cardiovascular: Negative for chest pain, palpitations, and edema, Abdomen/GI: Negative for abdominal pain, nausea, vomiting, diarrhea, and constipation, Back: Negative for injury and pain, MS/Extremity: Negative for injury and deformity, Skin: Negative for injury, rash, and discoloration. 12:20 Respiratory: Positive for shortness of breath. 12:20 Neuro: Positive for altered mental status. Exam: 12:20 Eyes: Pupils equal round and reactive to light, extra-ocular motions intact. Lids and jr8 lashes normal. Conjunctiva and sclera are non-icteric and not injected. Cornea within normal limits. Periorbital areas with no swelling, redness, or edema. ENT: Nares patent. No nasal discharge, no septal abnormalities noted. Tympanic membranes are normal and external auditory canals are clear. Oropharynx with no redness, swelling, or masses, exudates, or evidence of obstruction, uvula midline. Mucous membranes moist. Neck: Trachea midline, no thyromegaly or masses palpated, and no cervical lymphadenopathy. Supple, full range of motion without nuchal rigidity, or vertebral point tenderness. No Meningismus. Abdomen/GI: Soft, non-tender, with normal bowel sounds. No distension or tympany. No guarding or rebound. No evidence of tenderness throughout. Back: No spinal tenderness. No costovertebral tenderness. Full range of motion. Skin: Warm, dry with normal turgor. Normal color with no rashes, no lesions, and no evidence of cellulitis. MS/ Extremity: Pulses equal, no cyanosis. Neurovascular intact. Full, normal range of motion. 12:20 Cardiovascular: Rate: tachycardic, Rhythm: regular, Pulses: Pulses are 2+ in right radial artery and left radial artery. Heart sounds: normal, normal S1and S2, no S3 or S4, no murmur, no rub, no gallop, Edema: is not appreciated, JVD: is not appreciated. 12:20 Respiratory: the patient does not display signs of respiratory distress, Respirations: tachypnea, that is mild, Breath sounds: are clear throughout, no bronchial sounds, no decreased breath sounds, no rales, rhonchi, no stridor, no wheezing. 12:20 Neuro: Orientation: to person, place, Mentation: confused, Memory: immediate memory is intact, remote memory is impaired, recent memory is impaired, Cranial nerves: CN I not tested, CN II- XII are normal as tested, extraocular movements are intact, Facial palsy and sensory deficits are absent. Speech is clear and appropriate. Motor: moves all fours, Sensation: no obvious gross deficits, Gait: not tested. seizure activity, is not displayed by the patient, Abnormal movements: there are no abnormal movements. Vital Signs: 10:58 Pulse 123; Resp 20; Temp 97.9(TE); Pulse Ox 88% on R/A; Weight 45.81 kg (M); iw 11:01 Pulse Ox 98% on 2 lpm NC; ss 11:11 BP 112 / 54; iw 11:45 BP 106 / 63; Pulse 121; Resp 20 S; Pulse Ox 96% on 2 lpm NC; Pain 0/10; iw 12:19 BP 120 / 54; Pulse 119; Resp 22 S; Pulse Ox 97% on 2 lpm NC; Pain 0/10; iw 14:28 BP 103 / 66; Pulse 120; Resp 22 S; Pulse Ox 99% on 2 lpm NC; Pain 0/10; iw 15:45 BP 117 / 46; Pulse 123; Resp 20; Temp 98(O); Pulse Ox 97% on 2 lpm NC; mg2 17:01 BP 117 / 56; Pulse 121; Resp 18; Temp 97.7(TE); Pulse Ox 95% on R/A; mg2 MDM: 10:57 Patient medically screened. [facility] 14:57 Data reviewed: vital signs, nurses notes, lab test result(s), EKG, radiologic studies, jr8 plain films. Data interpreted: Pulse oximetry: on 2L(s) per nasal canula, is 99 %. Interpretation: normal. Counseling: I had a detailed discussion with the patient and/or guardian regarding: the historical points, exam findings, and any diagnostic results supporting the discharge/admit diagnosis, lab results, radiology results, the need for further work-up and treatment in the hospital. ED course: Patient currently alert and oriented to person, place, time, event. Can answer all questions appropriately. Explained to patient that she has urinary tract infection with abnormal VS. Concern for beginning of sepsis which requires admission. Nurse and myself tried to convince patient that she needs to stay but continues to refuse. Wants to sign an AMA form. Explained to her that she could worsen and even from serious infections like this. Patient stated that she does not care and still wants to leave. Will place on antibiotics at [facility]. Knows to come back if worse. . 15:51 ED course: Spoke with a Dr. Lewis who called to ED to try and get patient to stay as porsche well. After discussing with patient that her PCP called up here concerned about her as well, patient reluctantly accepted to stay. Patient will be admitted to hospitalist . 03/03 11:39 Order name: Basic Metabolic Panel [facility] 03/03 11:39 Order name: Blood Culture Adult (2) [facility] 03/03 11:39 Order name: CBC with Diff; Complete Time: 12:09 [facility] 03/03 11:39 Order name: Ckmb; Complete Time: 12:20 [facility] 03/03 11:39 Order name: CPK; Complete Time: 12:20 [facility] 03/03 11:39 Order name: Lactate; Complete Time: 12:17 [facility] 03/03 11:39 Order name: LFT's; Complete Time: 12:20 [facility] 03/03 11:39 Order name: Lipase; Complete Time: 12:29 [facility] 03/03 11:39 Order name: Procalcitonin; Complete Time: 13:06 [facility] 03/03 11:39 Order name: Protime (+inr); Complete Time: 12:29 03/03 11:39 Order name: Ptt, Activated; Complete Time: 12:29 03/03 11:39 Order name: Troponin (emerg Dept Use Only); Complete Time: 12:29 03/03 11:39 Order name: Urine Microscopic Only; Complete Time: 13:37 [facility] 03/03 11:41 Order name: Basic Metabolic Panel; Complete Time: 12:20 [facility] 03/03 11:39 Order name: Cath; Complete Time: 12:57 03/03 11:39 Order name: Chest Single View XRAY; Complete Time: 12:39 03/03 11:39 Order name: Accucheck; Complete Time: 13:03 [facility] 03/03 11:39 Order name: Cardiac monitoring; Complete Time: 11:49 03/03 11:39 Order name: EKG - Nurse/Tech; Complete Time: 12:57 03/03 11:39 Order name: IV Saline Lock - Large Bore; Complete Time: 11:49 [facility] 03/03 11:39 Order name: Labs collected and sent; Complete Time: 11:49 03/03 11:39 Order name: O2 Per Protocol; Complete Time: 11:50 03/03 11:39 Order name: O2 Sat Monitoring; Complete Time: 11:50 03/03 11:39 Order name: Urine Dipstick-Ancillary (obtain specimen); Complete Time: 13:03 [facility] 03/03 12:15 Order name: Diet Regular; Complete Time: 12:15 iw 03/03 13:02 Order name: Urine Dipstick--Ancillary (enter results); Complete Time: 13:37 bd 03/03 13:14 Order name: Urine Culture EDPR Administered Medications: 11:40 Drug: Ativan 1 mg Route: IVP; Site: right antecubital; iw 18:06 Follow up: Response: No adverse reaction; Marked relief of symptoms mg2 11:56 Drug: NS 0.9% (30 ml/kg) 30 ml/kg Route: IV; Rate: bolus; Site: right antecubital; iw 18:06 Follow up: Response: No adverse reaction; IV Status: Completed infusion; IV Intake: mg2 1000ml 14:28 Drug: Rocephin 1 grams Route: IV; Rate: calculated rate; Site: right antecubital; iw 18:05 Follow up: Response: No adverse reaction; IV Status: Completed infusion mg2 Disposition: 03/03/19 15:55 Hospitalization ordered by Lefty Hung for Inpatient Admission. Preliminary diagnosis are Urinary tract infection, site not specified, Altered mental status, unspecified, Chronic respiratory failure with hypoxia. - Bed requested for Telemetry/MedSurg (Inpatient). - Status is Inpatient Admission. mg2 - Condition is Stable. - Problem is new. - Symptoms have improved. UTI on Admission? Yes Addendum: 03/05/2019 07:45 Co-signature as Attending Physician, [place] MD. g s Signatures: Dispatcher [employer] EDMS Keira Heredia Irene, RN RN Julieth Carter RN RN Elliott García PA PA jr8 [place] MD MD Tylor Pettit RN RN mg2 Corrections: (The following items were deleted from the chart) 03/03 15:54 15:00 03/03/2019 15:00 Patients has left against medical advice. Impression: Urinary jr8 tract infection, site not specified. Patient states they are going to Home. Condition is Stable. Follow up: Private Physician; When: Tomorrow; Reason: Recheck today's complaints, Continuance of care, Re-evaluation by your physician. Problem is new. Symptoms have improved. jr8 15:56 15:55 Hospitalization Ordered by Lefty Hung MD for Inpatient Admission. Preliminary jr8 diagnosis is Urinary tract infection, site not specified; Altered mental status, unspecified. Bed requested for Telemetry/MedSurg (Inpatient). Status is Inpatient Admission. Condition is Stable. Problem is new. Symptoms have improved. UTI on Admission? Yes. jr8 17:09 15:56 03/03/2019 15:55 Hospitalization Ordered by Lefty Hung MD for Inpatient bd Admission. Preliminary diagnosis is Urinary tract infection, site not specified; Altered mental status, unspecified; Chronic respiratory failure with hypoxia. Bed requested for Telemetry/MedSurg (Inpatient). Status is Inpatient Admission. Condition is Stable. Problem is new. Symptoms have improved. UTI on Admission? Yes. jr8 18:07 17:09 03/03/2019 15:55 Hospitalization Ordered by Lefty Hung MD for Inpatient mg2 Admission. Preliminary diagnosis is Urinary tract infection, site not specified; Altered mental status, unspecified; Chronic respiratory failure with hypoxia. Bed requested for Telemetry/MedSurg (Inpatient). Status is Inpatient Admission. Condition is Stable. Problem is new. Symptoms have improved. UTI on Admission? Yes. bd
--- NOTE | 2019-03-03 15:01 | ER ---
Nurse's Notes [facility] Name: Elizabeth Falcon Age: 73 yrs Sex: Female : 1945 Arrival Date: 03/03/2019 Time: 10:51 Bed 28 Private MD: Diagnosis: Urinary tract infection, site not specified;Altered mental status, unspecified;Chronic respiratory failure with hypoxia Presentation: 03/03 10:52 Presenting complaint: EMS states: [facility] reports that patient's oxygen level has ss been low "80's" for the past two days. Pt has a history of COPD, but is not O2 dependent. Pt has a history of schizoaffective disorder and is uncooperative during triage and states she does not want to be seen in the ER. Transition of care: patient was received from another setting of care ([facility]), [facility]. Risk Assessment: Do you want to hurt yourself or someone else? Unable to obtain. Initial Sepsis Screen: Does the patient meet any 2 criteria? HR > 90 bpm. Does the patient have a suspected source of infection? No. Patient's initial sepsis screen is negative. 10:52 Method Of Arrival: EMS: [facility] 10:52 Acuity: [place] 2 ss 16:32 Onset of symptoms was March 02, 2019. Care prior to arrival: None. mg2 Historical: - Allergies: 10:58 Haldol; ss 10:58 PENICILLINS; ss - Home Meds: 16:31 albuterol sulfate 2.5 mg /3 mL (0.083 %) Inhl nebu 3 mL every 6 hours [Active]; aspirin mg2 81 mg Oral chew 1 tab once daily [Active]; Brovana 15 mcg/2 mL inhalation nebu 2 mL 2 times per day [Active]; diltiazem HCl 240 mg Oral cpER once daily [Active]; folic acid 1 mg Oral tab once daily [Active]; insulin lispro sliding scale subcutaneous [Active]; Januvia 100 mg Oral tab 1 tab once daily [Active]; levothyroxine 25 mcg tab 1 tab once daily [Active]; Liquitears 1.4 % Opht drop 1 drop twice a day [Active]; melatonin 3 mg Oral tab nightly [Active]; metformin 500 mg Oral tab 1 tab once daily [Active]; Pepcid 20 mg Oral tab 1 tab once daily [Active]; PreserVision AREDS Oral daily [Active]; Probiotic 20 billion cell Oral cap 1 cap daily [Active]; Seroquel 50 mg Oral tab 1 tab nightly [Active]; Singulair 10 mg Oral tab 1 tab once daily [Active]; Tradjenta 5 mg Oral tab 1 tab once daily [Active]; Vitamin D3 1,000 unit Oral cap daily [Active]; - PMHx: 10:58 ADD/ADHD; Alzheimers; MATIAS knees osteoarthritis; Bipolar disorder; COPD; DYSPHAGIA; ss Necrotizing ulcerative stomatitis; GERD; Hyperlipidemia; Hypertension; Hypothyroidism; schizoeffective disorder; - Immunization history:: Adult Immunizations unknown. - Social history:: Smoking status: unknown. - Ebola Screening: : Unable to complete screening because. Screenin:18 Abuse screen: Denies threats or abuse. Denies injuries from another. Nutritional iw screening: No deficits noted. Tuberculosis screening: No symptoms or risk factors identified. Fall Risk IV access (20 points). Assessment: 11:01 Reassessment: Patient cussing at all ED staff members and refusing vital signs to be ss obtained and any care. Pt states, "I want to go back home!". 11:12 Reassessment: pt uncooperative, will allow me to take BP only over her jacket, pt iw states "what do I need to do to get the fuck outta here?" I advised pt that we just want to check a few things on her, pt cannot tell me her name, states she was feeling perfectly fine. 11:50 Reassessment: Patient appears in no apparent distress at this time. Patient and/or iw family updated on plan of care and expected duration. Pain level reassessed. pt appears more relaxed, pt is now cooperative, allowed Fidel Gallagher to start IV and draw labs, pt appears comfortable in bed, requesting food tray. 12:17 General: Appears in no apparent distress. Behavior is calm, cooperative. Pain: Denies iw pain. Neuro: Level of Consciousness is awake, alert, obeys commands, Oriented to person, place, time, situation, Moves all extremities. Cardiovascular: Patient's skin is warm and dry. Respiratory: Respiratory effort is even, labored, Respiratory pattern is regular, symmetrical, Breath sounds are diminished bilaterally. GI: Abdomen is flat. Derm: Skin is fragile, is thin. Musculoskeletal: Range of motion: intact in all extremities. 12:57 Reassessment: Patient appears in no apparent distress at this time. Patient and/or iw family updated on plan of care and expected duration. Pain level reassessed. pt sitting up eating food Patient denies pain at this time. 14:29 Reassessment: Patient appears in no apparent distress at this time. Patient and/or iw family updated on plan of care and expected duration. Pain level reassessed. pt sitting up in bed, pulling at wires, states she is ready to go home. 15:34 Reassessment: patient refused admission. AMA form signed. alf contacted. mg2 16:18 Reassessment: patient's primary care physician called to the provider and concerned mg2 about the patient and advised to admit her in the hospital. provider spoke to the patient and informed her about the plan. awaiting for the bed. Vital Signs: 10:58 Pulse 123; Resp 20; Temp 97.9(TE); Pulse Ox 88% on R/A; Weight 45.81 kg (M); iw 11:01 Pulse Ox 98% on 2 lpm NC; ss 11:11 BP 112 / 54; iw 11:45 BP 106 / 63; Pulse 121; Resp 20 S; Pulse Ox 96% on 2 lpm NC; Pain 0/10; iw 12:19 BP 120 / 54; Pulse 119; Resp 22 S; Pulse Ox 97% on 2 lpm NC; Pain 0/10; iw 14:28 BP 103 / 66; Pulse 120; Resp 22 S; Pulse Ox 99% on 2 lpm NC; Pain 0/10; iw 15:45 BP 117 / 46; Pulse 123; Resp 20; Temp 98(O); Pulse Ox 97% on 2 lpm NC; mg2 17:01 BP 117 / 56; Pulse 121; Resp 18; Temp 97.7(TE); Pulse Ox 95% on R/A; mg2 Vitals: 12:19 Cardiac Rhythm Assessment Sinus tach. iw ED Course: 10:51 Patient arrived in ED. ss 10:55 Triage completed. ss 10:56 Elliott García PA is PHCP. jr8 10:56 [place] MD is Attending Physician. jr8 10:58 Arm band placed on right wrist. ss 11:11 Kayley Rubio, RN is Primary Nurse. iw 11:40 Inserted saline lock: 20 gauge in right antecubital area, using aseptic technique. ss Blood collected. 12:24 Chest Single View XRAY In Process Unspecified. EDMS 12:25 X-ray completed. Portable x-ray completed in exam room. Patient tolerated procedure sw well. 12:57 Speci-cath kit inserted, using sterile technique, specimen obtained. 8 fr returned iw clear yellow urine. Patient tolerated well. 15:55 Lefty Hung MD is Hospitalizing Provider. jr8 16:31 No provider procedures requiring assistance completed. mg2 17:54 Patient admitted, IV remains in place. mg2 17:56 Patient has correct armband on for positive identification. mg2 Administered Medications: 11:40 Drug: Ativan 1 mg Route: IVP; Site: right antecubital; iw 18:06 Follow up: Response: No adverse reaction; Marked relief of symptoms mg2 11:56 Drug: NS 0.9% (30 ml/kg) 30 ml/kg Route: IV; Rate: bolus; Site: right antecubital; iw 18:06 Follow up: Response: No adverse reaction; IV Status: Completed infusion; IV Intake: mg2 1000ml 14:28 Drug: Rocephin 1 grams Route: IV; Rate: calculated rate; Site: right antecubital; iw 18:05 Follow up: Response: No adverse reaction; IV Status: Completed infusion mg2 Intake: 18:06 IV: 1000ml; Total: 1000ml. mg2 Outcome: 15:55 Decision to Hospitalize by Provider. jr8 17:55 Admitted to [facility] via stretcher, room 428, with oxygen, with chart, Report called to mg2 ESSIE GROVER 17:55 Condition: stable 17:55 Instructed on the need for admit, Demonstrated understanding of instructions. 18:07 Patient left the ED. mg2 Signatures: Dispatcher [employer] EDMS Kayley Rubio RN RN Julieth Carter RN RN Elliott García PA PA jr8 Tisha Pineda Michele, RN RN mg2 Corrections: (The following items were deleted from the chart) 11:43 10:58 Pulse 123bpm; Resp 20bpm; Pulse Ox 88% RA; ss iw
[2019-03-03] MEDS: POTASSIUM CL SA 10 MEQ TAB PO ONE ×2 (21:00→21:15)
[2019-03-03] MEDS: INSULIN -REGULAR HUMAN 50 UNIT/0.5 ML ML SQ SCH (21:00)
[2019-03-03] MEDS: ENOXAPARIN 40 MG/0.4 ML SQ SCH ×2 (21:00→21:15)
--- NOTE | 2019-03-03 21:44 | P.HP ---
Patient History Date of Service: 03/03/19 History of Present Illness: This is a 73 year old female with a hx of dementia, COPD, CKD, HTN, hypothyroidism who was admitted for shortness of breath and AMS. Per records and chart review, patient is a [facility] patient. At the group home, patient had been sob. She was found to be 88% on RA in the ED and more confused than her baseline. She did improve with IVF and nebs. Her UA was with evidence of UTI and She was also found to have leuckocytosis with left shift. Initially patient was going to sign out AMA but her PCP called ER and patient reluctantly stayed. She is not cooperative and did not talk to me at the time of my exam. Due to her not talking, unable to head of marketing analytics if patient back to baseline mentation. She was not in any acute distress though Allergies haloperidol [From Haldol] Allergy (Verified 06/05/18 06:05) Rash Penicillins Allergy (Verified 06/05/18 06:05) Rash Home Medications: Acetaminophen [Tylenol] 650 mg PO Q6H PRN 10/18/18 Arformoterol Tartrate [Brovana] 2 ml IH BID 10/18/18 Aspirin [Adult Low Dose Aspirin EC] 81 mg PO DAILY 10/18/18 Cholecalciferol (Vitamin D3) [Vitamin D3] 2,000 unit PO DAILY 10/18/18 Diltiazem HCl [Diltiazem 24Hr ER] 240 mg PO DAILY 10/18/18 Famotidine [Pepcid*] 20 mg PO DAILY 10/18/18 Folic Acid 1 mg PO DAILY 10/18/18 Lactobacillus Acidophilus [Probiotic] 1 cap PO DAILY 10/18/18 Levothyroxine Sodium 25 mcg PO DAILY 10/18/18 Linagliptin [Tradjenta] 5 mg PO DAILY 10/18/18 Melatonin 3 mg PO BEDTIME PRN 10/18/18 Metformin ER [Glucophage ER*] 500 mg PO NOON 10/18/18 Montelukast [Singulair*] 10 mg PO DAILY 10/18/18 Ondansetron HCl [Zofran] 4 mg PO Q6H PRN 10/18/18 Polyvinyl Alcohol [Liquitears] 1 drop EACH EYE BID 10/18/18 Quetiapine Fumarate [Seroquel] 50 mg PO BEDTIME 10/18/18 Tiotropium [place] [Spiriva] 1 puff IH DAILY 10/18/18 Vit A/Vit C/Vit E/Zinc/Copper [Preservision Areds Softgel] 1 cap PO BID Meropenem [Merrem 1 GM/100 ML NS IVPB] 1 gm IV Q12H #7 bag 10/22/18 - Past Medical/Surgical History Has patient received pneumonia vaccine in the past: Yes Diabetic: Yes -: COPD -: HTN -: HYPOTHYROIDISM -: BIPOLAR -: GERD -: ALZHEIMERS -: CVA -: Marlon Knee arthritis -: Hyperlipidemia -: mixed receptive expressive language disorder -: DM -: CHF -: left femur surgery - Family History Mother Notes: in car accident Father Notes: 4 years after patient was born - Social History Smoking Status: Never smoker Alcohol use: No CD- Drugs: No Caffeine use: Yes Review of Systems is unable to be obtained Physical Examination - Vital Signs Temperature: 97.4 F Blood Pressure: 125/59 Pulse: 103 Respirations: 18 Pulse Ox (%): 96 - Physical Exam General: In no apparent distress, Other (Uncooperative) HEENT: Atraumatic, PERRLA, Mucous membr. moist/pink, EOMI, Sclerae nonicteric Neck: Supple, 2+ carotid pulse no bruit, No LAD, Without JVD or thyroid abnormality Respiratory: Clear to auscultation bilaterally, Normal air movement Cardiovascular: Normal S1 S2, Irregular heart rate/rhythm Gastrointestinal: Normal bowel sounds, No tenderness Musculoskeletal: No tenderness Integumentary: No rashes Neurological: Other (Unable to test ) Lymphatics: No axilla or inguinal lymphadenopathy - Studies Laboratory Data (last 24 hrs) 03/03/19 11:40: PT 12.6 H, INR 1.07, APTT 32.1 03/03/19 11:40: Lipase 183 03/03/19 11:40: WBC 11.2 H, Hgb 11.5 L, Hct 37.2, Plt Count 299 03/03/19 11:40: Sodium 139, Potassium 3.8, BUN 19 H, Creatinine 0.95, Glucose 100, Total Bilirubin 0.2, AST 11 L, ALT 13, Alkaline Phosphatase 119 H Assessment and Plan - Plan This is a 73 year old female with: Acute respiratory failure, with hypoxia COPD exacerbation UTI, hx of ESBL CKD, stage 2 HLD HTN Hypothyroidism Admit to floor with tele Already improved respirations - continue Bi-PAP as needed, oxygen per protocol. Wean as tolerated. We will continue IV Reocephin for UTI. Pt has a hx of ESBL UTI, most recent in 10/2018. Unsure if she is a colonizer vs true infection. Await cultures. Procal elevated. Monitor via AM labs. Continue home medications as tolerated, once reconciled. DVT prophylaxis: Lovenox Diet: Heart healthy Dispo: Admit to floor. Pending symptomatic improvement. Patient will return to [facility] when medically cleared for discharge. Discharge Plan: Intermediate - Advance Directives Does patient have a Living Will: No Does patient have a Durable POA for Healthcare: No Time Spent Managing Pts Care (In Minutes): 35
[2019-03-04 05:58] LABS: Absolute Lymphocytes (CBC) 1.5 K/uL (0.7-4.9); Basophils % 1.2 % (0-1.3); Eosinophils % 7.6 % (0-4.4); Hematocrit 32.8 % (36.0-45.0); Lymphocytes % 17.6 % (15.3-44.8); MPV 9.4 fL (7.6-11.3); RBC Red Blood Cell Count 4.29 M/uL (3.86-4.86)
[2019-03-04 06:11] LABS: ALT/SGPT 10 U/L (12-78); AST/SGOT 10 U/L (15-37); Albumin 2.5 g/dL (3.4-5.0); Alkaline Phosphatase 90 U/L (45-117); BUN Blood Urea Nitrogen 13 mg/dL (7-18); Bicarbonate 30 mmol/L (21-32); Bilirubin Total 0.1 mg/dL (0.2-1.0); Glucose Level 82 mg/dL (74-106); Potassium 3.8 mmol/L (3.5-5.1); Sodium Level 145 mmol/L (136-145)
[2019-03-04] MEDS: INSULIN -REGULAR HUMAN 50 UNIT/0.5 ML ML SQ SCH ×4 (07:30→19:57)
[2019-03-04] MEDS: CEFTRIAXONE/SWI 1gm 1 GM/10 ML SYR IV SCH ×2 (08:38→20:20)
[2019-03-04] MEDS: ENOXAPARIN 40 MG/0.4 ML SQ SCH (08:43)
[2019-03-04] MEDS ORDERED: CEFTRIAXONE 1 GM/NS 50 ML 1 GM/50 ML BAG IV SCH (09:00)
--- NOTE | 2019-03-04 13:14 | P.PN ---
Subjective Date of Service: 03/04/19 Subjective: Improving Patient seen and examined at bedside. No family at bedside. Chart reviewed and case discussed with nursing staff. Patient states she is doing better this morning. Still seems to have some confusion, unsure if this is baseline for her. Review of Systems 10-point ROS is otherwise unremarkable Physical Examination - Vital Signs Temperature: 97.8 F Blood Pressure: 139/66 Pulse: 109 Respirations: 17 Pulse Ox (%): 92 - Physical Exam General: Alert, In no apparent distress, Oriented x2 HEENT: Atraumatic, PERRLA, EOMI Neck: Supple, JVD not distended Respiratory: Clear to auscultation bilaterally, Normal air movement Cardiovascular: Regular rate/rhythm, Normal S1 S2 Gastrointestinal: Normal bowel sounds, No tenderness Musculoskeletal: No tenderness Integumentary: No rashes Assessment And Plan - Plan This is a 73 year old female with: Acute respiratory failure, with hypoxia COPD exacerbation UTI, hx of ESBL CKD, stage 2 HLD HTN Hypothyroidism Already improved respirations - oxygen per protocol. Wean as tolerated. We will continue IV Rocephin for UTI. Pt has a hx of ESBL UTI, most recent in . Unsure if she is a colonizer vs true infection. Await cultures. Continue home medications as tolerated, once reconciled. DVT prophylaxis: Lovenox Diet: Heart healthy Dispo:Pending symptomatic improvement. Patient will return to [facility] when medically cleared for discharge. Possible discharge in the next 24-48 hr, once cultures return.
[2019-03-05 06:03] LABS: Absolute Lymphocytes (CBC) 1.7 K/uL (0.7-4.9); Eosinophils % 6.8 % (0-4.4); Hematocrit 33.5 % (36.0-45.0); Lymphocytes % 16.8 % (15.3-44.8); MPV 9.5 fL (7.6-11.3); Monocytes % 8.6 % (3.3-12.3)
[2019-03-05 06:55] LABS: ALT/SGPT 11 U/L (12-78); AST/SGOT 13 U/L (15-37); Albumin 2.6 g/dL (3.4-5.0); Alkaline Phosphatase 93 U/L (45-117); BUN Blood Urea Nitrogen 7 mg/dL (7-18); Bicarbonate 29 mmol/L (21-32); Bilirubin Total 0.2 mg/dL (0.2-1.0); Glucose Level 84 mg/dL (74-106); Potassium 3.6 mmol/L (3.5-5.1); Protein, Total 6.2 g/dL (6.4-8.2); Sodium Level 142 mmol/L (136-145)
[2019-03-05 06:58] LABS: Magnesium 1.4 mg/dL (1.8-2.4)
[2019-03-05] MEDS ORDERED: MAGNESIUM 50% 3 GM in NA CHLORIDE 0.9% 100 ML IV ONE (06:58)
[2019-03-05] MEDS: INSULIN -REGULAR HUMAN 50 UNIT/0.5 ML ML SQ SCH ×3 (07:30→16:30)
[2019-03-05] MEDS: POTASSIUM 25 MEQ EFFERV TAB PO ONE ×2 (08:00→09:20)
[2019-03-05] MEDS: ENOXAPARIN 40 MG/0.4 ML SQ SCH ×2 (09:00→09:21)
[2019-03-05] MEDS: LIDOCAINE 5% PATCH TOP SCH ×2 (09:00→09:20)
[2019-03-05] MEDS: CEFTRIAXONE/SWI 1gm 1 GM/10 ML SYR IV SCH (09:21)
[2019-03-05] MEDS ORDERED: KCL 20 MEQ/100 mL IVPB 20 MEQ/100 ML BAG IV SCH (11:00)
--- NOTE | 2019-03-05 16:31 | P.DS ---
Admission Date: 03/03/19 Discharge Date: 03/05/19 Disposition: TRANSFER TO [facility] Discharge Condition: FAIR Brief History of Present Illness: This is a 73 year old female with a hx of dementia, COPD, CKD, HTN, hypothyroidism who was admitted for shortness of breath and AMS. Per records and chart review, patient is a [facility] patient. At the skilled nursing, patient had been sob. She was found to be 88% on RA in the ED and more confused than her baseline. She did improve with IVF and nebs. Her UA was with evidence of UTI and She was also found to have leuckocytosis with left shift. Initially patient was going to sign out AMA but her PCP called ER and patient reluctantly stayed. She is not cooperative and did not talk to me at the time of my exam. 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 She was not in any acute distress though Hospital Course: Patient was admitted for shortness of breath and altered mental status. She was provided with oxygen per protocol, IV antibiotics. Urine cultures were positive for E. coli sensitive to oral medications. Her mentation improved, returned to baseline prior to discharge. She otherwise remained hemodynamically stable throughout the stay. She was then discharged back to her [facility] skilled nursing in a state she was discharged on oral Bactrim for 5 days. Vital Signs/Physical Exam: Temp Pulse Resp BP Pulse Ox 97.2 F 103 H 18 154/70 H 95 03/05/19 12:00 03/05/19 12:00 03/05/19 12:00 03/05/19 12:00 03/05/19 12:00 General: Alert, In no apparent distress, Confused HEENT: Atraumatic, PERRLA, EOMI Neck: Supple, JVD not distended Respiratory: Clear to auscultation bilaterally, Normal air movement Cardiovascular: Regular rate/rhythm, Normal S1 S2 Gastrointestinal: Normal bowel sounds, No tenderness Musculoskeletal: No tenderness Integumentary: No rashes Laboratory Data at Discharge: WBC 9.8 K/uL (4.3-10.9) 03/05/19 05:24 Hgb 10.6 g/dL (12.0-15.0) L 03/05/19 05:24 Hct 33.5 % (36.0-45.0) L 03/05/19 05:24 Plt Count 294 K/uL (152-406) 03/05/19 05:24 PT 12.6 SECONDS (9.5-12.5) H 03/03/19 11:40 INR 1.07 03/03/19 11:40 APTT 32.1 SECONDS (24.3-36.9) 03/03/19 11:40 Sodium 142 mmol/L (136-145) 03/05/19 05:24 Potassium 3.6 mmol/L (3.5-5.1) 03/05/19 05:24 BUN 7 mg/dL (7-18) 03/05/19 05:24 Creatinine 0.59 mg/dL (0.55-1.3) 03/05/19 05:24 Glucose 84 mg/dL (74-106) 03/05/19 05:24 Magnesium 2.8 mg/dL (1.8-2.4) H D 03/05/19 11:09 Total Bilirubin 0.2 mg/dL (0.2-1.0) 03/05/19 05:24 AST 13 U/L (15-37) L 03/05/19 05:24 ALT 11 U/L (12-78) L 03/05/19 05:24 Alkaline Phosphatase 93 U/L (45-117) 03/05/19 05:24 Lipase 183 U/L (73-393) 03/03/19 11:40 Home Medications: Albuterol Sulfate [Albuterol Sulfate 0.083% Neb Soln] 1 aero NEB Q6H 03/04/19 Arformoterol Tartrate [Brovana] 2 ml IH BID 03/04/19 Aspirin Chewable [Aspirin Chewable*] 81 mg PO DAILY 03/04/19 Cholecalciferol (Vitamin D3) [Vitamin D3] 1,000 unit PO DAILY 03/04/19 Diltiazem HCl [Diltiazem 24Hr ER] 240 mg PO DAILY 03/04/19 Famotidine [Pepcid*] 20 mg PO DAILY 03/04/19 Folic Acid 1 mg PO DAILY 03/04/19 Insulin Lispro 1 unit SQ SEECOM 03/04/19 Lactobacillus Acidophilus [Probiotic] 1 cap PO DAILY 03/04/19 Levothyroxine [Synthroid*] 25 mcg PO DAILY 03/04/19 Linagliptin [Tradjenta] 5 mg PO DAILY 03/04/19 Melatonin 3 mg PO BEDTIME 03/04/19 Metformin HCl [Glucophage*] 500 mg PO DAILY 03/04/19 Montelukast [Singulair*] 10 mg PO DAILY 03/04/19 Polyvinyl Alcohol [Liquitears] 1 drop EACH EYE BID 03/04/19 Quetiapine [Seroquel*] 50 mg PO BEDTIME 03/04/19 Sitagliptin Phosphate [Januvia*] 100 mg PO DAILY 03/04/19 Vit A/Vit C/Vit E/Zinc/Copper [Preservision Areds Softgel] 1 cap PO DAILY Smz./Tmp. [Bactrim Ds 800 MG/160 MG] 1 tab PO BID #10 tab 03/05/19 New Medications: Smz./Tmp. [Bactrim Ds 800 MG/160 MG] 1 tab PO BID #10 tab Diet: ADA Time spent managing pt's care (in minutes): 45
== END 2019-03-05 17:20 | DRG 189 ==
LOC: ER 10:39 → ERHOLD 16:37 → 4TH 17:55
PROVIDERS: ADMIT Family Medicine; ATTEND Family Medicine
DX: J96.21 Acute and chronic respiratory failure with hypoxia (principal); J44.1 Chronic obstructive pulmonary disease with (acute) exacerbation; N39.0 Urinary tract infection, site not specified; I13.0 Hypertensive heart and chronic kidney disease with heart failure and stage 1 through stage 4 chronic kidney disease, or unspecified chronic kidney disease; B96.20 Unspecified Escherichia coli [E. coli] as the cause of diseases classified elsewhere; N18.2 Chronic kidney disease, stage 2 (mild); I50.9 Heart failure, unspecified; E78.5 Hyperlipidemia, unspecified; E03.9 Hypothyroidism, unspecified; G30.9 Alzheimer's disease, unspecified; F02.80 Dementia in other diseases classified elsewhere, unspecified severity, without behavioral disturbance, psychotic disturbance, mood disturbance, and anxiety; K21.9 Gastro-esophageal reflux disease without esophagitis; F31.9 Bipolar disorder, unspecified; E11.22 Type 2 diabetes mellitus with diabetic chronic kidney disease; Z79.84 Long term (current) use of oral hypoglycemic drugs; Z79.82 Long term (current) use of aspirin; Z88.0 Allergy status to penicillin
CPT/HCPCS: 36415; 71045; 80048; 80053; 80076; 81003; 81015; 82550; 82553; 82962; 83605; 83690; 83735; 84145; 84484; 85025; 85610; 85730; 87040; 87077; 87086; 87088; 87186; 94760; 96365; 96366; 96375; 99285; J0696; J1650; J3475; J7030